=== PATIENT | female | born 1990 | race Caucasian/White ===

== ENCOUNTER 2022-03-03 23:34 | Observation (INO) | payer BC, SELFPAY ==
--- NOTE | ~2022-03-03 | NM_ITS ---
EXAMINATION: NM pulmonary perfusion DATE: 03/04/2022 10:20 INDICATION: Chest pain. TECHNIQUE: 5.5 mCi Tc-99m MAA was administered intravenously for perfusion images. Scintigraphic deo ges of the chest were obtained. COMPARISON: Chest CT 03/04/2022 FINDINGS: Perfusion images show matched small defects in right lower lobe. There are matched large defects in l eft lower lobe. IMPRESSION: 1. Nondiagnostic (intermediate probability). Reviewed, dictated and finalized at location B.
--- NOTE | ~2022-03-03 | CT_ITS ---
EXAMINATION: CTA chest PE protocol EXAM DATE: 03/04/2022 03:06 INDICATION: Elevated D Dimer. Chest Pain, Upper Back Pain. TECHNIQUE: Spiral CTA of the chest (pulmonary arteries) was performed with 100 cc Omnipaque 350 intr avenous contrast injection. Images were acquired during the pulmonary arterial phase. Coronal maxi mum intensity projection 3D-reconstructions were created by the technologist on dedicated workstation . Axial, coronal and sagittal reformatted images were reviewed. The dose-length product (DLP) for t his examination was 974.77 mGy-cm. The exposure was tailored according to patient size (auto mA exp osure control), and iterative reconstruction (ASIR) was used as additional dose reduction technique. There is no prior study for comparison. FINDINGS: There is moderate to large size pericardial effusion, with thick appearing pericardial wall and mild surrounding inflammation which could indicate acute pericarditis. The central pulmonary art eries are rather small in caliber, and possibility of cardiac tamponade should be considered, evaluat ed clinically. Some regions of decreased segmental attenuation probably artifactual given evidence of respiratory mo tion at these regions. No pulmonary emboli suspected. No aortic dissection. There are small bilateral pleural effusions. Linear left basilar subsegmental atelectasis. No evidenc e of pneumonia. There is hepatomegaly and hepatic steatosis. There are no osseous abnormalities ident ified. IMPRESSION: 1. Moderate to large pericardial effusion, pericardial wall thickening and mild adjacent fat strandi ng could indicate acute pericarditis. Small central pulmonary arteries, possible cardiac tamponade. No pulmonary emboli suspected. Consider cardiology consult. 2. Small pleural effusions. 3. Hepatomegaly and hepatic steatosis. Reviewed, dictated and finalized at location A. IMPRESSION: 1. Moderate to large pericardial effusion, pericardial wall thickening and mil d adjacent fat stranding could indicate acute pericarditis. Small central pulmo nary arteries, possible cardiac tamponade. No pulmonary emboli suspected. Cons ider cardiology consult. 2. Small pleural effusions. 3. Hepatomegaly and hepatic steatosis.
[2022-03-04] VITALS (30 sets, daily range): BP systolic 117–140; BP diastolic 62–92; PULSE 61–131; RESP 14–24; TEMP 36.5–36.9; O2SAT 94–100; BMI 54.4
--- NOTE | 2022-03-04 | ECHO_ITS ---
Patient Info Name: Kirsten Hendricks Age: 31 years : 1990 Gender: Female Ht: 63 in Wt: 290 lbs BSA: 2.50 m2 HR: 118 bpm BP: 130 / 78 mmHg Heart Rhythm: Tachycardia Technical Quality: Fair Exam Date: 03/04/2022 7:17 AM Exam Location: [facility] Patient Status: Outpatient Admit Date: 03/04/2022 Staff Ordering Physician: Miguel A Romero MD Industrial Editor: Danisha Wood RDCS Attending Provider: Angela Cano DO Referring Physician: Nick WISE; Exam Type: CA echo doppler color flow Study Info Indications - eval for tamponade Complete two-dimensional, color flow and Doppler transthoracic echocardiogram is performed. Summary 1. Technically difficult study with limited views. 2. Left ventricular chamber dimension is normal. 3. Left ventricular systolic function is hyperdynamic, estimated at >70%. 4. There is mildly increased left ventricular wall thickness. 5. The left ventricular diastolic function is grade I diastolic dysfunction. 6. There is trace tricuspid valve regurgitation. 7. No pulmonary hypertension, estimated pulmonary arterial systolic pressure is 18 mmHg. 8. Normal inferior vena cava with >50% collapse upon inspiration consistent with normal right atrial pressure, 5 mmHg. 9. The pericardium appears increased echogenicity of the pericardium. 10. There is small to moderate pericardial effusion largest anteriorly with fibrinous material within the pericardial space. By M-mode and echocardiogram no evidence of right atrial invagination or delayed RV free wall relaxation. However, borderline mitral and tricuspid valve inflows suggestive of possible early tamponade physiology yet incongruent with normal IVC size and collapse. Clinical correlation advised. Left Ventricle Technically difficult study with limited views. Left ventricular chamber dimension is normal. Left ventricular systolic function is hyperdynamic, estimated at >70%. There is mildly increased left ventricular wall thickness. The left ventricular diastolic function is grade I diastolic dysfunction. Right Ventricle Right ventricular chamber dimension is normal. Right ventricular systolic function is normal. Left Atria Left atrial chamber dimension is normal. Right Atria Right atrial chamber dimension is normal. Aortic Valve The aortic valve is not well visualized. There is no aortic valve stenosis. There is no aortic valve regurgitation. Pulmonic Valve The pulmonic valve is not well visualized. Mitral Valve The mitral valve has normal leaflets. There is no mitral valve regurgitation. Tricuspid Valve The tricuspid valve leaflets are not well visualized. There is trace tricuspid valve regurgitation. No pulmonary hypertension, estimated pulmonary arterial systolic pressure is 18 mmHg. Pericardium/Pleural The pericardium appears increased echogenicity of the pericardium. There is small to moderate pericardial effusion largest anteriorly with fibrinous material within the pericardial space. By M-mode and echocardiogram no evidence of right atrial invagination or delayed RV free wall relaxation. However, borderline mitral and tricuspid valve inflows suggestive of possible early tamponade physiology yet incongruent with normal IVC size and collapse. Clinical correlation advised. Inferior Vena Cava Normal inferior vena cava with >50% collapse upon inspiration consistent with normal right atrial pressure, 5 mmHg. Aorta The aortic root size at the sinus of Valsalva is
[2022-03-04 00:33] LABS: Basophils Percent Auto 0.3 % (0.2-1.2); Eosinophils Percent Auto 0.2 % (0-4.4); Hematocrit 38.1 % (37.0-47.0); Hemoglobin 11.7 g/dL (12.0-15.0); Immature Granulocyte Absolute 0.04 K/mm3 (0.00-0.031); Immature Granulocyte Percent A 0.3 % (0-0.5); Lymphocytes Absolute Auto 1.76 K/mm3 (0.9-3.2); Lymphocytes Percent Auto 14.5 % (18.3-44.2); Mean Corpuscular HGB Conc 30.7 g/dl (32-36); Mean Corpuscular Hemoglobin 25.7 pg (26-34); Mean Corpuscular Volume 83.7 fl (80-100); Mean Platelet Volume 8.6 fl (7.4-10.4); Monocytes Absolute Auto 0.6 K/mm3 (0.1-0.6); Neutrophils Absolute Auto 9.7 K/mm3 (1.3-6.7); Neutrophils Percent Auto 79.7 % (45.5-73.1); Platelet Count Result 416 k/mm3 (150-375); Red Blood Count 4.55 M/mm3 (4.2-5.4); Red Cell Distribution Width 15.7 % (11.5-14.5); White Blood Count 12.1 K/mm3 (4.5-10.0)
[2022-03-04 00:46] LABS: Alanine Aminotransferase 12 U/L (4-35); Albumin Level 3.8 g/dL (3.5-5.1); Alkaline Phosphatase 84 U/L (38-126); Anion Gap 11 mmol/L (8-16); Aspartate Amino Transferase 20 U/L (14-36); Bilirubin,Total 0.5 mg/dL (0.2-1.3); Blood Urea Nitrogen 6 mg/dL (7-17); Calcium 8.9 mg/dL (8.4-10.2); Carbon Dioxide 22 mmol/L (22-30); Chloride 102 mmol/L (98-107); Estimated CRCL calculation 181 ml/min; Estimated Glomerular Filt Rate > 60; Glucose 150 mg/dL (65-110); Lipase 52 U/L (23-300); Potassium 3.9 mmol/L (3.4-5.0); Sodium 135 mmol/L (137-145)
[2022-03-04 01:02] LABS: Appearance Urine Slightly Cloudy (Clear); Bilirubin Urine 1+ (Negative); Blood Urine 3+ (Negative); Color Urine Yellow (Yellow); Glucose Urine UA 2+ mg/dL (Negative); Ketones Urine 4+ mg/dL (Negative); Leukocyte Esterase Ur Negative LEU/UL (Negative); Nitrate Urine Negative (Negative); Protein Urine Trace mg/dL (Negative); Urobilinogen Urine 0.2 mg/dL (<2.0); pH Urine 5.5 (5.0-9.0)
[2022-03-04 01:06] LABS: Bacteria Urine Trace /hpf; Mucus Urine Rare /lpf; RBC Urine 21-50 /hpf (0-2); Squamous Epithelial Cell Urine Many /hpf (Few)
[2022-03-04 01:09] LABS: Add Urine Microscopic? YES
--- NOTE | 2022-03-04 01:39 | ED.GENADULT ---
HPI - General Adult General Chief complaint: Back Pain/Injury <Jose Elias Garcia APRN - Last Filed: 03/04/22 01:46> Stated complaint: bodyaches <Jose Elias Garcia APRN - Last Filed: 03/04/22 01:46> Time Seen by Provider: 03/04/22 01:19 <Jose Elias Garcia APRN - Last Filed: 03/04/22 01:46> History of Present Illness HPI narrative: 31-year-old female with a history of diabetes, Joan syndrome, PCOS, dyslipidemia presents to the emergency room with multiple complaints. Presenting complaint today is body aches and back ache. Patient states 3 weeks ago she was evaluated at an outside emergency room for midsternal chest pain that radiated through to her back. Patient states that this pain was constant and sharp and worsened with inspiration. Patient was evaluated in the emergency room at that time, where an EKG and lab work and chest x-ray were performed and patient states they were all negative. Patient states that she followed up with her PCP several days later, and was told the return to the emergency room if her symptoms have not improved. This morning, patient returned to the emergency room for continued chest pain and body aches. Patient states that she was diagnosed with a urinary tract infection and hyperglycemia. Patient denies any dysuria at this time and denies fever. <Jose Elias Garcia APRN - Last Filed: 03/04/22 01:46> Related Data Allergies/adverse reactions: Allergies Allergy/AdvReac Type Severity Reaction Status Date / Time amoxicillin [From Augmentin] Allergy Hives Verified 03/04/22 02:06 clavulanic acid Allergy Hives Verified 03/04/22 02:06 [From Augmentin] promethazine [From Phenergan] Allergy Hives Verified 03/04/22 02:06 <Jose Elias Garcia APRN - Last Filed: 03/04/22 01:46> Review of Systems Review of Systems: CONSTITUTIONAL: Reports body aches EYES: Denies visual changes, redness, or discharge. ENT: Denies rhinorrhea, congestion, sore throat, or otalgia. CARDIOVASCULAR: Reports reproducible chest pain, denies palpitations, or edema. RESPIRATORY: Denies cough or dyspnea. GASTROINTESTINAL: Denies abdominal pain, nausea, vomiting, or diarrhea. GENITOURINARY: Denies dysuria or hematuria. SKIN: Denies rash or itching. MUSCULOSKELETAL: Reports back pain, joint pain and muscle pain NEUROLOGIC: Denies headache, numbness, dizziness, or weakness. PSYCHIATRIC: Denies anxiety or depression. <Jose Elias Garcia APRN - Last Filed: 03/04/22 01:46> PMFSH Family History Family History: Family History Mother Family history of malignant neoplasm of breast in first degree relative <Jose Elias Garcia APRN - Last Filed: 03/04/22 01:46> Social History Social History: Social History Smoking status: Never smoker Alcohol intake: current <Jose Elias Garcia APRN - Last Filed: 03/04/22 01:46> Exam Narrative: GENERAL: Well-appearing, well-nourished EYES: PERRLA and EOMI. ENT: Nares clear, no rhinorrhea or epistaxis. Mucous membranes moist. NECK: Supple. No adenopathy or masses. CHEST: Clear to auscultation. No respiratory distress. No wheezes rales or rhonchi HEART: Regular rate and rhythm. No murmur heard. Normal peripheral pulses. ABDOMEN: Soft, nontender, obese, normal active bowel sounds. EXTREMITIES: Normal range of motion. No edema. SKIN: Warm, dry, no rash. NEURO: No focal deficits. Alert and oriented x3. PSYCH: Normal mood and affect. <Jose Elias Garcia APRN - Last Filed: 03/04/22 01:46> Course BOX PRINTING MACHINE OPERATOR/PA Physician Supervision For this patient encounter, I reviewed the BOX PRINTING MACHINE OPERATOR or PA documentation, treatment plan, and medical decision making; and I had [id number] time with this patient. 31-year-old female presenting the emergency department for evaluation of body aches and chest pain. Patient states on February 13 she began developing some chest pain that radiate
[2022-03-04] MEDS: SODIUM CHLORIDE 0.9% IV 1,000 ML 999 ML IV CONT (02:07)
[2022-03-04 02:10] LABS: Troponin I < 0.012 ng/mL (0.000-0.034)
[2022-03-04 02:20] LABS: CRP 20.7 mg/dL (<1.0)
[2022-03-04 02:24] LABS: Lactic Acid Reflex 1.3 mmol/L (0.7-2.1)
[2022-03-04 02:36] LABS: D Dimer 4.88 ug/mL (<0.48)
[2022-03-04 02:51] LABS: Erythrocyte Sedimentation Rate > 140 mm/hr (0-20)
[2022-03-04 03:59] LABS: Influenza A QL RT-PCR Negative (Negative); Influenza B QL RT-PCR Negative (Negative); SARS-CoV-2 RNA PCR Negative
--- NOTE | 2022-03-04 06:01 | ECG_ITS ---
Measurements Intervals [place] Rate: 122 P: 38 IA: 162 QRS: 36 QRSD: 98 T: 32 QT: 310 QTc: 442 Interpretive Statements SINUS TACHYCARDIA LOW QRS VOLTAGE IN PRECORDIAL LEADS [QRS DEFLECTION < 1.0 mV IN CHEST LEADS] NONSPECIFIC ST ELEVATION DIFFUSELY, CONSIDER PERICARDITIS, EARLY REPOLARIZATION ABNORMALITY ABNORMAL ECG NO PREVIOUS ECG AVAILABLE FOR COMPARISON Electronically Signed On 03-04-2022 17:54:41 CDT by Lokesh Brown M.D.
[2022-03-04] MEDS: HYDROmorphone HCL INJ (*CRX) 1 MG/ML SYR 0.5 MG IV PUSH (06:32)
--- NOTE | 2022-03-04 09:01 | ADMGEN ---
This patient, Kirsten Hendricks, was admitted to IMU Room 212-01. Patient/family oriented to hospital policies and general routines including ID bracelet, bed and alarms, visiting hours, pain management, procedures, bathroom and other care routines, personal items, smoking policy, room service/diet, and visiting hours. Information on how to activate the Rapid Response Team has been discussed. Patient/Family are encouraged to report perceived risks to care and to ask questions if they do not understand what they are told or what they should do.
--- NOTE | 2022-03-04 10:53 | PM.CNCAR ---
Assessment and Plan Assessment and plan (1) Pericarditis: Qualifiers: Chronicity: acute Pericarditis type: associated with other disease Qualified Code(s): I30.9 - Acute pericarditis, unspecified Code(s): I31.9 - Disease of pericardium, unspecified Status: Acute Assessment and Plan: Clinical presentation consistent with pericarditis subacute beginning proximally 3 weeks ago with subtle J-point elevation a by EKG, sinus tachycardia moderate pericardial effusion with echogenicity and thickening of the pericardium but without tamponade physiology by echocardiogram for clinical exam. Aggressively treat with anti-inflammatory regimen with ibuprofen 800 mg p.o. q.8 hours and add colchicine we 1.2 mg load followed by 0.6 mg b.i.d. dosing. We discussed risks and benefits in this regard. H2 blake or PPI for GI protection reasonable. We discussed the risk for recurrent and/or chronic relapsing pericarditis. Avoid steroids for treatment pericarditis if at all possible. We discussed the need to monitor hemodynamically potential for pericardiocentesis if she becomes hemodynamically unstable. However, given the size of the pericardial effusion in her hemodynamic stability this is consistent with the chronic for slower progressing pericardial effusion. I suspect her pericardial inflammation is a consequence of a systemic inflammatory condition as opposed to an idiopathic isolated secondary problem. However, additional workup per primary service will be necessary including autoimmune considerations. (2) Pericardial effusion: Code(s): I31.3 - Pericardial effusion (noninflammatory) Status: Acute Assessment and Plan: As above, least moderate in size without echocardiographic or hemodynamic evidence of tamponade physiology despite her tachycardia. Continue to monitor clinically. Avoid significant intravascular volume depletion. If she becomes hypotensive and or more tachycardic aggressive IV fluid resuscitation would be critical. We do not have plans for diagnostic pericardiocentesis and is otherwise not recommended at this time. 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 As above, workup defer to primary service in this regard. (4) DIEGO on CPAP: Code(s): G47.33 - Obstructive sleep apnea (adult) (pediatric); Z99.89 - Dependence on other enabling machines and devices Status: Acute Assessment and Plan: Compliance with CPAP. (5) Diabetes 1.5, managed as type 2: Code(s): E13.9 - Other specified diabetes mellitus without complications Status: Acute Assessment and Plan: Management per primary service. (6) Morbid obesity with BMI of 50.0-59.9, adult: Code(s): E66.01 - Morbid (severe) obesity due to excess calories; Z68.43 - Body mass index [BMI] 50.0-59.9, adult Status: Acute Assessment and Plan: Lifestyle modification. History of Present Illness History of Present Illness Consult date/time: Date of service: 03/04/22 10:53 Cardiology consultation at the request of Dr. Romero for our opinion regarding pericardial effusion and chest pain. Requesting physician: Miguel A Romero MD Consult reason: chest pain and Other (Pericardial effusion) Reason For Visit: Pericardial Effusion Narrative: Patient is a 31-year-old female with a past medical history significant for PCOS, type 2 diabetes mellitus, morbid obesity, DIEGO on CPAP who presented to the ER with complaints of chest pain worse with deep breathing, movement and coughing. Chest pain began around February 13 is relatively sharp in nature radiates to her back. Patient also complains of worsening fatigue since August 2021 with migratory arthritis beginning her left wrist going down into her feet ankles then spreading throughout the rest for broader
--- NOTE | 2022-03-04 12:07 | PM.IMHP ---
H&P: HPI History of Present Illness Date/Time: 03/04/22 12:07 Chief Complaint: 31 years old female with past medical history of diabetes on Jardiance recent UTI patient has complained of body aches started since last August worsening gradually associated with joint pain started in the rest now she has multi joint pain patient denies skin rash patient still complaining of chest pain in the center of the chest dull in nature sharp sometimes radiating to the back worsening with deep breath severe patient has positive contact with a person who has flu-like symptoms COVID-19 was negative at the ER patient was found to have pericardial effusion concern for tamponade also has leukocytosis tachycardia elevated ESR and CRP admitted for further evaluation and treatment Review of Systems Review of Systems: All systems reviewed & are unremarkable except as noted in HPI and below PMFSH Past Medical History Medical History (Updated 03/04/22 @ 12:14 by Summer Pearce MD) Diabetes 1.5, managed as type 2 DIEGO on CPAP PCOS (polycystic ovarian syndrome) Sleep apnea in adult Family History Family History Mother Family history of malignant neoplasm of breast in first degree relative Social History Social History Smoking status: Never smoker Second hand tobacco smoke exposure: Yes Alcohol intake: former Drinks per week: 0 (1 per year) Substance use: never Substance use type: does not use Living arrangements: with friend(s) Occupation/Education: student Gender identity (if verbalized by the patient): Female Spiritual care concerns: No Agree to blood products: No Meds Home Medications and Allergies Home Medications Medication Instructions Recorded Confirmed Type aripiprazole 2 mg PO HS 03/04/22 03/04/22 History empagliflozin [Jardiance] 25 mg PO DAILY 03/04/22 03/04/22 History insulin glargine [Lantus Solostar 22 unit SUBCUT HS 03/04/22 03/04/22 History U-100 Insulin] metformin 1,000 mg PO BID 03/04/22 03/04/22 History montelukast 10 mg PO HS 03/04/22 03/04/22 History pen needle, diabetic [TRUEplus Pen 03/04/22 03/04/22 History Needle] rosuvastatin 5 mg PO DAILY 03/04/22 03/04/22 History sertraline 100 mg PO DAILY 03/04/22 03/04/22 History Allergies Allergy/AdvReac Type Severity Reaction Status Date / Time amoxicillin [From Augmentin] Allergy Hives Verified 03/04/22 09:28 clavulanic acid Allergy Hives Verified 03/04/22 09:28 [From Augmentin] promethazine [From Phenergan] Allergy Hives Verified 03/04/22 09:28 Vital Signs Vital Signs - 24 hr 03/04/22 00:21 03/04/22 01:23 03/04/22 01:26 Temperature 98.5 F Pulse Rate 128 H 131 H Respiratory Rate 20 22 H 14 Blood Pressure 131/63 135/72 Pulse Oximetry 98 99 98 03/04/22 01:33 03/04/22 01:45 03/04/22 01:47 Temperature Pulse Rate 128 H 125 H 124 H Respiratory Rate 15 17 22 H Blood Pressure 132/92 H Pulse Oximetry 97 97 03/04/22 02:10 03/04/22 02:15 03/04/22 02:44 Temperature Pulse Rate 126 H 131 H 128 H Respiratory Rate 18 21 H 20 Blood Pressure 124/81 Pulse Oximetry 97 03/04/22 03:00 03/04/22 03:01 03/04/22 03:15 Temperature Pulse Rate 126 H 126 H 125 H Respiratory Rate 20 24 H 20 Blood Pressure 129/88 Pulse Oximetry 97 97 100 03/04/22 03:17 03/04/22 04:01 03/04/22 04:02 Temperature Pulse Rate 125 H 124 H 124 H Respiratory Rate 22 H 23 H 19 Blood Pressure 121/84 Pulse Oximetry 99 96 96 03/04/22 04:15 03/04/22 04:53 03/04/22 05:10 Temperature Pulse Rate 127 H Respiratory Rate 20 Blood Pressure Pulse Oximetry 97 98 97 03/04/22 05:15 03/04/22 05:30 03/04/22 05:45 Temperature Pulse Rate Respiratory Rate Blood Pressure Pulse Oximetry 97 96 96 03/04/22 08:24 03/04/22 08:35 03/04/22 10:00 Temperature 98 F Pulse Rate
[2022-03-04 12:42] LABS: Rheumatoid Factor < 8.6 IU/ML (<12)
[2022-03-04 12:42] LABS: Uric Acid 3.9 mg/dL (2.5-7.5)
[2022-03-04] MEDS: COLCHICINE 0.6 MG TABLET 1.2 MG PO (12:55)
[2022-03-04] MEDS: SODIUM CHLORIDE 0.9% IV 1,000 ML 75 ML IV CONT (12:59)
[2022-03-04] MEDS: IBUPROFEN 400 MG TABLET 800 MG PO ×2 (13:04→21:23)
[2022-03-04 13:21] LABS: HIV 1/2 Ab P24 Ag Result Negative (Negative)
[2022-03-04 13:24] LABS: Free T4 Free Thyroxine 1.01 ng/mL (0.78-2.19)
[2022-03-04 13:36] LABS: Hepatitis B Surface Antigen Negative (Negative)
[2022-03-04 13:42] LABS: HAV RESULT Negative (Negative); Hepatitis B Core IgM Result Negative (Negative)
[2022-03-04 13:53] LABS: Hepatitis C Virus Antibody Negative (Negative)
[2022-03-04 18:37] LABS: Glucose Point of Care 146 mg/dl (65-105)
[2022-03-04 19:50] LABS: Glucose Point of Care 131 mg/dl (65-105)
[2022-03-04] MEDS: ARIPiprazole 2 MG TABLET PO (21:23)
[2022-03-04] MEDS: COLCHICINE 0.6 MG TABLET PO (21:23)
[2022-03-04] MEDS: MONTELUKAST SODIUM 10 MG TABLET PO (21:23)
[2022-03-04] MEDS: INSULIN GLARGINE (*BKC) 100 UNITS/ML 22 UNITS SUB-Q (21:24)
[2022-03-05] VITALS (13 sets, daily range): BP systolic 101–134; BP diastolic 66–82; PULSE 85–109; RESP 2–28; TEMP 36.3–36.6; O2SAT 0–99
[2022-03-05 04:49] LABS: Basophils Percent Auto 0.2 % (0.2-1.2); Eosinophils Absolute Auto 0.1 K/mm3 (0-0.3); Hematocrit 35.2 % (37.0-47.0); Hemoglobin 10.4 g/dL (12.0-15.0); Immature Granulocyte Absolute 0.06 K/mm3 (0.00-0.031); Immature Granulocyte Percent A 0.7 % (0-0.5); Lymphocytes Absolute Auto 1.02 K/mm3 (0.9-3.2); Lymphocytes Percent Auto 12.4 % (18.3-44.2); Mean Corpuscular HGB Conc 29.5 g/dl (32-36); Mean Corpuscular Hemoglobin 25.5 pg (26-34); Mean Corpuscular Volume 86.3 fl (80-100); Mean Platelet Volume 8.4 fl (7.4-10.4); Monocytes Absolute Auto 0.5 K/mm3 (0.1-0.6); Monocytes Percent Auto 5.6 % (2.6-8.5); Neutrophils Absolute Auto 6.6 K/mm3 (1.3-6.7); Neutrophils Percent Auto 80.1 % (45.5-73.1); Platelet Count Result 310 k/mm3 (150-375); Red Blood Count 4.08 M/mm3 (4.2-5.4); Red Cell Distribution Width 15.9 % (11.5-14.5); White Blood Count 8.2 K/mm3 (4.5-10.0)
[2022-03-05 05:02] LABS: Alanine Aminotransferase 9 U/L (4-35); Albumin Level 3.3 g/dL (3.5-5.1); Alkaline Phosphatase 71 U/L (38-126); Anion Gap 10 mmol/L (8-16); Aspartate Amino Transferase 17 U/L (14-36); Bilirubin,Total 0.5 mg/dL (0.2-1.3); Blood Urea Nitrogen 7 mg/dL (7-17); Calcium 8.6 mg/dL (8.4-10.2); Carbon Dioxide 21 mmol/L (22-30); Chloride 106 mmol/L (98-107); Estimated CRCL calculation 187 ml/min; Estimated Glomerular Filt Rate > 60; Glucose 157 mg/dL (65-110); Potassium 3.5 mmol/L (3.4-5.0); Sodium 137 mmol/L (137-145)
[2022-03-05] MEDS: IBUPROFEN 400 MG TABLET 800 MG PO ×3 (06:17→21:17)
[2022-03-05 07:27] LABS: Glucose Point of Care 109 mg/dl (65-105)
--- NOTE | 2022-03-05 08:00 | ECG_ITS ---
Measurements Intervals [place] Rate: 90 P: 60 DE: 173 QRS: 65 QRSD: 109 T: 82 QT: 339 QTc: 416 Interpretive Statements SINUS RHYTHM POOR R-WAVE PROGRESSION BORDERLINE ECG COMPARED TO ECG 03/04/2022 06:07:51 HEART RATE HAS DECREASED Electronically Signed On 03-05-2022 16:56:08 CDT by Lokesh Brown M.D.
[2022-03-05] MEDS: SERTRALINE HCL 50 MG TABLET 100 MG PO (09:27)
[2022-03-05] MEDS: COLCHICINE 0.6 MG TABLET PO ×2 (09:27→21:17)
[2022-03-05] MEDS: ENOXAPARIN 40 MG/0.4 ML SYRINGE SUB-Q (09:27)
--- NOTE | 2022-03-05 09:54 | PM.PNCARD ---
Progress Note: A&P Assessment and Plan (1) Pericarditis: Qualifiers: Chronicity: acute Pericarditis type: associated with other disease Qualified Code(s): I30.9 - Acute pericarditis, unspecified <BLANCA Bunch - Last Filed: 03/05/22 13:09> Code(s): I31.9 - Disease of pericardium, unspecified <BLANCA Bunch - Last Filed: 03/05/22 13:09> Status: Acute <BLANCA Bunch - Last Filed: 03/05/22 13:09> Assessment and Plan: Clinical presentation consistent with pericarditis subacute beginning approximately 3 weeks ago with subtle J-point elevation a by EKG, sinus tachycardia moderate pericardial effusion with echogenicity and thickening of the pericardium but without tamponade physiology by echocardiogram for clinical exam. Symptoms improving. Continue treatment with with anti-inflammatory regimen of ibuprofen 800 mg p.o. q.8 hours and colchicine 0.6 mg b.i.d. dosing. <BLANCA Bunch - Last Filed: 03/05/22 13:09> (2) Pericardial effusion: Code(s): I31.3 - Pericardial effusion (noninflammatory) <BLANCA Bunch - Last Filed: 03/05/22 13:09> Status: Acute <BLANCA Bunch - Last Filed: 03/05/22 13:09> Assessment and Plan: As above, at least moderate in size without echocardiographic or hemodynamic evidence of tamponade physiology despite her tachycardia. Continue to monitor clinically. Avoid significant intravascular volume depletion. If she becomes hypotensive and or more tachycardic aggressive IV fluid resuscitation would be critical. We do not have plans for diagnostic pericardiocentesis and is otherwise not recommended at this time. 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 As above, workup defer to primary service in this regard. <BLANCA Bunch - Last Filed: 03/05/22 13:09> (4) DIEGO on CPAP: Code(s): G47.33 - Obstructive sleep apnea (adult) (pediatric); Z99.89 - Dependence on other enabling machines and devices <BLANCA Bunch - Last Filed: 03/05/22 13:09> Status: Acute <BLANCA Bunch - Last Filed: 03/05/22 13:09> Assessment and Plan: Compliance with CPAP. <BLANCA Bunch - Last Filed: 03/05/22 13:09> (5) Diabetes 1.5, managed as type 2: Code(s): E13.9 - Other specified diabetes mellitus without complications <BLANCA Bunch - Last Filed: 03/05/22 13:09> Status: Acute <BLANCA Bunch - Last Filed: 03/05/22 13:09> Assessment and Plan: Management per primary service. <BLANCA Bunch - Last Filed: 03/05/22 13:09> (6) Morbid obesity with BMI of 50.0-59.9, adult: Code(s): E66.01 - Morbid (severe) obesity due to excess calories; Z68.43 - Body mass index [BMI] 50.0-59.9, adult <BLANCA Bunch - Last Filed: 03/05/22 13:09> Status: Acute <BLANCA Bunch - Last Filed: 03/05/22 13:09> Assessment and Plan: Lifestyle modification. <BLANCA Bunch - Last Filed: 03/05/22 13:09> Additional Plan Attending Addendum: I have personally seen and examined this patient at bedside. I agree with the above documentation and plan of care as outlined. -patient continues to have some discomfort in her chest although much improved. She rates it a 4/10 but admits she is quite comfortable. Feeling better overall. Denies shortness of breath no fevers or chills. Heart rate much improved generally in the 90s to 100 down from the 120s. Blood pressure stable. Denies dizziness. Tolerating medications. Exam: Very pleasant, morbidly ob
--- NOTE | 2022-03-05 11:02 | PM.IMPN ---
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 if cultures negative (2) Pericarditis: Qualifiers: Pericarditis type: associated with other disease Chronicity: acute Qualified Code(s): I30.9 - Acute pericarditis, unspecified Code(s): I31.9 - Disease of pericardium, unspecified Status: Acute Assessment and Plan: Pending autoimmune on above workup Started on colchicine Associated with moderate to large pericardial effusion Cardiology was consulted Started on colchicine Cardiology recommendation appreciated (3) PCOS (polycystic ovarian syndrome): Code(s): E28.2 - Polycystic ovarian syndrome Status: Acute Assessment and Plan: Stable monitor (4) DIEGO on CPAP: Code(s): G47.33 - Obstructive sleep apnea (adult) (pediatric); Z99.89 - Dependence on other enabling machines and devices Status: Acute Assessment and Plan: Continue home treatment (5) Pericardial effusion: Code(s): I31.3 - Pericardial effusion (noninflammatory) Status: Acute Assessment and Plan: As above (6) Diabetes 1.5, managed as type 2: Code(s): E13.9 - Other specified diabetes mellitus without complications Status: Acute Assessment and Plan: Insulin sliding scale Hold Jardiance (7) Morbid obesity with BMI of 50.0-59.9, adult: Code(s): E66.01 - Morbid (severe) obesity due to excess calories; Z68.43 - Body mass index [BMI] 50.0-59.9, adult Status: Acute Assessment and Plan: Diet exercise (8) Leukocytosis: Code(s): D72.829 - Elevated white blood cell count, unspecified Status: Acute Assessment and Plan: Associated with tachycardia elevated ESR CRP Started empiric antibiotics Blood culture negative Negative hepatitis panel HIV respiratory panel If blood culture continue to be negative Consider DC antibiotic in a.m. Anticipate discharge probably in the next 24 hours blood cultures negative and patient's symptom improved Subjective Date/time seen: 03/05/22 11:02 Interval history: 31 years old female with past medical history of diabetes on Jardiance recent UTI patient has complained of body aches started since last August worsening gradually associated with joint pain started in the rest now she has multi joint pain patient denies skin rash patient still complaining of chest pain in the center of the chest dull in nature sharp sometimes radiating to the back worsening with deep breath severe patient has positive contact with a person who has flu-like symptoms COVID-19 was negative at the ER patient was found to have pericardial effusion concern for tamponade also has leukocytosis tachycardia elevated ESR and CRP patient was started on empiric antibiotics viral and autoimmune panel was sent hepatitis panel is negative blood culture negative so far cardiology consult no evidence of tamponade started on colchicine for pericarditis Continue antibiotic for today pending final blood culture most likely DC antibiotic in a.m. Pending autoimmune workup Patient feels feels better today joint pain has significantly improved chest pain has significantly improved Anticipate discharge probably in a.m. if blood culture is negative pending autoimmune workup Probably patient need to follow up with hand molder meat as outpatient Patient denies fever headache chest pain I am seeing the patient for chest pain Objective Data Vital Signs Vital Signs: Vital Signs - 24 hr 03/04/22 12:00 03/04/22 16:00 03/04/22 19:34 Temperature 98.3 F 97.7 F 98.2 F Pulse Rate 111 H 61 104 H Respiratory Rat
[2022-03-05 12:18] LABS: Glucose Point of Care 121 mg/dl (65-105)
[2022-03-05] MEDS: HYDROcodone/acetaminophen (*CRX) 5-325 MG TABLET 1 TAB PO (14:27)
[2022-03-05 17:14] LABS: Glucose Point of Care 123 mg/dl (65-105)
[2022-03-05 19:59] LABS: Glucose Point of Care 140 mg/dl (65-105)
[2022-03-05] MEDS: ARIPiprazole 2 MG TABLET PO (21:17)
[2022-03-05] MEDS: MONTELUKAST SODIUM 10 MG TABLET PO (21:18)
[2022-03-05] MEDS: INSULIN GLARGINE (*BKC) 100 UNITS/ML 22 UNITS SUB-Q (21:19)
[2022-03-06] VITALS (10 sets, daily range): BP systolic 105–126; BP diastolic 65–83; PULSE 87–103; RESP 15–22; TEMP 36.4–37; O2SAT 96–100
[2022-03-06 01:33] LABS: Vancomycin Trough 7.6 ug/mL (10.0-20.0)
[2022-03-06] MEDS: IBUPROFEN 400 MG TABLET 800 MG PO ×2 (05:42→12:33)
[2022-03-06 07:19] LABS: Basophils Percent Auto 0.3 % (0.2-1.2); Eosinophils Absolute Auto 0.1 K/mm3 (0-0.3); Eosinophils Percent Auto 1.3 % (0-4.4); Hematocrit 35.5 % (37.0-47.0); Hemoglobin 10.6 g/dL (12.0-15.0); Immature Granulocyte Absolute 0.06 K/mm3 (0.00-0.031); Immature Granulocyte Percent A 0.8 % (0-0.5); Lymphocytes Absolute Auto 1.16 K/mm3 (0.9-3.2); Lymphocytes Percent Auto 15.2 % (18.3-44.2); Mean Corpuscular HGB Conc 29.9 g/dl (32-36); Mean Corpuscular Volume 83.7 fl (80-100); Mean Platelet Volume 8.5 fl (7.4-10.4); Monocytes Absolute Auto 0.4 K/mm3 (0.1-0.6); Monocytes Percent Auto 5.4 % (2.6-8.5); Neutrophils Absolute Auto 5.9 K/mm3 (1.3-6.7); Platelet Count Result 320 k/mm3 (150-375); Red Blood Count 4.24 M/mm3 (4.2-5.4); Red Cell Distribution Width 15.9 % (11.5-14.5); White Blood Count 7.7 K/mm3 (4.5-10.0)
[2022-03-06 07:49] LABS: Alanine Aminotransferase 9 U/L (4-35); Alkaline Phosphatase 68 U/L (38-126); Anion Gap 10 mmol/L (8-16); Aspartate Amino Transferase 14 U/L (14-36); Bilirubin,Total 0.3 mg/dL (0.2-1.3); Blood Urea Nitrogen 6 mg/dL (7-17); Calcium 8.5 mg/dL (8.4-10.2); Carbon Dioxide 21 mmol/L (22-30); Chloride 107 mmol/L (98-107); Estimated CRCL calculation 230 ml/min; Estimated Glomerular Filt Rate > 60; Glucose 160 mg/dL (65-110); Potassium 3.6 mmol/L (3.4-5.0); Sodium 138 mmol/L (137-145)
[2022-03-06] MEDS: COLCHICINE 0.6 MG TABLET PO (08:19)
[2022-03-06] MEDS: SERTRALINE HCL 50 MG TABLET 100 MG PO (08:19)
[2022-03-06] MEDS: ENOXAPARIN 40 MG/0.4 ML SYRINGE SUB-Q (08:19)
[2022-03-06 08:36] LABS: Platelet Estimate Adequate (Adequate)
[2022-03-06 08:37] LABS: Anisocytosis 1+ (NORMAL); Hypochromasia 1+ (NORMAL); Ovalocytes 1+ (NORMAL)
[2022-03-06 08:53] LABS: Glucose Point of Care 147 mg/dl (65-105)
[2022-03-06 12:26] LABS: Glucose Point of Care 156 mg/dl (65-105)
--- NOTE | 2022-03-06 15:01 | PM.PNCARD ---
Progress Note: A&P Assessment and Plan (1) Pericarditis: Qualifiers: Pericarditis type: associated with other disease Chronicity: acute Qualified Code(s): I30.9 - Acute pericarditis, unspecified Code(s): I31.9 - Disease of pericardium, unspecified Status: Acute Assessment and Plan: Clinical presentation consistent with pericarditis subacute beginning approximately 3 weeks ago with subtle J-point elevation a by EKG, sinus tachycardia moderate pericardial effusion with echogenicity and thickening of the pericardium but without tamponade physiology by echocardiogram for clinical exam. Symptoms improving. Continue treatment with with anti-inflammatory regimen of ibuprofen 800 mg p.o. q.8 hours and colchicine 0.6 mg b.i.d. dosing. - Plan for 3 week taper. Continue ibuprofen 800 mg 3 times daily for 3 more days then 800 mg twice daily for 7 days. Then, she will reduced ibuprofen to 800 mg once daily for 7 days then discontinue. She will continue colchicine 0.6 mg twice daily for 30 days then discontinue. She has been advised should she have recurrent chest pain, fevers, chills, shortness of breath, near-syncope or syncope to notify the office immediately and or present to the nearest ER. She has been counseled to call our office with any recurrent symptoms or if she is unable to obtain colchicine. - Stable for discharge home today from cardiac perspective. Disposition per hospitalist service. (2) Pericardial effusion: Code(s): I31.3 - Pericardial effusion (noninflammatory) Status: Acute Assessment and Plan: As above, at least moderate in size without echocardiographic or hemodynamic evidence of tamponade physiology despite her tachycardia. Continue to monitor clinically. Avoid significant intravascular volume depletion. - Repeat 2D echocardiogram in the office in 1 week. Counseled on tamponade symptoms, tachycardia, hypotension, near-syncope, syncope and potential danger and potential life-threatening risk in this regard. all questions answered to her satisfaction. 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 As above, workup defer to primary service in this regard. (4) DIEGO on CPAP: Code(s): G47.33 - Obstructive sleep apnea (adult) (pediatric); Z99.89 - Dependence on other enabling machines and devices Status: Acute Assessment and Plan: Compliance with CPAP. (5) Diabetes 1.5, managed as type 2: Code(s): E13.9 - Other specified diabetes mellitus without complications Status: Acute Assessment and Plan: Management per primary service. (6) Morbid obesity with BMI of 50.0-59.9, adult: Code(s): E66.01 - Morbid (severe) obesity due to excess calories; Z68.43 - Body mass index [BMI] 50.0-59.9, adult Status: Acute Assessment and Plan: Lifestyle modification. Subjective Date/time seen: Date of service:03/06/22 15:01 Follow-up for pericarditis, pericardial effusion patient states her chest pain has completely resolved. She denies shortness of breath, dizziness, near-syncope or syncope. No new issues overnight. No fevers or chills. Patient states her overall arthritic pain is resolving and her hands are much less swollen. Avoid from his at bedside. Patient states she feels well to go home today. Review of Systems Review of Systems: All systems reviewed & are unremarkable except as noted in HPI and below Constitutional: Constitutional: Reports as per HPI, Reports no additional constitutional complaints, Reports body ache(s), Reports daytime sleepiness, Reports fatigue, Reports fever(s), Reports lethargy, Reports weakness and Denies weight gain Eyes: Eyes: Reports as per HPI and Reports no additional eye complaints ENT: Reports system reviewed and no additional
--- NOTE | 2022-03-06 15:56 | PM.DS ---
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 if cultures negative (2) Pericarditis: Qualifiers: Pericarditis type: associated with other disease Chronicity: acute Qualified Code(s): I30.9 - Acute pericarditis, unspecified Code(s): I31.9 - Disease of pericardium, unspecified Status: Acute Assessment and Plan: Pending autoimmune on above workup Started on colchicine Associated with moderate to large pericardial effusion Cardiology was consulted Started on colchicine Cardiology recommendation appreciated (3) PCOS (polycystic ovarian syndrome): Code(s): E28.2 - Polycystic ovarian syndrome Status: Acute Assessment and Plan: Stable monitor (4) DIEGO on CPAP: Code(s): G47.33 - Obstructive sleep apnea (adult) (pediatric); Z99.89 - Dependence on other enabling machines and devices Status: Acute Assessment and Plan: Continue home treatment (5) Pericardial effusion: Code(s): I31.3 - Pericardial effusion (noninflammatory) Status: Acute Assessment and Plan: As above (6) Diabetes 1.5, managed as type 2: Code(s): E13.9 - Other specified diabetes mellitus without complications Status: Acute Assessment and Plan: Insulin sliding scale Hold Jardiance (7) Morbid obesity with BMI of 50.0-59.9, adult: Code(s): E66.01 - Morbid (severe) obesity due to excess calories; Z68.43 - Body mass index [BMI] 50.0-59.9, adult Status: Acute Assessment and Plan: Diet exercise (8) Leukocytosis: Code(s): D72.829 - Elevated white blood cell count, unspecified Status: Acute Assessment and Plan: Associated with tachycardia elevated ESR CRP Started empiric antibiotics Blood culture negative Negative hepatitis panel HIV respiratory panel If blood culture continue to be negative Consider DC antibiotic in a.m. Anticipate discharge probably in the next 24 hours blood cultures negative and patient's symptom improved DS: Summary Hospital Course Reason for hospitalization: Chief Complaint: 31 years old female with past medical history of diabetes on Jardiance recent UTI patient has complained of body aches started since last August worsening gradually associated with joint pain started in the rest now she has multi joint pain patient denies skin rash patient still complaining of chest pain in the center of the chest dull in nature sharp sometimes radiating to the back worsening with deep breath severe patient has positive contact with a person who has flu-like symptoms COVID-19 was negative at the ER patient was found to have pericardial effusion concern for tamponade also has leukocytosis tachycardia elevated ESR and CRP admitted for further evaluation and treatment Hospital Course: Patient was seen by her business intelligence engineer and clinically stable to discharge home, patient to take: Ibuprofen 800mg three times a day for 3day Ibuprofen 800mg twice a day for 7days ibuprofen 800mg once a day for 7 day then discontinue. Colchicine 0.6mg twice a for 30days. Patient to call her business intelligence engineer for any questions and concerns,follow up as scheduled. Patient to follow up with her primary care provider as soon as possible. Patient is instructed if any symptoms redevelop to go to nearest ER. patient remains clinically stable will discharge the patient today Status at Discharge Functional status at discharge: independent ambulation Overall status at discharge: patient is back to baseline
[2022-03-06 18:25] LABS: Anti Nuclear Antibody Titer >=1:1280 (Negative)
[2022-03-08 19:03] LABS: EBV Nuclear Ab Antibody >600.00 U/mL (<18.00); EBV Nuclear Ab Interpretation Past; EBV Virus Capsid Ag IgM Ab <36.00 U/mL (<36.00)
== END 2022-03-06 16:40 | disposition home or self-care (01) ==
LOC: ANHED 03-04 06:53 → ANHIMU 03-04 10:52
PROVIDERS: Emergency Medicine; Internal Medicine; Admitting Provider Internal Medicine; Emergency Provider Nurse Practitioner Family; Visit Provider Family Medicine
DX: I30.9 Acute pericarditis, unspecified (principal); D72.829 Elevated white blood cell count, unspecified; R00.0 Tachycardia, unspecified; M13.80 Other specified arthritis, unspecified site; G47.33 Obstructive sleep apnea (adult) (pediatric); E28.2 Polycystic ovarian syndrome; E13.9 Other specified diabetes mellitus without complications; E66.01 Morbid (severe) obesity due to excess calories; Z68.43 Body mass index [BMI] 50.0-59.9, adult; Z79.84 Long term (current) use of oral hypoglycemic drugs; Z79.4 Long term (current) use of insulin; Z20.822 Contact with and (suspected) exposure to COVID-19; Z11.4 Encounter for screening for human immunodeficiency virus [HIV]
CPT/HCPCS: 36415; 71275; 78580; 80053; 80074; 80202; 81001; 81025; 82533; 82948; 83605; 83690; 84439; 84443; 84484; 84550; 85025; 85380; 85652; 86038; 86039; 86140; 86430; 86664; 86665; 86703; 86747; 87040; 87502; 93005; 93306; 96361; 96365; 96366; 96367; 96372; 96375; 96376; 99285; A9270; A9540; C9803; G0378; G0379; G0432; J0692; J1170; J1650; J1815; J3370; J7030; Q9967; U0003; U0005

== ENCOUNTER 2022-04-09 12:11 | Outpatient (CLI) | payer BC, SELFPAY ==
--- NOTE | 2022-04-09 12:30 | ECHO_ITS ---
Patient Info Name: Kirsten Hendricks Age: 31 years : 1990 Gender: Female Ht: 63 in Wt: 298 lbs BSA: 2.54 m2 HR: 64 bpm BP: 112 / 86 mmHg Technical Quality: Good Exam Date: 04/09/2022 12:51 PM Exam Location: [facility] Patient Status: Outpatient Admit Date: 04/09/2022 Staff Ordering Physician: Shawn Correa DO Assisted Sales Representative: Dashawn Frost RDCS, RT Attending Provider: Ranjana Coyle Referring Physician: Sunny AGRAWAL; Exam Type: CA echo dop color flow w con Study Info Indications I30.0 - Acute nonspecific idiopathic pericarditis Complete two-dimensional, color flow and Doppler transthoracic echocardiogram is performed. Strain analysis performed. Summary 1. Complete two-dimensional, color flow and Doppler transthoracic echocardiogram is performed. 2. Left ventricular systolic function is preserved, estimated at 50-55%. 3. Left ventricular chamber dimension is mildly enlarged. 4. The left ventricular diastolic function is normal. 5. E/e' 6 is not elevated. 6. Global longitudinal strain is abnormal at -14.6%. Left Ventricle E/e' 6 is not elevated. Global longitudinal strain is abnormal at -14.6%. Left ventricular systolic function is preserved, estimated at 50-55%. Left ventricular chamber dimension is mildly enlarged. The left ventricular diastolic function is normal. Right Ventricle Right ventricular chamber dimension is normal. Right ventricular systolic function is normal and with normal TAPSE 2.1 cm. Left Atria Left atrial chamber dimension is normal. Right Atria Right atrial chamber dimension is normal. Aortic Valve The aortic valve is trileaflet. There is no aortic valve stenosis. There is no aortic valve regurgitation. Pulmonic Valve There is no pulmonic regurgitation. Mitral Valve There is no mitral valve stenosis. There is no mitral valve regurgitation. Tricuspid Valve There is no tricuspid valve regurgitation. Pericardium/Pleural There is no pericardial effusion. Inferior Vena Cava Normal inferior vena cava with >50% collapse upon inspiration consistent with normal right atrial pressure, 5 mmHg. Aorta The aortic root size at the sinus of Valsalva is normal. Left Ventricular Outflow Tract Name Value Normal LVOT 2D LVOT Diameter 2.04 cm LVOT Doppler LVOT Peak Gradient 3 mmHg LVOT Mean Gradient 2 mmHg LVOT VTI 18.56 cm LVOT VTI/AV VTI Ratio 0.78 LVOT Stroke Volume 60.89 ml LVOT CO 3.75 l/min LVOT CI 1.48 L/min/m2 Mitral Valve Name Value Normal MV Doppler MV Decel [place] 380.79 cm/s2 MV PHT 0 s MV Area (PHT)
== END 2022-04-09 12:12 | disposition home or self-care (01) ==
LOC: ANHCARD 12:12
PROVIDERS: Visit Provider Nurse Practitioner
DX: I30.0 Acute nonspecific idiopathic pericarditis (principal); R93.1 Abnormal findings on diagnostic imaging of heart and coronary circulation
CPT/HCPCS: 93306

== ENCOUNTER 2022-06-30 02:50 | Emergency (ER) | payer BC, SELFPAY ==
--- NOTE | ~2022-06-30 | CT_ITS ---
EXAMINATION: CTA chest PE protocol DATE: 06/30/2022 05:05 INDICATION: Chest pain, tachycardia, shortness of breath and elevated d-dimer. TECHNIQUE: Computed tomography (CT) pulmonary angiogram of the chest was performed with 200 mL Omnipa que-350 intravenous contrast. Additional 3D reconstructions utilizing coronal maximum intensity proje ction (MIP) were performed. Automated exposure control and iterative reconstruction technique were em ployed. The dose-length product was 2002.75 mGy-cm. COMPARISON: None FINDINGS: There is poor contrast opacification of the pulmonary arteries on both the initial and repeat imaging which significantly decreases sensitivity at the segmental pulmonary arteries and rendered evaluatio n in the more peripheral subsegmental pulmonary arteries nondiagnostic. No evident pulmonary embolism . Mild discoid atelectasis in the lingula and left lower lobe. No pneumonia, pulmonary edema, pleural effusion or pneumothorax. Heart size is normal. No pericardial effusion. Thoracic aorta is normal in caliber with no dissection. No pathologically enlarged thoracic lymphadenopathy. Small sliding-type hiatal hernia and/or wall thickening in the distalmost esophagus. Visualized upper abdomen and bones are unremarkable. IMPRESSION: 1. No evident pulmonary embolism. Sensitivity is however decreased at the segmental and reticular the more peripheral subsegmental pulmonary arteries due to suboptimal contrast opacification both on the initial and repeat imaging. 2. Small sliding-type hiatal hernia and/or wall thickening at the distal most esophagus. Reviewed, dictated and finalized at location A. IMPRESSION: 1. No evident pulmonary embolism. Sensitivity is however decreased at the segme ntal and reticular the more peripheral subsegmental pulmonary arteries due to s uboptimal contrast opacification both on the initial and repeat imaging. 2. Small sliding-type hiatal hernia and/or wall thickening at the distal most e sophagus.
--- NOTE | ~2022-06-30 | XR_ITS ---
EXAMINATION: XR chest 1V portable DATE: 06/30/2022 04:06 INDICATION: Chest pain. Prior pericarditis. TECHNIQUE: frontal view of the chest was obtained. COMPARISON: Chest CT dated 03/04/2022 FINDINGS: The lungs are clear with no focal airspace opacities, pulmonary edema, pleural effusion or pneumothor ax. The cardiomediastinal silhouette is normal. Visualized bones and soft tissues are unremarkable. IMPRESSION: 1. No acute cardiopulmonary disease. Reviewed, dictated and finalized at location A.
[2022-06-30 02:55] VITALS: BP 124/71; PULSE 116; RESP 20; TEMP 36.6; O2SAT 99
--- NOTE | 2022-06-30 03:10 | ECG_ITS ---
Measurements Intervals [place] Rate: 107 P: 54 ID: [id number] QRS: 63 QRSD: 88 T: 28 QT: 299 QTc: 400 Interpretive Statements SINUS TACHYCARDIA POSSIBLE LEFT ATRIAL ENLARGEMENT [-0.1mV P-WAVE IN V1/V2] LOW QRS VOLTAGE IN PRECORDIAL LEADS [QRS DEFLECTION < 1.0 mV IN CHEST LEADS] POSSIBLE RIGHT VENTRICULAR CONDUCTION DELAY [RSR (QR) IN V1/V2] SEPTAL MYOCARDIAL INFARCTION , OF INDETERMINATE AGE [40+ ms Q WAVE IN V1/V2] COMPARED TO ECG 03/05/2022 09:41:07 ABNORMAL ECG SINUS TACHYCARDIA NOW PRESENT MYOCARDIAL INFARCT FINDING NOW PRESENT Electronically Signed On 06-30-2022 8:49:00 CDT by Jose Elias Hung M.D.
[2022-06-30] MEDS: KETOROLAC 30 MG/ML VIAL (*BKC) IV PUSH (03:39)
[2022-06-30] MEDS: SODIUM CHLORIDE 0.9% IV 1,000 ML 999 ML IV CONT (03:40)
[2022-06-30 03:42] LABS: Basophils Percent Auto 0.3 % (0.2-1.2); Eosinophils Absolute Auto 0.1 K/mm3 (0-0.3); Eosinophils Percent Auto 0.8 % (0-4.4); Hematocrit 43.9 % (37.0-47.0); Hemoglobin 13.2 g/dL (12.0-15.0); Immature Granulocyte Absolute 0.03 K/mm3 (0.00-0.031); Immature Granulocyte Percent A 0.4 % (0-0.5); Lymphocytes Absolute Auto 1.15 K/mm3 (0.9-3.2); Lymphocytes Percent Auto 15.1 % (18.3-44.2); Mean Corpuscular HGB Conc 30.1 g/dl (32-36); Mean Corpuscular Hemoglobin 25.2 pg (26-34); Mean Corpuscular Volume 83.8 fl (80-100); Mean Platelet Volume 8.9 fl (7.4-10.4); Monocytes Absolute Auto 0.3 K/mm3 (0.1-0.6); Monocytes Percent Auto 4.2 % (2.6-8.5); Neutrophils Absolute Auto 6.1 K/mm3 (1.3-6.7); Neutrophils Percent Auto 79.2 % (45.5-73.1); Platelet Count Result 311 k/mm3 (150-375); Red Blood Count 5.24 M/mm3 (4.2-5.4); Red Cell Distribution Width 17.3 % (11.5-14.5); White Blood Count 7.6 K/mm3 (4.5-10.0)
[2022-06-30 03:55] LABS: D Dimer 1.49 ug/mL (<0.48)
--- NOTE | 2022-06-30 04:03 | ED.GENADULT ---
HPI - General Adult General Chief complaint: Weakness Stated complaint: Body aches, weakness Time Seen by Provider: 06/30/22 03:04 History of Present Illness HPI narrative: 32-year-old female presents emergency room states she has not felt well for the last couple days. She has diffuse body aches. States it hurts when she tries to move. She is also now complaining of some pain to her chest which starts in the anterior portion of the chest and is always through to the back. Patient was admitted to our hospital secondary to pericarditis earlier this year. She was treated with nonsteroidal anti-inflammatories and colchicine at that time. She states that recently she is felt more short of breath when she gets up and tries to exert herself. No history of ischemic cardiac disease. Does have underlying history of diabetes but only checks her blood sugar once or twice a week. She is on insulin. She denies any cough or congestion. No chills or fevers. Related Data Home Medications Medication Instructions Recorded Confirmed aripiprazole 2 mg tablet 2 mg PO HS 03/04/22 03/26/22 empagliflozin 25 mg tablet 25 mg PO DAILY 03/04/22 03/26/22 (Jardiance) insulin glargine 100 unit/mL (3 22 unit subcut HS 03/04/22 03/26/22 mL) subcutaneous pen (Lantus Solostar U-100 Insulin) metformin 1,000 mg tablet 1,000 mg PO BID 03/04/22 03/26/22 montelukast 10 mg tablet 10 mg PO HS 03/04/22 03/26/22 pen needle, diabetic 31 gauge x 03/04/22 03/26/2201/28 (TRUEplus Pen Needle) rosuvastatin 5 mg tablet 5 mg PO DAILY 03/04/22 03/26/22 sertraline 100 mg tablet 100 mg PO DAILY 03/04/22 03/26/22 Allergies Allergy/AdvReac Type Severity Reaction Status Date / Time amoxicillin [From Augmentin] Allergy Hives Verified 06/30/22 02:55 clavulanic acid Allergy Hives Verified 06/30/22 02:55 [From Augmentin] promethazine [From Phenergan] Allergy Hives Verified 06/30/22 02:55 Review of Systems Review of Systems: CONSTITUTIONAL: Denies fever, chills, or sweats. EYES: Denies visual changes, redness, or discharge. ENT: Denies rhinorrhea, congestion, sore throat, or otalgia. CARDIOVASCULAR: Chest pain which sharp in nature in the anterior chest goes all the way through to her back. No palpitations. RESPIRATORY: Denies cough or dyspnea. GASTROINTESTINAL: Denies abdominal pain, nausea, vomiting, or diarrhea. GENITOURINARY: Denies dysuria or hematuria. SKIN: Denies rash or itching. MUSCULOSKELETAL: Denies back pain, joint pain. Diffuse myalgia NEUROLOGIC: Denies headache, numbness, or weakness. PSYCHIATRIC: Denies anxiety or depression. [facility] Past Medical History Medical History Diabetes 1.5, managed as type 2 DIEGO on CPAP PCOS (polycystic ovarian syndrome) Sleep apnea in adult Family History Family History Mother Family history of malignant neoplasm of breast in first degree relative Social History Social History Smoking status: Never smoker Second hand tobacco smoke exposure: Yes Alcohol intake: former Drinks per week: 0 (1 per year) Substance use: never Substance use type: does not use Gender identity (if verbalized by the patient): Female Spiritual care concerns: No Agree to blood products: No Course Vital Signs Vital signs: Vital Signs Temperature 36.6 C 06/30/22 02:55 Pulse Rate 116 H 06/30/22 02:55 Respiratory Rate 06/30/22 02:55 Blood Pressure 124/71 06/30/22 02:55 Pulse Oximetry 99 06/30/22 02:55 Oxygen Delivery Room Air 06/30/22 02:55 Temperature 36.6 C 06/30/22 02:55 Pulse Rate 116 H 06/30/22 02:55 Respiratory Rate 06/30/22 02:55 Blood Pressure 124/71 06/30/22 02:55 Pulse Oximetry 99 06/30/22 02:55 Oxygen Delivery Room Air 06/30/22 02:55 Medical Decision Making [facility] Narrative Medic
[2022-06-30 04:15] LABS: Alanine Aminotransferase 16 U/L (6-35); Albumin Level 3.9 g/dL (3.5-5.1); Alkaline Phosphatase 59 U/L (38-126); Anion Gap 9 mmol/L (8-16); Aspartate Amino Transferase 28 U/L (14-36); Bilirubin,Total 0.4 mg/dL (0.2-1.3); Blood Urea Nitrogen 10 mg/dL (7-17); Carbon Dioxide 28 mmol/L (22-30); Chloride 97 mmol/L (98-107); Creatine Kinase 53 U/L (30-135); Estimated CRCL calculation 119 ml/min; Estimated Glomerular Filt Rate > 60; Glucose 140 mg/dL (65-110); Potassium 3.9 mmol/L (3.4-5.0); Sodium 134 mmol/L (137-145)
[2022-06-30 04:19] LABS: SARS-CoV-2 RNA PCR Negative
[2022-06-30 04:26] LABS: Troponin I < 0.012 ng/mL (0.000-0.034)
[2022-06-30 04:50] LABS: Appearance Urine Clear (Clear); Bilirubin Urine Negative (Negative); Blood Urine Negative (Negative); Color Urine Yellow (Yellow); Glucose Urine UA 2+ mg/dL (Negative); Ketones Urine Trace mg/dL (Negative); Leukocyte Esterase Ur Negative LEU/UL (Negative); Nitrate Urine Negative (Negative); Protein Urine Negative (Negative); Specific Grav Ur 1.015 (1.001-1.035); Urobilinogen Urine 0.2 mg/dL (<2.0); pH Urine 5.5 (5.0-9.0)
[2022-06-30 04:55] LABS: Bacteria Urine Trace /hpf; Mucus Urine Rare /lpf; Squamous Epithelial Cell Urine Few /hpf (Few); WBC Urine 0-3 /hpf
[2022-06-30 05:14] LABS: Add Urine Microscopic? YES
[2022-06-30] MEDS: ONDANSETRON HCL ODT 4 MG TABLET PO (05:17)
--- NOTE | 2022-06-30 06:56 | PC.NURSE ---
Pt to CT scan via stretcher at this time.
[2022-06-30 07:06] VITALS: PULSE 105
[2022-06-30 07:14] VITALS: BP 96/49; PULSE 103; RESP 22; O2SAT 97
[2022-06-30 07:15] VITALS: PULSE 101; RESP 14; O2SAT 98
[2022-06-30 07:30] VITALS: PULSE 104; RESP 20; O2SAT 97
== END 2022-06-30 07:50 | disposition home or self-care (01) ==
PROVIDERS: Emergency Medicine; Emergency Provider Emergency Medicine
DX: R07.81 Pleurodynia (principal); M79.10 Myalgia, unspecified site; Z20.822 Contact with and (suspected) exposure to COVID-19; E13.9 Other specified diabetes mellitus without complications; G47.33 Obstructive sleep apnea (adult) (pediatric); E28.2 Polycystic ovarian syndrome; Z79.84 Long term (current) use of oral hypoglycemic drugs; Z79.4 Long term (current) use of insulin; Z77.22 Contact with and (suspected) exposure to environmental tobacco smoke (acute) (chronic); R00.0 Tachycardia, unspecified; R94.31 Abnormal electrocardiogram [ECG] [EKG]
CPT/HCPCS: 36415; 71045; 71275; 80053; 81001; 81025; 82550; 84484; 85025; 85380; 93005; 96361; 96374; 99284; A9270; C9803; J1885; J7030; Q9967; U0003; U0005

== ENCOUNTER 2022-07-02 10:30 | Emergency (ER) | payer BC, SELFPAY ==
[2022-07-02 10:38] VITALS: BP 100/60; PULSE 106; RESP 18; TEMP 36.3; O2SAT 98
[2022-07-02 11:24] LABS: Alanine Aminotransferase 13 U/L (6-35); Albumin Level 3.7 g/dL (3.5-5.1); Alkaline Phosphatase 58 U/L (38-126); Anion Gap 9 mmol/L (8-16); Aspartate Amino Transferase 23 U/L (14-36); Basophils Percent Auto 0.2 % (0.2-1.2); Bilirubin,Total 0.5 mg/dL (0.2-1.3); Blood Urea Nitrogen 9 mg/dL (7-17); Calcium 8.8 mg/dL (8.4-10.2); Carbon Dioxide 26 mmol/L (22-30); Chloride 99 mmol/L (98-107); Eosinophils Absolute Auto 0.1 K/mm3 (0-0.3); Eosinophils Percent Auto 0.6 % (0-4.4); Estimated CRCL calculation 135 ml/min; Estimated Glomerular Filt Rate > 60; Glucose 123 mg/dL (65-110); Hemoglobin 12.3 g/dL (12.0-15.0); Immature Granulocyte Absolute 0.03 K/mm3 (0.00-0.031); Immature Granulocyte Percent A 0.4 % (0-0.5); Lipase 54 U/L (23-300); Lymphocytes Absolute Auto 1.28 K/mm3 (0.9-3.2); Mean Corpuscular HGB Conc 30.8 g/dl (32-36); Mean Corpuscular Hemoglobin 25.6 pg (26-34); Mean Corpuscular Volume 83.3 fl (80-100); Mean Platelet Volume 8.8 fl (7.4-10.4); Monocytes Absolute Auto 0.3 K/mm3 (0.1-0.6); Monocytes Percent Auto 3.9 % (2.6-8.5); Neutrophils Absolute Auto 6.8 K/mm3 (1.3-6.7); Neutrophils Percent Auto 79.9 % (45.5-73.1); Platelet Count Result 299 k/mm3 (150-375); Potassium 3.7 mmol/L (3.4-5.0); Red Cell Distribution Width 17.1 % (11.5-14.5); Sodium 134 mmol/L (137-145); White Blood Count 8.5 K/mm3 (4.5-10.0)
[2022-07-02 11:57] LABS: Appearance Urine Clear (Clear); Bilirubin Urine 2+ (Negative); Blood Urine Negative (Negative); Glucose Urine UA Negative (Negative); Ketones Urine 1+ mg/dL (Negative); Leukocyte Esterase Ur Negative LEU/UL (Negative); Nitrate Urine Negative (Negative); Protein Urine 2+ mg/dL (Negative); Specific Grav Ur >= 1.030 (1.001-1.035); Urobilinogen Urine 0.2 mg/dL (<2.0); pH Urine 5.5 (5.0-9.0)
[2022-07-02 11:59] LABS: Bacteria Urine Trace /hpf; Mucus Urine Heavy /lpf; Squamous Epithelial Cell Urine Moderate /hpf (Few)
[2022-07-02 12:02] LABS: Add Urine Microscopic? YES; Color Urine Dark Yellow (Yellow)
[2022-07-02] MEDS: ONDANSETRON INJ 4 MG/2 ML VIAL IV PUSH (13:27)
[2022-07-02] MEDS: SODIUM CHLORIDE 0.9% IV 1,000 ML 150 ML IV CONT (13:27)
[2022-07-02 13:28] VITALS: BP 105/74; PULSE 103; RESP 18; O2SAT 100
--- NOTE | 2022-07-02 14:47 | ED.NAVMDI ---
HPI - Nausea/Vomiting/Diarrhea General Chief complaint: Nausea/Vomiting/Diarrhea Stated complaint: throwing up, swollen extremities Time Seen by Provider: 07/02/22 12:10 Source: patient Mode of arrival: ambulatory Limitations: no limitations History of Present Illness HPI Narrative: 32-year-old with a history of diabetes, hypertension, PCOS, DIEGO here with complaints of nausea, vomiting and diarrhea for past 1 day and she also complains of joint pain and swelling she is states that all the joints are swollen. She does follow-up with her supply chain project manager at [place]. MD elicited complaint: nausea, vomiting and diarrhea Onset (ago): day(s) (1) Location of pain: none Pain consistency: constant Quality: aching Associated symptoms: denies other symptoms Related Data Home Medications Medication Instructions Recorded Confirmed aripiprazole 2 mg tablet 2 mg PO HS 03/04/22 03/26/22 empagliflozin 25 mg tablet 25 mg PO DAILY 03/04/22 03/26/22 (Jardiance) insulin glargine 100 unit/mL (3 22 unit subcut HS 03/04/22 03/26/22 mL) subcutaneous pen (Lantus Solostar U-100 Insulin) metformin 1,000 mg tablet 1,000 mg PO BID 03/04/22 03/26/22 montelukast 10 mg tablet 10 mg PO HS 03/04/22 03/26/22 pen needle, diabetic 31 gauge x 03/04/22 03/26/22 3/16 (TRUEplus Pen Needle) rosuvastatin 5 mg tablet 5 mg PO DAILY 03/04/22 03/26/22 sertraline 100 mg tablet 100 mg PO DAILY 03/04/22 03/26/22 Allergies Allergy/AdvReac Type Severity Reaction Status Date / Time amoxicillin [From Augmentin] Allergy Hives Verified 07/02/22 13:29 clavulanic acid Allergy Hives Verified 07/02/22 13:29 [From Augmentin] promethazine [From Phenergan] Allergy Hives Verified 07/02/22 13:29 Review of Systems Review of Systems: All systems reviewed & are unremarkable except as noted in HPI and below Constitutional: Constitutional: Reports no additional constitutional complaints Eyes: Eyes: Reports no additional eye complaints ENT: Reports system reviewed and no additional complaints, except as documented Cardiovascular: Cardiovascular: Reports no additional cardiovascular complaints Respiratory: Respiratory: Reports no additional respiratory complaints Gastrointestinal: Gastrointestinal: Reports as per HPI Musculoskeletal: Musculoskeletal: Reports no additional musculoskeletal complaints Integumentary/Breasts: Skin/Breast: Reports system reviewed and no additional complaints, except as docu Neurologic: Reports system reviewed and no additional complaints, except as documented Psychiatric: Psychiatric: Reports no additional psychiatric complaints Endocrine: Endocrine: Reports no additional endocrine complaints PMFSH Past Medical History Medical History Diabetes 1.5, managed as type 2 DIEGO on CPAP PCOS (polycystic ovarian syndrome) Sleep apnea in adult Family History Family History Mother Family history of malignant neoplasm of breast in first degree relative Social History Social History Smoking status: Never smoker Second hand tobacco smoke exposure: Yes Alcohol intake: former Drinks per week: 0 (1 per year) Substance use: never Substance use type: does not use Gender identity (if verbalized by the patient): Female Spiritual care concerns: No Agree to blood products: No Exam Narrative: GENERAL: Well-appearing, well-nourished, and in no acute distress. HEAD: Normocephalic, atraumatic. EYES: PERRLA and EOMI. NECK: Supple. CHEST: Clear to auscultation. No respiratory distress. HEART: Regular rate and rhythm. No murmur heard. Normal peripheral pulses. ABDOMEN: Soft, nontender, nondistended, normal active bowel sounds. EXTREMITIES: Normal range of motion. No edema. SKIN: Warm, dry, no rash. NEURO: No focal deficits. Alert and oriented x3. PSYCH: Norm
[2022-07-02 14:59] VITALS: BP 115/74; PULSE 98; RESP 18; O2SAT 98
[2022-07-02 15:09] VITALS: BP 111/70; PULSE 95; RESP 18; O2SAT 99
== END 2022-07-02 15:17 | disposition home or self-care (01) ==
PROVIDERS: Emergency Medicine; Emergency Provider Family Medicine
DX: K52.9 Noninfective gastroenteritis and colitis, unspecified (principal); I10 Essential (primary) hypertension; E13.9 Other specified diabetes mellitus without complications; E28.2 Polycystic ovarian syndrome; G47.33 Obstructive sleep apnea (adult) (pediatric); Z79.4 Long term (current) use of insulin; Z79.84 Long term (current) use of oral hypoglycemic drugs
CPT/HCPCS: 36415; 80053; 81001; 81025; 83690; 85025; 87086; 87088; 96361; 96374; 99284; J2405; J7030

== ENCOUNTER 2022-12-06 14:11 | Emergency (ER) | payer OTHER, BC, SELFPAY ==
--- NOTE | ~2022-12-06 | CT_ITS ---
EXAMINATION: CTA chest PE protocol DATE: 12/06/2022 18:59 INDICATION: pleuritic pain with breathing TECHNIQUE: Computed tomography angiography (CTA) of the chest was performed with 100 mL Omnipaque-350 intravenous contrast timed to evaluate the pulmonary arteries. Coronal maximum intensity projection 3D-reconstructions were created by the technologist. The dose-length product (DLP) was 1063.07 mGy-cm . Automated exposure control and iterative reconstruction technique were employed. COMPARISON: None. FINDINGS: Lung parenchyma and airways: Left lower lobe scar/atelectasis. Pleura: Unremarkable. Thoracic inlet, axillae and chest wall: Prominent bilateral axillary lymph nodes, not pathologic by s ize criteria.. Thoracic aorta: Normal. Mediastinum: Small hiatal hernia. Heart and pericardium: Normal. Coronary artery calcifications: Absent. Upper abdomen: Likely hepatomegaly and steatosis. Bones: No acute osseous finding. Pulmonary arteries: Study quality: Degraded by motion and quantum mottle, such that subsegmental and non-occlusive segmental emboli could be missed. No pulmonary emboli detected. IMPRESSION: Limited examination such that subsegmental and nonocclusive segmental emboli could be missed. Within those constraints, no CT evidence of acute central or occlusive segmental pulmonary embolus. Reviewed, dictated and finalized at location K. FISHERMAN IMPRESSION: Limited examination such that subsegmental and nonocclusive segmental emboli co uld be missed. Within those constraints, no CT evidence of acute central or occ lusive segmental pulmonary embolus.
--- NOTE | ~2022-12-06 | XR_ITS ---
EXAMINATION: XR chest 2V Exam Date/Time: 12/06/2022 15:15 STATE HISTORICAL SOCIETY DIRECTOR HISTORY: chest pain, edema; hx of asthma, pericarditis 03/2022 Comparison: 06/30/2022. RESULT: Lines, tubes, and devices: None. Lungs and pleura: Linear left basilar scar/atelectasis, otherwise clear. Cardiomediastinal silhouette: Stable. Other: No acute osseous or upper abdominal finding. IMPRESSION: No acute cardiopulmonary process. Reviewed, dictated and finalized at location K. E HISTORICAL SOCIETY DIRECTOR
[2022-12-06 14:28] VITALS: BP 109/67; PULSE 90; RESP 16; TEMP 36.9; O2SAT 98
--- NOTE | 2022-12-06 14:44 | ECG_ITS ---
Measurements Intervals [place] Rate: 84 P: 30 AL: 132 QRS: 35 QRSD: 103 T: 40 QT: 336 QTc: 399 Interpretive Statements SINUS RHYTHM INCOMPLETE RIGHT BUNDLE BRANCH BLOCK LOW QRS VOLTAGE IN PRECORDIAL LEADS BORDERLINE ECG COMPARED TO ECG 06/30/2022 03:50:57 SINUS RHYTHM NOW PRESENT Electronically Signed On 12-06-2022 15:45:05 NUCLEAR POWERPLANT MECHANIC HELPER by Shawn Correa D.O.
[2022-12-06 15:20] LABS: Basophils Percent Auto 0.3 % (0.2-1.2); Eosinophils Absolute Auto 0.1 K/mm3 (0-0.3); Eosinophils Percent Auto 0.5 % (0-4.4); Hematocrit 38.8 % (37.0-47.0); Hemoglobin 12.2 g/dL (12.0-15.0); Immature Granulocyte Absolute 0.04 K/mm3 (0.00-0.031); Immature Granulocyte Percent A 0.4 % (0-0.5); Lymphocytes Absolute Auto 1.15 K/mm3 (0.9-3.2); Lymphocytes Percent Auto 10.6 % (18.3-44.2); Mean Corpuscular HGB Conc 31.4 g/dl (32-36); Mean Corpuscular Hemoglobin 27.1 pg (26-34); Mean Platelet Volume 8.4 fl (7.4-10.4); Monocytes Absolute Auto 0.3 K/mm3 (0.1-0.6); Monocytes Percent Auto 2.9 % (2.6-8.5); Neutrophils Absolute Auto 9.3 K/mm3 (1.3-6.7); Neutrophils Percent Auto 85.3 % (45.5-73.1); Platelet Count Result 260 k/mm3 (150-375); Red Blood Count 4.51 M/mm3 (4.2-5.4); Red Cell Distribution Width 14.6 % (11.5-14.5); White Blood Count 10.8 K/mm3 (4.5-10.0)
[2022-12-06 15:30] LABS: INR 1.1; Prothrombin Time 13.9 Seconds (11.1-14.7)
[2022-12-06 15:33] LABS: Alanine Aminotransferase 19 U/L (6-35); Albumin Level 3.6 g/dL (3.5-5.1); Alkaline Phosphatase 62 U/L (38-126); Anion Gap 8 mmol/L (8-16); Aspartate Amino Transferase 23 U/L (14-36); Bilirubin,Total 0.6 mg/dL (0.2-1.3); Blood Urea Nitrogen 6 mg/dL (7-17); Calcium 8.3 mg/dL (8.4-10.2); Carbon Dioxide 27 mmol/L (22-30); Chloride 102 mmol/L (98-107); Estimated CRCL calculation 143 ml/min; Estimated Glomerular Filt Rate > 60; Glucose 99 mg/dL (65-110); Potassium 3.2 mmol/L (3.4-5.0); Sodium 137 mmol/L (137-145)
[2022-12-06 15:44] LABS: NT Pro B Type Natriuretic Pept 403 pg/mL (19.9-100); Troponin I < 0.012 ng/mL (0.000-0.034)
[2022-12-06] MEDS: KETOROLAC 30 MG/ML VIAL (*BKC) IV PUSH (17:46)
[2022-12-06 17:48] VITALS: BP 110/60; PULSE 73; RESP 20; O2SAT 100
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
[2022-12-06 19:38] VITALS: BP 117/66; PULSE 80; RESP 19; TEMP 36.2; O2SAT 99
== END 2022-12-06 20:00 | disposition home or self-care (01) ==
PROVIDERS: Emergency Provider Emergency Medicine; PCP Nurse Practitioner Family
DX: R52 Pain, unspecified (principal); E78.5 Hyperlipidemia, unspecified; E13.9 Other specified diabetes mellitus without complications; E28.2 Polycystic ovarian syndrome; G47.33 Obstructive sleep apnea (adult) (pediatric); G47.30 Sleep apnea, unspecified; F41.9 Anxiety disorder, unspecified; F32.9 Major depressive disorder, single episode, unspecified; E66.01 Morbid (severe) obesity due to excess calories; Z68.43 Body mass index [BMI] 50.0-59.9, adult; Z79.4 Long term (current) use of insulin; Z79.84 Long term (current) use of oral hypoglycemic drugs; I45.10 Unspecified right bundle-branch block; V44.5XXA Car driver injured in collision with heavy transport vehicle or bus in traffic accident, initial encounter
CPT/HCPCS: 36415; 71046; 71275; 80053; 81025; 83880; 84484; 85025; 85610; 85730; 93005; 96374; 99284; J1885; Q9967

== ENCOUNTER 2022-12-08 16:30 | Inpatient (IN) | payer BC, SELFPAY ==
[2022-12-08] VITALS (20 sets, daily range): BP systolic 126–138; BP diastolic 59–89; PULSE 81–99; RESP 13–22; TEMP 36.8; O2SAT 97–100; BMI 59.7
--- NOTE | ~2022-12-08 | XR_ITS ---
XR chest 1V portable 12/12/2022 14:13 Indication: Chest pain. Lower extremity edema. Procedure: AP portable chest Comparison: 12/08/2012 Findings: There is new asymmetric right-sided interstitial infiltrates. Cardiomegaly. No significant effusion or pneumothorax. No acute osseous abnormality. Impression: 1: Interval development of right-sided interstitial infiltrates, compatible with pneumonia. Reviewed, dictated and finalized at location A. EMERGENCY ROOM Impression: 1: Interval development of right-sided interstitial infiltrates, compatible wit h pneumonia.
--- NOTE | ~2022-12-08 | US_ITS ---
EXAMINATION: US venous doppler [facility] DATE: 12/08/2022 21:06 INDICATION: swelling, PE . TECHNIQUE: Grayscale images without and with compression and Doppler images of the bilateral lower ex tremity veins were obtained. COMPARISON: None FINDINGS: The right common femoral vein, profunda (deep) femoral vein, femoral vein, popliteal vein, peroneal v ein, posterior tibial veins, gastrocnemius vein, and greater saphenous vein are patent. The left common femoral vein, profunda femoral vein, femoral vein, popliteal vein, peroneal vein, pos terior tibial veins, gastrocnemius vein, and greater saphenous vein are patent. IMPRESSION: 1. Patent bilateral lower extremity veins. No evidence of deep venous thrombosis. Reviewed, dictated and finalized at location K. ING MACHINE OPERATOR IMPRESSION: 1. Patent bilateral lower extremity veins. No evidence of deep venous thrombos is.
--- NOTE | ~2022-12-08 | XR_ITS ---
Supine and upright views of the abdomen Clinical history: Abdominal pain Findings: Bowel gas pattern is nonspecific. No evidence for obstruction or free air. No abnormal mass lesion or calcification is seen. Osseous structures are intact. Impression: No significant abnormality is seen. Reviewed, dictated and finalized at [facility]. SONIC ENGINEER Impression: No significant abnormality is seen.
--- NOTE | ~2022-12-08 | CT_ITS ---
EXAMINATION: CTA chest PE protocol DATE: 12/08/2022 18:43 INDICATION: elevated dimer, CP, SOB TECHNIQUE: Computed tomography angiography (CTA) of the chest was performed with 200 mL Omnipaque-350 intravenous contrast timed to evaluate the pulmonary arteries, inadequate initial contrast bolus req uired repeat injection. Coronal maximum intensity projection 3D-reconstructions were created by the t echnologist. The dose-length product (DLP) was 1818.06 mGy-cm. Automated exposure control and iterati ve reconstruction technique were employed. COMPARISON: 12/06/2022, x-ray chest 12/08/2022 Dr. Rodriguez. FINDINGS: Lung parenchyma and airways: Bibasilar scar/atelectasis. Pleura: Trace right pleural fluid/pleural thickening. Thoracic inlet, axillae and chest wall: Redemonstration of prominent bilateral axillary lymph nodes. Thoracic aorta: Normal. Mediastinum: Small hiatal hernia. Heart and pericardium: Normal. The RV/LV ratio is less than 1. Coronary artery calcifications: Absent. Upper abdomen: Likely hepatomegaly and steatosis. Bones: No acute osseous finding. Pulmonary arteries: Study quality: Degraded by mild motion, borderline contrast bolus, quantum mottle , and beam hardening such that subsegmental and non-occlusive segmental emboli could be missed. Possi ble nonocclusive filling defect in a right lower lobe segmental pulmonary artery which appears new si nce the prior study. IMPRESSION: Limited examination such that subsegmental and nonocclusive segmental emboli could be missed. Possibl e acute right lower lobe segmental pulmonary artery filling defect. No evidence of right heart strain . Trace right pleural fluid/pleural thickening. Reviewed, dictated and finalized at location K. STARCH SUPERVISOR IMPRESSION: Limited examination such that subsegmental and nonocclusive segmental emboli co uld be missed. Possible acute right lower lobe segmental pulmonary artery filli ng defect. No evidence of right heart strain. Trace right pleural fluid/pleural thickening.
--- NOTE | ~2022-12-08 | XR_ITS ---
EXAMINATION: XR chest 2V DATE: 12/08/2022 17:04 INDICATION: Chest pain and shortness of breath. TECHNIQUE: Frontal and lateral views of the chest were obtained. COMPARISON: Chest 2 views 12/06/2022, chest CT 12/06/2022 FINDINGS: The chest demonstrates clear lungs without pneumonia, pleural effusion, or pneumothorax. Th e heart size is normal. IMPRESSION: 1. No acute cardiopulmonary disease. Reviewed, dictated and finalized at location A. OOR GUIDE
--- NOTE | 2022-12-08 16:32 | ECG_ITS ---
Measurements Intervals [place] Rate: 84 P: 38 FL: 139 QRS: 39 QRSD: 95 T: 43 QT: 328 QTc: 388 Interpretive Statements SINUS RHYTHM LOW QRS VOLTAGE IN PRECORDIAL LEADS INCOMPLETE RIGHT BUNDLE BRANCH BLOCK BORDERLINE R WAVE PROGRESSION, ANTERIOR LEADS BORDERLINE T WAVE ABNORMALITY- ANTERIOR LEADS BASELINE ARTIFACT- I, II, III, AVR, AVL, AVF, V6 BORDERLINE ECG COMPARED TO ECG 12/06/2022 15:15:49 NO SIGNIFICANT CHANGES Electronically Signed On 12-08-2022 16:52:33 PORTABLE MACHINE SANDER by Shawn Correa D.O.
[2022-12-08 16:51] LABS: Basophils Percent Auto 0.2 % (0.2-1.2); Eosinophils Absolute Auto 0.1 K/mm3 (0-0.3); Eosinophils Percent Auto 1.2 % (0-4.4); Hemoglobin 12.1 g/dL (12.0-15.0); Immature Granulocyte Absolute 0.02 K/mm3 (0.00-0.031); Immature Granulocyte Percent A 0.2 % (0-0.5); Lymphocytes Absolute Auto 1.14 K/mm3 (0.9-3.2); Lymphocytes Percent Auto 13.2 % (18.3-44.2); Mean Corpuscular Hemoglobin 26.9 pg (26-34); Mean Corpuscular Volume 86.7 fl (80-100); Mean Platelet Volume 8.4 fl (7.4-10.4); Monocytes Absolute Auto 0.3 K/mm3 (0.1-0.6); Monocytes Percent Auto 3.2 % (2.6-8.5); Neutrophils Absolute Auto 7.1 K/mm3 (1.3-6.7); Platelet Count Result 256 k/mm3 (150-375); Red Cell Distribution Width 14.8 % (11.5-14.5); White Blood Count 8.6 K/mm3 (4.5-10.0)
[2022-12-08 17:01] LABS: Alanine Aminotransferase 17 U/L (6-35); Albumin Level 3.7 g/dL (3.5-5.1); Alkaline Phosphatase 55 U/L (38-126); Anion Gap 4 mmol/L (8-16); Aspartate Amino Transferase 32 U/L (14-36); Bilirubin,Total 0.5 mg/dL (0.2-1.3); Blood Urea Nitrogen 6 mg/dL (7-17); Calcium 8.4 mg/dL (8.4-10.2); Carbon Dioxide 32 mmol/L (22-30); Chloride 99 mmol/L (98-107); Estimated CRCL calculation 143 ml/min; Estimated Glomerular Filt Rate > 60; Glucose 126 mg/dL (65-110); INR 1.1; Lipase 41 U/L (23-300); Potassium 3.6 mmol/L (3.4-5.0); Prothrombin Time 13.8 Seconds (11.1-14.7); Sodium 135 mmol/L (137-145)
[2022-12-08 17:02] LABS: Partial Thromboplastin Time 33.3 SECONDS (22.3-36.8)
[2022-12-08 17:12] LABS: Troponin I < 0.012 ng/mL (0.000-0.034)
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
[2022-12-08] MEDS: ASPIRIN 81 MG CHEWABLE TABLET 324 MG PO (17:58)
[2022-12-08 18:01] LABS: CRP 6.3 mg/dL (<1.0)
[2022-12-08 18:10] LABS: NT Pro B Type Natriuretic Pept 495 pg/mL (19.9-100)
[2022-12-08 18:20] LABS: Erythrocyte Sedimentation Rate 54 mm/hr (0-20)
[2022-12-08 18:24] LABS: Influenza A QL RT-PCR Negative (Negative); Influenza B QL RT-PCR Negative (Negative); SARS-CoV-2 RNA PCR Negative
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
[2022-12-08] MEDS: ENOXAPARIN 120 MG/0.8 ML SYRINGE SUB-Q (19:57)
[2022-12-08] MEDS: ACETAMINOPHEN 325 MG TABLET 650 MG PO (19:58)
[2022-12-08 20:17] LABS: Troponin I < 0.012 ng/mL (0.000-0.034)
[2022-12-08 21:00] LABS: Basophils Percent Auto 0.2 % (0.2-1.2); Eosinophils Absolute Auto 0.1 K/mm3 (0-0.3); Eosinophils Percent Auto 0.7 % (0-4.4); Hematocrit 35.7 % (37.0-47.0); Hemoglobin 11.3 g/dL (12.0-15.0); Immature Granulocyte Absolute 0.03 K/mm3 (0.00-0.031); Immature Granulocyte Percent A 0.3 % (0-0.5); Lymphocytes Absolute Auto 0.98 K/mm3 (0.9-3.2); Lymphocytes Percent Auto 10.3 % (18.3-44.2); Mean Corpuscular HGB Conc 31.7 g/dl (32-36); Mean Corpuscular Hemoglobin 27.4 pg (26-34); Mean Corpuscular Volume 86.4 fl (80-100); Mean Platelet Volume 8.4 fl (7.4-10.4); Monocytes Absolute Auto 0.3 K/mm3 (0.1-0.6); Monocytes Percent Auto 3.5 % (2.6-8.5); Neutrophils Absolute Auto 8.1 K/mm3 (1.3-6.7); Platelet Count Result 250 k/mm3 (150-375); Red Blood Count 4.13 M/mm3 (4.2-5.4); Red Cell Distribution Width 14.7 % (11.5-14.5); White Blood Count 9.6 K/mm3 (4.5-10.0)
--- NOTE | 2022-12-08 21:08 | ADMGEN ---
This patient, Kirsten Hendricks, was admitted to 2 Medical Room 240-01. Patient/family oriented to hospital policies and general routines including ID bracelet, bed and alarms, visiting hours, pain management, procedures, bathroom and other care routines, personal items, smoking policy, room service/diet, and visiting hours. Information on how to activate the Rapid Response Team has been discussed. Patient/Family are encouraged to report perceived risks to care and to ask questions if they do not understand what they are told or what they should do.
[2022-12-08 21:11] LABS: INR 1.2; Prothrombin Time 14.8 Seconds (11.1-14.7)
[2022-12-08 21:12] LABS: Partial Thromboplastin Time 37.1 SECONDS (22.3-36.8)
[2022-12-08] MEDS: ENOXAPARIN 30 MG/0.3 ML SYRINGE SUB-Q (21:45)
[2022-12-08 22:12] LABS: Glucose Point of Care 115 mg/dl (65-105)
--- NOTE | 2022-12-08 22:23 | PCRCNOTE ---
pt refused our cpap she uses nasal pillows at home she will have boyfriend bring her in for use s-9 not in the room
[2022-12-08] MEDS: INSULIN GLARGINE (*BKC) 100 UNITS/ML 22 UNITS SUB-Q (22:32)
[2022-12-08 23:16] LABS: Troponin I < 0.012 ng/mL (0.000-0.034)
[2022-12-09] VITALS (18 sets, daily range): BP systolic 117–135; BP diastolic 55–85; PULSE 87–113; RESP 20–24; TEMP 37.1–38.1; O2SAT 88–97
[2022-12-09] MEDS: oxyCODONE/ACETAMINOPHEN (*CRX) 5-325 MG TABLET 1 TABLET PO ×3 (00:06→18:12)
[2022-12-09 05:42] LABS: Basophils Percent Auto 0.3 % (0.2-1.2); Eosinophils Absolute Auto 0.1 K/mm3 (0-0.3); Eosinophils Percent Auto 1.3 % (0-4.4); Hematocrit 35.8 % (37.0-47.0); Hemoglobin 11.2 g/dL (12.0-15.0); Immature Granulocyte Absolute 0.02 K/mm3 (0.00-0.031); Immature Granulocyte Percent A 0.3 % (0-0.5); Lymphocytes Absolute Auto 1.12 K/mm3 (0.9-3.2); Lymphocytes Percent Auto 14.5 % (18.3-44.2); Mean Corpuscular HGB Conc 31.3 g/dl (32-36); Mean Corpuscular Hemoglobin 27.3 pg (26-34); Mean Corpuscular Volume 87.3 fl (80-100); Mean Platelet Volume 8.6 fl (7.4-10.4); Monocytes Absolute Auto 0.3 K/mm3 (0.1-0.6); Monocytes Percent Auto 4.2 % (2.6-8.5); Neutrophils Absolute Auto 6.1 K/mm3 (1.3-6.7); Neutrophils Percent Auto 79.4 % (45.5-73.1); Platelet Count Result 263 k/mm3 (150-375); Red Cell Distribution Width 14.7 % (11.5-14.5); White Blood Count 7.7 K/mm3 (4.5-10.0)
[2022-12-09] MEDS: HYDROmorphone HCL INJ (*CRX) 1 MG/ML SYR 0.5 MG IV PUSH ×2 (06:13→13:30)
[2022-12-09 07:54] LABS: Alanine Aminotransferase 16 U/L (6-35); Albumin Level 3.2 g/dL (3.5-5.1); Alkaline Phosphatase 59 U/L (38-126); Anion Gap 4 mmol/L (8-16); Aspartate Amino Transferase 21 U/L (14-36); Bilirubin,Total 0.4 mg/dL (0.2-1.3); Blood Urea Nitrogen 8 mg/dL (7-17); Calcium 8.2 mg/dL (8.4-10.2); Carbon Dioxide 33 mmol/L (22-30); Chloride 100 mmol/L (98-107); Estimated CRCL calculation 129 ml/min; Estimated Glomerular Filt Rate > 60; Glucose 153 mg/dL (65-110); Potassium 3.7 mmol/L (3.4-5.0); Sodium 137 mmol/L (137-145)
--- NOTE | 2022-12-09 08:00 | ECHO_ITS ---
Patient Info Name: Kirsten Hendricks Age: 32 years : 1990 Gender: Female Ht: 63 in Wt: 328 lbs BSA: 2.67 m2 HR: 91 bpm BP: 119 / 55 mmHg Heart Rhythm: Sinus Rhythm Technical Quality: Poor Exam Date: 12/09/2022 10:59 AM Exam Location: [facility] Pulmonary Exam Room: 240 Patient Status: Inpatient Admit Date: 12/08/2022 Staff Ordering Physician: Turner Thakur MD Note Teller: Silvia Pyle RDCS Attending Provider: Turner Thakur MD Exam Type: CA echo dop color flow w con Study Info Indications - dizziness Complete two-dimensional, color flow and Doppler transthoracic echocardiogram is performed with contrast to opacify the left ventricle and to improve the deliniation of the left ventricle endocardial borders. Contrast/Agitated Saline Contrast/Ag. Saline: Definity Amount: 2.00 ml Administered By: Silvia Pyle [facility] Existing IV Access: Yes IV Access Condition: patent with no signs of infiltration Reason for Poor Study: poor patient cooperation Summary 1. Technically difficult study with limited views. 2. Left ventricular chamber dimension is normal. 3. Left ventricular systolic function is hyperdynamic, estimated at >70%. 4. The left ventricular diastolic function is grade I diastolic dysfunction. 5. Right ventricular chamber dimension is enlarged. 6. There is mild tricuspid valve regurgitation. Left Ventricle Left ventricular chamber dimension is normal. Left ventricular systolic function is hyperdynamic, estimated at >70%. There is no increased left ventricular wall thickness. The left ventricular diastolic function is grade I diastolic dysfunction. Right Ventricle Right ventricular chamber dimension is enlarged. Left Atria Left atrial chamber dimension is normal. Right Atria Right atrial chamber dimension is normal. Atrial Septum Intact interatrial septum visualized by color flow imaging. Aortic Valve The aortic valve is not well visualized. There is no aortic valve stenosis. There is no aortic valve regurgitation. Pulmonic Valve The pulmonic valve is not well visualized. Mitral Valve The mitral valve has normal leaflets. There is no mitral valve stenosis. There is trace mitral valve regurgitation. Tricuspid Valve There is mild tricuspid valve regurgitation. Pericardium/Pleural There is no pericardial effusion. Inferior Vena Cava Normal inferior vena cava with >50% collapse upon inspiration consistent with normal right atrial pressure, 3 mmHg. Aorta The aortic root size at the sinus of Valsalva is normal. Left Ventricular Outflow Tract Name Value Normal LVOT 2D LVOT Diameter 2.07 cm LVOT Doppler LVOT Peak Gradient 6 mmHg LVOT Mean Gradient 3 mmHg LVOT VTI 19.11 cm LVOT VTI/AV VTI Ratio 0.77 LVOT Stroke Volume 64.57 ml LVOT CO 17.55 l/min LVOT CI 6.56 L/min/m2 Pulmonic V
[2022-12-09] MEDS: SERTRALINE HCL 50 MG TABLET 100 MG PO (08:25)
[2022-12-09] MEDS: ROSUVASTATIN 5 MG TABLET PO (08:25)
[2022-12-09] MEDS: ENOXAPARIN 100 MG/ML SYRINGE SUB-Q ×2 (08:26→20:38)
[2022-12-09] MEDS: ENOXAPARIN 60 MG/0.6 ML SYRINGE 50 MG SUB-Q ×2 (08:26→20:38)
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
[2022-12-09 08:40] LABS: Glucose Point of Care 152 mg/dl (65-105)
[2022-12-09] MEDS: HYDROmorphone HCL INJ (*CRX) 1 MG/ML SYR IV PUSH ×3 (09:29→20:36)
[2022-12-09 10:39] LABS: NT Pro B Type Natriuretic Pept 469 pg/mL (19.9-100)
[2022-12-09 11:37] LABS: Glucose Point of Care 150 mg/dl (65-105)
--- NOTE | 2022-12-09 14:41 | PC.NURSE ---
Sebastian Laguerre notified of pt c/o sob and wheezy. Ra sat 88%, placed on o2 2l and sat was then 91%.
[2022-12-09] MEDS: LEVALBUTEROL NEB 1.25 MG/3 ML 0.63 MG INHALATION ×2 (14:55→21:09)
--- NOTE | 2022-12-09 15:25 | PC.NURSE ---
Sebastian Laguerre [employer] notified of pt c/o severe right sided chest pain. Stated that she needed something stronger then a percocet.
[2022-12-09 16:03] LABS: Creatine Kinase 67 U/L (30-135)
[2022-12-09 17:01] LABS: Glucose Point of Care 140 mg/dl (65-105)
[2022-12-09 19:53] LABS: Glucose Point of Care 134 mg/dl (65-105)
[2022-12-09] MEDS: MONTELUKAST SODIUM 10 MG TABLET PO (20:36)
[2022-12-09] MEDS: ARIPiprazole 2 MG TABLET PO (20:37)
[2022-12-09] MEDS: INSULIN GLARGINE (*BKC) 100 UNITS/ML 22 UNITS SUB-Q (20:40)
[2022-12-10] VITALS (19 sets, daily range): BP systolic 110–130; BP diastolic 71–82; PULSE 89–121; RESP 18–20; TEMP 36.7–37.3; O2SAT 87–98
[2022-12-10] MEDS: oxyCODONE/ACETAMINOPHEN (*CRX) 5-325 MG TABLET 1 TABLET PO ×3 (01:40→13:48)
[2022-12-10] MEDS: LEVALBUTEROL NEB 1.25 MG/3 ML 0.63 MG INHALATION ×4 (01:57→19:42)
[2022-12-10 05:29] LABS: Basophils Percent Auto 0.1 % (0.2-1.2); Eosinophils Percent Auto 0.2 % (0-4.4); Hematocrit 33.9 % (37.0-47.0); Hemoglobin 10.7 g/dL (12.0-15.0); Immature Granulocyte Absolute 0.05 K/mm3 (0.00-0.031); Immature Granulocyte Percent A 0.4 % (0-0.5); Lymphocytes Absolute Auto 1.12 K/mm3 (0.9-3.2); Lymphocytes Percent Auto 9.3 % (18.3-44.2); Mean Corpuscular HGB Conc 31.6 g/dl (32-36); Mean Corpuscular Hemoglobin 26.8 pg (26-34); Mean Platelet Volume 8.5 fl (7.4-10.4); Monocytes Absolute Auto 0.4 K/mm3 (0.1-0.6); Monocytes Percent Auto 3.2 % (2.6-8.5); Neutrophils Absolute Auto 10.5 K/mm3 (1.3-6.7); Neutrophils Percent Auto 86.8 % (45.5-73.1); Platelet Count Result 255 k/mm3 (150-375); Red Blood Count 3.99 M/mm3 (4.2-5.4); White Blood Count 12.1 K/mm3 (4.5-10.0)
[2022-12-10 05:44] LABS: Alanine Aminotransferase 16 U/L (6-35); Albumin Level 3.6 g/dL (3.5-5.1); Alkaline Phosphatase 57 U/L (38-126); Anion Gap 8 mmol/L (8-16); Aspartate Amino Transferase 26 U/L (14-36); Blood Urea Nitrogen 10 mg/dL (7-17); Calcium 8.5 mg/dL (8.4-10.2); Carbon Dioxide 27 mmol/L (22-30); Chloride 96 mmol/L (98-107); Estimated CRCL calculation 129 ml/min; Estimated Glomerular Filt Rate > 60; Glucose 149 mg/dL (65-110); Magnesium 1.8 mg/dL (1.6-2.3); Potassium 3.4 mmol/L (3.4-5.0); Sodium 131 mmol/L (137-145)
[2022-12-10 06:43] LABS: Cholesterol 116 mg/dL (0-200); HDL Direct 24 mg/dL; Triglycerides 140 mg/dL (<150)
[2022-12-10 06:54] LABS: LDL Cholesterol Direct 58 mg/dL
[2022-12-10] MEDS: FUROSEMIDE INJ 40 MG/4 ML VIAL IV PUSH (06:57)
[2022-12-10 08:27] LABS: Lactic Acid Reflex 1.3 mmol/L (0.7-2.0)
[2022-12-10 08:36] LABS: Glucose Point of Care 177 mg/dl (65-105)
--- NOTE | 2022-12-10 09:00 | PM.IMPN ---
Progress Note: A&P Assessment and Plan (1) SIRS (systemic inflammatory response syndrome): Code(s): R65.10 - Systemic inflammatory response syndrome (SIRS) of non-infectious origin without acute organ dysfunction Status: Acute Assessment and Plan: Does exhibit tachycardia and leukocytosis HR is 118, WBC 12.1 No notable source of infection Chest xray does not exhibit any signs of infection Blood cultures ordered UA with reflex ordered Continue to trend labs Adjust therapy as indicated Hold on antibiotics for now could be related to PE, CHF, abdominal pain (2) Acute pulmonary embolism: Code(s): I26.99 - Other pulmonary embolism without acute cor pulmonale Status: Acute Assessment and Plan: CT scan show right lower lobe filling defect No history of DVT/PE Echo EF of >70% with grade 1 diastolic dysfunction Lovenox 1mg/kg for now Will need to switch to Xarelto or Eliquis upon discharge Venous doppler negative for DVT (3) Congestive heart failure: Code(s): I50.9 - Heart failure, unspecified Status: Acute Assessment and Plan: Complaints of shortness of breath,and severe swelling Acute diastolic heart failure with possible exacerbation Echo EF >70% with grade 1 diastolic dysfunction New onset Current requiring supplemental oxygen, wean to maintain saturations >90% BNP slightly elevated at 469 notable anasarca lasix 40mg IV x1 Trend labs Trend urine output (4) Abdominal pain: Code(s): R10.9 - Unspecified abdominal pain Status: Acute Assessment and Plan: Reports right sided abdominal pain KUB normal gas bowel patterns, does appear to have some constipation could be related weight Reports dark urine CK not elevated could be related to fluid status, possible CHF pain medications on board (5) Morbid obesity with BMI of 50.0-59.9, adult: Code(s): E66.01 - Morbid (severe) obesity due to excess calories; Z68.43 - Body mass index [BMI] 50.0-59.9, adult Status: Acute Assessment and Plan: Recommend lifestyle changes, exercise Consult dietitian (6) Dyslipidemia: Code(s): E78.5 - Hyperlipidemia, unspecified Status: Acute Assessment and Plan: Continue Crestor 5 mg daily p.o. lipid panel Cholesterol 116, triglycerides 14, HDL 24, LDL 58 (7) Diabetes 1.5, managed as type 2: Code(s): E13.9 - Other specified diabetes mellitus without complications Status: Acute Assessment and Plan: Glucose stable at 149 Continue Lantus 22 units subQ Hold oral medication Start his insulin scale a.c. q.h.s. Hypoglycemia protocol is initiated Continue to trend glucose (8) DIEGO on CPAP: Code(s): G47.33 - Obstructive sleep apnea (adult) (pediatric); Z99.89 - Dependence on other enabling machines and devices Status: Acute Assessment and Plan: Continue CPAP at home settin cm Time Spent With Patient Time: MEDICAL DECISION MAKING NARRATIVE ? History obtained from:? Patient ?History from independent sources:?None ?External chart review:?None ?New problems addressed:Uncontrolled abdominal pain, constipation, SIRS, Tachycardia, shortness of breath ?Chronic illnesses addressed:DM2, HLD? ?Independent interpretation of studies:BNP, ECHO, Lipid panel, lactic acid, KUB ?Comorbidities complicating care: Morbid obesity ?Diagnostic tests considered but not ordered:Renal ultra sound (CVA pain) ?Risk of complication:? High:Obesity, new PE, anasarca? ?Time spent on encounter:?63 ?minutes Time with patient: Greater than 35 minutes Subjective Date/time seen: 12/10/22899 Interval history: 12/10/22899 Stated that she was feeling slightly better however she still having that abdominal pain. She also stated that she is just very swollen
--- NOTE | 2022-12-10 09:00 | P.PNIM_ITS ---
Progress Note: A&P Assessment and Plan (1) SIRS (systemic inflammatory response syndrome): Code(s): R65.10 - Systemic inflammatory response syndrome (SIRS) of non-infectious origin without acute organ dysfunction Status: Acute Assessment and Plan: * Does exhibit tachycardia and leukocytosis * HR is 118, WBC 12.1 * No notable source of infection * Chest xray does not exhibit any signs of infection * Blood cultures ordered * UA with reflex ordered * Continue to trend labs * Adjust therapy as indicated * Hold on antibiotics for now * could be related to PE, CHF, abdominal pain (2) Acute pulmonary embolism: Code(s): I26.99 - Other pulmonary embolism without acute cor pulmonale Status: Acute Assessment and Plan: * CT scan show right lower lobe filling defect * No history of DVT/PE * Echo EF of >70% with grade 1 diastolic dysfunction * Lovenox 1mg/kg for now * Will need to switch to Xarelto or Eliquis upon discharge * Venous doppler negative for DVT (3) Congestive heart failure: Code(s): I50.9 - Heart failure, unspecified Status: Acute Assessment and Plan: * Complaints of shortness of breath,and severe swelling * Acute diastolic heart failure with possible exacerbation * Echo EF >70% with grade 1 diastolic dysfunction * New onset * Current requiring supplemental oxygen, wean to maintain saturations >90% * BNP slightly elevated at 469 * notable anasarca * lasix 40mg IV x1 * Trend labs * Trend urine output (4) Abdominal pain: Code(s): R10.9 - Unspecified abdominal pain Status: Acute Assessment and Plan: * Reports right sided abdominal pain * KUB normal gas bowel patterns, does appear to have some constipation * could be related weight * Reports dark urine * CK not elevated * could be related to fluid status, possible CHF * pain medications on board (5) Morbid obesity with BMI of 50.0-59.9, adult: Code(s): E66.01 - Morbid (severe) obesity due to excess calories; Z68.43 - Body mass index [BMI] 50.0-59.9, adult Status: Acute Assessment and Plan: * Recommend lifestyle changes, exercise * Consult dietitian (6) Dyslipidemia: Code(s): E78.5 - Hyperlipidemia, unspecified Status: Acute Assessment and Plan: * Continue Crestor 5 mg daily p.o. * lipid panel Cholesterol 116, triglycerides 14, HDL 24, LDL 58 (7) Diabetes 1.5, managed as type 2: Code(s): E13.9 - Other specified diabetes mellitus without complications Status: Acute Assessment and Plan: * Glucose stable at 149 * Continue Lantus 22 units subQ * Hold oral medication * Start his insulin scale a.c. q.h.s. * Hypoglycemia protocol is initiated * Continue to trend glucose (8) DIEGO on CPAP: Code(s): G47.33 - Obstructive sleep apnea (adult) (pediatric); Z99.89 - Dependence on other enabling machines and devices Status: Acute Assessment and Plan: * Continue CPAP at home settin cm Time Spent With Patient Time: MEDICAL DECISION MAKING NARRATIVE ? History obtained from:? Patient ?History from independent sources:?None ?External chart review:?None ?New problems addressed:Uncontrolled abdominal pain, constip
[2022-12-10] MEDS: ENOXAPARIN 60 MG/0.6 ML SYRINGE 50 MG SUB-Q ×2 (09:51→21:43)
[2022-12-10] MEDS: ENOXAPARIN 100 MG/ML SYRINGE SUB-Q ×2 (09:52→21:43)
[2022-12-10] MEDS: SENNA/DOCUSATE SODIUM TABLET 1 TAB PO (09:52)
[2022-12-10] MEDS: SERTRALINE HCL 50 MG TABLET 100 MG PO (09:52)
[2022-12-10] MEDS: polyethylene glycoL 3350 17 GM POWD.PACK PO (09:53)
[2022-12-10] MEDS: ROSUVASTATIN 5 MG TABLET PO (09:53)
[2022-12-10 11:56] LABS: Glucose Point of Care 168 mg/dl (65-105)
--- NOTE | 2022-12-10 14:35 | PC.NURSE ---
On 12/10/22, the student, [Indiana Gonzalez], provided care and completed [facility] documentation on this patient. I have reviewed the student's documentation and agree with the findings.
[2022-12-10] MEDS: HYDROmorphone HCL INJ (*CRX) 1 MG/ML SYR IV PUSH (15:16)
[2022-12-10 16:47] LABS: Glucose Point of Care 130 mg/dl (65-105)
[2022-12-10 20:31] LABS: Appearance Urine Slightly Cloudy (Clear); Bilirubin Urine 1+ (Negative); Blood Urine Negative (Negative); Color Urine Yellow (Yellow); Glucose Urine UA Negative (Negative); Ketones Urine Trace mg/dL (Negative); Leukocyte Esterase Ur Negative LEU/UL (Negative); Nitrate Urine Negative (Negative); Protein Urine 2+ mg/dL (Negative); Specific Grav Ur >= 1.030 (1.001-1.035); Urobilinogen Urine 0.2 mg/dL (<2.0)
[2022-12-10 20:32] LABS: Glucose Point of Care 116 mg/dl (65-105)
[2022-12-10 20:41] LABS: Bacteria Urine Trace /hpf; Mucus Urine Heavy /lpf; Squamous Epithelial Cell Urine Many /hpf (Few); WBC Urine 0-3 /hpf
[2022-12-10 20:47] LABS: Add Urine Microscopic? YES
[2022-12-10] MEDS: ARIPiprazole 2 MG TABLET PO (21:42)
[2022-12-10] MEDS: MONTELUKAST SODIUM 10 MG TABLET PO (21:42)
[2022-12-11] VITALS (18 sets, daily range): BP systolic 101–122; BP diastolic 59–70; PULSE 87–120; RESP 18–20; TEMP 36.3–37.3; O2SAT 93–99
[2022-12-11] MEDS: oxyCODONE/ACETAMINOPHEN (*CRX) 5-325 MG TABLET 1 TABLET PO ×3 (00:28→20:12)
[2022-12-11] MEDS: LEVALBUTEROL NEB 1.25 MG/3 ML 0.63 MG INHALATION ×4 (02:33→21:06)
[2022-12-11 06:09] LABS: Basophils Percent Auto 0.2 % (0.2-1.2); Eosinophils Percent Auto 0.4 % (0-4.4); Hematocrit 32.1 % (37.0-47.0); Immature Granulocyte Absolute 0.04 K/mm3 (0.00-0.031); Immature Granulocyte Percent A 0.4 % (0-0.5); Lymphocytes Absolute Auto 0.94 K/mm3 (0.9-3.2); Lymphocytes Percent Auto 9.7 % (18.3-44.2); Mean Corpuscular HGB Conc 31.2 g/dl (32-36); Mean Corpuscular Volume 86.8 fl (80-100); Mean Platelet Volume 8.7 fl (7.4-10.4); Monocytes Absolute Auto 0.4 K/mm3 (0.1-0.6); Neutrophils Absolute Auto 8.3 K/mm3 (1.3-6.7); Neutrophils Percent Auto 85.3 % (45.5-73.1); Platelet Count Result 239 k/mm3 (150-375); Red Cell Distribution Width 14.8 % (11.5-14.5); White Blood Count 9.7 K/mm3 (4.5-10.0)
[2022-12-11 06:36] LABS: Alanine Aminotransferase 20 U/L (6-35); Albumin Level 3.1 g/dL (3.5-5.1); Alkaline Phosphatase 62 U/L (38-126); Anion Gap 7 mmol/L (8-16); Aspartate Amino Transferase 45 U/L (14-36); Bilirubin,Total 0.8 mg/dL (0.2-1.3); Blood Urea Nitrogen 7 mg/dL (7-17); Calcium 7.9 mg/dL (8.4-10.2); Carbon Dioxide 28 mmol/L (22-30); Chloride 98 mmol/L (98-107); Estimated CRCL calculation 167 ml/min; Estimated Glomerular Filt Rate > 60; Glucose 136 mg/dL (65-110); Magnesium 1.9 mg/dL (1.6-2.3); Potassium 3.3 mmol/L (3.4-5.0); Sodium 133 mmol/L (137-145)
[2022-12-11] MEDS: POTASSIUM CHLORIDE 20 MEQ TABLET 40 MEQ PO (07:59)
[2022-12-11] MEDS: FUROSEMIDE INJ 40 MG/4 ML VIAL IV PUSH ×2 (07:59→16:29)
--- NOTE | 2022-12-11 08:00 | P.PNIM_ITS ---
Progress Note: A&P Assessment and Plan (1) SIRS (systemic inflammatory response syndrome): Code(s): R65.10 - Systemic inflammatory response syndrome (SIRS) of non-infectious origin without acute organ dysfunction Status: Acute Assessment and Plan: * Does exhibit tachycardia and leukocytosis * HR is 110, WBC 12.1, down to 9.7 * No notable source of infection * Chest xray does not exhibit any signs of infection * Blood cultures ordered * UA did not appear infectious, no culture reflex * Continue to trend labs * Adjust therapy as indicated * Hold on antibiotics for now * could be related to PE, CHF, abdominal pain (2) Acute pulmonary embolism: Code(s): I26.99 - Other pulmonary embolism without acute cor pulmonale Status: Acute Assessment and Plan: * CT scan show right lower lobe filling defect * No history of DVT/PE * Echo EF of >70% with grade 1 diastolic dysfunction * Lovenox 1mg/kg for now, switch to eliquis, which pre auth has been accepted * Venous doppler negative for DVT (3) Congestive heart failure: Code(s): I50.9 - Heart failure, unspecified Status: Acute Assessment and Plan: * Complaints of shortness of breath,and severe swelling * Acute diastolic heart failure with possible exacerbation * Echo EF >70% with grade 1 diastolic dysfunction * New onset * Current requiring supplemental oxygen, wean to maintain saturations >90% * BNP slightly elevated at 469 * notable anasarca * lasix 40mg IV BID scheduled * Leon goyal * Trend labs * Trend urine output (4) Abdominal pain: Code(s): R10.9 - Unspecified abdominal pain Status: Acute Assessment and Plan: * Reports right sided abdominal pain * KUB normal gas bowel patterns, does appear to have some constipation * could be related weight * Reports dark urine * CK not elevated * could be related to fluid status, possible CHF * pain medications on board (5) Morbid obesity with BMI of 50.0-59.9, adult: Code(s): E66.01 - Morbid (severe) obesity due to excess calories; Z68.43 - Body mass index [BMI] 50.0-59.9, adult Status: Acute Assessment and Plan: * Recommend lifestyle changes, exercise * Consult dietitian (6) Dyslipidemia: Code(s): E78.5 - Hyperlipidemia, unspecified Status: Acute Assessment and Plan: * Continue Crestor 5 mg daily p.o. * lipid panel Cholesterol 116, triglycerides 14, HDL 24, LDL 58 (7) Diabetes 1.5, managed as type 2: Code(s): E13.9 - Other specified diabetes mellitus without complications Status: Acute Assessment and Plan: * Glucose stable at 136 * Continue Lantus 22 units subQ * Hold oral medication * Start his insulin scale a.c. q.h.s. * Hypoglycemia protocol is initiated * Continue to trend glucose (8) DIEGO on CPAP: Code(s): G47.33 - Obstructive sleep apnea (adult) (pediatric); Z99.89 - Dependence on other enabling machines and devices Status: Acute Assessment and Plan: * Continue CPAP at home settin cm Time Spent With Patient Time: ? MEDICAL DECISION MAKING NARRATIVE ? History obtained from: Patient ? History from independent sources: none ? External chart review: lab and vital s
--- NOTE | 2022-12-11 08:00 | PM.IMPN ---
Progress Note: A&P Assessment and Plan (1) SIRS (systemic inflammatory response syndrome): Code(s): R65.10 - Systemic inflammatory response syndrome (SIRS) of non-infectious origin without acute organ dysfunction Status: Acute Assessment and Plan: Does exhibit tachycardia and leukocytosis HR is 110, WBC 12.1, down to 9.7 No notable source of infection Chest xray does not exhibit any signs of infection Blood cultures ordered UA did not appear infectious, no culture reflex Continue to trend labs Adjust therapy as indicated Hold on antibiotics for now could be related to PE, CHF, abdominal pain (2) Acute pulmonary embolism: Code(s): I26.99 - Other pulmonary embolism without acute cor pulmonale Status: Acute Assessment and Plan: CT scan show right lower lobe filling defect No history of DVT/PE Echo EF of >70% with grade 1 diastolic dysfunction Lovenox 1mg/kg for now, switch to eliquis, which pre auth has been accepted Venous doppler negative for DVT (3) Congestive heart failure: Code(s): I50.9 - Heart failure, unspecified Status: Acute Assessment and Plan: Complaints of shortness of breath,and severe swelling Acute diastolic heart failure with possible exacerbation Echo EF >70% with grade 1 diastolic dysfunction New onset Current requiring supplemental oxygen, wean to maintain saturations >90% BNP slightly elevated at 469 notable anasarca lasix 40mg IV BID scheduled Leon hose Trend labs Trend urine output (4) Abdominal pain: Code(s): R10.9 - Unspecified abdominal pain Status: Acute Assessment and Plan: Reports right sided abdominal pain KUB normal gas bowel patterns, does appear to have some constipation could be related weight Reports dark urine CK not elevated could be related to fluid status, possible CHF pain medications on board (5) Morbid obesity with BMI of 50.0-59.9, adult: Code(s): E66.01 - Morbid (severe) obesity due to excess calories; Z68.43 - Body mass index [BMI] 50.0-59.9, adult Status: Acute Assessment and Plan: Recommend lifestyle changes, exercise Consult dietitian (6) Dyslipidemia: Code(s): E78.5 - Hyperlipidemia, unspecified Status: Acute Assessment and Plan: Continue Crestor 5 mg daily p.o. lipid panel Cholesterol 116, triglycerides 14, HDL 24, LDL 58 (7) Diabetes 1.5, managed as type 2: Code(s): E13.9 - Other specified diabetes mellitus without complications Status: Acute Assessment and Plan: Glucose stable at 136 Continue Lantus 22 units subQ Hold oral medication Start his insulin scale a.c. q.h.s. Hypoglycemia protocol is initiated Continue to trend glucose (8) DIEGO on CPAP: Code(s): G47.33 - Obstructive sleep apnea (adult) (pediatric); Z99.89 - Dependence on other enabling machines and devices Status: Acute Assessment and Plan: Continue CPAP at home settin cm Time Spent With Patient Time: ? MEDICAL DECISION MAKING NARRATIVE ? History obtained from: Patient ? History from independent sources: none ? External chart review: lab and vital sign review ? 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 Chronic illnesses addressed: DM, HLD ? Independent interpretation of studies: Lab and vital signs ? Comorbidities complicating care: Morbid obesity ? Diagnostic tests considered but not ordered: Renal ultra sound (CVA pain) ? Risk of complication: High: Obesity, new PE, anasarca? ? Time spent on encounter: 57 minutes Time with patient: Greater than 35 minutes Subjective Date/time seen: 12/11/22 08:00 Interval history: 12/11/22 0800 Patient is laying in bed. She is still complaining of right sided pain, however, stated that it is getti
[2022-12-11] MEDS: SERTRALINE HCL 50 MG TABLET 100 MG PO (08:04)
[2022-12-11] MEDS: ROSUVASTATIN 5 MG TABLET PO (08:04)
[2022-12-11] MEDS: SENNA/DOCUSATE SODIUM TABLET 1 TAB PO (08:04)
[2022-12-11] MEDS: ENOXAPARIN 60 MG/0.6 ML SYRINGE 50 MG SUB-Q (08:05)
[2022-12-11] MEDS: ENOXAPARIN 100 MG/ML SYRINGE SUB-Q (08:05)
[2022-12-11] MEDS: polyethylene glycoL 3350 17 GM POWD.PACK PO (08:05)
[2022-12-11 08:35] LABS: Glucose Point of Care 149 mg/dl (65-105)
[2022-12-11 12:09] LABS: Glucose Point of Care 148 mg/dl (65-105)
[2022-12-11 16:39] LABS: Glucose Point of Care 128 mg/dl (65-105)
[2022-12-11] MEDS: ARIPiprazole 2 MG TABLET PO (20:10)
[2022-12-11] MEDS: APIXABAN 5 MG TABLET 10 MG PO (20:10)
[2022-12-11] MEDS: CYCLOBENZAPRINE HCL 10 MG TABLET PO (21:26)
[2022-12-11] MEDS: MONTELUKAST SODIUM 10 MG TABLET PO (21:26)
[2022-12-11] MEDS: HYDROmorphone HCL INJ (*CRX) 1 MG/ML SYR IV PUSH (21:26)
[2022-12-11] MEDS: INSULIN GLARGINE (*BKC) 100 UNITS/ML 22 UNITS SUB-Q (21:31)
[2022-12-11 21:32] LABS: Glucose Point of Care 160 mg/dl (65-105)
[2022-12-12] VITALS (18 sets, daily range): BP systolic 100–110; BP diastolic 49–71; PULSE 101–123; RESP 18–24; TEMP 36.8–36.9; O2SAT 90–94
[2022-12-12] MEDS: LEVALBUTEROL NEB 1.25 MG/3 ML 0.63 MG INHALATION ×4 (02:20→21:20)
[2022-12-12] MEDS: APIXABAN 5 MG TABLET 10 MG PO ×2 (08:11→20:15)
[2022-12-12] MEDS: SERTRALINE HCL 50 MG TABLET 100 MG PO (08:11)
[2022-12-12] MEDS: SENNA/DOCUSATE SODIUM TABLET 1 TAB PO (08:11)
[2022-12-12] MEDS: ROSUVASTATIN 5 MG TABLET PO (08:11)
[2022-12-12] MEDS: FUROSEMIDE INJ 40 MG/4 ML VIAL IV PUSH (08:12)
[2022-12-12 08:38] LABS: Glucose Point of Care 161 mg/dl (65-105)
--- NOTE | 2022-12-12 08:44 | PCOTNOTE ---
Attempted to see patient for OT evaluation this AM. Patient reporting nausea and pain and declining activity at this time. She is willing to work with therapy later if she's feeling better, however. RN updated.
[2022-12-12] MEDS: oxyCODONE/ACETAMINOPHEN (*CRX) 5-325 MG TABLET 1 TABLET PO ×2 (09:03→20:13)
[2022-12-12] MEDS: ONDANSETRON INJ 4 MG/2 ML VIAL IV PUSH (09:26)
[2022-12-12 09:44] LABS: Basophils Percent Auto 0.3 % (0.2-1.2); Eosinophils Percent Auto 0.4 % (0-4.4); Hematocrit 34.7 % (37.0-47.0); Hemoglobin 10.8 g/dL (12.0-15.0); Immature Granulocyte Absolute 0.04 K/mm3 (0.00-0.031); Immature Granulocyte Percent A 0.4 % (0-0.5); Lymphocytes Absolute Auto 0.98 K/mm3 (0.9-3.2); Lymphocytes Percent Auto 10.7 % (18.3-44.2); Mean Corpuscular HGB Conc 31.1 g/dl (32-36); Mean Corpuscular Hemoglobin 26.7 pg (26-34); Mean Corpuscular Volume 85.7 fl (80-100); Mean Platelet Volume 8.5 fl (7.4-10.4); Monocytes Absolute Auto 0.4 K/mm3 (0.1-0.6); Monocytes Percent Auto 3.9 % (2.6-8.5); Neutrophils Absolute Auto 7.7 K/mm3 (1.3-6.7); Neutrophils Percent Auto 84.3 % (45.5-73.1); Platelet Count Result 290 k/mm3 (150-375); Red Blood Count 4.05 M/mm3 (4.2-5.4); White Blood Count 9.2 K/mm3 (4.5-10.0)
[2022-12-12 09:59] LABS: Potassium 2.9 mmol/L (3.4-5.0)
[2022-12-12 10:05] LABS: Alanine Aminotransferase 25 U/L (6-35); Albumin Level 3.5 g/dL (3.5-5.1); Alkaline Phosphatase 62 U/L (38-126); Anion Gap 7 mmol/L (8-16); Aspartate Amino Transferase 48 U/L (14-36); Bilirubin,Total 0.9 mg/dL (0.2-1.3); Blood Urea Nitrogen 6 mg/dL (7-17); Calcium 7.9 mg/dL (8.4-10.2); Carbon Dioxide 32 mmol/L (22-30); Chloride 93 mmol/L (98-107); Estimated CRCL calculation 167 ml/min; Estimated Glomerular Filt Rate > 60; Glucose 165 mg/dL (65-110); Magnesium 1.8 mg/dL (1.6-2.3); Sodium 132 mmol/L (137-145)
--- NOTE | 2022-12-12 11:30 | P.PNIM_ITS ---
Progress Note: A&P Assessment and Plan (1) SIRS (systemic inflammatory response syndrome): Code(s): R65.10 - Systemic inflammatory response syndrome (SIRS) of non-infectious origin without acute organ dysfunction Status: Acute Assessment and Plan: * Does exhibit tachycardia and leukocytosis * HR is 110, WBC 12.1, down to 9.2 * No notable source of infection * Chest xray does not exhibit any signs of infection * Blood cultures ordered * UA did not appear infectious, no culture reflex * Continue to trend labs * Adjust therapy as indicated * Hold on antibiotics for now * could be related to PE, CHF, abdominal pain (2) Acute pulmonary embolism: Code(s): I26.99 - Other pulmonary embolism without acute cor pulmonale Status: Acute Assessment and Plan: * CT scan show right lower lobe filling defect * No history of DVT/PE * Echo EF of >70% with grade 1 diastolic dysfunction * Lovenox 1mg/kg for now, switch to eliquis, which pre auth has been accepted * Venous doppler negative for DVT (3) Congestive heart failure: Code(s): I50.9 - Heart failure, unspecified Status: Acute Assessment and Plan: * Complaints of shortness of breath,and severe swelling * Acute diastolic heart failure with possible exacerbation * Echo EF >70% with grade 1 diastolic dysfunction * New onset * Current requiring supplemental oxygen, wean to maintain saturations >90% * BNP slightly elevated at 469 * notable anasarca * lasix 40mg IV BID switched to Daily * Leon hose * Trend labs * Trend urine output (4) Abdominal pain: Code(s): R10.9 - Unspecified abdominal pain Status: Acute Assessment and Plan: * Reports right sided abdominal pain * KUB normal gas bowel patterns, does appear to have some constipation * could be related weight * Reports dark urine * CK not elevated * could be related to fluid status, possible CHF * pain medications on board (5) Morbid obesity with BMI of 50.0-59.9, adult: Code(s): E66.01 - Morbid (severe) obesity due to excess calories; Z68.43 - Body mass index [BMI] 50.0-59.9, adult Status: Acute Assessment and Plan: * Recommend lifestyle changes, exercise * Consult dietitian (6) Dyslipidemia: Code(s): E78.5 - Hyperlipidemia, unspecified Status: Acute Assessment and Plan: * Continue Crestor 5 mg daily p.o. * lipid panel Cholesterol 116, triglycerides 14, HDL 24, LDL 58 (7) Diabetes 1.5, managed as type 2: Code(s): E13.9 - Other specified diabetes mellitus without complications Status: Acute Assessment and Plan: * Glucose stable at 165 * Continue Lantus 22 units subQ * Hold oral medication * Start his insulin scale a.c. q.h.s. * Hypoglycemia protocol is initiated * Continue to trend glucose (8) DIEGO on CPAP: Code(s): G47.33 - Obstructive sleep apnea (adult) (pediatric); Z99.89 - Dependence on other enabling machines and devices Status: Acute Assessment and Plan: * Continue CPAP at home settin cm Time Spent With Patient Time with patient: Greater than 35 minutes Subjective Date/time seen: 12/12/22 1130 Interval history: 12/12/22 1130 Teresa
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
[2022-12-12 12:19] LABS: Glucose Point of Care 155 mg/dl (65-105)
[2022-12-12] MEDS: POTASSIUM CHLORIDE 20 MEQ TABLET 40 MEQ PO (14:35)
[2022-12-12] MEDS: POTASSIUM CHLORIDE INJ 40 MEQ in SODIUM CHLORIDE 0.9% IV 500 ML 130 MEQ IVPB (14:35)
[2022-12-12 17:21] LABS: Glucose Point of Care 164 mg/dl (65-105)
[2022-12-12] MEDS: ARIPiprazole 2 MG TABLET PO (20:14)
[2022-12-12] MEDS: MONTELUKAST SODIUM 10 MG TABLET PO (20:15)
[2022-12-12] MEDS: INSULIN GLARGINE (*BKC) 100 UNITS/ML 22 UNITS SUB-Q (21:06)
[2022-12-12 21:13] LABS: Glucose Point of Care 156 mg/dl (65-105)
[2022-12-13] VITALS (12 sets, daily range): BP systolic 119–123; BP diastolic 59–68; PULSE 98–106; RESP 16–20; TEMP 36.6–37; O2SAT 91–96
[2022-12-13 04:50] LABS: Basophils Percent Auto 0.2 % (0.2-1.2); Eosinophils Absolute Auto 0.1 K/mm3 (0-0.3); Eosinophils Percent Auto 1.6 % (0-4.4); Hematocrit 32.5 % (37.0-47.0); Hemoglobin 9.8 g/dL (12.0-15.0); Immature Granulocyte Absolute 0.03 K/mm3 (0.00-0.031); Immature Granulocyte Percent A 0.5 % (0-0.5); Lymphocytes Absolute Auto 0.87 K/mm3 (0.9-3.2); Lymphocytes Percent Auto 13.7 % (18.3-44.2); Mean Corpuscular HGB Conc 30.2 g/dl (32-36); Mean Corpuscular Volume 86.2 fl (80-100); Mean Platelet Volume 8.5 fl (7.4-10.4); Monocytes Absolute Auto 0.3 K/mm3 (0.1-0.6); Monocytes Percent Auto 5.2 % (2.6-8.5); Neutrophils Percent Auto 78.8 % (45.5-73.1); Nucleated Red Blood Cells Perc 0.3 % (0.0-0.2); Platelet Count Result 248 k/mm3 (150-375); Red Blood Count 3.77 M/mm3 (4.2-5.4); White Blood Count 6.3 K/mm3 (4.5-10.0)
[2022-12-13 05:03] LABS: Alanine Aminotransferase 22 U/L (6-35); Albumin Level 2.8 g/dL (3.5-5.1); Alkaline Phosphatase 52 U/L (38-126); Anion Gap 5 mmol/L (8-16); Aspartate Amino Transferase 31 U/L (14-36); Bilirubin,Total 0.5 mg/dL (0.2-1.3); Blood Urea Nitrogen 5 mg/dL (7-17); Calcium 7.7 mg/dL (8.4-10.2); Carbon Dioxide 33 mmol/L (22-30); Chloride 99 mmol/L (98-107); Estimated CRCL calculation 167 ml/min; Estimated Glomerular Filt Rate > 60; Glucose 134 mg/dL (65-110); Potassium 3.3 mmol/L (3.4-5.0); Sodium 137 mmol/L (137-145)
[2022-12-13] MEDS: oxyCODONE/ACETAMINOPHEN (*CRX) 5-325 MG TABLET 1 TABLET PO ×2 (05:47→20:59)
--- NOTE | 2022-12-13 06:16 | PC.NURSE ---
Pt received at 1900 in bed, avoided eye contact, limited interaction with this nurse. When asked if she worked with PT, patient stated that she didn't have to after talking with the physical therapist. Pt with cpap on stayed in bed all shift. Received oxy x2 this shift for c/o right chest pain. Requests snacks - such as pudding from staff.
[2022-12-13] MEDS: LEVALBUTEROL NEB 1.25 MG/3 ML 0.63 MG INHALATION ×3 (08:16→19:43)
[2022-12-13] MEDS: APIXABAN 5 MG TABLET 10 MG PO ×2 (08:17→21:00)
[2022-12-13] MEDS: SENNA/DOCUSATE SODIUM TABLET 1 TAB PO (08:17)
[2022-12-13] MEDS: ROSUVASTATIN 5 MG TABLET PO (08:18)
[2022-12-13] MEDS: SERTRALINE HCL 50 MG TABLET 100 MG PO (08:18)
[2022-12-13 08:21] LABS: Glucose Point of Care 150 mg/dl (65-105)
[2022-12-13] MEDS: FUROSEMIDE INJ 40 MG/4 ML VIAL IV PUSH (09:24)
[2022-12-13 11:57] LABS: Glucose Point of Care 155 mg/dl (65-105)
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
[2022-12-13] MEDS: POTASSIUM CHLORIDE 20 MEQ TABLET 40 MEQ PO (14:30)
[2022-12-13 17:05] LABS: Glucose Point of Care 120 mg/dl (65-105)
[2022-12-13] MEDS: MONTELUKAST SODIUM 10 MG TABLET PO (21:00)
[2022-12-13] MEDS: ARIPiprazole 2 MG TABLET PO (21:01)
[2022-12-13] MEDS: INSULIN GLARGINE (*BKC) 100 UNITS/ML 22 UNITS SUB-Q (21:03)
[2022-12-13 21:34] LABS: Glucose Point of Care 161 mg/dl (65-105)
[2022-12-14] VITALS (7 sets, daily range): BP systolic 124; BP diastolic 73; PULSE 87–98; RESP 18–20; TEMP 36.7; O2SAT 92–95
--- NOTE | 2022-12-14 01:41 | PC.NURSE ---
Received pt sitting side of bed crying . States she had BM on bedside commode and peed on the floor. Pt states she cant wipe her butt. This nurse pulled toilet paper out of buttock area and cleaned her with warm wash clothes. Pt no longer on o2, up ad ping in room Instructed pt to increase activity and ambulate to the bathroom Removed the commode from bedside. Pt pessimistic about health improving.
[2022-12-14] MEDS: LEVALBUTEROL NEB 1.25 MG/3 ML 0.63 MG INHALATION ×2 (01:58→08:48)
[2022-12-14 06:23] LABS: Basophils Percent Auto 0.3 % (0.2-1.2); Eosinophils Absolute Auto 0.1 K/mm3 (0-0.3); Eosinophils Percent Auto 1.7 % (0-4.4); Hematocrit 32.9 % (37.0-47.0); Immature Granulocyte Absolute 0.02 K/mm3 (0.00-0.031); Immature Granulocyte Percent A 0.3 % (0-0.5); Lymphocytes Percent Auto 14.3 % (18.3-44.2); Mean Corpuscular HGB Conc 30.4 g/dl (32-36); Mean Corpuscular Hemoglobin 26.8 pg (26-34); Mean Corpuscular Volume 88.2 fl (80-100); Mean Platelet Volume 9.4 fl (7.4-10.4); Monocytes Absolute Auto 0.3 K/mm3 (0.1-0.6); Monocytes Percent Auto 4.6 % (2.6-8.5); Neutrophils Percent Auto 78.8 % (45.5-73.1); Nucleated Red Blood Cells Perc 0.3 % (0.0-0.2); Platelet Count Result 246 k/mm3 (150-375); Red Blood Count 3.73 M/mm3 (4.2-5.4); White Blood Count 6.3 K/mm3 (4.5-10.0)
[2022-12-14 06:25] LABS: Alanine Aminotransferase 23 U/L (6-35); Albumin Level 2.8 g/dL (3.5-5.1); Alkaline Phosphatase 55 U/L (38-126); Anion Gap 6 mmol/L (8-16); Aspartate Amino Transferase 30 U/L (14-36); Bilirubin,Total 0.6 mg/dL (0.2-1.3); Blood Urea Nitrogen 6 mg/dL (7-17); Calcium 7.9 mg/dL (8.4-10.2); Carbon Dioxide 32 mmol/L (22-30); Chloride 97 mmol/L (98-107); Estimated CRCL calculation 167 ml/min; Estimated Glomerular Filt Rate > 60; Glucose 131 mg/dL (65-110); Magnesium 2.1 mg/dL (1.6-2.3); Potassium 3.1 mmol/L (3.4-5.0); Sodium 135 mmol/L (137-145)
[2022-12-14] MEDS: ROSUVASTATIN 5 MG TABLET PO (08:21)
[2022-12-14] MEDS: POTASSIUM CHLORIDE 20 MEQ TABLET 40 MEQ PO ×2 (08:21→13:08)
[2022-12-14] MEDS: SERTRALINE HCL 50 MG TABLET 100 MG PO (08:21)
[2022-12-14] MEDS: FUROSEMIDE INJ 40 MG/4 ML VIAL IV PUSH (08:21)
[2022-12-14] MEDS: APIXABAN 5 MG TABLET 10 MG PO (08:21)
[2022-12-14 08:31] LABS: Glucose Point of Care 131 mg/dl (65-105)
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
[2022-12-14 12:20] LABS: Glucose Point of Care 157 mg/dl (65-105)
== END 2022-12-14 14:30 | disposition home or self-care (01) | DRG 134 ==
LOC: ANHED 19:55 → ANH2MED 20:46
PROVIDERS: Physician Assistant; Admitting Provider Hospitalist; Emergency Provider Emergency Medicine; PCP Nurse Practitioner Family; Visit Provider Nurse Practitioner
DX: I26.99 Other pulmonary embolism without acute cor pulmonale (principal); I50.31 Acute diastolic (congestive) heart failure; J18.9 Pneumonia, unspecified organism; R65.10 Systemic inflammatory response syndrome (SIRS) of non-infectious origin without acute organ dysfunction; E66.01 Morbid (severe) obesity due to excess calories; Z68.43 Body mass index [BMI] 50.0-59.9, adult; E78.5 Hyperlipidemia, unspecified; E11.9 Type 2 diabetes mellitus without complications; G47.33 Obstructive sleep apnea (adult) (pediatric); Z20.822 Contact with and (suspected) exposure to COVID-19; F32.9 Major depressive disorder, single episode, unspecified; E28.2 Polycystic ovarian syndrome; F41.8 Other specified anxiety disorders; Z79.4 Long term (current) use of insulin; Z79.84 Long term (current) use of oral hypoglycemic drugs; Z79.52 Long term (current) use of systemic steroids; Z88.1 Allergy status to other antibiotic agents
CPT/HCPCS: 36415; 71045; 71046; 71275; 74018; 80053; 80061; 81001; 81025; 82550; 82948; 83605; 83690; 83735; 83880; 84484; 85025; 85380; 85610; 85652; 85730; 86140; 87040; 87636; 93005; 93970; 94640; 96372; 96374; 96376; 97165; 97535; 99285; A9270; C8929; G0378; J0456; J0696; J1170; J1650; J1815; J1940; J2405; J3480; J7040; Q9967

== ENCOUNTER 2023-04-26 16:01 | Outpatient (CLI) | payer OTHER, SELFPAY ==
[2023-04-26 16:37] LABS: Hematocrit 38.6 % (37.0-47.0); Hemoglobin 11.9 g/dL (12.0-15.0)
[2023-04-26 17:07] LABS: Anion Gap 4 mmol/L (8-16); Blood Urea Nitrogen 11 mg/dL (7-17); Carbon Dioxide 34 mmol/L (22-30); Chloride 96 mmol/L (98-107); Estimated Glomerular Filt Rate > 60; Glucose 137 mg/dL (65-110); Potassium 4.9 mmol/L (3.4-5.0); Sodium 134 mmol/L (137-145)
== END 2023-04-26 16:02 | disposition home or self-care (01) ==
LOC: ANHSURGERY 16:02
PROVIDERS: Anesthesiology; PCP Nurse Practitioner Family; Visit Provider Student in an Organized Health Care Education/Training Program
DX: Z01.812 Encounter for preprocedural laboratory examination (principal); N93.9 Abnormal uterine and vaginal bleeding, unspecified; E11.9 Type 2 diabetes mellitus without complications
CPT/HCPCS: 36415; 80048; 85014; 85018

== ENCOUNTER 2023-04-30 00:10 | Day surgery (SDC) | payer OTHER, SELFPAY ==
[2023-04-23 08:41] VITALS: BMI 58.4
--- NOTE | 2023-04-23 08:45 | PC.NURSE ---
Report to the Outpatient Waiting Room, entrance under the green pavilion located off [facility], at time 12:30 on date 04/30/23. Planned Procedure Time: 2:30. Time changes happen often and if your time is changed the preop area will call you the afternoon before. - You and your visitor will be asked to self-screen and do not enter if you have any COVID symptoms. - A mask is optional within the hospital at this time. Patients may have clear liquids (water, carbonated beverages, clear teas, apple juice) until 3 hours prior to surgery with a maximum of 20 ounces. - No food from midnight until time of surgery Take the following medications with a SIP of water the morning of surgery: NONE DO NOT STOP ANY OF YOUR OTHER PRESCRIPTION MEDICATIONS PRIOR TO SURGERY?EXCEPT THE FOLLOWING Medications to discontinue per physician: ELIQUIS Date to take last dose: 04/27/23 ( INSTRUCTED, PER PATIENT) Please no make-up, nail setswana, hairspray, perfume, deodorant, or body powder the day of surgery. No jewelry (including any body piercings) or valuables the day of surgery, leave them at home. Please take a shower or bath the night before, or the morning of, surgery with an antibacterial soap. Wear comfortable, loose fitting clothing. - Jewelry must be removed prior to entering the operating room. Rings and piercings that are not removed may be cut off. - The hospital will not accept responsibility for valuables. - Please leave all valuables, including medications, at home the day of surgery. If you are going home after surgery, a licensed refrigerated national truck driver must drive you home. - NO public transportation without another adult if you receive anesthesia. - We recommend that an adult stay with you for 24 hours following discharge. - We also recommend that you do not drive, make important decision, drink alcoholic beverages, or take any drugs that were not prescribed by your health care provider for at least 24 hours after your discharge time. Follow any additional instructions given to you from your surgeon. If you or anyone in your household have experienced Covid symptoms in the past week, please notify your surgeon or the nurse liaison at the phone number below for possible testing. Telephone instructions given to PT - LATRICE ALMANZAR and asked if any additional questions and then verbalized understanding. Patient advised to call surgeon office or pre surgery nurse liaison [phone] if any additional questions.
--- NOTE | 2023-04-30 09:39 | PM.IMHP ---
H&P: HPI History of Present Illness Date/Time: 04/30/23 09:39 Chief Complaint: abnormal uterine bleeding Narrative: 32-year-old female who presents for hysteroscopy D&C for abnormal uterine bleeding.? 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 Patient had ultrasound which showed an irregularly thickened endometrial lining.? Patient still requesting hysterectomy.? Patient states she has had D&C in the past for similar complaints. Review of Systems Cardiovascular: Cardiovascular: Denies chest pain, Denies leg edema, Denies palpitations, Denies dyspnea and Denies dyspnea on exertion Respiratory: Respiratory: Denies cough, Denies dyspnea and Denies dyspnea on exertion Gastrointestinal: Gastrointestinal: Denies abdominal pain, Denies constipation, Denies diarrhea, Denies nausea and Denies vomiting Genitourinary: Genitourinary: Denies hematuria, Denies urinary frequency, Denies dysuria, Denies pelvic pain, Denies urinary incontinence and Denies vaginal discharge Neurologic: Reports system reviewed and no additional complaints, except as documented Psychiatric: Psychiatric: Reports no additional psychiatric complaints Endocrine: Endocrine: Denies palpitations PMFSH Past Medical History Medical History Anxiety and depression Diabetes 1.5, managed as type 2 Encounter for insertion of intrauterine contraceptive device Hyperlipidemia, unspecified Major depressive disorder, single episode, unspecified Morbid obesity DIEGO on CPAP PCOS (polycystic ovarian syndrome) Sleep apnea in adult Surgical History Surgical History H/O: knee surgery Hx of tonsillectomy Family History Family History Mother Family history of malignant neoplasm of breast in first degree relative Social History Social History Smoking status: Never smoker Second hand tobacco smoke exposure: Yes Alcohol intake: never Drinks per week: 1 Substance use: never Substance use type: does not use Lack of Transportation: No Lack of Food: Never True Current Housing: I Have Housing Concerned About Future Housing: No Difficulty Paying Gas/Electric Bills: No Difficulty Paying for Meds: No Currently Unemployed: No Education: Associate Degree Difficulty w/ Childcare or Family Care: No Living arrangements: with roommate(s) Occupation/Education: student Gender identity (if verbalized by the patient): Female Sexual Orientation (if Verbalized by the Patient): Straight or Heterosexual Spiritual care concerns: No Agree to blood products: No Meds Home Medications and Allergies Home Medications Medication Instructions Recorded Confirmed Type aripiprazole 2 mg tablet 2 mg PO HS 03/04/22 04/23/23 History insulin glargine 100 unit/mL (3 22 unit subcut HS 03/04/22 04/23/23 History mL) subcutaneous pen (Lantus Solostar U-100 Insulin) metformin 1,000 mg tablet 1,000 mg PO BID 03/04/22 04/23/23 History pen needle, diabetic 31 gauge x 03/04/22 12/08/22 History 3/16 (TRUEplus Pen Needle) rosuvastatin 5 mg tablet 5 mg PO HS 03/04/22 04/23/23 History sertraline 100 mg tablet 100 mg PO HS 03/04/22 04/23/23 History ondansetron 4 mg disintegrating 4 mg PO Q6-8H PRN nausea and 07/02/22 04/23/23 Rx tablet vomiting #14 tabs apixaban 5 mg tablet (Eliquis) 5 mg PO BID #74 tabs 12/10/22 04/23/23 Rx cyanocobalamin (vitamin B-12) 1,000 mcg subcut WEEKLY 03/23/23 04/23/23 History 1,000 mcg/mL injection solution ergocalciferol (vitamin D2) 1,250 1,250 mcg PO WEEKLY 03/23/23 04/23/23 History mcg (50,000 unit) capsule Allergies Allergy/AdvReac Type Severity Reaction Status Date / Time amoxicillin [From Augmentin] Allergy Mild Hives Verified 04/23/23 08:39 clavulanic acid Allergy Mil
--- NOTE | 2023-04-30 09:40 | WPDHPUPDATE1 ---
History and Physical Update Update Date/Time: 04/30/23 09:40 History and Physical has been reviewed, including an updated exam of the patient. There are NO changes in the patient's condition. Risks, benefits, and alternatives have been discussed and questions answered. Patient agrees to proceed with procedure.
--- NOTE | 2023-04-30 10:24 | WPDANESEPPF ---
Anes - Initial Pre Proc Eval Procedure: Operation Date: 04/30/23 14:30 Proposed Procedures p Hysteroscopy Dilation and Curettage - Alex Gonzalez MD Date/Time: 04/30/23 10:24 Surgeon: Alex Gonzalez MD Pre Op Diagnosis: Abnormal Uterine Bleeding Patient Data Age: 33 Gender: F Height: 1.6 m Weight: 149.7 kg Allergies Allergy/AdvReac Type Severity Reaction Status Date / Time amoxicillin [From Augmentin] Allergy Mild Hives Verified 04/23/23 08:39 clavulanic acid Allergy Mild Hives Verified 04/23/23 08:39 [From Augmentin] promethazine [From Phenergan] Allergy Mild Hives Verified 04/23/23 08:39 Home Medications Medication Instructions Recorded Confirmed Type aripiprazole 2 mg tablet 2 mg PO HS 03/04/22 04/23/23 History insulin glargine 100 unit/mL (3 22 unit subcut HS 03/04/22 04/23/23 History mL) subcutaneous pen (Lantus Solostar U-100 Insulin) metformin 1,000 mg tablet 1,000 mg PO BID 03/04/22 04/23/23 History pen needle, diabetic 31 gauge x 03/04/22 12/08/22 History 3/16 (TRUEplus Pen Needle) rosuvastatin 5 mg tablet 5 mg PO HS 03/04/22 04/23/23 History sertraline 100 mg tablet 100 mg PO HS 03/04/22 04/23/23 History ondansetron 4 mg disintegrating 4 mg PO Q6-8H PRN nausea and 07/02/22 04/23/23 Rx tablet vomiting #14 tabs apixaban 5 mg tablet (Eliquis) 5 mg PO BID #74 tabs 12/10/22 04/23/23 Rx cyanocobalamin (vitamin B-12) 1,000 mcg subcut WEEKLY 03/23/23 04/23/23 History 1,000 mcg/mL injection solution ergocalciferol (vitamin D2) 1,250 1,250 mcg PO WEEKLY 03/23/23 04/23/23 History mcg (50,000 unit) capsule Patient hx anesthesia problems: none Family hx anesthesia problems: none Results Review: All pre-operative results and documents have been reviewed as part of the pre-operative evaluation. 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, managed as type 2 Encounter for insertion of intrauterine contraceptive device Hyperlipidemia, unspecified Major depressive disorder, single episode, unspecified Morbid obesity DIEGO on CPAP PCOS (polycystic ovarian syndrome) Pericarditis Sleep apnea in adult Surgical History Surgical History H/O: knee surgery Hx of tonsillectomy Family History Family History Mother Family history of malignant neoplasm of breast in first degree relative Social History Social History Smoking status: Never smoker Second hand tobacco smoke exposure: Yes Alcohol intake: never Drinks per week: 1 Substance use: never Substance use type: does not use Lack of Transportation: No Lack of Food: Never True Current Housing: I Have Housing Concerned About Future Housing: No Difficulty Paying Gas/Electric Bills: No Difficulty Paying for Meds: No Currently Unemployed: No Education: Associate Degree Difficulty w/ Childcare or Family Care: No Living arrangements: with roommate(s) Occupation/Education: student Gender identity (if verbalized by the patient): Female Sexual Orientation (if Verbalized by the Patient): Straight or Heterosexual Spiritual care concerns: No Agree to blood products: No Anes - Eval Final PreProcedure Day of Procedure 04/30/23 10:24 Patient weight: super morbidly obese Heart: regular rate and rhythm Lungs: clear to auscultation Airway: Mallampati scale class III Neurological: alert and oriented Last oral intake: >/= 8 hours ASA classification: III Emergent: no Anesthetic plan: proceed Anesthesia type and monitoring: general GIVS and LMA and standard monitoring Results Review: All pre-operative results and documents have been reviewed as part of the pre-operative evaluation. Informed Consent: The patient's ane
[2023-04-30 12:44] VITALS: BP 119/62; PULSE 71; RESP 18; TEMP 36.1; O2SAT 100
[2023-04-30] MEDS: LACTATED RINGERS 1,000 ML 30 ML IV CONT (13:02)
[2023-04-30] MEDS: ACETAMINOPHEN 500 MG TABLET 1000 MG PO (13:03)
[2023-04-30 13:05] LABS: Glucose Point of Care 181 mg/dl (65-105)
[2023-04-30] MEDS: LIDOCAINE HCL 1% LOCAL INJ 20 ML VIAL 10 ML INFILTRATE (13:48)
--- NOTE | 2023-04-30 14:16 | W.PM.PROC2 ---
Procedure Note - Detailed Date of Procedure 04/30/23 Pre-op Diagnosis Abnormal Uterine Bleeding Post-op Diagnosis Same Procedure Performed paracervical block hysteroscopy dilation & curettage Surgeon Alex Gonzalez MD Anesthesia General Indications abnormal uterine bleeding Findings hypervascular and globally thickened endometrium, polypoid in appearance. unable to identify bilateral tubal ostia Description of Procedure Kirsten Hendricks presents for hysteroscopy D&C for the above reasons. She was counseled as to the indications, risks, benefits, and alternatives to surgery, with the risks including bleeding, infection, damage to surrounding organs, VTE, and complications of anesthesia. Her verbal and written consent was obtained. PROCEDURE: The patient was taken to the OR and general anesthesia induced. She was prepped and draped in Jabier stirrups with support of the back and bilateral lower extremities. I/O catheterization performed of the bladder. The above findings were noted. Infiltration with 1% lidocaine at the 3 and 9 o'clock cervical positions was performed. A single tooth tenaculum was placed on the anterior lip of the cervix. Hysteroscopy, using a normal saline medium, was performed and showed the above findings. Sharp uterine curettage was then performed and tissue placed on Telfa. The tenaculum was removed and hemostasis was observed. The patient tolerated the procedure well. Sponge, lap, and needle counts were correct. The patient was taken to the recovery room in stable condition. Estimated Blood Loss 10 Urine Output 50 Drains No Packing No Pathology Yes (endometrial curettings ) Complications No immediate complications Condition Stable Disposition PACU [facility] Billing Surgery - Charge Forward: Surgery Billing
[2023-04-30 14:20] VITALS: BP 124/84; PULSE 76; RESP 16; O2SAT 99
[2023-04-30] MEDS: oxyCODONE HCL (*CRX) 5 MG TAB IR PO (14:48)
[2023-04-30 14:50] VITALS: BP 111/59; PULSE 93; RESP 16
[2023-04-30 15:00] VITALS: BP 121/67; PULSE 65; RESP 16
[2023-04-30 15:07] LABS: Glucose Point of Care 137 mg/dl (65-105)
== END 2023-04-30 15:27 | disposition home or self-care (01) ==
PROVIDERS: PCP Internal Medicine Infectious Disease; Visit Provider Student in an Organized Health Care Education/Training Program
PROC: 0U5B8ZZ Destruction of Endometrium, Via Natural or Artificial Opening Endoscopic (ICD-10-PCS; CPT 58563; principal; 2023-04-30 14:30)
DX: N93.9 Abnormal uterine and vaginal bleeding, unspecified (principal); N84.0 Polyp of corpus uteri; E13.9 Other specified diabetes mellitus without complications; F41.8 Other specified anxiety disorders; E24.9 Cushing's syndrome, unspecified; E78.5 Hyperlipidemia, unspecified; G47.33 Obstructive sleep apnea (adult) (pediatric); E28.2 Polycystic ovarian syndrome; G47.30 Sleep apnea, unspecified; Z79.4 Long term (current) use of insulin; Z79.84 Long term (current) use of oral hypoglycemic drugs; Z79.01 Long term (current) use of anticoagulants; E66.01 Morbid (severe) obesity due to excess calories; Z68.43 Body mass index [BMI] 50.0-59.9, adult; Z86.711 Personal history of pulmonary embolism
CPT/HCPCS: 58558; 82948; 88305; A9270; J2250; J2704; J3010; J7120

== ENCOUNTER 2023-06-24 13:41 | Outpatient (CLI) | payer OTHER, SELFPAY ==
[2023-06-24 14:56] LABS: Hematocrit 39.7 % (37.0-47.0); Hemoglobin 11.9 g/dL (12.0-15.0); Mean Corpuscular Hemoglobin 24.7 pg (26-34); Mean Corpuscular Volume 82.4 fl (80-100); Mean Platelet Volume 9.2 fl (7.4-10.4); Platelet Count Result 284 k/mm3 (150-375); Red Blood Count 4.82 M/mm3 (4.2-5.4); Red Cell Distribution Width 15.6 % (11.5-14.5); White Blood Count 7.4 K/mm3 (4.5-10.0)
[2023-06-24 15:25] LABS: Anion Gap 7 mmol/L (8-16); Blood Urea Nitrogen 14 mg/dL (7-17); Calcium 8.7 mg/dL (8.4-10.2); Carbon Dioxide 27 mmol/L (22-30); Chloride 100 mmol/L (98-107); Estimated Glomerular Filt Rate > 60; Glucose 219 mg/dL (65-110); Potassium 4.2 mmol/L (3.4-5.0); Sodium 134 mmol/L (137-145)
== END 2023-06-24 13:42 | disposition home or self-care (01) ==
LOC: ANHSURGERY 13:45
PROVIDERS: Anesthesiology; PCP Internal Medicine Infectious Disease; Visit Provider Student in an Organized Health Care Education/Training Program
DX: Z01.812 Encounter for preprocedural laboratory examination (principal); N93.9 Abnormal uterine and vaginal bleeding, unspecified; E11.9 Type 2 diabetes mellitus without complications
CPT/HCPCS: 36415; 80048; 85027; 86850; 86900; 86901

== ENCOUNTER 2023-07-01 00:02 | Day surgery (SDC) | payer OTHER, SELFPAY ==
[2023-06-22 12:12] VITALS: BMI 60.5
--- NOTE | 2023-06-22 12:26 | PC.NURSE ---
Report to the Outpatient Waiting Room, entrance under the green pavilion located off [facility], at time 10:00AM on date 07-01-23. Planned Procedure Time: 12:00PM. Time changes happen often and if your time is changed the preop area will call you the afternoon before. - You and your visitor will be asked to self-screen and do not enter if you have any COVID symptoms. - A mask is optional within the hospital at this time. Patients may have clear liquids (water, carbonated beverages, clear teas, apple juice) until 3 hours prior to surgery (09:00AM) with a maximum of 20 ounces. - No food from midnight until time of surgery Take the following medications with a SIP of water the morning of surgery: UNITHIROID, INHALER IF NEEDED DO NOT STOP ANY OF YOUR OTHER PRESCRIPTION MEDICATIONS PRIOR TO SURGERY ?EXCEPT THE FOLLOWING Medications to discontinue per physician: N/A VITAMINS TAKEN WEEKLY Please no make-up, nail romanian, hairspray, perfume, deodorant, or body powder the day of surgery. No jewelry (including any body piercings) or valuables the day of surgery, leave them at home. Please take a shower or bath the night before, or the morning of, surgery with an antibacterial soap. Wear comfortable, loose fitting clothing. - Jewelry must be removed prior to entering the operating room. Rings and piercings that are not removed may be cut off. - The hospital will not accept responsibility for valuables. - Please leave all valuables, including medications, at home the day of surgery. If you are going home after surgery, a licensed wrecking car driver must drive you home. - NO public transportation without another adult if you receive anesthesia. - We recommend that an adult stay with you for 24 hours following discharge. - We also recommend that you do not drive, make important decision, drink alcoholic beverages, or take any drugs that were not prescribed by your health care provider for at least 24 hours after your discharge time. Follow any additional instructions given to you from your surgeon. If you or anyone in your household have experienced Covid symptoms in the past week, please notify your surgeon or the nurse liaison at the phone number below for possible testing. Telephone instructions given to PATIENT and asked if any additional questions and then verbalized understanding. Patient advised to call surgeon office or pre surgery nurse liaison [phone] if any additional questions.
[2023-07-01] VITALS (11 sets, daily range): BP systolic 106–137; BP diastolic 71–81; PULSE 74–86; RESP 15–17; TEMP 36.1–36.8; O2SAT 95–100
--- NOTE | 2023-07-01 08:40 | PM.IMHP ---
H&P: HPI History of Present Illness Date/Time: 07/01/23 08:40 Chief Complaint: abnormal uterine bleeding Narrative: 33-year-old female who presents for robotic assisted total laparoscopic hysterectomy and bilateral salpingectomy for abnormal uterine bleeding. Patient has been dealing with heavy painful periods for some time. Patient had a pelvic ultrasound that showed a thickened endometrium. She underwent D&C which showed polypoid endometrial tissue. Patient is requesting definitive therapy via hysterectomy. Patient's medical history is complicated by history of PE on Eliquis Review of Systems Cardiovascular: Cardiovascular: Denies chest pain, Denies leg edema, Denies palpitations, Denies dyspnea and Denies dyspnea on exertion Respiratory: Respiratory: Denies cough, Denies dyspnea and Denies dyspnea on exertion Gastrointestinal: Gastrointestinal: Denies abdominal pain, Denies constipation, Denies diarrhea, Denies nausea and Denies vomiting Genitourinary: Genitourinary: Denies hematuria, Denies urinary frequency, Denies dysuria, Denies pelvic pain, Denies urinary incontinence and Denies vaginal discharge Neurologic: Reports system reviewed and no additional complaints, except as documented Psychiatric: Psychiatric: Reports no additional psychiatric complaints Endocrine: Endocrine: Denies palpitations PMFSH Past Medical History Medical History Anxiety and depression 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, managed as type 2 Encounter for insertion of intrauterine contraceptive device Hyperlipidemia, unspecified Major depressive disorder, single episode, unspecified Morbid obesity DIEGO on CPAP PCOS (polycystic ovarian syndrome) Pericarditis Sleep apnea in adult Surgical History Surgical History H/O gynecological procedure hysteroscopy and D & C H/O: knee surgery Hx of tonsillectomy Family History Family History Mother Family history of malignant neoplasm of breast in first degree relative Social History Social History Smoking status: Never smoker Second hand tobacco smoke exposure: Yes Alcohol intake: current Drinks per week: 1 Alcohol use details: 1/MONTH Substance use: former Substance use type: marijuana Last use: NOV 2022 Lack of Transportation: No Lack of Food: Never True Current Housing: I Have Housing Concerned About Future Housing: No Difficulty Paying Gas/Electric Bills: No Difficulty Paying for Meds: YES Currently Unemployed: No Education: Associate Degree Difficulty w/ Childcare or Family Care: No Living arrangements: with roommate(s) Additional living arrangements comments: boyfriend and roomate Occupation/Education: student Gender identity (if verbalized by the patient): Female Sexual Orientation (if Verbalized by the Patient): Straight or Heterosexual Spiritual care concerns: No Agree to blood products: No Meds Home Medications and Allergies Home Medications Medication Instructions Recorded Confirmed Type aripiprazole 2 mg tablet 2 mg PO HS 03/04/22 06/22/23 History insulin glargine 100 unit/mL (3 22 unit subcut HS 03/04/22 06/22/23 History mL) subcutaneous pen (Lantus Solostar U-100 Insulin) metformin 1,000 mg tablet 1,000 mg PO BID 03/04/22 06/22/23 History pen needle, diabetic 31 gauge x 03/04/22 12/08/22 History 3/16 (TRUEplus Pen Needle) sertraline 100 mg tablet 100 mg PO HS 03/04/22 06/22/23 History cyanocobalamin (vitamin B-12) 1,000 mcg subcut WEEKLY 03/23/23 06/22/23 History 1,000 mcg/mL injection solution ergocalciferol (vitamin D2) 1,250 1,250 mcg PO WEEKLY 03/23/23 06/22/23 History mcg (50,000 unit) capsule albuterol sulfate 90 mcg/actuation 1 puff inhalation PRN PRN 06/22/23 06/22/23 History aerosol
[2023-07-01] MEDS: ACETAMINOPHEN 500 MG TABLET 1000 MG PO (10:40)
[2023-07-01] MEDS: LACTATED RINGERS 1,000 ML 30 ML IV CONT ×2 (11:00→14:35)
[2023-07-01 11:12] LABS: Glucose Point of Care 203 mg/dl (65-105)
--- NOTE | 2023-07-01 11:18 | WPDHPUPDATE1 ---
History and Physical Update Update Date/Time: 07/01/23 11:18 History and Physical has been reviewed, including an updated exam of the patient. There are NO changes in the patient's condition. Risks, benefits, and alternatives have been discussed and questions answered. Patient agrees to proceed with procedure.
--- NOTE | 2023-07-01 11:22 | WPDANESEPPF ---
Anes - Initial Pre Proc Eval Procedure: Operation Date: 07/01/23 12:00 Proposed Procedures p Robotic Assisted Total Laparoscopic Hysterectomy with Bilateral Salpingectomy - Alex Gonzalez MD Date/Time: 07/01/23 11:22 Surgeon: Alex Gonzalez MD Pre Op Diagnosis: abn uterine bleeding Patient Data Age: 33 Gender: F Height: 1.63 m Weight: 147.9 kg Last Vital Signs Temp 36.4 C 07/01/23 11:00 Pulse 78 07/01/23 11:00 Resp 16 07/01/23 11:00 BP 127/81 07/01/23 11:00 Pulse Ox 99 07/01/23 11:00 O2 Del Method Room Air 07/01/23 11:00 Allergies Allergy/AdvReac Type Severity Reaction Status Date / Time amoxicillin [From Augmentin] Allergy Mild Hives Verified 07/01/23 10:29 clavulanic acid Allergy Mild Hives Verified 07/01/23 10:29 [From Augmentin] promethazine [From Phenergan] Allergy Mild Hives Verified 07/01/23 10:29 Home Medications Medication Instructions Recorded Confirmed Type aripiprazole 2 mg tablet 2 mg PO HS 03/04/22 07/01/23 History insulin glargine 100 unit/mL (3 22 unit subcut HS 03/04/22 07/01/23 History mL) subcutaneous pen (Lantus Solostar U-100 Insulin) metformin 1,000 mg tablet 1,000 mg PO BID 03/04/22 07/01/23 History pen needle, diabetic 31 gauge x 03/04/22 12/08/22 History 3/16 (TRUEplus Pen Needle) sertraline 100 mg tablet 100 mg PO HS 03/04/22 07/01/23 History cyanocobalamin (vitamin B-12) 1,000 mcg subcut WEEKLY 03/23/23 06/22/23 History 1,000 mcg/mL injection solution ergocalciferol (vitamin D2) 1,250 1,250 mcg PO WEEKLY 03/23/23 06/22/23 History mcg (50,000 unit) capsule albuterol sulfate 90 mcg/actuation 1 puff inhalation PRN PRN 06/22/23 07/01/23 History aerosol inhaler Shortness Of Breath Or Wheezing empagliflozin 25 mg tablet 25 mg PO DAILY 06/22/23 07/01/23 History (Jardiance) levothyroxine 50 mcg tablet 50 mcg PO DAILY 06/22/23 07/01/23 History (Unithroid) Laboratory Tests 07/01/23 11:10 POC Capillary Glucose 203 H mg/dl (65-105) Patient hx anesthesia problems: none Family hx anesthesia problems: none Results Review: All pre-operative results and documents have been reviewed as part of the pre-operative evaluation. 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, managed as type 2 Encounter for insertion of intrauterine contraceptive device Hyperlipidemia, unspecified Major depressive disorder, single episode, unspecified Morbid obesity DIEGO on CPAP PCOS (polycystic ovarian syndrome) Pericarditis Sleep apnea in adult Surgical History Surgical History H/O gynecological procedure hysteroscopy and D & C H/O: knee surgery Hx of tonsillectomy Family History Family History Mother Family history of malignant neoplasm of breast in first degree relative Social History Social History Smoking status: Never smoker Second hand tobacco smoke exposure: Yes Alcohol intake: current Drinks per week: 1 Alcohol use details: 1/MONTH Substance use: former Substance use type: marijuana Last use: NOV 2022 Lack of Transportation: No Lack of Food: Never True Current Housing: I Have Housing Concerned About Future Housing: No Difficulty Paying Gas/Electric Bills: No Difficulty Paying for Meds: YES Currently Unemployed: No Education: Associate Degree Difficulty w/ Childcare or Family Care: No Living arrangements: with roommate(s) Additional living arrangements comments: boyfriend and roomate Occupation/Education: student Gender identity (if verbalized by the patient): Female Sexual Orientation (if Verbalized by the Patient): Straight or Heterosexual Spiritual care concerns: No Agree to blo
[2023-07-01] MEDS: KETOROLAC 15 MG/ML VIAL (*BKC) IV PUSH (11:31)
[2023-07-01] MEDS: ceFAZolin 3 GM/D5W 100 ML 100 ML IVPB (12:34)
[2023-07-01] MEDS: LIDO 1%/EPINEPHRINE 1:100,000 50 ML VIAL 30 ML INFILTRATE (13:11)
--- NOTE | 2023-07-01 14:23 | W.PM.PROC2 ---
Procedure Note - Detailed Date of Procedure 07/01/23 Pre-op Diagnosis abn uterine bleeding Post-op Diagnosis Same Procedure Performed robotic assisted total laparoscopic hysterectomy and bilateral salpingectomy Surgeon Alex Gonzalez MD Anesthesia General Description of Procedure After the patient was appropriately consented she was taken to the operating room where she was transferred to the table in a dorsal supine position. General anesthesia was then induced with endotracheal intubation. The patient was transferred to a dorsal lithotomy position using adjustable yellow-fin stirrups. Her position was adjusted for appropriate support of her lower back and lower extremities. The patient was prepped and draped. A transurethral stringer catheter was place. The cervix was sequentially dilated and a MICHAEL uterine manipulator placed in typical fashion about a 3cm NOLAN ring. Gloves were changed. After confirmation of a functioning orogastric tube, lidocaine was injected at Cook's point in the LUQ and a 5mm incision was made. A 5mm Optiview trocar was then inserted into the abdominal cavity under direct visualization and done so without complication. The abdomen was then insufflated with approximately 2-3L of CO2 establishing a pneumoperitoneum and the patient was placed in Trendelenburg position. Just above the umbilicus in the midline, a 10mm incision made after injection of lidocaine and a 12mm bladeless trocar advanced into the abdominal cavity under direct visualization without incident. We subsequently placed two robotic ports in a similar fashion, one in the left mid-quadrant and one in the right, 10cm lateral to the midline port. The robot was then docked. Attention was turned to the left pelvis. The left fallopian tube was removed by sequentially dividing the mesosalpinx towards the uterus sparing the ovary. The utero-ovarian ligament was desiccated and transected, as was the round ligament. The posterior peritoneal leaf was taken down to the NOLAN ring. The anterior leaf was developed as well as the start of the bladder flap. The left uterine artery was then skeletonized and desiccated and transected just above the level of the NOLAN ring. Attention was turned to the right pelvis. The right fallopian tube was removed by sequentially dividing the mesosalpinx towards the uterus sparing the ovary. The utero-ovarian ligament was desiccated and transected, as was the round ligament. The posterior peritoneal leaf was taken down to the NOLAN ring. The anterior leaf was developed as well as the start of the bladder flap. The right uterine artery was then skeletonized and desiccated and transected just above the level of the NOLAN ring. The bladder was then further dissected inferiorly over the level of the NOLAN ring. A circumferential colpotomy was made using monopolar current. The uterus, cervix, bilateral tubes were then delivered transvaginally. I then placed a single figure of eight suture of 0-vicryl in the left corner of the vaginal cuff. I then re-approximated the colpotomy with a running #1 PDO Quill suture in 2 layers. Following this dissection, the abdomen and pelvis were copiously irrigated and all surgical sites found to be hemostatic. Skin sites were reapproximated with 4-0 Vicryl in a subcuticular fashion. Steri-Strips were placed. The patient tolerated the procedure well. Sponge, needle and instrument counts were correct x 2 and the patient was taken to recovery in stable condition. Ancef wase given for antimicrobial prophylaxis. The patient had SCD's on for VTE prophylaxis during the entire procedure. Estimated Blood Loss 50 Drains No Packing No Pathology Yes (cervix, uterus, bilateral fallopian tubes) Complications No immediate complications Condition Stable Disposition PACU [facility] Billing Surgery - Charge Forward: Surgery Billing
[2023-07-01 14:46] LABS: Glucose Point of Care 220 mg/dl (65-105)
[2023-07-01] MEDS: INSULIN HUMAN REGULAR (*BKC) 100 UNITS/ML 6 UNITS SUB-Q (14:53)
[2023-07-01] MEDS: fentaNYL CITRATE INJ (*CRX) 100 MCG/2 ML VIAL 25 MCG IV PUSH ×4 (15:02→15:45)
[2023-07-01 15:29] LABS: Glucose Point of Care 222 mg/dl (65-105)
--- NOTE | 2023-07-01 16:14 | PC.NURSE ---
This patient, Kirsten Hendricks, was received from PACU on 07/01/23 at 1614. Patient/family oriented to unit policies and routines
[2023-07-01] MEDS: KETOROLAC 30 MG/ML VIAL (*BKC) IV PUSH (17:14)
[2023-07-01] MEDS: ONDANSETRON INJ 4 MG/2 ML VIAL IV PUSH (17:19)
[2023-07-01 18:26] LABS: Glucose Point of Care 225 mg/dl (65-105)
--- NOTE | 2023-07-01 18:32 | PM.DS ---
DS: Admitting Diagnosis Discharge Date 07/02/23 Admitting Diagnosis Abnormal uterine bleeding DS: Discharge Diagnosis Discharge Diagnosis (1) Abnormal uterine bleeding: Code(s): N93.9 - Abnormal uterine and vaginal bleeding, unspecified Status: Acute DS: Summary Hospital Course Hospital Course: Kirsten Hendricks was admitted after robotic assisted total laparoscopic hysterectomy and bilateral salpingectomy for abnormal uterine bleeding. The above procedure was performed with no complications. She is doing well post op. She states her pain is well controlled with PO medications. She reports minimal bleeding. She is ambulating up to the chair. Her stringer catheter was removed. She is tolerating PO without N/V. She reports passing flatus. Status at Discharge Overall status at discharge: patient is progressing back to baseline Time Spent with Patient Time attestation: Total time spent providing and/or coordinating discharge services: Time spent: Less than 30 minutes Exam Const: General: comfortable and no acute distress Limitations: no limitations Resp: Effort & Inspection: normal respiratory effort Auscultation: clear to auscultation bilaterally Cardio: Rate: regular rate Rhythm: regular rhythm GI: Inspection: non-distended GI Palp: Yes Soft to palpation, Yes Tenderness to palpation present (GI) (milder tenderness to deep palpation) and No Guarding due to palpation present (GI) Auscultation: normal bowel sounds Other: incisions C/D/I covered with dermabond Urinary Catheter: Urinary Catheter: urine clear Skin: General skin exam: normal color Extrem: General: normal to inspection Psych: Mental Status: mental status grossly normal Affect: normal affect DS: Data Data Completed and Pending Pending studies at discharge: Pending at discharge 07/01/23 13:04 Surgical [PTH] Routine Labs on day of discharge: Labs from last 24 hours 07/01/23 07/01/23 07/01/23 18:23 15:25 14:44 POC Capillary Glucose 225 H 222 H 220 H 07/01/23 11:10 POC Capillary Glucose 203 H Discharge Plan Discharge Patient Disposition: Home, Self-Care Discharge Instructions: Anesthesia used a medication called Sugammadex, female patients may need a second line of protection during sexual activity as this medication can limit control for 7 days following administration. Patient Instructions: Laparoscopic Hysterectomy (DC) Stand Alone Forms: General Discharge Instructions Follow-up/Referrals: Alex Gonzalez MD [Physician] - 2 Weeks Discharge Medications: New enoxaparin [Lovenox] 40 mg/0.4 mL Syringe 40 mg subcut DAILY 35 Days Qty: 14 0RF oxycodone-acetaminophen 5-325 mg tablet 1 tablet PO Q6H PRN (Reason: pain) Qty: 28 0RF ibuprofen 600 mg tablet 600 mg PO Q6H PRN (Reason: pain) Qty: 30 0RF Continued cyanocobalamin (vitamin B-12) 1,000 mcg/mL solution 1,000 mcg subcut WEEKLY Patient Comments: PT TAKES ON WEDNESDAY ergocalciferol (vitamin D2) 1,250 mcg (50,000 unit) capsule 1,250 mcg PO WEEKLY Patient Comments: PT TAKES ON WEDNESDAY levothyroxine [Unithroid] 50 mcg tablet 50 mcg PO DAILY Jardiance 25 mg tablet 25 mg PO DAILY Patient Comments: TAKES IN AM albuterol sulfate 90 mcg/actuation HFA aerosol inhaler 1 puff INHALATION PRN PRN (Reason: Shortness Of Breath Or Wheezing) sertraline 100 mg tablet 100 mg PO HS metformin 1,000 mg tablet 1,000 mg PO BID aripiprazole 2 mg tablet 2 mg PO HS (DME) pen needle, diabetic [TRUEplus Pen Needle] 31 gauge x 3/16 needle MISCELLANEOUS insulin glargine [Lantus Solostar U-100 Insulin] 100 unit/mL (3 mL) insulin pen 22 unit SUBCUT HS Patient Comments: 22-24 UNITS @HS
[2023-07-01] MEDS: INSULIN ASPART (*BKC) 100 UNITS/ML SUB-Q (19:28)
[2023-07-01] MEDS: HYDROcodone/acetaminophen (*CRX) 5-325 MG TABLET 1 TAB PO (20:16)
[2023-07-01] MEDS: INSULIN GLARGINE (*BKC) 100 UNITS/ML 22 UNITS SUB-Q (21:09)
[2023-07-01] MEDS: SERTRALINE HCL 50 MG TABLET 100 MG PO (21:11)
[2023-07-01] MEDS: metFORMIN HCL 500 MG TABLET 1000 MG PO (21:11)
[2023-07-01] MEDS: ARIPiprazole 2 MG TABLET PO (21:12)
[2023-07-02] VITALS: BP 119/74; PULSE 86; RESP 16; TEMP 36.8; O2SAT 95
[2023-07-02 00:10] LABS: Glucose Point of Care 213 mg/dl (65-105)
[2023-07-02] MEDS: INSULIN ASPART (*BKC) 100 UNITS/ML SUB-Q (00:18)
[2023-07-02 05:50] LABS: Basophils Percent Auto 0.4 % (0.2-1.2); Eosinophils Percent Auto 0.3 % (0-4.4); Hematocrit 34.7 % (37.0-47.0); Hemoglobin 10.5 g/dL (12.0-15.0); Immature Granulocyte Absolute 0.03 K/mm3 (0.00-0.031); Immature Granulocyte Percent A 0.4 % (0-0.5); Lymphocytes Absolute Auto 1.47 K/mm3 (0.9-3.2); Lymphocytes Percent Auto 19.1 % (18.3-44.2); Mean Corpuscular HGB Conc 30.3 g/dl (32-36); Mean Corpuscular Hemoglobin 24.9 pg (26-34); Mean Corpuscular Volume 82.4 fl (80-100); Mean Platelet Volume 8.9 fl (7.4-10.4); Monocytes Absolute Auto 0.4 K/mm3 (0.1-0.6); Monocytes Percent Auto 5.6 % (2.6-8.5); Neutrophils Absolute Auto 5.7 K/mm3 (1.3-6.7); Neutrophils Percent Auto 74.2 % (45.5-73.1); Platelet Count Result 275 k/mm3 (150-375); Red Blood Count 4.21 M/mm3 (4.2-5.4); Red Cell Distribution Width 15.6 % (11.5-14.5); White Blood Count 7.7 K/mm3 (4.5-10.0)
[2023-07-02 06:18] VITALS: BP 100/48; PULSE 79; RESP 16; TEMP 36.6; O2SAT 99
[2023-07-02 06:28] LABS: Anion Gap 6 mmol/L (8-16); Blood Urea Nitrogen 12 mg/dL (7-17); Calcium 8.2 mg/dL (8.4-10.2); Carbon Dioxide 29 mmol/L (22-30); Chloride 102 mmol/L (98-107); Estimated CRCL calculation 165 ml/min; Estimated Glomerular Filt Rate > 60; Glucose 153 mg/dL (65-110); Potassium 4.3 mmol/L (3.4-5.0); Sodium 137 mmol/L (137-145)
[2023-07-02 07:40] VITALS: BP 121/82; PULSE 90; RESP 18; TEMP 37.4; O2SAT 96
--- NOTE | 2023-07-02 08:25 | WPDANESPN ---
Anes - Prog Note Post-Op Date/Time: 07/02/23 08:25 Vital Signs: Last Vital Signs Temp 36.6 C 07/02/23 06:18 Pulse 79 07/02/23 06:18 Resp 16 07/02/23 06:18 BP 100/48 L 07/02/23 06:18 Pulse Ox 99 07/02/23 06:18 O2 Del Method Nasal Cannula 07/01/23 16:05 O2 Flow Rate 2 07/01/23 16:05 Pain Score (VAS): 2 I/O: Intake & Output 07/01/23 07/02/23 07/02/23 23:59 07:59 15:59 Intake Total 720 Output Total 775 Balance -55 Laboratory Tests 07/02/23 05:30 07/02/23 05:50 07/01/23 07/01/23 07/01/23 11:10 14:44 15:25 WBC RBC Hgb Hct MCV MCH MCHC RDW Plt Count MPV Immature Gran % (Auto) Neut % (Auto) Lymph % (Auto) [place] % (Auto) Eos % (Auto) Baso % (Auto) Lymph # (Auto) [place] # (Auto) Eos # (Auto) Baso # (Auto) Abs Immat Gran (auto) Absolute Neuts (auto) Absolute Nucleated RBC Nucleated RBC % Sodium Potassium Chloride Carbon Dioxide Anion Gap BUN Creatinine Estim Creat Clear Calc Estimated GFR Glucose POC Capillary Glucose 203 H 220 H 222 H Calcium 07/01/23 07/02/23 07/02/23 18:23 00:01 05:30 WBC 7.7 RBC 4.21 Hgb 10.5 L Hct 34.7 L MCV 82.4 MCH 24.9 L MCHC 30.3 L RDW 15.6 H Plt Count 275 MPV 8.9 Immature Gran % (Auto) 0.4 Neut % (Auto) 74.2 H Lymph % (Auto) 19.1 [place] % (Auto) 5.6 Eos % (Auto) 0.3 Baso % (Auto) 0.4 Lymph # (Auto) 1.47 [place] # (Auto) 0.4 Eos # (Auto) 0.0 Baso # (Auto) 0.0 Abs Immat Gran (auto) 0.03 Absolute Neuts (auto) 5.7 Absolute Nucleated RBC 0.0 Nucleated RBC % 0.0 Sodium Potassium Chloride Carbon Dioxide Anion Gap BUN Creatinine Estim Creat Clear Calc Estimated GFR Glucose POC Capillary Glucose 225 H 213 H Calcium 07/02/23 05:50 WBC RBC Hgb Hct MCV MCH MCHC RDW Plt Count MPV Immature Gran % (Auto) Neut % (Auto) Lymph % (Auto) [place] % (Auto) Eos % (Auto) Baso % (Auto) Lymph # (Auto) [place] # (Auto) Eos # (Auto) Baso # (Auto) Abs Immat Gran (auto) Absolute Neuts (auto) Absolute Nucleated RBC Nucleated RBC % Sodium 137 Potassium 4.3 Chloride 102 Carbon Dioxide 29 Anion Gap 6 L BUN 12 Creatinine 0.60 L Estim Creat Clear Calc 165 Estimated GFR > 60 Glucose 153 H POC Capillary Glucose Calcium 8.2 L Patient Feedback: Patient satisfied with anesthetic care.
[2023-07-02] MEDS: LEVOTHYROXINE SODIUM 50 MCG TABLET PO (09:13)
[2023-07-02] MEDS: HYDROcodone/acetaminophen (*CRX) 10-325 MG TABLET 1 TAB PO (09:14)
[2023-07-02] MEDS: IBUPROFEN 600 MG TABLET PO (09:14)
[2023-07-02] MEDS: ERGOCALCIFEROL 50,000 UNITS CAPSULE 50000 UNITS PO (09:21)
[2023-07-02] MEDS: EMPAGLIFLOZIN 25 MG TABLET PO (09:22)
[2023-07-02] MEDS: metFORMIN HCL 500 MG TABLET 1000 MG PO (09:22)
[2023-07-02] MEDS: ENOXAPARIN 40 MG/0.4 ML SYRINGE SUB-Q (09:23)
== END 2023-07-02 13:28 | disposition home or self-care (01) ==
LOC: ANHSURGERY 14:56 → ANHOB2 17:16
PROVIDERS: PCP Internal Medicine Infectious Disease; Visit Provider Student in an Organized Health Care Education/Training Program
PROC: (CPT 58571; principal; 2023-07-01 12:00)
DX: N93.9 Abnormal uterine and vaginal bleeding, unspecified (principal); N84.0 Polyp of corpus uteri; E11.9 Type 2 diabetes mellitus without complications; F41.8 Other specified anxiety disorders; E78.5 Hyperlipidemia, unspecified; G47.33 Obstructive sleep apnea (adult) (pediatric); E24.9 Cushing's syndrome, unspecified; F12.90 Cannabis use, unspecified, uncomplicated; Z86.711 Personal history of pulmonary embolism; Z79.4 Long term (current) use of insulin; Z79.84 Long term (current) use of oral hypoglycemic drugs; Z79.51 Long term (current) use of inhaled steroids; E66.01 Morbid (severe) obesity due to excess calories; Z68.43 Body mass index [BMI] 50.0-59.9, adult
CPT/HCPCS: 58571; S2900; 36415; 80048; 82948; 85025; 88307; 99199; A9270; J0330; J0690; J1100; J1650; J1815; J1885; J2250; J2405; J2704; J3010; J7030; J7120

== ENCOUNTER 2024-01-05 20:59 | Emergency (ER) | payer OTHER, SELFPAY ==
[2024-01-05 21:12] VITALS: BP 134/76; PULSE 123; RESP 20; TEMP 36.6; O2SAT 97
[2024-01-05 21:19] LABS: Glucose Point of Care 249 mg/dl (65-105)
--- NOTE | 2024-01-05 21:33 | ED.GENADULT ---
HPI - General Adult General Chief complaint: Recheck/Abnormal Lab/Rx Stated complaint: high bs, headache, fever Time Seen by Provider: 01/05/24 21:31 Source: patient Mode of arrival: ambulatory Limitations: no limitations History of Present Illness HPI narrative: 33yo right hand dominant female presents with abdominal pain, decreased appetite. She also had one episode of vomiting. She noticed a brief coughing spell just before she had the episode of emesis but not otherwise. Having soft stool but not diarrhea. She went to [place] at approximately 1300 and was noted to have elevated blood glucose, it had been 361mg/dL before she went. She was given 8U and discharged home. At home she was feeling cold and had a temperature of 102F. No meds taken. Her baseline regimen is 33U Lantus QHS which her PCP said she could increase to 36U given elevated sugars. She made this change on Wednesday. Not out of insulin, not in need of refills. Not on a short acting. She previously saw Dr Winters, an filing machine operator but they are no longer practicing and she is pending an appointment with filing machine operator Dr Shah (appointment in January). No history DKA or HHS or pancreatitis. Blood glucose in triage 249mg/dL. She was experiencing intermittent weakness in her left 5th digit for 6 days. She worked a lot of hours (between 30 and 40) this weekend. LMP in Jun 2023 (hysterectomy). Related Data Home Medications Medication Instructions Recorded Confirmed aripiprazole 2 mg tablet 2 mg PO HS 03/04/22 07/01/23 insulin glargine 100 unit/mL (3 22 unit subcut HS 03/04/22 07/01/23 mL) subcutaneous pen (Lantus Solostar U-100 Insulin) metformin 1,000 mg tablet 1,000 mg PO BID 03/04/22 07/01/23 pen needle, diabetic 31 gauge x 03/04/22 12/08/2216 (TRUEplus Pen Needle) sertraline 100 mg tablet 100 mg PO HS 03/04/22 07/01/23 ergocalciferol (vitamin D2) 1,250 1,250 mcg PO WEEKLY 03/23/23 06/22/23 mcg (50,000 unit) capsule albuterol sulfate 90 mcg/actuation 1 puff inhalation PRN PRN 06/22/23 07/01/23 aerosol inhaler Shortness Of Breath Or Wheezing empagliflozin 25 mg tablet 25 mg PO DAILY 06/22/23 07/01/23 (Jardiance) levothyroxine 50 mcg tablet 50 mcg PO DAILY 06/22/23 07/01/23 (Unithroid) liraglutide 0.6 mg/0.1 mL (18 mg/3 0.6 mg subcut DAILY 07/15/23 mL) subcutaneous pen injector (Victoza 2-Chandan) Allergies Allergy/AdvReac Type Severity Reaction Status Date / Time amoxicillin [From Augmentin] Allergy Mild Hives Verified 08/09/23 14:50 clavulanic acid Allergy Mild Hives Verified 08/09/23 14:50 [From Augmentin] promethazine [From Phenergan] Allergy Mild Hives Verified 08/09/23 14:50 [facility] Past Medical History Medical History (Updated 01/08/24 @ 20:46 by Kamilah Meneses MD) Anxiety and depression [place] disease Diabetes 1.5, managed as type 2 Encounter for insertion of intrauterine contraceptive device Hyperlipidemia, unspecified Major depressive disorder, single episode, unspecified Morbid obesity DIEGO on CPAP PCOS (polycystic ovarian syndrome) Pericarditis Right hand dominant Sleep apnea in adult Surgical History Surgical History H/O gynecological procedure 07/01/23 RA total lap hyst & BL salpingectomy hysteroscopy and D & C H/O: knee surgery Hx of tonsillectomy Family History Family History Mother Family history of malignant neoplasm of breast in first degree relative Social History Social History Smoking status: Never smoker Second hand tobacco smoke exposure: Yes Alcohol intake: current Drinks per week: 1 Alcohol use details: 1/MONTH Substance use: former Substance use type: marijuana Last use: NOV 2022 Lack of Transportation: No Lack of Food: Never True Current Housing: I Have Housing Concerned About Future Housing: No Difficulty
[2024-01-05 22:16] VITALS: BP 132/89; PULSE 103; RESP 15; O2SAT 97
[2024-01-05] MEDS: SODIUM CHLORIDE 0.9% IV 1,000 ML 999 ML IV CONT ×2 (22:16→23:45)
[2024-01-05 22:30] LABS: Basophils Percent Auto 0.2 % (0.2-1.2); Eosinophils Percent Auto 0.1 % (0-4.4); Hematocrit 42.2 % (37.0-47.0); Hemoglobin 13.1 g/dL (12.0-15.0); Immature Granulocyte Absolute 0.02 K/mm3 (0.00-0.031); Immature Granulocyte Percent A 0.2 % (0-0.5); Lymphocytes Absolute Auto 1.02 K/mm3 (0.9-3.2); Lymphocytes Percent Auto 11.2 % (18.3-44.2); Mean Corpuscular Hemoglobin 24.8 pg (26-34); Mean Corpuscular Volume 79.8 fl (80-100); Mean Platelet Volume 9.9 fl (7.4-10.4); Monocytes Absolute Auto 0.3 K/mm3 (0.1-0.6); Monocytes Percent Auto 2.7 % (2.6-8.5); Neutrophils Absolute Auto 7.8 K/mm3 (1.3-6.7); Neutrophils Percent Auto 85.6 % (45.5-73.1); Platelet Count Result 263 k/mm3 (150-375); Red Blood Count 5.29 M/mm3 (4.2-5.4); White Blood Count 9.1 K/mm3 (4.5-10.0)
[2024-01-05 22:36] LABS: Appearance Urine Cloudy (Clear); Bacteria Urine 2+ /hpf; Bilirubin Urine Negative (Negative); Blood Urine Negative (Negative); Color Urine Yellow (Yellow); Glucose Urine UA 1+ mg/dL (Negative); Ketones Urine 1+ mg/dL (Negative); Leukocyte Esterase Ur Negative LEU/UL (Negative); Nitrate Urine Negative (Negative); Non Pathogenic Casts 0-2; Protein Urine 1+ mg/dL (Negative); RBC Urine 0-2 /hpf (0-2); Specific Grav Ur 1.026 (1.001-1.035); Squamous Epithelial Cell Urine Moderate /hpf (Few); WBC Urine 0-5 /hpf; pH Urine 5.5 (5.0-9.0)
[2024-01-05 22:43] LABS: Add Urine Microscopic? YES
[2024-01-05 22:44] LABS: Alanine Aminotransferase 155 U/L (6-35); Albumin Level 4.3 g/dL (3.5-5.1); Alkaline Phosphatase 93 U/L (38-126); Anion Gap 8 mmol/L (8-16); Aspartate Amino Transferase 282 U/L (14-36); Blood Urea Nitrogen 13 mg/dL (7-17); Calcium 9.4 mg/dL (8.4-10.2); Carbon Dioxide 25 mmol/L (22-30); Chloride 97 mmol/L (98-107); Estimated CRCL calculation 170 ml/min; Estimated Glomerular Filt Rate > 60; Glucose 266 mg/dL (65-110); Lipase 107 U/L (23-300); Magnesium 1.7 mg/dL (1.6-2.3); Potassium 4.2 mmol/L (3.4-5.0); Sodium 130 mmol/L (137-145)
[2024-01-05 22:46] VITALS: BP 141/83; PULSE 106; RESP 16; O2SAT 98
[2024-01-05] MEDS: ONDANSETRON INJ 4 MG/2 ML VIAL IV PUSH (22:51)
[2024-01-05 23:00] VITALS: PULSE 105; RESP 21; O2SAT 95
[2024-01-05 23:08] LABS: Influenza A QL RT-PCR Negative (Negative); Influenza B QL RT-PCR Negative (Negative); RSV RNA, RT-PCR Negative (Negative); SARS-CoV-2 RNA PCR Negative (Negative)
[2024-01-05 23:27] VITALS: BP 137/85; PULSE 117; RESP 15; O2SAT 98
[2024-01-05] MEDS: HALOPERIDOL LACTATE 5 MG/ML VIAL 2.5 MG IV PUSH (23:47)
[2024-01-05] MEDS: INSULIN ASPART (*BKC) 100 UNITS/ML 8 UNITS SUB-Q (23:47)
[2024-01-05] MEDS: KETOROLAC 15 MG/ML VIAL (*BKC) IV PUSH (23:47)
[2024-01-05 23:48] VITALS: PULSE 114; RESP 17; O2SAT 96
[2024-01-06] LABS: Glucose Point of Care 254 mg/dl (65-105)
[2024-01-06 00:49] VITALS: PULSE 116; O2SAT 93
[2024-01-06 00:49] LABS: Hepatitis B Surface Antigen Negative (Negative)
[2024-01-06 00:55] LABS: HAV RESULT Negative (Negative); Hepatitis B Core IgM Result Negative (Negative)
[2024-01-06 00:59] LABS: Glucose Point of Care 249 mg/dl (65-105)
[2024-01-06 01:01] LABS: Acetaminophen < 10 ug/mL (10-30)
[2024-01-06 01:06] LABS: Hepatitis C Virus Antibody Negative (Negative)
[2024-01-06 01:11] VITALS: BP 131/80; RESP 15; O2SAT 98
[2024-01-06 01:15] VITALS: PULSE 109; RESP 15; O2SAT 95
[2024-01-06 01:16] VITALS: BP 126/73; O2SAT 98
[2024-01-06 01:30] VITALS: PULSE 104; RESP 20; O2SAT 96
== END 2024-01-06 01:55 | disposition home or self-care (01) ==
PROVIDERS: Emergency Provider Student in an Organized Health Care Education/Training Program; PCP Internal Medicine Infectious Disease
DX: R10.9 Unspecified abdominal pain (principal); R11.2 Nausea with vomiting, unspecified; E10.65 Type 1 diabetes mellitus with hyperglycemia; R94.5 Abnormal results of liver function studies; Z20.822 Contact with and (suspected) exposure to COVID-19; F41.9 Anxiety disorder, unspecified; F32.A Depression, unspecified; Z79.4 Long term (current) use of insulin; G47.30 Sleep apnea, unspecified
CPT/HCPCS: 36415; 80053; 80074; 80307; 81001; 81025; 82948; 83690; 83735; 85025; 87637; 96361; 96374; 96375; 99284; J1630; J1815; J1885; J2405; J7030

== ENCOUNTER 2025-01-15 18:15 | Emergency (ER) | payer OTHER, SELFPAY ==
[2025-01-15 18:38] VITALS: BP 145/86; PULSE 102; RESP 18; TEMP 36.6; O2SAT 100
--- NOTE | 2025-01-15 19:26 | ED.GENADULT ---
HPI - General Adult General Chief complaint: Extremity Injury, Upper Stated complaint: right forearm pain, right fingers numb/tingling Time Seen by Provider: 01/15/25 19:15 Focused HPI: Patient is a 34-year-old female who presents to the ER with complaints of right forearm pain that started approximately 1 week ago. She reports this morning when she woke up her thumb, 2nd, 3rd and 4th digits were numb. Patient reports the symptoms have faded mildly throughout the day but her primary care provider wanted her to come in for evaluation. She denies any one-sided weakness/tingling, shoulder pain, decreased range of motion, or decreased strength. Patient endorses a history of diabetes, COPD, asthma, sleep apnea, hysterectomy. She denies injury to the site. GENERAL: Well-appearing, well-nourished, and in no acute distress. HEAD: Normocephalic, atraumatic. CHEST: Clear to auscultation. ?No respiratory distress. HEART: Regular rate and rhythm.? NEURO: ?Alert and oriented x3. Patient screened in triage and initial orders placed.? ?Additional care and disposition to be based upon?diagnostic testing and treatment. Related Data Home Medications ?Medication ?Instructions ?Recorded ?Confirmed ?Last Taken ?Type aripiprazole 2 mg tablet 2 mg PO HS 03/04/22 07/01/23 06/29/23 20:00 History insulin glargine 100 unit/mL (3 22 unit subcut HS 03/04/22 07/01/23 06/29/23 18:00 History mL) subcutaneous pen (Lantus Solostar U-100 Insulin) metformin 1,000 mg tablet 1,000 mg PO BID 03/04/22 07/01/23 06/30/23 08:00 History pen needle, diabetic 31 gauge x 03/04/22 12/08/22 Unknown History 01/28 (TRUEplus Pen Needle) sertraline 100 mg tablet 100 mg PO HS 03/04/22 07/01/23 06/29/23 20:00 History ergocalciferol (vitamin D2) 1,250 1,250 mcg PO WEEKLY 03/23/23 06/22/23 06/25/23 History mcg (50,000 unit) capsule albuterol sulfate 90 mcg/actuation 1 puff inhalation PRN PRN 06/22/23 07/01/2323 History aerosol inhaler Shortness Of Breath Or Wheezing empagliflozin 25 mg tablet 25 mg PO DAILY 06/22/23 07/01/23 06/30/23 08:00 History (Jardiance) levothyroxine 50 mcg tablet 50 mcg PO DAILY 06/22/23 07/01/23 06/30/23 08:00 History (Unithroid) liraglutide 0.6 mg/0.1 mL (18 mg/3 0.6 mg subcut DAILY 07/15/23 Unknown History mL) subcutaneous pen injector (Victoza 2-Chandan) Allergies Allergy/AdvReac Type Severity Reaction Status Date / Time amoxicillin (From Augmentin) Allergy Mild Hives Verified 08/09/23 14:50 clavulanic acid (From Allergy Mild Hives Verified 08/09/23 14:50 Augmentin) promethazine (From Phenergan) Allergy Mild Hives Verified 08/09/23 14:50 PMFSH Past Medical History Medical History Right hand dominant [place] disease Encounter for insertion of intrauterine contraceptive device Morbid obesity Major depressive disorder, single episode, unspecified Hyperlipidemia, unspecified Anxiety and depression Pericarditis DIEGO on CPAP PCOS (polycystic ovarian syndrome) Diabetes 1.5, managed as type 2 Sleep apnea in adult Surgical History Surgical History H/O gynecological procedure 07/01/23 RA total lap hyst & BL salpingectomy hysteroscopy and D & C H/O: knee surgery Hx of tonsillectomy Family History Family History Mother Family history of malignant neoplasm of breast in first degree relative Social History Social History Smoking status: Never smoker Second hand tobacco smoke exposure: Yes Alcohol intake: current Drinks per week: 1 Alcohol use details: 1/MONTH Substance use: former Substance use type: marijuana Last use: NOV 2022 Lack of Transportation: No Lack of Food: Never True Current Housing: I Have Housing Concerned About Future Housing: No Difficulty Paying Gas/Electric Bills: No Difficulty Paying for Meds: YES Currently Unemployed: No Education: Associate Degree Difficulty w/ Childcare or Family Care: No Living arrangements: with roommate(s) Additional living arrangements comments: boyfriend and roomate Occupation/Education: student Gender identity (if verbalized by the patient): Female Sexual Orientation (if Verbalized by the Patient): Straight or Heterosexual Spiritual care concerns: No Agree to blood products: No Course Vital Signs Vital signs: Vital Signs Temperature 36.6 C 01/15/25 18:38 Pulse Rate 102 H 01/15/25 18:38 Respiratory Rate 18 01/15/25 18:38 Blood Pressure 145/86 H 01/15/25 18:38 Pulse Oximetry 100 01/15/25 18:38 Oxygen Delivery Autopap 01/15/25 18:38 Temperature 36.6 C 01/15/25 18:38 Pulse Rate 102 H 01/15/25 18:38 Respiratory Rate 18 01/15/25 18:38 Blood Pressure 145/86 H 01/15/25 18:38 Pulse Oximetry 100 01/15/25 18:38 Oxygen Delivery Autopap 01/15/25 18:38 Medical Decision Making Vital Signs Vital Signs: Vital Signs Temperature 36.6 C 01/15/25 18:38 Pulse Rate 102 H 01/15/25 18:38 Respiratory Rate 18 01/15/25 18:38 Blood Pressure 145/86 H 01/15/25 18:38 Pulse Oximetry 100 01/15/25 18:38 Oxygen Delivery Autopap 01/15/25 18:38 Temperature 36.6 C 01/15/25 18:38 Pulse Rate 102 H 01/15/25 18:38 Respiratory Rate 18 01/15/25 18:38 Blood Pressure 145/86 H 01/15/25 18:38 Pulse Oximetry 100 01/15/25 18:38 Oxygen Delivery Autopap 01/15/25 18:38 Lab Data Labs: Lab Results 01/15/25 Range/Units 19:43 POC Capillary Glucose 426 H (65-105) mg/dl Discharge Plan Discharge Clinical Impression: Acute carpal tunnel syndrome, Diabetes mellitus with hyperglycemia Patient Disposition: Home, Self-Care Condition: Stable Instructions: Carpal Tunnel Syndrome (DC), Splint Care (ED), Diabetic Hyperglycemia (ED) Additional Instructions: RETURN IF SYMPTOMS ARE WORSENING , CALL DR PRASAD FOR APPOINTMENT, TAKE TYLENOL, IBUPROFEN NEEDED FOR ACHES AND PAIN, CONTINUE HOME MEDICATIONS. GET WRIST SPLINT, FROM [facility] [employer] OR [employer] Patient Language: Emirati Prescriptions: No Action ergocalciferol (vitamin D2) 1,250 mcg (50,000 unit) capsule 1,250 mcg PO WEEKLY Patient Comments: PT TAKES ON WEDNESDAY Victoza 2-Chandan 0.6 mg/0.1 mL (18 mg/3 mL) pen injector 0.6 mg subcut DAILY levothyroxine [Unithroid] 50 mcg tablet 50 mcg PO DAILY Jardiance 25 mg tablet 25 mg PO DAILY Patient Comments: TAKES IN AM albuterol sulfate 90 mcg/actuation HFA aerosol inhaler 1 puff INHALATION PRN PRN (Reason: Shortness Of Breath Or Wheezing) enoxaparin [Lovenox] 40 mg/0.4 mL Syringe 40 mg subcut DAILY 35 Days Qty: 14 0RF sertraline 100 mg tablet 100 mg PO HS metformin 1,000 mg tablet 1,000 mg PO BID aripiprazole 2 mg tablet 2 mg PO HS (DME) pen needle, diabetic [TRUEplus Pen Needle] 31 gauge x 3/16 needle MISCELLANEOUS insulin glargine [Lantus Solostar U-100 Insulin] 100 unit/mL (3 mL) insulin pen 22 unit SUBCUT HS Patient Comments: 22-24 UNITS @HS ondansetron 4 mg tablet,disintegrating 4 mg PO Q8H PRN (Reason: nausea and vomiting) Qty: 7 0RF Follow-up/Referrals: Marisol,Jacinto Strong [Primary Care Provider] -
[2025-01-15 19:46] LABS: Glucose Point of Care 426 mg/dl (65-105)
--- NOTE | 2025-01-15 20:46 | ED.UPPEXIN ---
HPI - Extremity Injury (Upper) General Chief Complaint: Extremity Injury, Upper Stated Complaint: right forearm pain, right fingers numb/tingling Time Seen by Provider: 01/15/25 19:15 Source: patient Mode of arrival: ambulatory Limitations: no limitations History of Present Illness HPI narrative: INTERMITTENT PAIN RIGHT FOREARM AND RIGHT WRIST FOR THE LAST 7 DAYS, INTERMITTENT TINGLING NUMBNESS GOING DOWN TO THE TIPS OF HER FINGERS. PATIENT DENIES ANY RECENT TRAUMA OR OTHER SYMPTOMS. 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 PATIENT REPORTS SYMPTOMS GET WORSE IN THE MORNING, GRADUALLY GET BETTER DURING DAYTIME. Related Data Home Medications ?Medication ?Instructions ?Recorded ?Confirmed ?Last Taken ?Type aripiprazole 2 mg tablet 2 mg PO HS 03/04/22 07/01/23 06/29/23 20:00 History insulin glargine 100 unit/mL (3 22 unit subcut HS 03/04/22 07/01/23 06/29/23 18:00 History mL) subcutaneous pen (Lantus Solostar U-100 Insulin) metformin 1,000 mg tablet 1,000 mg PO BID 03/04/22 07/01/23 06/30/23 08:00 History pen needle, diabetic 31 gauge x 03/04/22 12/08/22 Unknown History 01/28 (TRUEplus Pen Needle) sertraline 100 mg tablet 100 mg PO HS 03/04/22 07/01/23 06/29/23 20:00 History ergocalciferol (vitamin D2) 1,250 1,250 mcg PO WEEKLY 03/23/23 06/22/23 06/25/23 History mcg (50,000 unit) capsule albuterol sulfate 90 mcg/actuation 1 puff inhalation PRN PRN 06/22/23 07/01/23 06/28/23 History aerosol inhaler Shortness Of Breath Or Wheezing empagliflozin 25 mg tablet 25 mg PO DAILY 06/22/23 07/01/23 06/30/23 08:00 History (Jardiance) levothyroxine 50 mcg tablet 50 mcg PO DAILY 06/22/23 07/01/23 06/30/23 08:00 History (Unithroid) liraglutide 0.6 mg/0.1 mL (18 mg/3 0.6 mg subcut DAILY 07/15/23 Unknown History mL) subcutaneous pen injector (Counterceptsza 2-Chandan) Allergies Allergy/AdvReac Type Severity Reaction Status Date / Time amoxicillin (From Augmentin) Allergy Mild Hives Verified 08/09/23 14:50 clavulanic acid (From Allergy Mild Hives Verified 08/09/23 14:50 Augmentin) promethazine (From Phenergan) Allergy Mild Hives Verified 08/09/23 14:50 Review of Systems Review of Systems: All systems reviewed & are unremarkable except as noted in HPI and below PMFSH Past Medical History Medical History Right hand dominant Fowler disease Encounter for insertion of intrauterine contraceptive device Morbid obesity Major depressive disorder, single episode, unspecified Hyperlipidemia, unspecified Anxiety and depression Pericarditis DIEGO on CPAP PCOS (polycystic ovarian syndrome) Diabetes 1.5, managed as type 2 Sleep apnea in adult Surgical History Surgical History H/O gynecological procedure 07/01/23 RA total lap hyst & BL salpingectomy hysteroscopy and D & C H/O: knee surgery Hx of tonsillectomy Family History Family History Mother Family history of malignant neoplasm of breast in first degree relative Social History Social History Smoking status: Never smoker Second hand tobacco smoke exposure: Yes Alcohol intake: current Drinks per week: 1 Alcohol use details: 1/MONTH Substance use: former Substance use type: marijuana Last use: NOV 2022 Lack of Transportation: No Lack of Food: Never True Current Housing: I Have Housing Concerned About Future Housing: No Difficulty Paying Gas/Electric Bills: No Difficulty Paying for Meds: YES Currently Unemployed: No Education: Associate Degree Difficulty w/ Childcare or Family Care: No Living arrangements: with roommate(s) Additional living arrangements comments: boyfriend and roomate Occupation/Education: student Gender identity (if verbalized by the patient): Female Sexual Orientation (if Verbalized by the Patient): Straight or Heterosexual Spiritual care concerns: No Agree to blood products: No Exam Narrative: GENERAL APPEARANCE: WELL-DEVELOPED, WELL-NOURISHED SKIN: NORMAL COLOR HEAD: NORMOCEPHALIC, NONTRAUMATIC EYES: CLEAR CONJUNCTIVA ENT: OROPHARYNX NORMAL, EARS NORMAL, NOSE NORMAL NECK: SUPPLE, NONTENDER CHEST AND RESPIRATORY: AIRWAY PATENT, NO RESPIRATORY DISTRESS, NO ACCESSORY MUSCLE USE HEART: REGULAR RATE/RHYTHM ABDOMEN: SOFT, NONTENDER, NO ORGANOMEGALY, QUIET BOWEL SOUNDS VASCULAR: NORMAL PERIPHERAL PULSES, NORMAL CAPILLARY REFILL. MUSCULOSKELETAL: NORMAL RANGE OF MOTION, NONTENDER BACK NEUROLOGIC: ALERT AND ORIENTED ?3, CLEAT BLANKER IS NORMAL TESTED, NO GROSS MOTOR DEFICIT, POSITIVE PHALEN TEST Course Vital Signs Vital signs: Vital Signs Temperature 36.6 C 01/15/25 18:38 Pulse Rate 102 H 01/15/25 18:38 Respiratory Rate 18 01/15/25 18:38 Blood Pressure 145/86 H 01/15/25 18:38 Pulse Oximetry 100 01/15/25 18:38 Oxygen Delivery Autopap 01/15/25 18:38 Temperature 36.6 C 01/15/25 18:38 Pulse Rate 102 H 01/15/25 18:38 Respiratory Rate 18 01/15/25 18:38 Blood Pressure 145/86 H 01/15/25 18:38 Pulse Oximetry 100 01/15/25 18:38 Oxygen Delivery Autopap 01/15/25 18:38 MDM - Extremity Injury (Upper) MDM Narrative Medical decision making narrative: PATIENT PRESENTS WITH RIGHT HAND AND RIGHT FOREARM ACHES AND NUMBNESS FOR 1 WEEK, 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 REFERRED TO NEUROLOGY FOR NERVE CONDUCTION TEST. WRIST SPLINT, IBUPROFEN NEEDED BLOOD GLUCOSE IN THE ED 426 PATIENT IS TELLING ME THAT SHE DID NOT TAKE HER MEDICATION TODAY. 8 UNITS OF REGULAR INSULIN SUBQ ORDERED. PATIENT PROMISED TO TAKE HER MEDICATION WHEN SHE ARRIVED HOME PATIENT DECLINED TO BE OFF WORK TOMORROW Differential Diagnosis Differential diagnosis: Likely other ( ABOVE) Lab Data Labs: Lab Results 01/15/25 Range/Units 19:43 POC Capillary Glucose 426 H (65-105) mg/dl Discharge Plan Discharge Clinical Impression: Acute carpal tunnel syndrome, Diabetes mellitus with hyperglycemia Patient Disposition: Home, Self-Care Condition: Stable Instructions: Carpal Tunnel Syndrome (DC), Splint Care (ED), Diabetic Hyperglycemia (ED) Additional Instructions: RETURN IF SYMPTOMS ARE WORSENING , CALL DR PRASAD FOR APPOINTMENT, TAKE TYLENOL, IBUPROFEN NEEDED FOR ACHES AND PAIN, CONTINUE HOME MEDICATIONS. GET WRIST SPLINT, FROM [facility] Patient Language: Montenegrin Prescriptions: No Action ergocalciferol (vitamin D2) 1,250 mcg (50,000 unit) capsule 1,250 mcg PO WEEKLY Patient Comments: PT TAKES ON WEDNESDAY Victoza 2-Chandan 0.6 mg/0.1 mL (18 mg/3 mL) pen injector 0.6 mg subcut DAILY levothyroxine [Unithroid] 50 mcg tablet 50 mcg PO DAILY Jardiance 25 mg tablet 25 mg PO DAILY Patient Comments: TAKES IN AM albuterol sulfate 90 mcg/actuation HFA aerosol inhaler 1 puff INHALATION PRN PRN (Reason: Shortness Of Breath Or Wheezing) enoxaparin [Lovenox] 40 mg/0.4 mL Syringe 40 mg subcut DAILY 35 Days Qty: 14 0RF sertraline 100 mg tablet 100 mg PO HS metformin 1,000 mg tablet 1,000 mg PO BID aripiprazole 2 mg tablet 2 mg PO HS (DME) pen needle, diabetic [TRUEplus Pen Needle] 31 gauge x 3/16 needle MISCELLANEOUS insulin glargine [Lantus Solostar U-100 Insulin] 100 unit/mL (3 mL) insulin pen 22 unit SUBCUT HS Patient Comments: 22-24 UNITS @HS ondansetron 4 mg tablet,disintegrating 4 mg PO Q8H PRN (Reason: nausea and vomiting) Qty: 7 0RF Follow-up/Referrals: Marisol,Jacinto Strong [Primary Care Provider] -
[2025-01-15] MEDS: INSULIN HUMAN REGULAR (*BKC) 100 UNITS/ML 8 UNITS SUB-Q (21:50)
== END 2025-01-15 21:58 | disposition home or self-care (01) ==
LOC: ANHED 21:08
PROVIDERS: Emergency Provider Emergency Medicine; PCP Internal Medicine Infectious Disease
DX: G56.01 Carpal tunnel syndrome, right upper limb (principal); E13.65 Other specified diabetes mellitus with hyperglycemia; E78.5 Hyperlipidemia, unspecified; E28.2 Polycystic ovarian syndrome; E66.01 Morbid (severe) obesity due to excess calories; Z68.44 Body mass index [BMI] 60.0-69.9, adult; G47.33 Obstructive sleep apnea (adult) (pediatric); Z77.22 Contact with and (suspected) exposure to environmental tobacco smoke (acute) (chronic); Z79.899 Other long term (current) drug therapy; F41.9 Anxiety disorder, unspecified; F32.9 Major depressive disorder, single episode, unspecified; Z79.4 Long term (current) use of insulin; Z79.84 Long term (current) use of oral hypoglycemic drugs; Z79.85 Long-term (current) use of injectable non-insulin antidiabetic drugs
CPT/HCPCS: 73090; 82948; 99283; J1815

== ENCOUNTER 2025-03-13 04:29 | Emergency (ER) | payer OTHER, SELFPAY ==
[2025-03-13 04:31] VITALS: BP 129/77; PULSE 110; RESP 17; TEMP 36.4; O2SAT 99
--- OUTSIDE RECORDS SUMMARY | 2025-03-13 04:33 | XMS_ITS ---
Author Organization [facility] Address [address] [place] [address] Care Team Providers Care Bone Worker Name Role Phone Becca Tellez Primary Care Provider Encounters Encounter Location Date Provider Diagnosis [facility] [address] [place] [address] 10/09/2024 Becca Tellez Plan Of Treatment No Information Progress Notes * Kirsten HENDRICKSDOB:[birth year] (34 yo F)Acc No.[id number]:10/09/2024 Patient: Adam CLEMONS Kirsten :1990 A ge:34 Y S ex:Female Address:[address] [place] [address], [phone] * true * Date: Generated for Printi ng/Faxing/eTransmitting on: 0 03/13/2025 04:33 AM CDT
--- OUTSIDE RECORDS SUMMARY | 2025-03-13 04:33 | XMS_ITS | Clinical Summary ---
Author Organization [facility] Address [address] [place] [address] Care Team Providers Care Card Grinder Name Role Phone Raul Dan MD Primary Care Provider [phone] Source Comments [facility],non-owned Affiliates and Associated Physician Practices is amultiple site organization consisting of ambulatory clinics and hospital sitesin [place], [place], [place] and [place]. This disclosure is being madepursuant to the Care Everywhere program and may not contain all information available regarding this patient. Last updated 18.[facility] Allergies Active Allergy Reactions Criticality Noted Date Comments Promethazine Urticaria Medium 09/29/2019 Medications * Be aware that medications may not be up to date on this document. Alwaysverify current medications with the patient. metFORMIN (GLUCOPHAGE) 1000 MG tablet Take 1,000 mg by mouth 2 times daily with morning and evening meal Active ertugliflozin (STEGLATRO) 15 MG tablet Take 15 mg by mouth once daily Active semaglutide (OZEMPIC) 0.25 OR 0.5 MG/DOSE pen Inject 0.5 mg subcutaneously every 7 days Active norethindrone- ethinyl estradiol (JUNEL ) 1.5-30 MG-MCG tablet Take 1 tablet by mouth once daily Active simvastatin (ZOCOR) 10 MG tablet Take 10 mg by mouth at bedtime Active LISINOPRIL PO Active BASAGLAR KWIKPEN (BASAGLAR) pen Inject 19 Units subcutaneously at bedtime Active omeprazole (PRILOSEC) 40 MG capsule Take 40 mg by mouth daily before breakfast 9 Active Active Problems Problem Noted Date Diagnosed Date Elevated liver enzymes 02/07/2019 Overview (08/02/2019): 08/01/19 Fibroscan CAP 307, E 8.0 kPa Sleep apnea 02/07/2019 Diabetes mellitus type 2, controlled, without co mplications 02/07/2019 Essential hypertension 02/07/2019 Hyperlipidemia 02/07/2019 Asthma 02/07/2019 Social History Tobacco Use Types Packs/Day Years Used Date Smoking Tobacco: Never Smokeless Tobacco: Never Alcohol Use Standard Drinks/Week Comments Yes 0 (1 standard drink = 0.6 oz pur e alcohol) Rare Comments Unknown Sex and Gender Information Value Date Recorded Sex Assigned at Not on file Legal Sex Female 5:42 AM G[employer]FFITI CLEANER Gender Identity Not on file Sexual Orientation Not on file Last Filed Vital Signs Vital Sign Reading Time Taken Comments Blood Pressure 151/86 09/29/2019 3:05 PM G[employer]FFITI CLEANER Pulse 110 09/29/2019 3:05 PM G[employer]ITI CLE[employer]ER Temperature 37 C (98.6 F) 09/29/2019 3:05 PM GRAFFITI CLEANER Respiratory Rate 18 09/29/2019 3:05 PM G[employer]FFITI CLEANER Oxygen Saturation 96% 09/29/2019 3:05 PM G[employer]ITI CLEANER Inhaled Oxygen Concentration - - Weight 117.8 kg (259 lb 9.6 oz) 09/29/2019 3:05 PM GRAFFITI CLEANER Height 160 cm (5' 3 ) 09/29/2019 3:05 PM GRAFFITI CLEANER Body Mass Index 45.99 09/29/2019 3:05 PM GRAFFITI CLEANER Plan of Treatment Health Maintenance Due Date Last Done Comments PAP SMEAR 1990 HIV SCREENING 2005 DTAP/TDAP/TD VACCINES (1 - Tdap) 2009 HEPATITIS B VACCINE (1 of 3 - 19+ 3-dose series) 2009 PNEUMOCOCCAL VACCINE (1 of 2 - PCV) 2009 DIABETES RETINOPATHY SCREENING 02/07/2019 DIABETES-FOOT EXAM WITH MONOFILAMENT 02/07/2019 DIABETES-HGB A1C 02/07/2019 DIABETES-SERUM CREATININE 09/12/20202018, 07/21/2019, 11/22/2018 COVID-19 VACCINE (1 - 2023-2 5 season) 2024 DEPRESSION SCREENING 11/15/2024 DIABETES - URINE PROTEIN SCREENING 11/15/2024 INFLUENZA VACCINE (Season Ended) 2025 11/21/2018 ZOSTER VACCINE (1 of 2) 2040 HEPATITIS C SCREENING Completed 11/22/2018 HIB VACCINE Aged Out No longer eligi ble based on patient's age to complete this topic HPV VACCINE Aged Out No longer eligi ble based on patient's age to complete this topic MENINGOCOCCAL (Group B) VACCINE SHARED DECISION-MAKING Aged Out No longer eligible based on patient's age to complete this topic MENINGOCOCCAL GROUPS A/C/Y/W VACCINE Aged Out No longer eligible b ased on patient's age to complete this topic Goals Goal Patient Goal Type Associated Problems Recent Progress Patient-Stated? Author Medication Management General On track( 019 3:32 PM GRAFFITI CLEANER) Martin Brewer, RN Note: Expected end date: Interventions: Take all medications as prescribed Let your doctor know right away about any changes in your medications Make sure to request a refill of your medication at least one week prior to your last dose Procedures Procedure Name Priority Date/Time Associated Diagnosis Comments COMP MET PANEL (EXTERNAL RESULT ENTRY) Routine 09/12/2019 1:18 PM CDT HEPATITIS SCREEN ACUTE (EXTERNAL RESULTS) Routine 11/22/2018 from Last 3 Months or Most Recently Relevant to Health Maintenance Results * (ABNORMAL) COMP MET PANEL (EXTERNAL RESULT ENTRY) (09/12/2019 1:18 PM CDT) Glucose (EXTERNAL) 93 70 - 99 mg/dL Sodium (EXTERNAL RESULT) 135(A) 137 - 145 mmol/L Potassium (EXTERNAL RESULT) 4.5 3.5 - 5.1 mmol/L Chloride (EXTERNAL RESULT) 100 98 - 107 mmol/L CO2 (EXTERNAL) 25 22 - 30 mmol/L Calcium (EXTERNAL RESULT) 10.2 8.4 - 10.2 mg/dL Anion Gap (EXTERNAL RESULT) 14.5 14 - 22 mmol/L BUN (EXTERNAL RESULT) 14 8 - 19 mg/dL Creatinine (EXTERNAL RESULT) 0.59(A) 0.66 - 1.25 mg/dl Alkaline Phosphatase (EXTERNAL RESULT) 76 38 - 126 U/L ALT (EXTERNAL RESULT) 71(A) 0 - 35 U/L AST (EXTERNAL RESULT) 50(A) 15 - 37 U/L Protein Total (EXTERNAL RESULT) 7.3 6.3 - 8.2 gm/dL Albumin (EXTERNAL RESULT) 4.3 3.4 - 5.0 gm/dL Bilirubin Total (EXTERNAL RESULT) 0.60 0.20 - 1.30 mg/dL eGFR MDRD (EXTERNAL RESULT) >60 >60 mL/min/1.7 3m2 eGFR (EXTERNAL) Blood BLOOD SPECIMEN / Unknown 09/12/2019 1:18 PM CDT Historical Provider LAB - CHEMISTRY ORDERABLE S Final Result * HEPATITIS SCREEN ACUTE (EXTERNAL RESULTS) (11/22/2018) Hepatitis A Virus Antibody IgM (EXTERNAL RESULT) Nonreactive Nonreactive Hepatitis B Core Virus Antibody IgM (EXTERNAL RESULT) Nonreactive Nonreactive Hepatitis B Virus Surface Antigen (EXTERNAL RESULT) Nonreactive Nonreactive Hepatitis C Antibody Screen (EXTERNAL RESULT) Nonreactive Nonreactive Hepatitis C Virus Index (EXTERNAL) Blood 11/22/2018 Historical Provider LAB - CHEMISTRY ORDERABLE S Edited Result - Final from Last 3 Months or Most Recently Relevant to Health Maintenance Insurance [facility] Care Teams Card Grinder Relationship Specialty Start Date End Date Raul Dan MD [address] [place] [phone] PCP - General 02/07/19
--- OUTSIDE RECORDS SUMMARY | 2025-03-13 04:33 | XMS_ITS | Data Portability ---
[facility] Organization [facility] [address] [place] [address] Care Team Providers Care Risk Management Internship Name Role Phone SIGRID CHOPRA Photographic Processor SALIMA SMITH OTHER JENNYFER TEMPLETON OTHER KELLIE BARFIELD Psychiatrist [phone] Assessment No assessment recorded. Plan of Treatment Reminders Order Date Submit Date Provider Last Modified By Organization Details Last Modified Time Details Appointments None recorded. Lab HbA1c (hemoglobin A1c), blood 2022 024 [facility], [address], [place], [address], 4 16:27:10 lipid panel, serum 2022 024 [facility], [address], [place], [address], 4 16:27:10 TSH, ultra-sensi tive, serum 2022 024 [facility], [address], [place], [address], 4 16:27:10 Referral endocrinolo gy, diabetes & metabolism specialist referral - Uncontrolle d DM, Hudson's? 2022 023 [place], [address], [place], [address], 4 18:22:08 Procedures None recorded. Surgeries None recorded. Imaging None recorded. Medication Orders Lantus Solostar U-100 Insulin 100 unit/mL (3 mL) subcutaneou s pen 2022 023 [facility] #[id number], [address], [place], [address], 4 16:40:19 Jardiance 25 mg tablet 2022 023 [facility] [address] [facility] #[id number], [address] [place], [address], 5 12:45:47 Lantus Solostar U-100 Insulin 100 unit/mL (3 mL) subcutaneou s pen 2022 023 [facility] #[id number], [address], [place], [address], 3 19:59:51 hydroxyzine HCl 25 mg tablet 2022 023 [facility] #[id number], [address] [place], [address], 3 13:16:38 permethrin 5 % topical cream 2022 023 [facility] #[id number], [address] [place], [address], 4 16:42:55 triamcinolo ne acetonide 0.1 % topical cream 2022 023 [facility] #[id number], [address] [place], [address], 3 12:13:00 doxycycline monohydrate 100 mg tablet 2022 023 [facility] #[id number], [address] [place], [address], 12:11:30 bacitracin 500 unit/gram topical ointment 2022 023 [id number], [address], [place], [address], 12:11:24 Patient TargetsNo targets recorded. Patient Instructions Encounter Date Encounter Id Patient Instructions Last Modified By Organization Details Last Modified Time 08/16/2023 [id number] influenza (flu) vaccine: care instructions oajao Not available 08/16/2023 16:57:10 dermatitis: care instructions oajao Not available 08/16/2023 15:59:33 skin tag removal : care instructions oajao Not available 08/16/2023 15:59:33 Doxycycline/Baci tra murtaza Triamcinolone Warm packs oajao Not available 08/16/2023 16:05:17 09/13/2023 [id number] Permethrin Hydroxyzine Endocrinology Labs as previously ordered Follow up as scheduled on 10/25/2023 oajao Not available 09/13/2023 12:27:24 10/01/2023 [id number] Updated COVID vaccine Increase Lantus to 33 units HS Labs as previously ordered Photographic Processor as referred Follow up as scheduled on 10/25/2023 oajao Not available 10/01/2023 15:30:57 10/25/2023 [id number] hypothyroidism: care instructions oajao Not available 10/25/2023 15:37:50 Increase Lantus to 33 units HS. If your BS remain elevated, increase your Lantus by another 3 units or call us with your blood sugars. Labs in January,. Endocrinology (Scheduled 01/20/2024) Seasonal COVID vaccine. Follow up in 4 months and PRN. oajao Not available 10/25/2023 16:39:26 02/08/2024 [id number] Reports of her joint and possible spine Xray reports from [facility] (Ordered by Dr Barrios?) Letter to allow her to sit at work Labs as previously ordered Schedule the seasonal COVID vaccine Follow up in 4 months and PRN oajao Not available 02/08/2024 16:54:48 Reason for Referral Endocrinology, Diabetes & Me tabolism Specialist Referral for Uncontrolled type 2 diabetes mellitus Uncontrolled DM, Hudson's? Uncontrolled DM, Joan's? Referring Physician: Ligia Damon, Internal Medicine, Encounter Date: 09/13/2023 Results Created Date Observation Date Name Description Value Unit Range Abnormal Flag Note LastModifiedBy Organization Detail LastModifiedTime 10/01/2010/02/2023 LIPID PANEL cholesterol, total 145 mg/dL 100-19 9 Not Available [address], [address], 10/02/2023 08:28:03 10/01/2010/02/2023 LIPID PANEL triglyceride s 151 mg/dL 0-149 above high normal Not Available [address], [address], 10/02/2023 08:28:03 10/01/2010/02/2023 LIPID PANEL HDL cholesterol 48 mg/dL >39 Not Available [address], [address], 10/02/2023 08:28:03 10/01/2010/02/2023 LIPID PANEL VLDL cholesterol paulette 26 mg/dL 5-40 Not Available [address], [address], 10/02/2023 08:28:03 10/01/2010/02/2023 LIPID PANEL LDL chol calc ([facility]) 71 mg/dL 0-99 Not Available [address], [address], 10/02/2023 08:28:03 10/01/2010/02/2023 BASIC METAB OLIC PANEL (7) glucose 249 mg/dL 70-99 above high normal Not Available [address], [address], 10/02/2023 08:28:04 10/01/20 23 10/02/2023 BASIC METAB OLIC PANEL (7) BUN 8 mg/dL 6-20 Not Available [address], [address], 10/02/2023 08:28:04 10/01/20 23 10/02/2023 BASIC METAB OLIC PANEL (7) creatinine 0.62 mg/dL 0.57-1 .00 Not Available [address], [address], 10/02/2023 08:28:04 10/01/20 23 10/02/2023 BASIC METAB OLIC PANEL (7) eGFR 121 mL/mi n/1.7 3 >59 Not Available [address], [address], 10/02/2023 08:28:04 10/01/20 23 10/02/2023 BASIC METAB OLIC PANEL (7) BUN/creatini ne ratio 13 9-23 Not Available [address], [address], 10/02/2023 08:28:04 10/01/20 23 10/02/2023 BASIC METAB OLIC PANEL (7) sodium 140 mmol/ L 134-14 4 Not Available [address], [address], 10/02/2023 08:28:04 10/01/20 23 10/02/2023 BASIC METAB OLIC PANEL (7) potassium 5.0 mmol/ L 3.5-5. 2 Not Available [address], [address], 10/02/2023 08:28:04 10/01/20 23 10/02/2023 BASIC METAB OLIC PANEL (7) chloride 101 mmol/ L 96-106 Not Available [address], [address], 10/02/2023 08:28:04 10/01/2010/02/2023 BASIC METAB OLIC PANEL (7) carbon dioxide, total 24 mmol/ L 20-29 Not Available [address], [address], 10/02/2023 08:28:04 10/01/2010/02/2023 CBC, PLATE LET, NO DIFFE RENTI AL WBC 7.3 x10e3 /uL 3.4-10 .8 Not Available [address], [address], 10/02/2023 08:28:05 10/01/2010/02/2023 CBC, PLATE LET, NO DIFFE RENTI AL RBC 5.14 x10e6 /uL 3.77-5 .28 Not Available [address], [address], 10/02/2023 08:28:05 10/01/2010/02/2023 CBC, PLATE LET, NO DIFFE RENTI AL hemoglobin 12.5 g/dL 11.1-1 5.9 Not Available [address], [address], 10/02/2023 08:28:05 10/01/2010/02/2023 CBC, PLATE LET, NO DIFFE RENTI AL hematocrit 41.4 % 34.0-4 6.6 Not Available [address], [address], 10/02/2023 08:28:05 10/01/20 23 10/02/2023 CBC, PLATE LET, NO DIFFE RENTI AL MCV 81 fL 79-97 Not Available [address], [address], 10/02/2023 08:28:05 10/01/2010/02/2023 CBC, PLATE LET, NO DIFFE RENTI AL MCH 24.3 pg 26.6-3 3.0 below low normal Not Available [address], [address], 10/02/2023 08:28:05 10/01/2010/02/2023 CBC, PLATE LET, NO DIFFE RENTI AL MCHC 30.2 g/dL 31.5-3 5.7 below low normal Not Available [address], [address], 10/02/2023 08:28:05 10/01/2010/02/2023 CBC, PLATE LET, NO DIFFE RENTI AL RDW 15.8 % 11.7-1 5.4 above high normal Not Available [address], [address], 10/02/2023 08:28:05 10/01/2010/02/2023 CBC, PLATE LET, NO DIFFE RENTI AL platelets 300 x10e3 /uL 150-45 0 Not Available [address], [address], 10/02/2023 08:28:05 10/01/2010/02/2023 HEMOG LOBIN A1C hemoglobin A1C 10.2 % 4.8-5. 6 above high normal Predi abete s: 5.7 - 6.4 Diabe ronald: >6.4 Glyce nadine contr ol for adult s with diabe ronald: <7.0 Not Available [address], [address], 10/02/2023 11:12:16 10/01/20 23 10/02/2023 DIABE RONALD PATIE NT EDUCA TION pdf NOT APPLIC ABLE Not Available [facility] [address] [place] [address], [address], 10/02/2023 11:12:16 10/01/2010/02/2023 DIABE RONALD PATIE NT EDUCA TION pdf .* Not Available [facility] [address] [place] [address], [address], 10/02/2023 11:12:13 10/01/20 23 10/02/2023 DIABE RONALD PATIE NT EDUCA TION pdf . Not Available [address], [address], 10/02/2023 08:28:05 09/06/20 23 09/06/2023 MRI, brain , w/o contr ast No observ ation record ed. [facility] [place], [address], 09/14/2023 09:25:01 09/07/20 23 09/06/2023 MRI, brain + brain stem, w/o contr ast No observ ation record ed. [facility] [address], [place], [address], 09/13/2023 12:08:19 02/09/20 24 10/02/2022 XR, ankle No observ ation record ed. [facility] [address] [place], [address], 02/09/2024 14:10:14 01/16/20 25 01/15/2025 XR, forea rm No observ ation record ed. [facility] [address] [facility] [address], [place], [address], 01/16/2025 09:21:06 Result Notes None recorded. 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, [place], [address], [place] [facility] 3 15:50:38 Bipolar disorder 28416269 Active 2022 Ligia Damon MD Attn: Sinan g,[address] [facility], [place], [address], [place] [facility] 3 15:50:38 Obstructive sleep apnea syndrome 83314902 Active 2022 Ligia Damon MD Attn: Sinan g,[address] [facility], [place], [address], [place] [facility] 3 15:50:38 Asthma 642626272 Active 2022 Ligia Damon MD Attn: Sinan g,[address] [facility], [place], [address], [place] [facility] 3 15:50:38 Cellulitis of left lower limb 8283076462400 9109 Active Ligia Damon MD Attn: Slickin g,[address] [facility], [place], [address], [place] [facility] 3 15:34:15 History of total hysterectom y 608842212 Active 2022 Ligia Damon MD Attn: Accountin g,[address] [facility], [place], [address], [place] [facility] 3 16:44:44 Arachnoid cyst 76448755 Active 2022 Ligia Damon MD Attn: Sinan foote,[address] [facility], [place], [address], [place] - [facility] 3 15:31:45 Arthritis 9697726 Active 2023 Ligia Damon MD Attn: Sinan foote,[address] [facility], [place], [address], [place] [facility] 4 16:56:35 Notes:Some problems listed i n Documents: #[id number], #[id number] could not be added to this patient's chart. Please review these documents and add these problems to the patient's chart manually as needed. Problem Notes None recorded. Procedures Surgical History Date Name Laterality Status Provider Name and Address Organization Details Recorded Time 07/01/20 laparoscopic total abdominal hysterectomy and bilateral salpingo-oophorec clair completed Ligia Damon MD Attn: Accounting,[address] [facility], [place], [address], [facility] 07/01/2023 15:48:59 Tonsillectomy completed Jacy Ackerman MA [facility] 03/18/2023 14:14:23 Knee Surgery completed Jacy Ackerman MA [facility] 03/18/2023 14:14:30 Imaging Results Imaging Date Name Status LastModified by Organiz ation Details LastModified Time 09/06/2023 MRI, brain, w/o contrast completed [facility] [address] [facility], [place], [address], 09/14/2023 09:25:01 09/06/2023 MRI, brain + brain stem, w/o contrast completed [facility] [address], [place], [address], 09/13/2023 12:08:19 10/02/2022 XR, ankle completed [facility] [place] [facility] [address] [place], [address], 02/09/2024 14:10:14 01/15/2025 XR, forearm completed [facility] [address] [facility] [address], [place], [address], 01/16/2025 09:21:06 Procedure Notes None recorded. Medical Equipment None Reported. Allergies Allergen ID Allergen Name Allergen Category Reaction Reaction Severity Criticality Documentation Date Start Date Code Code System Note Provider Name and Address Organization Details Recorded Time 15671121 amoxicill in medicatio n Not available Not available Not available 03/18/2023 723 RxNorm Other react ions and sever ities : 'Adve rse react ion to subst ance' . Not Available Not Available Not Available 734075 Phenergan medicatio n hives severe Not available 03/18/2023 34965 8 RxNorm Not Available Not Available Not Available 228966 promethaz ine medicatio n rash severe Not available 06/14/2023 8745 RxNorm Not Available Not Available Not Available Medications Name Sig Start Date Stop Date Status Note LastModified by Organization Details LastModified Time cyclobenz aprine 10 mg tablet TAKE 1 TABLET BY MOUTH THREE TIMES DAILY NEEDED FOR MUSCLE SPASM 03/18 completed Not Available Not Available Not Available clindamyc in HCl 300 mg capsule TAKE 1 CAPSULE BY MOUTH EVERY 8 HOURS 06/14 completed Not Available Not Available Not Available minocycli ne 100 mg capsule 03/18 completed Not Available Not Available Not Available prednison e 20 mg tablet TAKE 2 TABLETS BY MOUTH ONCE DAILY FOR 4 DAYS 10/01 completed Not Available Not Available Not Available sertralin e 100 mg tablet TAKE 1 TABLET BY MOUTH EVERY DAY active Not Available Not Available No t Available prednison e 5 mg tablet 03/18 completed Not Available Not Available Not Available Lantus U-100 Insulin 100 unit/mL subcutane ous solution Inject 24 unts by sub-q route. 09/13 completed Duplicat e entry, Lantus solostar Not Available Not Available Not Available permethri n 5 % topical cream MASSAGE INTO SKIN FROM HEAD TO SOLES OF FEET ONCE. LEAVE ON 8-14HRS, THEN WASH OFF 02/07 completed Not Available Not Available Not Available bacitraci n 500 unit/gram topical ointment APPLY 1 APPLICAT ION ONTO THE AFFECTED AREA(S) DIRECTED 3 TIMES DAILY FOR 5 DAYS 09/13 completed Not Available Not Available Not Available sulfameth oxazole 800 mg-trimet hoprim 160 mg tablet TAKE 1 TABLET BY MOUTH TWICE A DAY FOR 10 DAYS 07/26 completed Not Available Not Available Not Available doxycycli ne monohydra te 100 mg tablet TAKE 1 TABLET BY MOUTH TWICE A DAY DIRECTED FOR 7 DAYS 09/13 completed Not Available Not Available Not Available acetamino phen 500 mg tablet TAKE 1 TABLET BY MOUTH EVERY 6 HOURS NEEDED FOR PAIN active Not Available Not Available No t Available triamcino lone acetonide 0.1 % topical cream APPLY THIN COAT TO AFFECTED AREA TWICE A DAY active Not Available Not Available No t Available oxycodone -acetamin ophen 5 mg-325 mg tablet TAKE 1 TABLET BY MOUTH EVERY 6 HOURS NEEDED FOR PAIN 07/26 completed Not Available Not Available Not Available PaperGToPanelfly Ultra Test strips USE TO TEST SUGARS TWICE A DAY BEFORE MEALS FOR 90 DAYS active Not Available Not Available No t Available gemfibroz il 600 mg tablet TAKE 1 TABLET BY MOUTH TWICE DAILY active Not Available Not Available No t Available levothyro xine 50 mcg tablet TAKE 1 TABLET BY MOUTH EVERY MORNING FOR 90 DAYS active Not Available Not Available No t Available cyanocoba rowena (vit B-12) 1,000 mcg/mL injection solution INJECT 1 ML IN THE MUSCLE ONCE WEEKLY IN THE MORNING 06/14 completed Not Available Not Available Not Available metformin 1,000 mg tablet TAKE 1 TABLET BY MOUTH EVERY DAY WITH BREAKFAS T active Not Available Not Available No t Available polymyxin B sulfate 10,000 unit-trim ethoprim 1 mg/mL eye drops INSTILL 1 DROP INTO THE RIGHT EYE EVERY 3 HOURS WHILE AWAKE 06/14 completed Not Available Not Available Not Available hydroxyzi ne HCl 25 mg tablet TAKE 1 TABLET BY MOUTH THREE TIMES A DAY NEEDED FOR 14 DAYS active Not Available Not Available No t Available ergocalci ferol (vitamin D2) 1,250 mcg (50,000 unit) capsule TAKE ONE CAPSULE BY MOUTH ONCE PER WEEK IN THE MORNING active Not Available Not Available No t Available ibuprofen 600 mg tablet 600 MG ORALLY EVERY 6 HOURS NEEDED FOR PAIN 07/26 completed Not Available Not Available Not Available levofloxa murtaza 500 mg tablet TAKE 1 TABLET BY MOUTH EVERY 24 HOURS FOR 7 DAYS 03/18 completed Not Available Not Available Not Available albuterol sulfate HFA 90 mcg/actua tion aerosol inhaler INHALE 1 PUFF EVERY 4 HOURS NEEDED active Not Available Not Available No t Available ondansetr on 4 mg disintegr ating tablet DISSOLVE 1 TABLET ON TONGUE EVERY 8 HOURS NEEDED FOR NAUSEA AND VOMITING 02/07 completed Not Available Not Available Not Available cefdinir 300 mg capsule TAKE 1 CAPSULE BY MOUTH EVERY 12 HOURS 03/18 completed Not Available Not Available Not Available sulindac 200 mg tablet 03/18 completed Not Available Not Available Not Available naproxen 500 mg tablet TAKE 1 TABLET BY MOUTH EVERY 12 HOURS NEEDED 02/07 completed Not Available Not Available Not Available spironola ctone 50 mg tablet 03/18 completed Not Available Not Available Not Available enoxapari n 40 mg/0.4 mL subcutane ous syringe 40 MG (0.4 ML) SUBCUTAN EOUSLY DAILY FOR 35 DAYS 07/26 completed Not Available Not Available Not Available insulin lispro (U-100) 100 unit/mL subcutane ous pen INJECT 20 UNITS UNDER THE SKIN 2 (TWO) TIMES A DAY BEFORE BREAKFAS T AND DINNER active Not Available Not Available No t Available azithromy murtaza 500 mg tablet TAKE 1 TABLET BY MOUTH ONCE DAILY FOR 3 DAYS 03/18 completed Not Available Not Available Not Available rosuvasta tin 5 mg tablet 03/18 completed Not Available Not Available Not Available metformin ER 500 mg 24 hr tablet,ex tended release (gastric retention ) Take 1000 mg twice a day by oral route. 09/13 completed Tank entry on 1000 mg BID Not Available Not Available Not Available Advair HFA 115 mcg-21 mcg/actua tion aerosol inhaler INHALE 2 PUFFS BY MOUTH TWICE A DAY active Not Available Not Available No t Available aripipraz ole 2 mg tablet TAKE 1 TABLET BY MOUTH EVERY DAY AT BEDTIME active Not Available Not Available No t Available Lantus Solostar U-100 Insulin 100 unit/mL (3 mL) subcutane ous pen INJECT 36 UNITS SUBCUTAN EOUSLY ONCE DAILY DIRECTED active Not Available Not Available No t Available Korlym 300 mg tablet 07/26 completed On hold while on Eliquis Not Available Not Available Not Available Victoza 2-Chandan 0.6 mg/0.1 mL (18 mg/3 mL) subcutane ous pen injector Inject every day by sub-q route as directed for 48 days. 09/06 completed I think I am allaergi c to it Not Available Not Available Not Available Eliquis 5 mg tablet Take 1 tablet by oral route. 07/26 completed Not Available Not Available Not Available Jardiance 25 mg tablet TAKE 1 TABLET (25 MG TOTAL) BY MOUTH [employer] SAL[employer] BEFORE BREAKFAS T active I have just not been taking it, I was having some bladder control issues Not Available Not Available Not Available TRUEplus Pen Needle 32 gauge x 5/32 USE TO INJECT INSULIN 2-3 TIMES DAILY active Not Available Not Available No t Available TechLITE Pen Needle 31 gauge x 3/16 INJECT MOUNJARO WEEKLY, OK TO SUBSTITU TE PER INSURANC E COVERAGE active Not Available Not Available No t Available OneTouch Ultra2 Meter USE DIRECTED . active Not Available Not Available No t Available OneTouch Delica Plus Lancet 33 gauge USE TO TEST SUGARS TWICE A DAY BEFORE MEALS FOR 90 DAYS active Not Available Not Available No t Available Rybelsus 7 mg tablet 03/18 completed Not Available Not Available Not Available ID NOW COVID-19 Test Kit TEST DIRECTED TODAY 03/18 completed Not Available Not Available Not Available insulin glargine- yfgn (U-100) 100 unit/mL (3 mL) subcutane ous pen INJECT 36 UNITS SUBCUTAN EOUSLY ONCE DAILY DIRECTED active Not Available Not Available No t Available FreeStyle Forrest 3 Sensor device USE DIRECTED . CHANGE SENSOR EVERY 14 DAYS active Not Available Not Available No t Available Ozempic 0.25 mg or 0.5 mg (2 mg/3 mL) subcutane ous pen injector Inject 0.5 mg every week by subcutan eous route. active Samples from Dr Alberto Not Available Not Available Not Available Vitals Date Recorded Body height Body mass index (BMI) Body weight Heart rate Oxygen saturation Oxygen saturation in Arterial blood by Pulse oximetry Respiratory rate Systolic blood pressure Diastolic blood pressure Provider Name and Address Organization Details Last Updated DateTime 3 160.02 cm 62.7 kg/m2 197116. 7 g 90 /min 98 % 98 % 16 /min 110 mm[Hg] 76 mm[Hg] Jacy Ackerman [place] [facility] 3 15:04:34 Date Recorded Body height Body mass index (BMI) Body weight Respiratory rate Heart rate Oxygen saturation Oxygen saturation in Arterial blood by Pulse oximetry Systolic blood pressure Diastolic blood pressure Provider Name and Address Organization Details Last Updated DateTime 3 160.02 cm 63.4 kg/m2 104423. 07 g 18 /min 84 /min 99 % 99 % 114 mm[Hg] 76 mm[Hg] Jacy Ackerman MA [facility] 3 11:35:33 Date Recorded Body height Body mass index (BMI) Body weight Heart rate Oxygen saturation Oxygen saturation in Arterial blood by Pulse oximetry Respiratory rate Systolic blood pressure Diastolic blood pressure Provider Name and Address Organization Details Last Updated DateTime 3 160.02 cm 62.7 kg/m2 857399. 13 g 76 /min 98 % 98 % 16 /min 112 mm[Hg] 80 mm[Hg] Jacy Ackerman MA [facility] 3 15:03:16 Date Recorded Body height Body mass index (BMI) Body weight Oxygen saturation Oxygen saturation in Arterial blood by Pulse oximetry Heart rate Respiratory rate Systolic blood pressure Diastolic blood pressure Provider Name and Address Organization Details Last Updated DateTime 3 160.02 cm 63.1 kg/m2 658015. 31 g 97 % 97 % 99 /min 18 /min 116 mm[Hg] 74 mm[Hg] Jacy Ackerman MA [facility] 3 15:16:18 Date Recorded Body height Body mass index (BMI) Body weight Heart rate Oxygen saturation Oxygen saturation in Arterial blood by Pulse oximetry Systolic blood pressure Diastolic blood pressure Provider Name and Address Organization Details Last Updated DateTime 4 160.02 cm 63.8 kg/m2 450493. 69 g 78 /min 98 % 98 % 122 mm[Hg] 78 mm[Hg] Venita Saxena MA [facility] 4 16:29:37 Social History Question Answer Notes LastModified by Organizat ion Details LastModified Time Tobacco Smoking Status Never Smoker UBALDO [place] [facility] 03/18/2023 14:13:52 What Is Your Level Of Alcohol Consumption? None Information not available 03/18/2023 Are You Blind Or Do You Have Difficulty Seeing? No Information not available 03/18/2023 What Is Your Level Of Caffeine Consumption? Moderate Monster Most Days Information not available 03/18/2023 Are You Currently Employed? Yes Information not available 03/18/2023 Are You Deaf Or Do You Have Serious Difficulty Hearing? No Information not available 03/18/2023 What Type Of Diet Are You Following? REGULAR Information not available 03/18/2023 What Was The Date Of Your Most Recent Tobacco Screening? 10/01/2023 Information not available 10/01/2023 Do You Use Your Seat Belt Or Car Seat Routinely? Yes Information not available 03/18/2023 Do You Have Smoke And Carbon Monoxide Detectors In Your Home? Yes Information not available 03/18/2023 Do You Use Any Illicit Or Recreational Drugs? No Information not available 03/18/2023 Sex: Unknown Functional Status Question Answer Note LastModified by Organization D etails LastModified Time Are you able to care for yourself? Yes Information n ot available 03/18/2023 Mental Status None recorded. Family History Relationship Description Onset Age of this Age Resolved Age Notes LastModified by Organization Details LastModified Time Mother Malignant tumor of breast [email or web address] Not available 2022 14:13:40 Medical History Condition Response Diabetes Y Other Thyroid Problems Y Depression Y Asthma Y Gynecological History Statement/Question Response Menses Monthly Y Current Control Method None Date of LMP 03/18/2023 LMP Definite Obstetrics History GPAL:G 0 P 0 0 0 0 Immunizations Vaccine Type Date Status Note Provider Nam e and Address Organization Details Recorded Time Influenza, split virus, quadrivalent, preservative 0 completed Not Available [facility] 11/24/2023 07:01:49 Influenza, MDCK, quadrivalent, PF 9 completed Not Available [facility] 11/24/2023 07:01:49 MMR 4 completed Not Available [facility] 11/24/2023 07:01:49 COVID-19, mRNA, LNP-S, PF, 100 mcg/0.5mL dose or 50 mcg/0.25mL dose 1 completed Not Available [facility] 11/24/2023 07:01:49 COVID-19, mRNA, LNP-S, PF, 100 mcg/0.5mL dose or 50 mcg/0.25mL dose 1 completed Not Available [facility] 11/24/2023 07:01:49 COVID-19, mRNA, LNP-S, PF, 100 mcg/0.5mL dose or 50 mcg/0.25mL dose 1 completed Not Available [facility] 11/24/2023 07:01:49 COVID-19, mRNA, LNP-S, bivalent, PF, 50 mcg/0.5 mL or 25mcg/0.25 mL dose 2 completed Not Available [facility] 11/24/2023 07:01:49 Tdap 4 completed Not Available [facility] 11/24/2023 07:01:49 DTP 4 completed Not Available [facility] 11/24/2023 07:01:49 OPV 4 completed Not Available [facility] 11/24/2023 07:01:49 Hep A, adult 3 completed Not Available [facility] 11/24/2023 07:01:49 Hep A, adult 2 completed Not Available [facility] 11/24/2023 07:01:49 Influenza, split virus, quadrivalent, PF 2 completed Not Available [facility] 11/24/2023 07:01:49 Influenza, split virus, quadrivalent, PF 1 completed Not Available [facility] 11/24/2023 07:01:49 Influenza, split virus, quadrivalent, PF 3 completed Ligia Damon MD Attn: Accounting[address] [place], [address], [facility] 08/16/2023 19:07:51 Past Encounters Encounter ID Performer Location Encounter Start Date Encounter Closed Date Diagnosis/Indication Diagnosis SNOMED-CT Code Diagnosis ICD10 Code Diagnosis Note [id number] MD Alissa Campos (Adult Med) [address] [place] [address] [id number] 03/18/2023 13:52:49 03/22/2023 09:07:20 General examination of patient 239901840 Z00.01 Uncontroll ed type 2 diabetes mellitus 457879259 E11.65 Hypothyroidism 00373749 E03.9 Pulmonary embolism 65147 003 I26.99 Mass of lower limb 14966 7000 R22.43 Screening for malignant neoplasm of cervix 043323604 Z12.4 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 0 Anemia 408195685 D64.9 Hypothyroidism 48088627 E03.9 Medication review done by doctor 141438019 Z76.89 [id number] MD Alissa Campos (Adult Med) [address] [place] [address] [id number] 07/26/2023 15:37:48 08/03/2023 08:38:07 Uncontrolled type 2 diabetes mellitus 365640553 E11.65 HBA1C 8.8%.manag ed by the endocrinol ogist. Medication monitoring 39 8424325 Z51.81 History of total hysterectomy 390344954 Z90.734 [id number] MD Alissa Campos (Adult Med) [address] [place] [address] [phone] 08/16/2023 14:47:50 08/17/2023 14:52:38 Administration of influenza vaccine 32104531 Z23 Contact dermatitis 31670 004 L25.9 Skin tag 243605913 L91.8 Traumatize d, then infected? [id number] MD Alissa Campos (Adult Med) [address] [place] [address] [phone] 09/13/2023 11:25:33 09/14/2023 12:56:51 Uncontrolled type 2 diabetes mellitus 105445442 E11.65 LabsEndocr inology OV 07/26/2023H BA1C 8.8%.Manag ed by the endocrinol ogist. Pruritic rash 82876420 L 28.2 Cerebral a rachnoid cyst 169133886 G93.0 Noted on the MRI ordered by her endocrinol ogist who has since retired [id number] Ligia Damon MD [facility] (Adult Med) [address] [place] [address] [id number] 10/01/2023 14:48:46 10/05/2023 09:07:07 Uncontrolled type 2 diabetes mellitus 527843046 E11.65 HBA1C 9.8% on 09/18/2023 Increase LantusEndo crinologis t to see OV 09/13/2023 LabsEndocr inology OV 07/26/2023H BA1C 8.8%.Manag ed by the endocrinol ogist. Follow-up visit 16730568 9 Z09 Immunization advised 310 970531 Z71.9 Arachnoid cyst 81775216 G93.0 Small left cerebellar arachnoid cyst, an incidental finding on the MRI ordered by her endocrinol ogist as part of the work up of possible [place]ushings. [id number] Ligia Damon MD [facility] (Adult Med) [address] [place] [address] [phone] 10/25/2023 15:05:23 10/26/2023 10:15:16 Uncontrolled type 2 diabetes mellitus 448728710 E11.65 Increase Lantus to 33 units RZFMF2F 10.2% on 10/01/2023 OV 10/01/2023 HBA1C 9.8% on 09/18/2023 Increase LantusEndo crinologis t to see OV 09/13/2023 LabsEndocr inology OV 07/26/2023H BA1C 8.8%.Manag ed by the endocrinol ogist. Follow-up visit 71582976 9 Z09 Immunization advised 310 009946 Z71.9 Hypothyroidism 36455888 E03.9 [id number] MD Alissa Campos (Adult Med) [address] [place] [address] 02/08/2024 16:18:11 02/09/2024 18:39:08 Uncontrolled type 2 diabetes mellitus 488301348 E11.65 HBA1C 11.5% on 01/20/2024Ma naged by the endocrinol ogist OV 10/25/2023 Increase Lantus to 33 units PGHRA3C 10.2% on 10/01/2023 OV 10/01/2023 HBA1C 9.8% on 09/18/2023 Increase LantusEndo crinologis t to see OV 09/13/2023 LabsEndocr inology OV 07/26/2023H BA1C 8.8%.Manag ed by the endocrinol ogist. Immunization advised 310 340106 Z71.9 Arthritis 4319475 M19.90 Non-compli ance of drug therapy 677902214 Z91.148 She should discuss her issues with Jardiance, with her endocrinol ogist Health Concerns Section Related Observation LastModified by Organization Detai ls LastModified Time None Recorded Concern Status LastModified by Organization Details LastModified Time None Recorded Advance Directives Directive None Recorded Payers Encounter Date Sequence Insurance Name Policy Number Policy Verdugo Covered Member ID Verdugo Member ID Guarantor Name 08/16/2023 1 [facility] (MEDICAID HM) [id number] Kirsten Roberthkoff [id number] Kirsten Hendricks 09/13/2023 1 [facility] (MEDICAID [place]) [id number] Kirsten Boshkoff [id number] Kirsten Boshkolizy 10/01/2023 1 [facility] (MEDICAID HMO) [id number] 0003 Kirsten Boshkoff [id number] Kirsten Boshkolizy 10/25/2023 1 [facility] (MEDICAID HMO) [id number] 0003 Kirsten Boshkoff [id number] Kirsten Boshkolizy 02/08/2024 1 [facility] (MEDICAID [place]) [id number] 0003 Kirsten Boshkoff [id number] Kirsten Hendricks Notes Date Note Type Note Provider Name and Address Organization Details Recorded Time 08/16/2023 text/html I have these bu mps all over my arms that really itch I have a skin tag Ms Hendricks presents with a inflamed sskin tag on the left side of her chin and a itchy rash on her forearms. Ligia Damon MD Attn: Accounting[address] [place], [address], [facility] 08/16/2023 19:11:26 09/13/2023 text/html I have been hav ing hives up and down my arm, especially at night We had fleas Ms Hendricks returns with hives and a itchy rash on her right forearm, she also reports a rash on her back. She had a flea infestation recently that was treated. She felt her rash and wheals were from the Victoza which she has since stopped. Ligia Damon MD Attn: Accounting[address] [place], [address], [facility] 09/13/2023 13:22:51 10/01/2023 text/html Diabetes F/URepo rted bypatient.Review finger sticks:fastin; post lunch: ; post dinner: 300 Labs:last A1C result: 9.8 Context:normal range of home blood sugars (in the low 100s); seeing eye doctor regularly; checking feet regularly Associated Symptoms:no weight gain; no dizziness; no sweats; no headaches; no confusion; no increased thirst; no increased appetite; no increased urination; no blurred vision; no numbness of feet; no calluses on feet;weight loss (4 lbs) I ran out of Insulin Arachnoid cyst Ms Hendricks was out of Insulin and developed severe hyperglycemia which prompted an ER visit and a brief admission. Ligia Damon MD Attn: Accounting[address] [place], [address], [facility] 10/01/2023 20:04:51 10/25/2023 text/html Diabetes F/URepo rted bypatient.Review finger sticks:fastin; post lunch: 250 Labs:last A1C result: 10.2 Context:taking aspirin daily; not missing doses of medications; no side effects from medications;home blood sugar range high Associated Symptoms:no weight loss; no dizziness; no sweats; no headaches; no confusion; no increased thirst; no increased appetite; no increased urination; no blurred vision; no numbness of feet; no calluses on feet;weight gain (2 lbs) Ms Hendricks is doing well, her BS vary between 150 & 250. Ligia Damon MD Attn: Accounting[address] [facility], [place], [address], [facility] 10/25/2023 16:39:45 02/08/2024 text/html Diabetes F/URepo rted bypatient.Review finger sticks:post lunch: 236; Average 205 Labs:last A1C result: 11.5 Context:taking aspirin daily; not missing doses of medications; no side effects from medications;home blood sugar range high Associated Symptoms:no weight loss; no dizziness; no sweats; no headaches; no confusion; no increased thirst; no increased appetite; no increased urination; no blurred vision; no numbness of feet; no calluses on feet;weight gain (4 lbs)Musculoskeletal PainReported bypatient.Location:maximo mbar spine; bilateral hip; bilateral ankle Quality:sharp Severity:pain level without meds /10;interference with work Timing:intermittent Context:prior back problems Alleviating factors:relieved by changing position Aggravating factors:movement/posi tioning Associated Symptoms:no fever; no weak limbs; no tingling; no numbness of the legs/feet; no incontinence The hospital wanted me to make an appointment 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 With my arthritis I just can't do it In the interim, she has established care with the environmental health inspector and was given Ozempic samples, the notes suggest that she was switched to Tresiba, she states that she is on Lantus. She has not very compliant with her Jardiance as it causes urinary frequency and some other vague urinary symptoms. In the interim, she was in the ER with hyperglycemia. She reports arthritis in her large joints and cannot remain standing for extended periods of time. Ligia Damon MD Attn: Accounting[address] [facility], [place], [address], [facility] 02/08/2024 18:55:21 OBGyn Episode No OBEpisode recorded.
--- OUTSIDE RECORDS SUMMARY | 2025-03-13 04:33 | XMS_ITS ---
Author Organization [employer] [facility] Address [address] [address] Care Team Providers Care Housing Management Representative Name Role Phone Becca Tellez Primary Care Provider REASON FOR VISIT labs anamaria Medications Medication SIG (Take, Route, Frequency, Duration) Notes Start Date End Date Status FreeStyle Forrest 3 Plus Sensor - change sensor every 15 days for 90 days 10/09/2024 Active FreeStyle Forrest 3 Plus Sensor - change sensor every 15 days for 90 days 10/06/2024 Active Spironolactone 50 MG 2 tab(s) orally daily for 90 days 08/14/2024 Active metFORMIN HCl ER (MOD) 1000 MG 1 tab(s) orally once a day Active dexAMETHasone 1 MG 1 tab(s) orally at 10 pm night before 8 am cortisol for 1 days 08/14/2024 Active Insulin Lispro *Please review a nd [...] discontinue and re-order from Quick Search* Active Abilify *Please review a nd pick correct strength-formulati on from [employer] options. If intended option is not shown, discontinue and re-order from Quick Search* Active Rosuvastatin Calcium 40 MG 1 tablet Orally every other day at bedtime for 90 days 10/09/2024 Active Problems Problem Type SNOMED Code ICD Code Onset Dates Problem Status W/U Status Risk Notes Problem Essential hypertension (70224505) Essential (primary) hypertension (I10) Active confirmed Problem Obesity (272871174) Obesity, unspecified (E66.9) Active confirmed Problem Hyperlipidemia (34519370) Hyperlipidemia, unspecified (E78.5) Active confirmed Vital Signs Blood pressure systolic 124 mm Hg 10/09/20 24 Blood pressure diastolic 82 mm Hg 024 Heart Rate 80 /min 10/09/2024 Respiratory Rate 12 /min 10/09/2024 Height 63 in 10/09/2024 Weight 370 lbs 10/09/2024 BMI 65.54 kg/m2 10/09/2024 Encounters Encounter Location Date Provider Diagnosis [facility], [facility] - Becca Tellez [address] [place] [address] 10/09/2024 Becca Tellez Type 2 diabetes sal itus with hyperglycemia E11.65 ; [place]'s syndrome, 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 ; Vitamin D deficiency, unspecified E55.9 ; Essential (primary) hypertension I10 ; Obesity, unspecified E66.9 and Hyperlipidemia, unspecified E78.5 Assessments Encounter Date Diagnosis (ICD Code) Assessment Notes Treatment Notes Treatment Clinical Notes Section Notes 10/09/2024 Type 2 diabetes mellitus with hyperglycemia (ICD-10 - E11.65) 10/09/2024 Joan's syndrome, 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 Diabetes Mellitus Type 2- Patient reports blood sugars staying under 300.- Currently taking 20 units of long-acting insulin before bed, 20 units upon waking up, and 16 units of fast-acting insulin before meals (total 84 units/day).- Plan: Sent Freestyle Forrest 3 Plus Sensor to [facility] for better glucose monitoring. Encourage patient to titrate insulin as needed and continue metformin. 2. Hyperlipidemia- Patient currently taking gemfibrozil.- Previously on statins but not recently.- Plan: Prescribed rosuvastatin, to be taken every other day at bedtime. Monitor lipid levels in upcoming lab work. 3. [place]'s Syndrome (suspected)- Patient not yet on Korlym.- Plan: Obtain new lab work for approval of Korlym. Continue spironolactone when starting Korlym to manage blood pressure and potassium levels. Schedule follow-up appointment in 4-6 weeks after blood work to reassess treatment plan. 4. Arachnoid Cyst- Previous MRI ordered by Dr. Hurtado revealed an arachnoid cyst. No referral to a neurologist deemed necessary at this time.- Plan: Continue monitoring for any new symptoms or changes. 5. Obesity- Patient's last weight was 370 lbs, reports attempting to exercise.- Plan: Encourage continued efforts to increase physical activity and maintain a healthy diet. Monitor weight progress during follow-up appointments. 6. Insurance Change- Patient switching insurance at the beginning of the year, still through [employer].- Plan: Ensure proper coordination of care and medication coverage during the transition. 7. Upcoming Labs- Patient needs labs from July re-emailed.- Plan: Re-email labs to the patient and encourage completion of new lab work by Wednesday. 8. Follow-up Appointment- Plan: Schedule a follow-up appointment in 4-6 weeks after blood work to reassess treatment plans and monitor progress. Spent 25 minutes preparing to see the patient (ex review of tests/chart), obtaining and / or reviewing separately obtained history, performing a medically appropriate examination and/or evaluation, counseling and educating the patient/family/car egiver, ordering medications, tests, or procedures, referring and communicating with other health home child care provider, documenting clinical information in the electronic or other health record, independently interpreting results and communicating results to the patient/family/car egiver and care coordinating patient plan. Patient alert and oriented x 4 and aware of discussion noted above and in agreeance to plan in management of cushings syndrome, uncontrolled type 2 dM, dyslipidemia, obesity/weight management and hypertension. Due to the nature of telemedicine, the ability to do physical assessment was limited to what can be accomplished by patient directed telehealth visit based on instruction. Those limits are understood by the patient and myself. Impression is based on history, available information, and physical findings accomplished with telehealth visit. Chronic disease/problem list/ medication list reviewed and updated where indicated. Discussed diagnosis, plan including risks, benefits, and options of treatment. Advised to call for new, worsening, or persistent symptoms. Level of patient risk was of moderate complexity due to the documented nature of presentation, the information assessment required and the nature of the development of an evaluation and treatment plan as documented. PMH, FHx, SHx, Surgical Hx, Quality management review carried out and addressed as documented today as part of this visit. Medication list was reviewed and adjusted as indicated. Medication requiring a refill was addressed. Risk and benefits of any new medications were discussed and all questions were answered. Plan Of Treatment Medication Medication Name Sig Start Date Stop Date Notes FreeStyle Forrest 3 Plus Sensor - change s ensor every 15 days for 90 days 10/09/2024 Rosuvastatin Calcium 40 MG 1 tablet Oral ly every other day at bedtime for 90 days 10/09/2024 Treatment Notes Assessment Notes Other Assessment and Plan: 1. Diabetes Mellitus Type 2- Patient reports blood sugars staying under 300.- Currently taking 20 units of long-acting insulin before bed, 20 units upon waking up, and 16 units of fast-acting insulin before meals (total 84 units/day).- Plan: Sent Freestyle Forrest 3 Plus Sensor to [facility] for better glucose monitoring. Encourage patient to titrate insulin as needed and continue metformin. 2. Hyperlipidemia- Patient currently taking gemfibrozil.- Previously on statins but not recently.- Plan: Prescribed rosuvastatin, to be taken every other day at bedtime. Monitor lipid levels in upcoming lab work. 3. [place]'s Syndrome (suspected)- Patient not yet on Korlym.- Plan: Obtain new lab work for approval of Korlym. Continue spironolactone when starting Korlym to manage blood pressure and potassium levels. Schedule follow-up appointment in 4-6 weeks after blood work to reassess treatment plan. 4. Arachnoid Cyst- Previous MRI ordered by Dr. Hurtado revealed an arachnoid cyst. No referral to a neurologist deemed necessary at this time.- Plan: Continue monitoring for any new symptoms or changes. 5. Obesity- Patient's last weight was 370 lbs, reports attempting to exercise.- Plan: Encourage continued efforts to increase physical activity and maintain a healthy diet. Monitor weight progress during follow-up appointments. 6. Insurance Change- Patient switching insurance at the beginning of the year, still through [employer].- Plan: Ensure proper coordination of care and medication coverage during the transition. 7. Upcoming Labs- Patient needs labs from July re-emailed.- Plan: Re-email labs to the patient and encourage completion of new lab work by Wednesday. 8. Follow-up Appointment- Plan: Schedule a follow-up appointment in 4-6 weeks after blood work to reassess treatment plans and monitor progress. Spent 25 minutes preparing to see the patient (ex review of tests/chart), obtaining and / or reviewing separately obtained history, performing a medically appropriate examination and/or evaluation, counseling and educating the patient/family/caregiver, ordering medications, tests, or procedures, referring and communicating with other health home child care provider, documenting clinical information in the electronic or other health record, independently interpreting results and communicating results to the patient/family/caregiver and care coordinating patient plan. Patient alert and oriented x 4 and aware of discussion noted above and in agreeance to plan in management of cushings syndrome, uncontrolled type 2 dM, dyslipidemia, obesity/weight management and hypertension. Due to the nature of telemedicine, the ability to do physical assessment was limited to what can be accomplished by patient directed telehealth visit based on instruction. Those limits are understood by the patient and myself. Impression is based on history, available information, and physical findings accomplished with telehealth visit. Chronic disease/problem list/ medication list reviewed and updated where indicated. Discussed diagnosis, plan including risks, benefits, and options of treatment. Advised to call for new, worsening, or persistent symptoms. Level of patient risk was of moderate complexity due to the documented nature of presentation, the information assessment required and the nature of the development of an evaluation and treatment plan as documented. PMH, FHx, SHx, Surgical Hx, Quality management review carried out and addressed as documented today as part of this visit. Medication list was reviewed and adjusted as indicated. Medication requiring a refill was addressed. Risk and benefits of any new medications were discussed and all questions were answered. Next Appt Details Follow Up: 6 Weeks, Reason: labwork Progress Notes * Meg ALMANZAR:[birth year] (34 yo F)Acc No.[id number]:10/09/2024 Progress Notes Patient: Kirsten ONOFRE Provider: Mike Tellez MD :1990 A ge:34 Y S ex:Female Date:10/09/2024 Address:[address] [place], [place] [id number] Subjective: * Chief Complaints: * 1 . Labs anamaria. * HPI: D iabetes: 34 yo female calls in today to initiate telehealth visit to discuss progress and management of type 2 DM / uncontrolled and cushings syndrome. Verbal consent provided by patient to proceed with this visit. This visit was performed in office via provider and patient located in primary care office with real time audio with video. She never completed labwork and has rescheduled 3 times since her initial visit. at her initial visit in Jul we had patient start lantus at 18 units in morning and 20 units at bedtime and increase by 4 units every 3 days until fasting glucose 90-130 mg/dL. Continue metformin for insulin sensitization. We added spironolactone with plans to restart korlym but she needed to get her cushings labwork/DST and urine studies completed. Kirsten reports a delay in her Freestyle Forrest Plus sensor order and requests it be sent to [facility]. Her blood sugars are staying under 300 mg/dL with her current insulin regimen totaling 84 units per day. She is not on Korlym and will switch insurance at the beginning of the year. Kirsten's last weight was 370 pounds, and she is trying to exercise. She continues to take metformin and gemfibrozil but has not been on statins recently. Her last MRI showed an arachnoid cyst, with no neurologist follow-up needed. She plans to get her labs done on Wednesday and has a follow-up appointment scheduled in 4-6 weeks. The patient, Kirsten, reports that her Freestyle Forrest Plus sensor order is delayed and she has switched to [facility] pharmacy to see if they can get it in. She requests that the sensor be sent to [facility]. Kirsten mentions that she needs the blood work from her first visit to be re-emailed to her. She is not currently on Korlym and is switching insurance over the first of the year, still with [employer] through her work. The patient's blood sugars are staying under 300, and she is taking 20 units of insulin before bed, 20 units when she wakes up, and about 16 units of fast- acting insulin before meals, totaling approximately 84 units a day. Kirsten confirms that she has received spironolactone. Her last MRI was ordered by Dr. Hurtado, who found an arachnoid cyst but did not think she needed to see a neurologist. The patient's last recorded weight was 370, and she has been trying to exercise. Kirsten is still taking metformin and gemfibrozil but has not been on statins like simvastatin or lovastatin for a while. She plans to get her labs done on Wednesday and is scheduled for a follow-up appointment in four to six weeks after her blood work. * ROS: N EUROLOGY: no h eadache. n o t ingling numbness. n o s eizures. n o i nsomnia. n o m omar loss. n o d izziness. n o g ait abnormality. n o c hange in sensation anywhere on body. n o l ocalized weakness or numbness. n o b lackouts or near blackouts. n o m igraine. n o t remors.?no f ainting spells. n o h ead injury. n o s troke. O PTHALMOLOGY: no d iminished vision. n o e ye irritation. n o?drainage from eyes. n o b lurring of vision. n o s easonal eye sx. n o?dander related eye sx. n o l oss of vision. n o c ataracts. n o g lasses/contacts. n o g laucoma. n o d etached retina. n o m acular degeneration.?no e ye redness. R ESPIRATORY: shortness of breath y es. n o c hest pain. n o?wheezing. n o a sthma. n o b reathlessness when lying flat. n o p rolonged cough. n o f requent infections (bronchitis). n o e mphysema. n o c hest congestion. n o s leep apnea. A LLERGY: runny nose y es. s cratchy throat y es. n o?itchy eyes. n o e ar fullness. n o s inus congestion. s tuffy nose y es.?no w atery eyes. n o s easonal allergies, a ntihistamines help reduce allergy symptoms. n o h ay fever. n o a llergy. n o p olyps. n o s neezing.? H EMATOLOGY/LYMPH: no s wollen glands. n o f atigue. n o l oss of appetite. n o e asy bruising. n o e asy bleeding. n o a nemia. ? U ROLOGY: no d ifficulty urinating. n o b lood in urine. n o u rinary urgency. n o f requent urination. u rinary incontinence y es. n o v oiding dysfunction. n o v ulvodynia. n o d ysparaunia. n o r ecurrent UTI. n o w eak flow. n o d ribbling after urination. n o f requent bladder infections. n o k idney stone. n o k idney disease. n o u rine hesitancy.?no p ainful urination. N UTRITION: greater than body requirmemts y es. L ess than body requirements y es. a ppropriate / adequate y es, y es. C ONSTITUTIONAL: no w eight gain. n o l oss of appetite. n o?fever. n o w eakness. n o w eight loss. n o n ight sweats. n o n ausea. n o v isual changes. n o c hange in sleep patterns. h +p reviewed y es, R OS form reviewed with patient see scan for detail. n o c hange in activity capacity.? D ERMATOLOGY: rash y es. n o c hange in color of moles. n o?lumps. n o d ry or sensitive skin. n o h rasheed. n o o janay skin. n o?acne. n o m oles-irregular. n o m oles-change/new. n o b oils. n o dandruff. n o e xcessive body odor. n o p soriasis. n o f ungal infections. n o n ail problems. n o r edness/inflammation. n o a thlete's foot. n o s kin cancer. n o e czema. E NDOCRINOLOGY: no f atigue. n o e xcessive sweating. n o e xcessive thirst. n o e xcessive urination. n o w eight loss. n o s leep disturbance. n o c old intolerance. n o h eat intolerence. n o t hyroid disease. n o i ncreased loss of hair. n o h x of borderline diabetes. n o d iabetes. n o a bdormal body hair. n o r heumatism. n o c hanges in skin texture.? E NT: no c old. n o c ough. n o c oughing blood.?no n ose bleed. n o h earing loss. n o c hange in voice. n o s ore throat. n o r inging in ears. n o s noring. n o e ar pain. n o r unny nose. n o w atery eyes. n o s inus infection. n o e ar infection. n o facial pain. n o h oarseness. n o g oiter. n o g um problems. n o?postnasal drip. n o f requent nosebleeds. C ARDIOLOGY: no c hest pain. n o p alpitations. n o l eg swelling. n o d izziness. n o s hortness of breath. n o v aricose veins.?no l eg cramps. n o c old hands or feet. n o h igh blood pressure. n o ankle swelling. n o c ardiac catheterization. n o h eart attacks. n o a ngina. n o m urmurs. n o l ow blood pressure. n o l eg pain that resolves w/rest. n o p urple fingers or lips. n o i rregular heart rate. n o c ongenital heart defects. n o d izziness when standing up quickly. n o a wakening at night short of breath. G ASTROENTEROLOGY: nausea y es. n o h eartburn. n o s tool incontinence. n o r eflux. n o a bdominal pain. n o i ndigestion. n o h emorrhoids. n o h iatal hernia. n o u lcers. n o a nal fissures. n o?hepatitis. n o g allstones. n o r ed blood after bowel movements. v omiting yes. n o b loating/belching. n o d ifficulty swallowing. d iarrhea y es.?constipation y es. n o c hange in bowel habits. n o b lood in stool. ? M USCULOSKELETAL: joint swelling y es. j oint pain y es, d ifficulty/pain with walking. n o l eg cramps. n o j oint stiffness. n o a rthritis. n o b ack pain. n o m uscle aches. n o m orning stiffness. n o t endinitis. n o n carlos pain. n o b ursitis. n o b one marrow biopsy. n o gout. a ctivity intolerance w eakness. n o f racture. P SYCHOLOGY: no h igh stress level. d epression y es. n o?sleep disturbances. n o r zonia sx worse with stress. n o s uicidal ideation. n o e ating disorder. n o m ental or physical abuse. n o a nxiety. n o h eadaches. d isease state y es. F EMALE REPRODUCTIVE: no h eavy periods. n o d ysparaunia. n o s exually active. n o p remenstrual syndrome. n o d ysmenorrhea. n o i nfertility. n o f requent yeast infections. n o v aginal itching. n o i ntermenstrual bleeding. n o p ost coital bleeding. n o p ostmenopausal bleeding. n o p elvic pain. n o m enstral cycle. n o v aginal discharge. n o v aginal dryness. n o o varian cysts. n o f ibroids. n o d ischarge from breast. n o abn. bleeding between cycles. n o p ostmenopausal symptoms. n o l oss of sexual interest. n o p ainful sexual intercourse. n o e ndometriosis. n o v aginal warts. n o a bnormal pap. n o i rregular periods. n o a bnormal vaginal discharge. n o h ot flashes. r ecent weight changes. * Medical History: * Medications: T aking [...] *Please review and pick correct strength-formulation from [employer] options. If intended option is not shown, discontinue and re-order from Quick Search*, Taking metFORMIN HCl ER (MOD) 1000 MG Tablet Extended Release 24 Hour 1 tab(s) orally once a day , Taking Spironolactone 50 MG Tablet 2 tab(s) orally daily , Taking dexAMETHasone 1 MG Tablet 1 tab(s) orally at 10 pm night before 8 am cortisol , Taking FreeStyle Forrest 3 Plus Sensor(Continuous Glucose Sensor) - Miscellaneous change sensor every 15 days Objective: * Vitals: R R:12, HR:80, BP:124/82, Ht: 63, Wt:370, BMI: 65.54. * Examination: G eneral Examination: General n ormal, NAD, well nourished and hydrated, pleasant, obese female. Neck, thyroid : s upple. Assessment: * Assessment: 1. T ype 2 diabetes mellitus with hyperglycemia - E11.65 (Primary) 2 . 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 V itamin D deficiency, unspecified - E55.9 4 . E ssential (primary) hypertension - I10 5 . O besity, unspecified - E66.9 6 . H yperlipidemia, unspecified - E78.5 Plan: * Treatment: 2. H yperlipidemia, unspecified Start Rosuvastatin Calcium Tablet, 40 MG, 1 tablet, Orally, every other day at bedtime, 90 days, 45, Refills 1. 3. O thers Notes: Assessment and Plan: 1. Diabetes Mellitus Type 2- Patient reports blood sugars staying under 300.- Currently taking 20 units of long-acting insulin before bed, 20 units upon waking up, and 16 units of fast-acting insulin before meals (total 84 units/day).- Plan: Sent [employer] Forrest 3 Plus Sensor to [facility] for better glucose monitoring. Encourage patient to titrate insulin as needed and continue metformin. 2. Hyperlipidemia- Patient currently taking gemfibrozil.- Previously on statins but not recently.- Plan: Prescribed rosuvastatin, to be taken every other day at bedtime. Monitor lipid levels in upcoming lab work. 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 Continue spironolactone when starting Korlym to manage blood pressure and potassium levels. Schedule follow-up appointment in 4-6 weeks after blood work to reassess treatment plan. 4. Arachnoid Cyst- Previous MRI ordered by Dr. Hurtado revealed an arachnoid cyst. No referral to a neurologist deemed necessary at this time.- Plan: Continue monitoring for any new symptoms or changes. 5. Obesity- Patient's last weight was 370 lbs, reports attempting to exercise.- Plan: Encourage continued efforts to increase physical activity and maintain a healthy diet. Monitor weight progress during follow-up appointments. 6. Insurance Change- Patient switching insurance at the beginning of the year, still through [employer].- Plan: Ensure proper coordination of care and medication coverage during the transition. 7. Upcoming Labs- Patient needs labs from July re-emailed.- Plan: Re-email labs to the patient and encourage completion of new lab work by Wednesday. 8. Follow-up Appointment- Plan: Schedule a follow-up appointment in 4-6 weeks after blood work to reassess treatment plans and monitor progress. Spent 25 minutes preparing to see the patient (ex review of tests/chart), obtaining and / or reviewing separately obtained history, performing a medically appropriate examination and/or evaluation, counseling and educating the patient/family/caregiver, ordering medications, tests, or procedures, referring and communicating with other health home child care provider, documenting clinical information in the electronic or other health record, independently interpreting results and communicating results to the patient/family/caregiver and care coordinating patient plan. Patient alert and oriented x 4 and aware of discussion noted above and in agreeance to plan in management of cushings syndrome, uncontrolled type 2 dM, dyslipidemia, obesity/weight management and hypertension. Due to the nature of telemedicine, the ability to do physical assessment was limited to what can be accomplished by patient directed telehealth visit based on instruction. Those limits are understood by the patient and myself. Impression is based on history, available information, and physical findings accomplished with telehealth visit. Chronic disease/problem list/ medication list reviewed and updated where indicated. Discussed diagnosis, plan including risks, benefits, and options of treatment. Advised to call for new, worsening, or persistent symptoms. Level of patient risk was of moderate complexity due to the documented nature of presentation, the information assessment required and the nature of the development of an evaluation and treatment plan as documented. PMH, FHx, SHx, Surgical Hx, Quality management review carried out and addressed as documented today as part of this visit. Medication list was reviewed and adjusted as indicated. Medication requiring a refill was addressed. Risk and benefits of any new medications were discussed and all questions were answered. ? * Procedure Codes: 9 9401 P/M LICENSED PROFESSIONAL COUNSELOR, INDIV 15 MIN, G2211 Complex e/m visit add on * Follow Up: 6 Weeks (Reason: labwork) * Billing Information: * Visit Code: 88981 Office Visit, Est Pt., Level 4. Modifiers: 95 * Procedure Codes: 16907 P/M LICENSED PROFESSIONAL COUNSELOR, INDIV 15 MIN. G2211 Complex e/m visit add on. 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 Verbal consent provided by patient to proceed with this visit. This visit was performed in office via provider and patient located in primary care office with real time audio with video. She never completed labwork and has rescheduled 3 times since her initial visit. at her initial visit in Jul we had patient start lantus at 18 units in morning and 20 units at bedtime and increase by 4 units every 3 days until fasting glucose 90-130 mg/dL. Continue metformin for insulin sensitization. We added spironolactone with plans to restart korlym but she needed to get her cushings labwork/DST and urine studies completed. Kirsten reports a delay in her Freestyle Forrest Plus sensor order and requests it be sent to [facility]. Her blood sugars are staying under 300 mg/dL with her current insulin regimen totaling 84 units per day. She is not on Korlym and will switch insurance at the beginning of the year. Kirsten's last weight was 370 pounds, and she is trying to exercise. She continues to take metformin and gemfibrozil but has not been on statins recently. Her last MRI showed an arachnoid cyst, with no neurologist follow-up needed. She plans to get her labs done on Wednesday and has a follow-up appointment scheduled in 4-6 weeks. The patient, Kirsten, reports that her Freestyle Forrest Plus sensor order is delayed and she has switched to [facility] pharmacy to see if they can get it in. She requests that the sensor be sent to [facility]. Kirsten mentions that she needs the blood work from her first visit to be re-emailed to her. She is not currently on Korlym and is switching insurance over the first of the year, still with [employer] through her work. The patient's blood sugars are staying under 300, and she is taking 20 units of insulin before bed, 20 units when she wakes up, and about 16 units of fast-acting insulin before meals, totaling approximately 84 units a day. Kirsten confirms that she has received spironolactone. Her last MRI was ordered by Dr. Hurtado, who found an arachnoid cyst but did not think she needed to see a neurologist. The patient's last recorded weight was 370, and she has been trying to exercise. Kirsten is still taking metformin and gemfibrozil but has not been on statins like simvastatin or lovastatin for a while. She plans to get her labs done on Wednesday and is scheduled for a follow-up appointment in four to six weeks after her blood work. Examination Category Sub-Category Detail Notes Category Not es General Examination Neck, thyroid : supple General normal, NAD, well no urished and hydrated, pleasant, obese female
--- OUTSIDE RECORDS SUMMARY | 2025-03-13 04:33 | XMS_ITS ---
Author Organization [employer] Address [address] [address] Care Team Providers Care Associate Web Developer Name Role Phone Becca Tellez Primary Care Provider REASON FOR VISIT 6 week f/u anamaria Encounters Encounter Location Date Provider Diagnosis [facility] - Becca Tellez [address] [place] [address] 11/17/2024 Bceca Tellez Plan Of Treatment No Information Progress Notes * SINTIANANCYKirstenDOB:[birth year] (34 yo F)Acc No.[id number]:11/17/2024 Progress Notes Patient: Kirsten ONOFRE Provider: Mike Tellez MD :1990 A ge:34 Y S ex:Female Date:11/17/2024 Address:[address] [place], [place] [id number] Subjective: * Chief Complaints: * 1 . 6 week f/u anamaria. * Medical History: Objective: * Vitals: Assessment: Plan: * Treatment: * Billing Information: * Visit Code: * Procedure Codes: * Electronic signature of Mo Tellez MD on 03/13/2025 at 04:32 AM CDT Sign off status: Pending * Provider: Mike eTllez MD Date: 11/17/2024 Generated for Printi ng/Faxing/eTransmitting on: 0 03/13/2025 04:32 AM CDT
--- OUTSIDE RECORDS SUMMARY | 2025-03-13 04:33 | XMS_ITS | Clinical Summary ---
Author Organization [facility] Address [facility] [place] [address] Care Team Providers Care Hydroponics Grower Name Role Phone Natalya Diaz KENNY Primary Care Provider [phone] Social History Tobacco Use Types Packs/Day Years Used Date Smoking Tobacco: Never Assessed Comments Unknown Sex and Gender Information Value Date Recorded Sex Assigned at Not on file Legal Sex Female 4:34 PM CDT Gender Identity Not on file Sexual Orientation Not on file Plan of Treatment Health Maintenance Due Date Last Done Comments Cervical Cancer Screening Pa p Smear (Age 30 to 64) Every 3 Years 1990 Annual Physical 1993 Hepatitis C 2008 Hepatitis B Vaccines (1 of 3 - 19+ 3-dose series) 2009 Cervical Cancer Screening Pa p with HPV Testing (Age 30 to 64) Every 5 Years 2020 Cervical Cancer Screening wi th HPV 2020 DTaP, Tdap and Td Vaccines ( 3 - Td or Tdap) 03/15/2024 03/15/2014, 10/21/1994 COVID-19 Vaccine (2023-2 5 season) 2024 11/11/2021, 01/21/2021, 12/18/2020 HPV Vaccines Aged Out No longer eligi ble based on patient's age to complete this topic Meningococcal B Vaccine Aged Out No l onger eligible based on patient's age to complete this topic Meningococcal Vaccine Aged Out No lizbeth nicolle eligible based on patient's age to complete this topic Pneumococcal Vaccine: Pediatrics (0 to 5 Years) and At-Risk Patients (6 to 49 Years) Aged Out No longer eligible b ased on patient's age to complete this topic RSV Immunizations Under 20 Months Aged Out No longer eligible b ased on patient's age to complete this topic Insurance FARMER Care Teams Hydroponics Grower Relationship Specialty Start Date End Date Natalya Diaz NP [address] [address] PCP - General NURSE PRACTITIONER 07/09/22
--- OUTSIDE RECORDS SUMMARY | 2025-03-13 04:34 | XMS_ITS | Continuity of Care Document ---
Author Organization [employer] [facility] Address [address] [place] [address] [address] [place] [address] Phone Care Team Providers Care Strategic Planning Consultant Name Role Phone Guy MS, OTR/L, CHT, Riccardo Unavailable Melia vailable Procedures Procedure Date OT EVALUATION THERAPEUTIC EXERCISES ORTHOTIC FITTING CoBan 1 inch Sterile Gauze Roll Digit based Advance Directives Directive Yes / No Effective Date File Name No Information Encounters Encounter Description Practice Location Reason(s) For Visit Diagnoses Date Provider Providers Copied on Encounter [facility], [address] [place], [place] [address] [address], [place], [place], [id number], [place] tel:[phone] [place] Pain in joint involving hand Guy Gu. [address] [facility], [address], [place], [address], . tel:[phone] Referring Provider: Car Gomez, [address] [facility] [address], [place], [address]. tel:[phone] Family History Family Member Type Diagnosis Age At Onset No Information Payers Payer name Insurance type Covered constitution party ID Authornorrisa rodrigue(s) [employer] [facility] [id number] Social History Type Description Quantity Date Captured [...]
--- OUTSIDE RECORDS SUMMARY | 2025-03-13 04:34 | XMS_ITS | Referral Summary ---
Author Organization [facility] [address] Address [address] [place] [address] Care Team Providers Care Poultry Cleaner Name Role Phone Kartik Van MD Unavailable Chaim Rodriguez MD Unavailable [phone] Jessica Beckwith MD Primary Care Provide r Encounters Date Type Department Care Team Description 02/21/2025 12:00 PM CDT Office Visit [facility] Hand Surgery [address] [place] [address] [place] [phone] Kermit Bond MD Right carpal tunnel syndrome (Primary Dx) 02/12/2025 10:30 AM CDT Therapy [facility] OP Physical Therapy [address] [place] [address] Carpal tunnel syndrome of right wrist 02/12/2025 8:05 AM CDT - 02/12/2025 11:59 PM CDT Hospital Encounter [facility] Diag Imaging [address] [place] [phone] Right wrist pain Discharge Disposition: Discharge to home or self care 02/12/2025 8:15 AM CDT Office Visit [facility] Hand Surgery [address] [place] [address] [place] [phone] Kermit Bond MD Right wrist pain (Primary Dx); Carpal tunnel syndrome of right wrist; Right carpal tunnel syndrome from Last 3 Months Allergies Active Allergy Reactions Criticality Noted Date Comments Amoxicillin-Pot Clavulanate Hives Medium 02/19/20 23 Pronethalol Hives Medium 02/18/2023 Medications pen needle, diabetic (TRUEplus Pen Needle) 32 gauge x 5/32 needle TRUEplus Pen Needle 32 gauge x 5/32 USE TO INJECT INSULIN 2 TO 3 TIMES DAILY Active albuterol HFA (PROVENTIL HFA,VENTOLIN HFA,PROAIR HFA) 90 mcg/actuation inhaler albuterol sulfate HFA 90 mcg/actuation aerosol inhaler Active ARIPiprazole (ABILIFY) 2 mg tablet aripiprazole 2 mg tablet TAKE 1 TABLET BY MOUTH EVERY DAY AT BEDTIME Active ergocalciferol (VITAMIN D) 50,000 unit capsule ergocalciferol (vitamin D2) 1,250 mcg (50,000 unit) capsule TAKE ONE CAPSULE BY MOUTH EVERY WEEK IN THE MORNING Active HYDROcodone-acetam inophen (NORCO) 7.5-325 mg per tablet hydrocodone 7.5 mg-acetaminophen 325 mg tablet Active nystatin 100,000 unit/mL suspension nystatin 100,000 unit/mL oral suspension swish and swallow 5 mL PO 4x a day for 7 days Active TRUEplus Pen Needle 32 gauge x 5/32 needle USE TO INJECT INSULIN 2 TO 3 TIMES DAILY 01/28/20 23 Active sertraline (ZOLOFT) 100 mg tablet Take 1 tablet (100 mg total) by mouth daily 01/07/20 23 Active Advair HFA 115-21 mcg/actuation inhaler Inhale 2 puffs 2 (two) times a day 11/23/19 24 Active ondansetron ODT (ZOFRAN-ODT) 4 mg disintegrating tablet DISSOLVE 1 TABLET ON TONGUE EVERY 8 HOURS NEEDED FOR NAUSEA AND VOMITING 01/06/20 24 Active insulin degludec (TRESIBA) 200 unit/mL (3 mL) pen for injection Inject 0.25 mL (50 Units total) under the skin nightly 15 mL 3 01/20/20 24 Active semaglutide (OZEMPIC) 1 mg/dose (4 mg/3 mL) pen injector injection Inject 1 mg under the skin every 7 days 3 mL 6 01/20/20 24 Active metFORMIN (GLUCOPHAGE) 1,000 mg tablet Take 1 tablet (1,000 mg total) by mouth daily with breakfast 180 tablet 3 01/20/20 24 Active empagliflozin (Jardiance) 25 mg tablet Take 1 tablet (25 mg total) by mouth rd lab technician before breakfast 90 tablet 2 01/20/20 24 Active blood-glucose sensor (FreeStyle Forrest 3 Sensor) device Use as directed. Change sensor every 14 days. 2 each 11 01/20/20 24 Active insulin aspart niacinamide (FIASP) 100 unit/mL (3 mL) pen for injection Inject 20 Units under the skin 2 (two) times a day 3 mL 01/20/20 24 Active TRESIBA 200 unit/mL (3 mL) pen for injection Inject 0.25 mL (50 Units total) under the skin daily 9 mL 01/20/20 24 Active semaglutide 0.25 mg or 0.5 mg (2 mg/3 mL) pen injector injection Inject 0.5 mg under the skin every 7 days 9 mL 01/20/20 24 Active levothyroxine (Unithroid) 50 mcg tablet Take 1 tablet (50 mcg total) by mouth rd lab technician before breakfast 90 tablet 2 01/24/20 24 Active insulin lispro (HumaLOG, ADMELOG) 100 unit/mL pen for injection INJECT 20 UNITS UNDER THE SKIN TWICE DAILY( BEFORE BREAKFAST AND DINNER) 15 mL 3 07/28/20 24 Active Hospital, Clinic, or Other Facility Administered Medication Ordered Dose Route Frequency Start Date End Date Status lidocaine (XYLOCAINE) 10 mg/mL (1 %) injection 2 mLIndications:Admi nistration of Local Anesthesia 2 mL One-Time Injection 02/21/2025 02/21/2025 Ended triamcinolone (KENALOG) 40 mg/mL injection 60 mgIndications:Righ t carpal tunnel syndrome 60 mg intra-artic One-Time Injection 02/21/2025 02/21/2025 Ended Active Problems Problem Noted Date Diagnosed Date Right carpal tunnel syndrome 02/12/2025 Right wrist pain 02/12/2025 Morbid (severe) obesity due to excess calories 0 01/20/2024 Body mass index (BMI) 60.0-69.9, adult Type 2 diabetes mellitus wit h hyperglycemia, with long-term current use of insulin 01/20/2024 Assessment & Plan (01/20/2024 5:16 PM HEALTH EDUCATION TEACHER): Hba1c was Lab Results Component Value Date HGBA1C 11.5 01/20/2024 today, indicating very poor DM control Goal Hba1c under 7 and blood glucose level in the 120-160 range was explained Low carb diet and daily aerobic and /or resistant exercise were advised Prevention and treatment of hyypoglcyemia were discussed with the patient Blood glucose monitoring : Start CGM with freestyle Forrest 3 The patient had the 1st sensor placed and connected to her phone via [employer] [place] Patient is also linked to our office Adjustment to medications: Start monitoring BG with Freestyle Forrest 3 Take Tresiba , 40 units at bedtime Increase to 50 units after a week if sugars in the morning are persistently over 150 Take Humalog ( or Fiasp ), 15 units before breakfast and dinner, for sugars over 180. Start Ozempic 0.5 mg weekly x 4 wks and then increase to 1 mg seekly Stay on Metformin and Jardiance. The patient was provided with samples of Ozempic, Tresiba and Fiasp Patient to send me a message via my chart in 2 weeks to let me know how she is doing and to look at her [employer] data Thrombophilia 02/18/2023 Overview (02/18/2023): Unprovoked pulmonary embolus requiring hospitalization at [facility] 12/07/2022 Immunizations Immunization Administration Dates Next Due DTP 10/21/1994 Hep A, Adult 03/08/2023,09/07/2022 Influenza, Quadrivalent, Wendy l Culture-based MDCK, Preservative Free, Antibiotic Free, Intramuscular 11/21/2018 Influenza, Quadrivalent, Spl it, Intramuscular 09/07/2022,07/31/2020 Influenza, Quadrivalent, Spl it, Preservative Free, Intramuscular 09/07/2022,11/11/2021 Influenza, Trivalent, Cell C ulture-based MDCK, Preservative Free, Antibiotic Free, Intramuscular 11/21/2018 MMR 10/21/1994 Moderna SARS-CoV-2 Monovalen t Vaccination (12+ YRS) 09/07/2022,01/21/2021,01/20/2021 OPV 10/21/1994 Tdap 03/15/2014 Social History Tobacco Use Types Packs/Day Years Used Date Smoking Tobacco: Never Tobacco Cessation:Counseling Given: Not Answered Comments Unknown Sex and Gender Information Value Date Recorded Sex Assigned at Not on file Legal Sex Female 7:57 PM HEALTH EDUCATION TEACHER Gender Identity Not on file Sexual Orientation Not on file Last Filed Vital Signs Vital Sign Reading Time Taken Comments Blood Pressure 130/70 01/20/2024 1:40 PM HEALTH EDUCATION TEACHER Pulse 94 01/20/2024 1:40 PM HEALTH EDUCATION TEACHER Temperature 36.3 C (97.4 F) 04/22/2023 2:29 PM CDT Respiratory Rate 18 01/20/2024 1:40 PM HEALTH EDUCATION TEACHER Oxygen Saturation 98% 04/22/2023 2:29 PM CDT Inhaled Oxygen Concentration - - Weight 162.8 kg (358 lb 12.8 oz) 01/20/2024 1:40 PM HEALTH EDUCATION TEACHER Height 160 cm (5' 3 ) 01/20/2024 1:40 PM HEALTH EDUCATION TEACHER Body Mass Index 63.56 01/20/2024 1:40 PM HEALTH EDUCATION TEACHER Plan of Treatment Not on file Procedures Procedure Name Priority Date/Time Associated Diagnosis Comments IA INJECTION THERAPEUTIC CARPAL TUNNEL Routine 02/21/2025 12:00 PM CDT Right carpal tunnel syndrome XR WRIST RIGHT 3 OR MORE VIEWS Schedule Routine, Read Routine (OP Routine) 02/12/2025 8:09 AM CDT Right wrist pain EGFR Routine 01/20/2024 3:07 PM HEALTH EDUCATION TEACHER Type 2 diabetes mellitus with hyperglycemia, with long-term current use of insulin (HCC) POCT HEMOGLOBIN A1C Routine 01/20/2024 1 :43 PM HEALTH EDUCATION TEACHER Type 2 diabetes mellitus with hyperglycemia, with long-term current use of insulin (HCC) LIPID PANEL Routine 06/03/2023 10:25 AM CDT ALBUMIN CREATININE RATIO, URINE Routine 06/03/2023 10:25 AM CDT from Last 3 Months or Most Recently Relevant to Health Maintenance Results * IA INJECTION THERAPEUTIC CARPAL TUNNEL (02/21/2025 12:00 PM CDT) Narrative Kermit Bond MD - 02/21/2025 12:00 PM CDT Kermit Bond MD 02/26/2025 7:26 AM Carpal Tunnel Injection Performed by: Kermit Bond MD Authorized by: Kermti Bond MD Carpal Tunnel Injection: Consent Given by: Patient Site marked: the procedure site was marked Verbal consent obtained?: Yes Supporting Documentation: Indications: Diagnostic and therapeutic benefit Procedure Details: Condition: carpal tunnel Site: R carpal tunnel Prep: patient was prepped and draped in usual sterile fashion Needle Size: 22 G Medications: 60 mg triamcinolone 40 mg/mL; 2 mL lidocaine 10 mg/mL (1 %) Kermit Bond MD IN CLINIC/BEDSIDE ORDERA BLES Final Result * XR Wrist Right 3 or More Views (02/12/2025 8:09 AM CDT) Anatomical Region Laterality Modality Upper Extremities, Wrist Right Compute d Radiography 02/21/2025 8:20 AM CDT Narrative 02/21/2025 8:20 AM CDT EXAM DESCRIPTION: XR WRIST RIGHT 3 OR MORE VIEWS REASON FOR STUDY: Right wrist pain TECHNIQUE: AP lateral and oblique radiographic view(s) of the right wrist . COMPARISON: None FINDINGS: BONES/JOINTS: There is no acute fracture, malalignment or osseous abnormality. The joint spaces are normal. SOFT TISSUES: Within normal limits. IMPRESSION: No acute osseous abnormality. THIS IS AN ELECTRONICALLY VERIFIED FINAL REPORT 02/21/2025 8:20 AM - Electronically signed by Kermit Bond T: Report ID: [id number] Reading Location: [place] [address] Procedure Note Kermit Bond MD - 02/21/2025 EXAM DESCRIPTION: XR WRIST RIGHT 3 OR MORE VIEWS REASON FOR STUDY: Right wrist pain TECHNIQUE: AP lateral and oblique radiographic view(s) of the rightwrist . COMPARISON: None FINDINGS: BONES/JOINTS: There is no acute fracture, malalignment orosseous abnormality. The joint spaces are normal. SOFT TISSUES: Within normal limits. IMPRESSION: No acute osseous abnormality. THIS IS AN ELECTRONICALLY VERIFIED FINAL REPORT 02/21/2025 8:20 AM - Electronically signed by Kermit Bond TL T: Report ID: [id number] Reading Location: [place] [address] Kermit Bond MD IMG XR PROCEDURES Final Result * eGFR (01/20/2024 3:07 PM HEALTH EDUCATION TEACHER) eGFR 122 mL/min/1. 73 m2 Comment: Interpretive Data Reference Interval Normal >/= 90 mL/min/1.73m2 Mildly decreased* 60 - 89 mL/min/1.73m2 Mildly to moderately decreased 45 - 59 mL/min/1.73m2 Moderately to severely decreased 30 - 44 mL/min/1.73m2 Severely decreased 15 - 29 mL/min/1.73m2 Kidney Failure < 15 mL/min/1.73m2 *Relative to young adult level Estimated glomerular filtration rate is determined by the 2020 CKD-EPI equation recommended by the National Kidney Foundation (A Unifying Approach to GFR Estimation: Recommendations of the NKF-ASK Task Force on Reassessing the Inclusion of Race in Diagnosing Kidney Disease, JASN 2020). The CKD-EPI equation should not be used for patients with unstable renal function and has not been validated in children and those over 70. Current interpretive data was last reviewed 2021. Blood 01/20/2024 3:07 PM HEALTH EDUCATION TEACHER 01/20/2024 5:58 PM HEALTH EDUCATION TEACHER Shanna Alberto MD LAB BLOOD ORDERABLES Final Resul t [facility] [id number] Department [place] [address] * (ABNORMAL) POCT hemoglobin A1c (01/20/2024 1:43 PM HEALTH EDUCATION TEACHER) Hemoglobin A1C, POC 11.5 % Blood spot 01/20/2024 1:43 PM HEALTH EDUCATION TEACHER Shanna Alberto MD POINT OF CARE TEST ORDERABLES Fi nal Result * (ABNORMAL) Albumin Creatinine Ratio, Urine (06/03/2023 10:25 AM CDT) SCRIBED Creatinine, Urine 86.43 NA - NA EXTERNAL LAB SCRIBED Microalbumin <6.0 NA - NA EXTERNAL LAB SCRIBED Microalb/Creat Ratio DNR 0 - 29 EXTERNAL LAB Urine 06/03/2023 10:2 5 AM CDT Historical Provider LAB URINE ORDERABLES Edit ed Result - Final EXTERNAL LAB * Lipid panel (06/03/2023 10:25 AM CDT) SCRIBED Cholesterol, Total 142 140 - 199 EXTERNAL LAB SCRIBED HDL 46 40 - NA EXTERNAL LAB SCRIBED LDL 67 0 - 130 EXTERNAL LAB SCRIBED Triglycerides 146 0 - 150 EXTERNAL LAB Blood 06/03/2023 10:2 5 AM CDT Historical Provider LAB BLOOD ORDERABLES Edit ed Result - Final EXTERNAL LAB from Last 3 Months or Most Recently Relevant to Health Maintenance Insurance [facility] [employer] [place] [id number] [facility] Member Subscriber Plan / Payer (Ef fective 2023-Present) Name:Kirsten Hendricks Relation to Subscriber:Self Name:Kirsten Hendricks Payer ID:[id number] ([facility]) Type:MEDICAID RISK OTHER Address: [id number] [place] [address] Member Subscriber Plan / Payer (Ef fective 2024-Present) Name:Kirsten Hendricks Relation to Subscriber:Self Name:Kirsten Hendricks Payer ID:[id number] ([facility]) Type:[facility] H[facility]/PPO Address: [address] [address] [facility] Member Subscriber Plan / Payer (Ef fective 2024-Present) Name:Kirsten Hendricks Relation to Subscriber:Self Name:Kirsten Hendricks Payer ID:[id number] ([facility]) Type:[facility] H[facility]/PPO Address: [address] [address] Care Teams Poultry Cleaner Relationship Specialty Start Date End Date Jessica Beckwith MD [address] [place] [address] PCP - General Internal Medicine 02/12/25 Kartik Van MD [address] [facility] [address] [place] [address] Internal Medicine 02/18/23 Chaim Rodriguez MD [address] [facility] [address] [place] [address] Medical Oncologist/Scientific Process Operator Hematology and Oncology 04/22/23
--- OUTSIDE RECORDS SUMMARY | 2025-03-13 04:34 | XMS_ITS | Data Portability ---
Author Organization [facility], Main Office Address [address] [place] [address] Assessment Encounter Date Assessment Date Assessment LastModified by Organization Details LastModified Time 06/20/2024 06/20/2024 Assessment: Mod ACO RLL PE on Eliquis 11/2022 - 05/2023 c/o Dr. Rodriguez Bibasilar atelectasis No RVE with trace TR Persistent early REM onset Mild OSAHS, AHI = 7 Plan: The following were reviewed and explained to the patient: Dr. Chaim Rodriguez hematology note 02/18/23 check Factor V Leiden, prothrombin mutation and anticardiolipin abs; if repeat chest CTA and venous dopplers are negative, check protein C, protein S, antithrombin levels after one week off Eliquis Dr. Chaim Rodriguez hematology note 04/22/23 Eliquis 12/2022-06/2023, check Factor V Leiden, prothrombin mutation and anticardiolipin abs; if repeat chest CTA and venous dopplers are negative, check protein C, protein S, antithrombin levels after one week off Eliquis Chest CT 12/08/22 RLL PE, bibasilar atelectasis Chest 2 views 04/09/23 wnl Lab data 05/06/23 PFT 05/06/23 FEV1 1.77 L (60%), BD 440 mL = 33%, TLC 3.70 L (72%), DLCO 43%, DLCO/VA 97% PFT 06/12/24 FEV1 1.70 L (58%), BD 260 mL = 18%, TLC 3.75 L (73%), DLCO 47%, DLCO/VA 104% 2-D echocardiogram 12/09/22 RVE with mild TR 2-D echocardiogram 04/09/23 no RVE with trace TR V/Q scan 04/09/23 low probability of PE [facility] diagnostic sleep study 02/18/18 sleep onset = 10 minutes, REM onset = 86 minutes, AHI = 7, REM AHI = [address] [facility] titration sleep study 04/26/18 sleep onset = 11 minutes, REM onset = 40 minutes, Respironics small DreamWear nasal pillows @ 11 cmH2O PAP compliance downloaded and interpreted x 20 minutes. Data reviewed and explained to the patient. Average apnea/hypopnea index (AHI) is 0.3. Patient used PAP > 4 hours 99% of the time. PAP is set at 11 cmH2O. PAP will remain at 11 cmH2O. Keep ramp start at 5 cmH2O. Keep ramp duration at 20 minutes. Keep EPR +2 real time analyst. Oxygen supplementation: none Patient is benefiting from PAP therapy. Encouraged patient to maintain PAP use more than 70% of the time. Statement of PAP use and benefits will be sent to the home care store. Continue incentive spirometer x 5 minutes every 2 hours while awake to reverse and prevent further atelectasis. General information on bronchial asthma was covered. Patient will monitor peak flow daily at a set time and again when symptoms of chest tightness, cough, dyspnea or wheezing occur. Patient will bring peak flow record to subsequent visits. The color of a traffic light will guide the patient's use of asthma medications: (1) Green means Go Zone. Peak flow: above 80% of personal best. Symptoms: Breathing is good, no cough or wheeze present, patient sleeps through the night and can work and play. Plan: Patient will continue the use of preventative medicine. (2) Yellow means Caution Zone. Peak flow: between 50-80% of personal best. Symptoms: Presence of first signs of a cold, exposure to known trigger, mild wheeze, tight chest and coughing especially night. Plan: Patient will add quick-relief medicine to preventative medicine. (3) Red means Danger Zone. Peak flow: below 50% of personal best. Symptoms: Asthma is getting worse quickly and medicine is not helping, breathing is hard and fast, nose opens widely when breathing, ribs showing when breathing, and patient cannot speak in full sentences. Plan: Patient will get help from a physician immediately. Advised to continue not to smoke. Pulmonary rehabilitation may be included in the management of patients with chronic obstructive pulmonary disease (COPD). For respiratory diseases different from COPD, there have been no formal statements regarding patient selection. Pulmonary rehabilitation consists of assessment, exercise, education, and emotional support. It covers the goals of rehabilitation, the techniques of breathing, the necessity of nicotine cessation, the strategies to deal with panic attacks, the rationale of pulmonary medications, and the importance of nutrition. As the patient learns to live with her pulmonary condition through exercise and education, the patient will regain confidence with her abilities and feel improvement in her overall quality of life. The patient's FEV1 is 58%. The patient will be enrolled in pulmonary rehabilitation pending insurance coverage. General concepts of pulmonary rehabilitation were explained. Continue albuterol HFA as needed. Advair HFA 115/21 mcg is non-formulary. Start Symbicort HFA 160/4.5 mcg 2 puffs BID. Gargle after use. The patient does not know how to accurately administer the inhalers. Today, the patient was shown how to take these medications. The proper technique for delivering these medications was instructed. The patient expressed a clear understanding and demonstrated back how to use these medications. Without the proper technique, the patient will not reap the benefits of these medications as the contents will not reach the lower airways as intended to be. Without the proper technique, the patient will not reap the benefits of the treatment as the contents of the inhaler will not reach the lower airways as intended to be. Adherence to therapy is advocated. Nonadherence may lead to treatment failure, further progression of the condition, and other complications. Hospitals admissions are often the result of individuals not taking prescription medications accurately. Alternatively, greater adherence to medication regimens have shown to lower rates of hospitalization and decrease total medical costs in patients with chronic medical conditions. Advocated influenza vaccination annually and pneumonia vaccination DANIELLE. Advocated weight loss through diet and exercise. Patient's ideal body weight according to height and gender is up to 125 lbs. Encouraged patient to adjust caloric intake to maintain/achieve ideal body weight, emphasizing on fruits, vegetables, whole grains, and fat-free or low-fat products. These include lean meats, poultry, fish, beans, eggs, and nuts and foods that are low in saturated fats, trans-fats, cholesterol, salt (sodium), and glycemic index. Stressed the importance of regular exercise up to the patient's capacity limits. In this case, we recommend 20 min daily walking, 2 days a week of resistance training. Patient to monitor BP daily and bring records to PCP for further management. Follow-up: 1 year, June 2025 Not available 06/20/2024 11:48:51 Plan of Treatment Reminders Order Date Submit Date Provider Last Modified By Organization Details Last Modified Time Details Appointments Any 15 2024 04:15P Mike madden MD Not available Not available Not available Any 2024 02:00P Mike Van MD Not available Not available Not available Lab HbA1c (hemoglob in A1c), blood 2024 025 KIMI [facility], [address], [address], [place], [address], 01/28/2025 12:32:57 hepatitis C virus Ab, serum 2024 025 DOUGLAS [facility], [address], [place], [address], 01/28/2025 12:32:57 CBC w/ auto diff 2023 024 [facility] ([facility]), [address] [place], [address], 11/19/2024 11:42:12 CMP, serum or plasma 2023 024 [facility] ([facility]), [address] [place], [address], 11/19/2024 11:48:35 HbA1c (hemoglob in A1c), blood 2023 024 [facility] ([facility]), [address] [place], [address], 01/16/2025 17:34:48 hepatitis C virus Ab, serum 2023 024 [facility] ([facility]), [address] [place], [address], 01/16/2025 17:34:48 Referral hand surgeon referral - Please call patient to schedule an appointme nt. Thank you. 2024 025 [email or web address] [facility], [address] , [address], [place], [address], 02/21/2025 11:06:34 endocrino logy referral - Please call patient to schedule an appointme nt. Thank you. [email or web address] [place] [address] - Endocrinology , [address], [address], [place], [address], 02/13/2025 08:46:42 podiatris t referral - Please call patient to schedule. 2023 024 [email or web address] 2 Adalid Salvador DPM, [address] [facility] [address], [address], [place], [address], 03/12/2025 12:14:58 pulmonary rehab referral 2023 024 [email or web address] 2 [facility], [address] [facility] [facility] [address], [place], [address], 01/16/2025 09:00:25 neuropsyc hologist referral - Pt is ADHD and believes that she is on the autism spectrum 2023 024 [email or web address], [address], [place], [address], 09/05/2024 13:43:26 Procedures None recorded. Surgeries None recorded. Imaging None recorded. Medication Orders albuterol sulfate HFA 90 mcg/actua tion aerosol inhaler 2024 025 [facility]/Pharmacy #[id number], [address], [place], [address], 01/24/2025 10:12:18 gemfibroz il 600 mg tablet 2024 025 [facility]/Pharmacy #[id number], [address], [place], [address], 01/24/2025 10:12:19 Ozempic 0.25 mg or 0.5 mg (2 mg/3 mL) subcutane ous pen injector [address] [id number], [address], [place], [address], 01/24/2025 10:12:32 insulin lispro (U-100) 100 unit/mL subcutane ous pen [address] [id number], [address], [place], [address], 01/24/2025 10:12:19 insulin glargine- yfgn (U-100) 100 unit/mL (3 mL) subcutane ous pen [address] [id number], [address], [place], [address], 01/24/2025 10:12:16 metformin 1,000 mg tablet [address] [id number], [address], [place], [address], 01/24/2025 10:12:17 sertralin e 100 mg tablet [address] [id number], [address], [place], [address], 01/24/2025 10:12:15 aripipraz ole 2 [address] tablet [address] [id number], [address], [place], [address], 01/24/2025 10:12:16 Mounjaro 2.5 mg/0.5 mL subcutane ous pen injector 2024 025 [address] [id number], [address], [place], [place], [id number], 01/24/2025 10:01:50 gemfibroz il 600 mg tablet 2023 024 [id number], [address], [place], [place], [id number], 08/08/2024 15:57:07 albuterol sulfate HFA 90 mcg/actua tion aerosol inhaler 2023 024 [facility]acy #[id number], [address], [place], [address], 06/20/2024 11:44:19 Symbicort 160 mcg-4.5 mcg/actua tion HFA aerosol inhaler 2023 024 [facility] #[id number], [address], [id number], 08/08/2024 15:21:13 gemfibroz il 600 mg tablet 2023 024 [facility], [address], [id number], 04/13/2024 12:53:26 Mounjaro 2.5 mg/0.5 mL subcutane ous pen injector 2023 024 [address], [address], [id number], 01/24/2025 10:01:50 Mounjaro 5 mg/0.5 mL subcutane ous pen injector 2023 024 [id number], [address], [place], [id number], 05/10/2024 07:49:48 Patient TargetsNo targets recorded. Patient Instructions Encounter Date Encounter Id Patient Instructions Last Modified By Organization Details Last Modified Time 06/20/2024 [id number] complete PFT w/ post bronchodilator spirometry* Not available 06/20/2024 11:44:15 08/08/2024 [id number] diabetic eye exam* Not avai lable 02/05/2025 08:35:22 Reason for Referral Neuropsychologist Referral f or Attention deficit hyperactivity disorder Pt is ADHD and believes that she is on the autism spectrum Referring Physician: Loli Balderrama, Internal Medicine, Encounter Date: 04/13/2024 Pulmonary Rehab Referral for Moderate chronic obstructive pulmonary disease Referring Physician: Kartik Van, Pulmonary Disease, Encounter Date: 06/20/2024 Web Applications Administrator Referral for Type 2 diabetes mellitus Please call patient to schedule. Referring Physician: Loli Balderrama, Internal Medicine, Encounter Date: 08/08/2024 Endocrinology Referral for T ype 2 diabetes mellitus Please call patient to schedule an appointment. Thank you. Referring Physician: Loli Balderrama Internal Medicine, Encounter Date: 01/11/2025 Hand Surgeon Referral for Ca rpal tunnel syndrome of right wrist Please call patient to schedule an appointment. Thank you. Referring Physician: Loli Balderrama Internal Medicine, Encounter Date: 01/24/2025 Results Created Date Observation Date Name Description Value Unit Range Abnormal Flag Note LastModifiedBy Organization Detail LastModifiedTime 06/13/20 24 06/12/2024 compl ete PFT w/ post [facility] hodil ator etienne metry * No observ ation record ed. [facility] ([facility]) [address], [place], [address], 06/13/2024 10:32:08 Result Notes None recorded. 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 816134638 Active 2021 Loli Balderrama APRN [address], [address], [place], [address], [employer] [place] [facility] [employer] 4 15:16:47 Vitamin D deficienc y 42895868 Active 2021 Loli Balderrama APRN [address], [address], [place], [address], [employer] [place] [facility] [employer] [facility] [employer] 4 15:16:55 Arthritis 0754359 Active 2021 Loli Balderrama APRN [address], [address], [place], [address], [employer] [employer] 4 15:16:28 Hypertens fabián disorder 69032524 Active 2019 Loli Balderrama APRN [address], [address], [place], [address], [employer] [place] [facility] [employer] [employer] 4 15:16:41 Hypertens fabián disorder 90471175 Completed 201801/05/2019 Loli Balderrama APRN [address], [address], [place], [address], [employer] 4 15:16:41 Body mass index 40+ - severely obese 281523493 Active 2017 Loli Badlerrama APRN [address], [address], [place], [address], [employer] [facility] [employer] 4 15:16:31 Type 2 diabetes mellitus 88990279 Active 2018 Loli Balderrama APRN [address], [address], [place], [address], [employer] 4 15:17:02 Hypercort isolism 18187752 Active 2021 Loli Balderrama APRN [address], [address], [place], [address], [employer] [place] [facility] [employer] [facility] [employer] 4 15:16:34 Obstructi ve sleep apnea syndrome 12002440 Active 2017 Loli Balderrama APRN [address], [address], [place], [address], [place] [facility] 4 15:16:53 Atelectas is 03018936 Active 2022 Kartik Van MD [address], [address], [place], [address], [place] [facility] 3 16:06:07 Pulmonary embolism 75296440 Active 2022 Kartik Van MD [address], [address], [place], [address], [employer] [place] [facility] 3 16:09:22 Moderate chronic obstructi ve pulmonary disease 673962875 Active 2022 Loli Balderrama APRN [address], [address], [place], [address], [employer] [place] [facility] [employer] 4 15:16:50 Hypertrig lyceridem ia 842001657 Active 2023 Loli Balderrama APRN [address], [address], [place], [address], [employer] [place] [facility] 4 13:42:19 Attention deficit hyperacti vity disorder 524145881 Active 2023 Loli Balderrama APRN [address], [address], [place], [address], [employer] [place] [facility] 4 11:07:46 Secondary diabetes mellitus 2661767 Active Loli Balderrama APRN [address], [address], [place], [address], [employer] [place] [facility] 5 08:58:39 Uncontrol led type 2 diabetes mellitus 383700967 Active 2024 Loli Balderrama APRN [address], [address], [place], [address], [place] [facility] 5 10:08:32 Carpal tunnel syndrome of right wrist 182702123389 108 Active 2024 Loli Balderrama APRN [address], [place], [address], [facility] 10:13:09 Notes:Medical History: Bipol ar depression/Anxiety Bilateral tinnitus Eosinophils 130/uL IgE 18 IU/mL AAT PiMM 171 mg% Mod ACO in pulm rehab 2023 Persistent early REM onset Obesity with mild OSAHS, AHI = 7, 02/18/18, on CPAP c/o IVRC T2DM Hypothyroidism fr Emelina's thyroiditis Hyperlipidemia Hypertension EF 55% P.E. 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 Procedures Surgical History Date Name Laterality Status Provider Name and Address Organization Details Recorded Time 09/11/20 21 ACQUISITION MANAGER Surgery completed Not Available [facility] 01/14/20 02:27:21 11/01/20 20 nasal septoplasty completed Not Available [facility] 02:27:21 04/18/20 20 Date of Last Pap Smear completed Not Available [facility] 01/13/2023 02:27:19 Orthopedic Surgery completed Not Available [facility] 01/13/2023 02:27:21 [facility]lectomy [facility] 02:27:21 Orthopedic Surgery completed Not [facility] 01/13/2023 02:27:21 hysterectomy completed Amaya Ortiz MA [facility] 04/06/2024 15:09:18 Imaging Results Imaging Date Name Status LastModified by Organization Details LastModified Time 06/12/2024 complete PFT w/ post bronchodilator spirometry* completed [facility] ([facility]) [address], [place], [address], 06/13/2024 10:32:08 Procedure Notes None recorded. Medical Equipment None Reported. Allergies Allergen ID Allergen Name Allergen Category Reaction Reaction Severity Criticality Documentation Date Start Date Code Code System Note Provider Name and Address Organization Details Recorded Time 2 promethaz ine medicatio n Not available Not available Not available 01/13/2023 8745 RxNorm Other react ions and sever ities : 'Adve rse react ion to subst ance' . Loli Balderrama APRN [address], [address], [place], [address], [employer] 4 07:58:32 3173 Phenergan medicatio n hives itching Not available Not available Not available 01/13/20232018 25028 8 RxNorm Kartik Van MD [address], [address], [place], [address], [employer] 3 18:40:01 3174 Augmentin medicatio n hives Not available Not available 01/13/2023 10547 2 RxNorm Not Available [facility] 3 02:33:58 3175 amoxicill in medicatio n Not available Not available Not available 01/13/2023 723 RxNorm Other react ions and sever ities : 'Adve rse react ion to subst ance' . Loli Balderrama APRN [address], [address], [place], [address], [employer] 5 09:18:21 [address]86 metacreso l medicatio n rash Not available Not available 06/12/2024 27168 70 RxNorm Loli Balderrama APRN [address], [address], [place], [address], [employer] 4 07:58:32 Medications Name Sig Start Date Stop Date Status Note LastModified by Organization Details LastModified Time cyclobenz aprine 10 mg tablet TAKE 1 TABLET BY MOUTH THREE TIMES DAILY NEEDED FOR MUSCLE SPASM 01/25 completed Not Available Not Available Not Available ziprasido ne 80 mg capsule 03/10 completed Not Available Not Available Not Available medroxypr ogesteron e 10 mg tablet Take 1 tablet every day by oral route for 10 days. active Not Available Not Available No t Available metformin 500 mg tablet TAKE ONE TABLET BY MOUTH THREE TIMES DAILY 10/20 completed Not Available Not Available Not Available nystatin 100,000 unit/mL oral suspensio n swish and swallow 5 mL PO 4x a day for 7 days active Not Available Not Available No t Available clindamyc in HCl 300 mg capsule TAKE 1 CAPSULE BY MOUTH EVERY 8 HOURS 05/03 completed Not Available Not Available Not Available atorvasta tin 10 mg tablet Take 1 tablet every day by oral route. 08/08 completed Not Available Not Available Not Available clarithro mycin 250 mg tablet 04/13 completed Not Available Not Available Not Available ibuprofen 800 mg tablet 03/27 completed Not Available Not Available Not Available fluconazo le 150 mg tablet Take 1 tablet by oral route. 07/26 completed Not Available Not Available Not Available hydrocodo ne 5 mg-acetam inophen 325 mg tablet 03/16 completed Not Available Not Available Not Available bacitraci n 500 unit/gram eye ointment 10/20 completed Not Available Not Available Not Available minocycli ne 100 mg capsule 01/18 completed Not Available Not Available Not Available ondansetr on HCl 4 mg tablet 04/14 completed Not Available Not Available Not Available prednison e 20 mg tablet TAKE 2 TABLETS BY MOUTH ONCE DAILY FOR 4 DAYS 11/25 completed Not Available Not Available Not Available sertralin e 100 mg tablet TAKE 1 TABLET BY MOUTH EVERY DAY active Not Available Not Available No t Available prednison e 5 mg tablet 09/07 completed Not Available Not Available Not Available Lantus U-100 Insulin 100 unit/mL subcutane ous solution Inject 22 units every day by subcutan eous route. 06/22 completed Not Available Not Available Not Available permethri n 5 % topical cream MASSAGE INTO SKIN FROM HEAD TO SOLES OF FEET ONCE. LEAVE ON 8-14HRS, THEN WASH OFF 11/25 completed Not Available Not Available Not Available phentermi ne 15 mg capsule Take 1 capsule twice a day by oral route. 12/27 completed Not Available Not Available Not Available bacitraci n 500 unit/gram topical ointment APPLY 1 APPLICAT ION ONTO THE AFFECTED AREA(S) DIRECTED 3 TIMES DAILY FOR 5 DAYS 11/25 completed Not Available Not Available Not Available sulfameth oxazole 800 mg-trimet hoprim 160 mg tablet TAKE 1 TABLET BY MOUTH TWICE A DAY FOR 10 DAYS 05/03 completed Not Available Not Available Not Available omeprazol e 40 mg capsule,d elayed release TAKE ONE CAPSULE BY MOUTH EVERY DAY 01/25 completed Not Available Not Available Not Available doxycycli ne monohydra te 100 mg tablet TAKE 1 TABLET BY MOUTH TWICE A DAY DIRECTED FOR 7 DAYS 11/25 completed Not Available Not Available Not Available acetamino phen 500 mg tablet TAKE 1 TABLET BY MOUTH EVERY 6 HOURS NEEDED FOR PAIN 05/03 completed Not Available Not Available Not Available triamcino lone acetonide 0.1 % topical cream APPLY THIN COAT TO AFFECTED AREA TWICE A DAY 11/25 completed Not Available Not Available Not Available levothyro xine 25 mcg tablet Take 1 tablet every day by oral route in the morning. active Not Available Not Available No t Available meloxicam 7.5 mg tablet Take 1 PO BID PRN with food 02/17 completed Not Available Not Available Not Available oxycodone -acetamin ophen 5 mg-325 mg tablet TAKE 1 TABLET BY MOUTH EVERY 6 HOURS NEEDED FOR PAIN 11/25 completed Not Available Not Available Not Available ziprasido ne 20 mg capsule Take 1 capsule twice a day by oral route. 01/05 completed Not Available Not Available Not Available methocarb jen 750 mg tablet 03/16 completed Not Available Not Available Not Available EletrogóesTouch Ultra Test strips USE TO TEST SUGARS TWICE A DAY BEFORE MEALS FOR 90 DAYS 11/25 completed Not Available Not Available Not Available dexametha sone 1 mg tablet Take 1 tablet as needed by oral route at bedtime for 1 day. 01/24 completed Not Available Not Available Not Available simvastat in 5 mg tablet TAKE ONE TABLET BY MOUTH EVERY DAY active Not Available Not Available No t Available gemfibroz il 600 mg tablet TAKE 1 TABLET BY MOUTH TWICE DAILY active Not Available Not Available No t Available triamcino lone acetonide 40 mg/mL suspensio n for injection Take 2 mL by injectio n route. 01/18 completed Not Available Not Available Not Available levothyro xine 50 mcg tablet Take 1 tablet by oral route. 08/08 completed Not Available Not Available Not Available hydrocodo ne 7.5 mg-acetam inophen 325 mg tablet active Not Available Not Available Not Available cephalexi n 500 mg capsule active Not Available Not Available Not Available Humulin R Regular U-100 Insulin 100 unit/mL injection solution 1 unt by injectio n route. 11/19 completed Not Available Not Available Not Available erythromy murtaza 5 mg/gram (0.5 %) eye ointment active Not Available Not Available Not Available cyanocoba rowena (vit B-12) 1,000 mcg/mL injection solution INJECT 1 ML IN THE MUSCLE ONCE WEEKLY IN THE MORNING 04/06 completed Not Available Not Available Not Available metformin 1,000 mg tablet TAKE 1 TABLET BY MOUTH TWICE A DAY active Not Available Not Available No t Available ranitidin e 150 mg tablet 04/14 completed Not Available Not Available Not Available prednison e 50 mg tablet 04/14 completed Not Available Not Available Not Available lidocaine 5 % topical patch 05/29 completed Not Available Not Available Not Available promethaz ine 25 mg tablet 04/14 completed Not Available Not Available Not Available polymyxin B sulfate 10,000 unit-trim ethoprim 1 mg/mL eye drops INSTILL 1 DROP INTO THE RIGHT EYE EVERY 3 HOURS WHILE AWAKE 05/03 completed Not Available Not Available Not Available gabapenti n 300 mg capsule 300 mg by oral route. 06/09 completed Not Available Not Available Not Available sertralin e 25 mg tablet 08/26 completed Not Available Not Available Not Available omeprazol e 20 mg capsule,d elayed release 11/21 completed Not Available Not Available Not Available monteluka st 10 mg tablet TAKE ONE TABLET BY MOUTH EVERY DAY 01/25 completed Not Available Not Available Not Available hydroxyzi ne HCl 25 mg tablet TAKE 1 TABLET BY MOUTH THREE TIMES A DAY NEEDED FOR 14 DAYS 11/25 completed Not Available Not Available Not Available lisinopri l 5 mg tablet TAKE ONE TABLET BY MOUTH EVERY DAY 04/06 completed Not Available Not Available Not Available ziprasido ne 40 mg capsule bid 03/10 completed Not Available Not Available Not Available sodium chloride 0.9 % intraveno us solution 1000 mL by intraven . route. 11/19 completed Not Available Not Available Not Available ergocalci ferol (vitamin D2) 1,250 mcg (50,000 unit) capsule Take 1 capsule by oral route. 08/08 completed Not Available Not Available Not Available ibuprofen 600 mg tablet 600 MG ORALLY EVERY 6 HOURS NEEDED FOR PAIN 11/25 completed Not Available Not Available Not Available levofloxa murtaza 500 mg tablet TAKE 1 TABLET BY MOUTH EVERY 24 HOURS FOR 7 DAYS 09/07 completed Not Available Not Available Not Available methylpre dnisolone 4 mg tablets in a dose pack Take 1 dose pk by oral route. 08/26 completed Not Available Not Available Not Available albuterol sulfate HFA 90 mcg/actua tion aerosol inhaler INHALE 1 PUFF EVERY 4 HOURS NEEDED active Not Available Not Available No t Available colchicin e 0.6 mg tablet Take 1 tablet twice a day by oral route. 04/30 completed Not Available Not Available Not Available dexametha sone 0.5 mg tablet active Not Available Not Available No t Available ondansetr on 4 mg disintegr ating tablet DISSOLVE 1 TABLET ON TONGUE EVERY 8 HOURS NEEDED FOR NAUSEA AND VOMITING 06/12 completed Not Available Not Available Not Available cefdinir 300 mg capsule TAKE 1 CAPSULE BY MOUTH EVERY 12 HOURS 12/31 completed Not Available Not Available Not Available sertralin e 50 mg tablet 05/29 completed Not Available Not Available Not Available sulindac 200 mg tablet 09/07 completed Not Available Not Available Not Available loratadin e 10 mg tablet 04/14 completed Not Available Not Available Not Available naproxen 500 mg tablet TAKE 1 TABLET BY MOUTH EVERY 12 HOURS NEEDED 11/25 completed Not Available Not Available Not Available spironola ctone 50 mg tablet TAKE 2 TABLETS BY MOUTH ONCE DAILY 01/24 completed Not Available Not Available Not Available metoclopr amide 10 mg tablet 04/13 completed Not Available Not Available Not Available amoxicill in 875 mg-potass ium clavulana te 125 mg tablet Take 1 tablet every 12 hours by oral route for 7 days. 05/02 completed Not Available Not Available Not Available Microgest in Fe 1.530 (28) 1.5 mg-30 mcg (21)/75 mg (7) tablet TAKE ONE TABLET BY MOUTH EVERY DAY 05/29 completed Not Available Not Available Not Available enoxapari n 40 mg/0.4 mL subcutane ous syringe 40 MG (0.4 ML) SUBCUTAN EOUSLY DAILY FOR 35 DAYS 11/25 completed Not Available Not Available Not Available insulin lispro (U-100) 100 unit/mL subcutane ous pen INJECT 30 UNITS SUBCUTAN EOUSLY TWICE A DAY DIRECTED , FOR BEFORE BREAKFAS T AND DINNER active Not Available Not Available No t Available azithromy murtaza 500 mg tablet TAKE 1 TABLET BY MOUTH ONCE DAILY FOR 3 DAYS 12/31 completed Not Available Not Available Not Available Microgest in .04/13 (21) 1.5 mg-30 mcg tablet Take 1 tablet every day by oral route. 09/12 completed Not Available Not Available Not Available clobetaso l 0.05 % lotion APPLY A THIN LAYER TO THE AFFECTED AREA(S) BY TOPICAL ROUTE 2 TIMES PER DAY active Not Available Not Available No t Available rosuvasta tin 5 mg tablet Take 1 tablet every day by oral route. 05/24 completed Not Available Not Available Not Available bupropion HCl XL 300 mg 24 hr tablet, extended release active Not Available Not Available Not Available bupropion HCl XL 150 mg 24 hr tablet, extended release active Not Available Not Available Not Available nitrofura ntoin monohydra te/macroc rystals 100 mg capsule 03/27 completed Not Available Not Available Not Available Sure Comfort Insulin Syringe 0.5 mL 30 gauge x 1/2 04/14 completed Not Available Not Available Not Available BD Ultra-Fin e Mini Pen Needle 31 gauge x 01/28 active Not Available Not Available Not Available One-A-Day Womens Formula 09/07 completed Not Available Not Available Not Available Lantus U-100 Insulin 20units daily 12/27 completed Not Available Not Available Not Available Advair HFA 115 mcg-21 mcg/actua tion aerosol inhaler Inhale 2 puffs twice a day by inhalati on route. 04/06 completed Not Available Not Available Not Available aripipraz ole 2 mg tablet TAKE 1 TABLET BY MOUTH EVERYDAY AT BEDTIME active Not Available Not Available No t Available Januvia 100 mg tablet 01/05 completed Not Available Not Available Not Available ondansetr on HCl (PF) 4 mg/2 mL injection solution Take 4 mg every day by injectio n route. 04/14 completed Not Available Not Available Not Available Symbicort 160 mcg-4.5 mcg/actua tion HFA aerosol inhaler Inhale 2 puffs twice a day by inhalati on route. 08/08 completed Not Available Not Available Not Available Lantus Solostar U-100 Insulin 100 unit/mL (3 mL) subcutane ous pen INJECT 33 UNITS UNDER THE SKIN ONCE DAILY DIRECTED 01/24 completed Not Available Not Available Not Available Dulera 100 mcg-5 mcg/actua tion HFA aerosol inhaler Inhale 2 puffs twice a day by inhalati on route. active Not Available Not Available No t Available Comfort EZ Insulin Syringe 0.5 mL 31 gauge x 16 04/14 completed Not Available Not Available Not Available Korlym 300 mg tablet active Not Available Not Available Not Available Victoza 2-Chandan 0.6 mg/0.1 mL (18 mg/3 mL) subcutane ous pen injector INJECT 0.6 MG INTO THE SKIN ONCE DAILY FOR 1 WEEK WITH LARGE MEAL THEN INCREASE TO 1.2 MG ONCE DAILY 11/30 completed Not Available Not Available Not Available Eliquis 5 mg tablet TAKE 1 TABLET BY MOUTH TWICE DAILY BEFORE MEALS FOR 90 DAYS 06/11 completed Not Available Not Available Not Available Jardiance 25 mg tablet Take 1 tablet by oral route. 08/08 completed Not Available Not Available Not Available Trulicity 1.5 mg/0.5 mL subcutane ous pen injector Inject 1.5 mg every week by subcutan eous route at dinner for 90 days. 02/17 completed inject 0.75 mg once weekly x 4 weeks, then increase 1.5 mg once weekly thereaft er Not Available Not Available Not Available Trulicity 0.75 mg/0.5 mL subcutane ous pen injector Inject 0.75 mg every week by subcutan eous route at dinner for 4 days. 02/17 completed Not Available Not Available Not Available TRUEplus Pen Needle 31 gauge x 5/16 USE DIRECTED 01/18 completed Not Available Not Available Not Available TRUEplus Pen Needle 32 gauge x 5/32 USE TO INJECT INSULIN 2 TO 3 TIMES DAILY 11/25 completed Not Available Not Available Not Available Fluzone Quad 2016-(P F) 60 mcg(15 mcgx4)/0. 5 mL intramusc ular syringe 11/21 completed Not Available Not Available Not Available Qvar RediHaler 80 mcg/actua tion HFA breath activated aerosol Inhale 2 puffs twice a day by inhalati on route as directed for 30 days. 10/05 completed Not Available Not Available Not Available Qvar RediHaler 40 mcg/actua tion HFA breath activated aerosol Inhale 2 puffs twice a day by inhalati on route. 04/14 completed Not Available Not Available Not Available Ozempic 0.25 mg or 0.5 mg (2 mg/1.5 mL) subcutane ous pen injector Inject 0.5 mg every week by subcutan eous route with meals for 30 days. 06/28 completed Not Available Not Available Not Available Steglatro 15 mg tablet TAKE ONE TABLET BY MOUTH EVERY MORNING 06/13 completed Not Available Not Available Not Available Steglatro 5 mg tablet Take 1 tablet every day by oral route in the morning for 14 days. active Not Available Not Available No t Available OneTouch Ultra2 Meter 11/25 completed Not Available Not Available Not Available OneTouch Delica Plus Lancet 33 gauge 11/25 completed Not Available Not Available Not Available Rybelsus 7 mg tablet Take 1 tablet every day by oral route for 30 days. 05/24 completed Not Available Not Available Not Available ID NOW COVID-19 Test Kit TEST DIRECTED TODAY 01/18 completed Not Available Not Available Not Available Afluria Quad 60 mcg (15 mcg x 4)/0.5 mL intramusc ular susp. 08/28 completed Not Available Not Available Not Available Breztri Aerospher e 160 mcg-9mcg- 4.8mcg/ac tuation HFA aerosol inhaler Inhale 2 puffs twice a day by inhalati on route as directed . 06/20 completed sample given in office Not Available Not Available Not Available Ozempic 1 mg/dose (4 mg/3 mL) subcutane ous pen injector INJECT 1 MG SUBCUTAN EOUSLY EVERY WEEK DIRECTED , FOR DIABETES . active Not Available Not Available No t Available insulin glargine- yfgn (U-100) 100 unit/mL (3 mL) subcutane ous pen Inject 40 units every day by subcutan eous route as directed . 2024 active Not Available Not Available Not Avai lable Mounjaro 5 mg/0.5 mL subcutane ous pen injector active Not Available Not Available Not Available Mounjaro 2.5 mg/0.5 mL subcutane ous pen injector Inject 0.5 mL every week by subcutan eous route, for diabetes mellitus . 01/24 completed Not Available Not Available Not Available Ozempic 0.25 mg or 0.5 mg (2 mg/3 mL) subcutane ous pen injector Inject by subcutan eous route for 28 days. active Not Available Not Available No t Available FreeStyle Forrest 3 Plus Sensor device CHANGE SENSOR EVERY 15 DAYS active Not Available Not Available No t Available Vitals Date Recorded Body height Body mass index (BMI) Body weight Body temperature Heart rate Oxygen saturation Oxygen saturation in Arterial blood by Pulse oximetry Systolic blood pressure Diastolic blood pressure Provider Name and Address Organization Details Last Updated DateTime 4 160.02 cm 65.9 kg/m2 372080. 36 g 98.2 [degF] 92 /min 98 % 98 % 110 mm[Hg] 70 mm[Hg] Amaya Ortiz MA [facility] 4 12:34:46 Date Recorded Body height Body mass index (BMI) Body weight Body temperature Heart rate Oxygen saturation Oxygen saturation in Arterial blood by Pulse oximetry Systolic blood pressure Diastolic blood pressure Provider Name and Address Organization Details Last Updated DateTime 4 160.02 cm 67.1 kg/m2 667129. 51 g 97.8 [degF] 76 /min 98 % 98 % 116 mm[Hg] 80 mm[Hg] Rosa Bansal MA [facility] 4 11:23:01 Date Recorded Heart rate Respiratory rate Provider N chetna and Address Organization Details Last Updated DateTime 06/20/2024 76 /min 14 /min Kartik Van MD [address] [address], [place], [address], [facility] [employer] 06/20/2024 11:47:08 Date Recorded Body height Body mass index (BMI) Body weight Oxygen saturation Oxygen saturation in Arterial blood by Pulse oximetry Heart rate Pain severity - 0-10 verbal numeric rating [Score] - Reported Body temperature Systolic blood pressure Diastolic blood pressure Provider Name and Address Organization Details Last Updated DateTime 4 160.02 cm 66 kg/m2 459228. 52 g 98 % 98 % 62 /min 0 96.7 [degF] 118 mm[Hg] 74 mm[Hg] Amaya Ortiz MA [facility] [employer] 4 15:17:56 Date Recorded Body height Body mass index (BMI) Body weight Body temperature Heart rate Oxygen saturation Oxygen saturation in Arterial blood by Pulse oximetry Pain severity - 0-10 verbal numeric rating [Score] - Reported Systolic blood pressure Diastolic blood pressure Provider Name and Address Organization Details Last Updated DateTime 5 160.02 cm 66.5 kg/m2 128586. 29 g 98.1 [degF] 112 /min 97 % 97 % 0 114 mm[Hg] 74 mm[Hg] Amaya Ortiz MA [facility] [employer] 5 08:54:43 Date Recorded Body height Body mass index (BMI) Body weight Body temperature Heart rate Oxygen saturation Oxygen saturation in Arterial blood by Pulse oximetry Systolic blood pressure Diastolic blood pressure Provider Name and Address Organization Details Last Updated DateTime 5 160.02 cm 65.5 kg/m2 374714. 18 g 97.4 [degF] 93 /min 98 % 98 % 122 mm[Hg] 74 mm[Hg] LYNNE [place] [employer] [facility] [employer] 5 09:52:14 Social History Question Answer Notes LastModified by Organization Details LastModified Time Tobacco Smoking Status Never Smoker Not Available [employer] 01/13/2023 02:24:47 Do You Have An Advance Directive? No MIGRATION.030 [id number] Information not available 01/13/2023 What Is Your Level Of Alcohol Consumption? Occasional MIGRATION.030 [id number] Information not available 01/13/2023 What Is Your Level Of Caffeine Consumption? Moderate MIGRATION.030 [id number] Information not available 01/13/2023 How Much Tobacco Do You Chew? None MIGRATION.030 [id number] Information not available 01/13/2023 In The 14 Days Before Symptom Onset, Have You Had Close Contact With A Laboratory-conf irmed COVID-19 While That Case Was Ill? No MIGRATION.030 [id number] Information not available 01/13/2023 In The 14 Days Before Symptom Onset, Have You Had Close Contact With A Person Who Is Under Investigation For COVID-19 While That Person Was Ill? No MIGRATION.030 [id number] Information not available 01/13/2023 What Type Of Diet Are You Following? DIABETIC MIGRATION.030 [id number] Information not available 01/13/2023 Which Illicit Or Recreational Drugs Have You Used? None MIGRATION.030 [id number] Information not available 01/13/2023 Do You Or Have You Ever Used E-cigarettes Or Vape? Never Used Electronic Cigarettes MIGRATION.030 [id number] Information not available 01/13/2023 What Is The Highest Grade Or Level Of School You Have Completed Or The Highest Degree You Have Received? [id number] MIGRATION.030 [id number] Information not available 01/13/2023 Do You Have An Electrostatic Air Filter? 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 No MIGRATION.030 [id number] Information not available 01/13/2023 Are There Any Guns Present In Your Home? No MIGRATION.030 [id number] Information not available 01/13/2023 Do You Have A Humidifier? Yes Does Not Use Information not available 01/25/2023 Do You Use Insect Repellent Routinely? No MIGRATION.0301 [id number] Information not available 01/13/2023 Where Do You Live? [place] MIGRATION.030 [id number] Information not available 01/13/2023 Do You Have Moisture Problems In Your Home? No Information not available 01/25/2023 What Was The Date Of Your Most Recent Tobacco Screening? 01/11/2025 Information not available 01/11/2025 How Many Children Do You Have? 0 Information not available 01/11/2025 Do You Have Any Pets? Yes CATS MIGRATION.0301 [id number] Information not available 01/13/2023 What Is Your Relationship Status? Single Information not available 01/11/2025 Do You Use Your Seat Belt Or Car Seat Routinely? Yes MIGRATION.0301 [id number] Information not available 01/13/2023 Do You Have Smoke And Carbon Monoxide Detectors In Your Home? Yes MIGRATION.0301 [id number] Information not available 01/13/2023 Are You Passively Exposed To Smoke? No MIGRATION.0301 [id number] Information not available 01/13/2023 Do You Or Have You Ever Used Smokeless Tobacco? Never Used Smokeless Tobacco MIGRATION.0301 [id number] Information not available 01/13/2023 Are There Any Smokers In Your House? No MIGRATION.0301 [id number] Information not available 01/13/2023 How Much Tobacco Do You Smoke? No MIGRATION.0301 [id number] Information not available 01/13/2023 Do You Feel Stressed (tense, Restless, Nervous, Or Anxious, Or Unable To Sleep At Night)? [id number] SCHOOL MIGRATION.0301 [id number] Information not available 01/13/2023 Do You Use Any Illicit Or Recreational Drugs? No MIGRATION.0301 [id number] Information not available 01/13/2023 Do You Use Sunscreen Routinely? Yes MIGRATION.0301 [id number] Information not available 01/13/2023 Have You Recently Traveled Abroad? No MIGRATION.0301 [id number] Information not available 01/13/2023 Do You Have Any Dietary Restrictions? No MIGRATION.0301 [id number] Information not available 01/13/2023 Sex: Female Functional Status Question Answer Note LastModified by Organizat ion Details LastModified Time What is your exercise level? Occasional [id number] Information not available 01/13/2023 Mental Status None recorded. Family History Relationship Description Onset Age of this Age Resolved Age Notes LastModified by Organization Details LastModified Time Mother Malignant tumor of breast 64 MIGRATION.[id number] Not available 01/13/2023 02:27:23 Paternal Aunt Diabetes mellitus MIGRATION.676 [id number] Not available 01/13/2023 02:27:23 Father Depressive disorder Not available 2022 16:36:29 Mother Depressive disorder Not available 2022 16:36:34 Medical History Condition Response SLEEP APNEA Y OTHER # 1 Y DEPRESSION (INCLUDING POST ) Y BOWEL PROBLEMS Y HAVE YOU BEEN HOSPITALIZED OR SEEN IN [facility] IN THE PAST YEAR ? Y DIABETES, TYPE Y HEARTBURN / REFLUX Y HEPATITIS / LIVER DISEASE Y ASTHMA Y HEADACHES/MIGRAINES Y AIDS/HIV Y ANXIETY DISORDER Y ANEMIA/BLOOD DISORDER Y Gynecological History Statement/Question Response How many live births 0 Date of Last Pap Date of Last Pap Smear 04/18/2020 Current Control Method Hysterectom y Age at Menarche 10 Date of LMP Obstetrics History GPAL:G 0 P 0 0 0 0 Type Value Multiple Births 0 Full Term 0 Induced 0 Spontaneous 0 Premature 0 Living 0 Ectopics 0 Total 0 Immunizations Vaccine Type Date Status Note Provider Nam e and Address Organization Details Recorded Time Hep A, adult 2 completed Loli Balderrama APRN [address], [place], [address], [facility] [employer] [facility] [email or web address] [facility] 04/12/2024 08:20:27 COVID-19, mRNA, LNP-S, PF, 100 mcg/0.5mL dose or 50 mcg/0.25mL dose 1 completed Loli Balderrama APRN [address], [place], [address], [employer] [facility] [employer] [facility] 04/12/2024 08:20:27 COVID-19, mRNA, LNP-S, PF, 100 mcg/0.5mL dose or 50 mcg/0.25mL dose 1 completed Loli Balderrama APRN [address], [address], [place], [address], [facility] [employer] [facility] [email or web address] [facility] 04/12/2024 08:20:27 Influenza, split virus, quadrivalent, preservative 0 completed Not Available [employer] 01/13/2023 02:33:48 COVID-19, mRNA, LNP-S, PF, 100 mcg/0.5mL dose or 50 mcg/0.25mL dose [address], [place], [address], [facility] [employer] [facility] 04/12/2024 08:20:27 Influenza, split virus, quadrivalent, preservative [address], [place], [address], [facility] [employer] [facility] 04/12/2024 08:20:27 Tdap 4 completed Not Available [facility] 01/13/2023 02:33:48 Influenza, MDCK, quadrivalent, PF 9 completed Not Available [facility] 01/13/2023 02:33:49 MMR [address], [place], [address], [facility] [employer] [facility] 04/12/2024 08:20:27 COVID-19, mRNA, LNP-S, PF, 100 mcg/0.5mL dose or 50 mcg/0.25mL dose [address], [place], [address], [facility] [employer] [facility] 04/12/2024 08:20:27 COVID-19, mRNA, LNP-S, PF, 100 mcg/0.5mL dose or 50 mcg/0.25mL dose [address], [place], [address], [facility] [employer] [facility] 04/12/2024 08:20:27 COVID-19, mRNA, LNP-S, bivalent, PF, 50 mcg/0.5 mL or 25mcg/0.25 mL dose [address], [place], [address], [facility] [place] [email or web address] [facility] 04/12/2024 08:20:27 DTP 4 completed Loli Balderrama APRN [address], [place], [address], [facility] [email or web address] [facility] 04/12/2024 08:20:27 OPV 4 completed Loli Balderrama APRN [address], [place], [address], [facility] [employer] [facility] [email or web address] [facility] 04/12/2024 08:20:27 Hep A, adult 3 completed Loli Balderrama APRN [address], [place], [address], [facility] [employer] [facility] [email or web address] [facility] 04/12/2024 08:20:27 Influenza, split virus, quadrivalent, PF 3 completed Loli Balderrama APRN [address], [place], [address], [facility] [employer] [facility] [email or web address] [facility] 04/12/2024 08:20:27 Influenza, split virus, quadrivalent, PF 2 completed Loli Balderrama APRN [address], [place], [address], [facility] [employer] [facility] [email or web address] [facility] 04/12/2024 08:20:27 Influenza, split virus, quadrivalent, PF 1 completed Loli Balderrama APRN [address], [place], [address], [facility] [employer] [facility] [email or web address] [facility] 04/12/2024 08:20:27 Influenza, split virus, trivalent, PF 4 completed Loli Balderrama APRN [address], [place], [address], [facility] [employer] [facility] [email or web address] [facility] 08/10/2024 10:48:41 Past Encounters Encounter ID Performer Location Encounter Start Date Encounter Closed Date Diagnosis/Indication Diagnosis SNOMED-CT Code Diagnosis ICD10 Code Diagnosis Note [id number] [facility] Med Vera simon [address] [place] [address] , [place] [address] 01/29/2021 00:00:00 01/29/2021 12:17:49 [id number] _ATHENA_M IGRATION_ DEFAULT_1 _1 , 03/21/2021 00:00:00 03/21/2021 12:34:12 [id number] _ATHENA_M IGRATION_ DEFAULT_1 _1 , 04/10/2021 00:00:00 04/10/2021 15:27:53 [id number] [facility] Internal Med [facility] [address] [place] [address] , [address] [address] 04/15/2021 00:00:00 04/15/2021 17:46:49 [id number] [facility] Internal Med aXvi alfred [address] [facility] , [facility] [place] [address] 04/23/2021 00:00:00 04/23/2021 17:35:49 [id number] [facility] Internal Med [facility] [address] [place] [address] , [address] [address] 05/02/2021 00:00:00 05/02/2021 13:53:01 [id number] [facility] Internal Med [facility] [address] [place] [address] , [address] [address] 08/26/2021 00:00:00 08/26/2021 11:24:17 [id number] _ATHENA_M IGRATION_ DEFAULT_1 _1 , 09/04/2021 00:00:00 09/04/2021 17:15:57 [id number] [facility] Endo [facility] [address] [place] [address] 09/05/2021 00:00:00 09/05/2021 11:53:28 [id number] _ATHENA_M IGRATION_ DEFAULT_1 _1 , 09/19/2021 00:00:00 09/19/2021 11:27:06 [id number] [facility] Internal Med [facility] [address] [place] [address] , [address] [address] 10/14/2021 00:00:00 10/14/2021 14:17:30 [id number] [facility] Pulmonolo gy [facility] [address], [address] [place] [address] 12/08/2021 00:00:00 12/08/2021 16:59:23 [id number] [facility] Internal Med [facility] [address] [place] [address] Ave[address] [address] 01/02/2022 00:00:00 01/02/2022 16:43:07 [id number] [facility] Internal Med [facility] [address] [place] [address] Ave[address] [address] 02/17/2022 00:00:00 02/17/2022 13:44:07 [id number] [facility] Endo [facility] [address] [place] [address], [place] [address] 03/13/2022 00:00:00 03/13/2022 17:21:25 [id number] [facility] Internal Med [facility] [address] [place], [place] [address]e., [address] [address] 1 03/16/2022 00:00:00 03/16/2022 17:11:05 [id number] [facility] Internal Med [facility] [address] [place] [address]., [address] [address] 03/27/2022 00:00:00 03/27/2022 16:59:30 [id number] _ATHENA_M IGRATION_ DEFAULT_1 _1 , 04/30/2022 00:00:00 04/30/2022 21:10:15 [id number] [facility] Internal Med [facility] [address] [place], [place] [address]., [address] [address] 05/29/2022 00:00:00 05/29/2022 17:27:24 [id number] [facility] Internal Med [facility] [address] [place] [address]., [address] [address] 09/07/2022 00:00:00 09/07/2022 15:56:48 [id number] [facility] Endo [facility] [address] [place] [address] [address] 12/31/2022 00:00:00 12/31/2022 20:23:21 [id number] [facility] [address], [address] [address] 01/27/2021 00:00:00 01/27/2021 14:14:30 [id number] [facility] [place] [address], [address] [address] 04/29/2021 00:00:00 04/29/2021 12:06:18 [id number] [facility] [place] [address] [address] 1 05/26/2021 00:00:00 05/26/2021 11:54:31 [id number] [facility] [place] [address] [address] 1 06/25/2021 00:00:00 06/25/2021 12:02:53 [id number] [facility] [place] [address] [address] 07/23/2021 00:00:00 07/23/2021 14:47:39 [id number] [facility] [place] [address] [address] 1 08/27/2021 00:00:00 08/27/2021 16:42:52 [id number] [facility] [place] [address] [address] 1 10/21/2021 00:00:00 10/21/2021 18:54:43 [id number] [facility] [place] [address] [address] [address] 1 12/16/2021 00:00:00 12/16/2021 19:09:50 [id number] [facility] Maddy Corral [address] [address] 1 01/13/2022 00:00:00 01/13/2022 18:47:43 [id number] [facility] Delmi Cor[address] [address] 1 02/10/2022 00:00:00 02/11/2022 15:18:30 [id number] [facility] [address] [place] [address] [address] 04/07/2022 00:00:00 04/07/2022 16:15:17 [id number] [facility] [address] [place] [address] [address] 07/09/2022 00:00:00 07/09/2022 17:17:26 [id number] [facility] [address] [place] [address] [address] 1 10/01/2022 00:00:00 10/01/2022 18:32:40 [id number] [facility] [address] [place] [address] [address] 12/31/2022 00:00:00 12/31/2022 17:17:05 [id number] Kartik Van MD [facility] [address] [place] [address] 01/25/2023 15:43:52 01/26/2023 08:46:57 Atelectasis 55124664 J98.11 Pulmonary embolism 74892 003 I27.24 I26.99 Dyspnea on exertion 6084 5006 R06.09 R05.9 T78.40XA D89.9 Obstructiv e sleep apnea syndrome 01975670 G47.33 [id number] Shakira Lawson NP [facility] [address] [place] [address] [address] 04/19/2023 15:27:48 04/19/2023 15:54:01 [id number] Kartik Van MD [facility] [address] [place] [address] 05/24/2023 11:25:06 05/25/2023 08:45:40 Atelectasis 61940021 J98.11 Obstructiv e sleep apnea syndrome 51431250 G47.33 Moderate c hronic obstructive pulmonary disease 581039118 J44.9 [id number] Becca Tellez MD [facility] Endo William Porras [address] [place] [address] 06/11/2023 11:53:39 06/11/2023 12:50:45 Uncontrolled type 2 diabetes mellitus 193645198 E11.65 a1c of 8.8% up from 7% range off korlym- she will be going for hysterecto my in late June. Continue metformin ER 1000 mg BID, jardiance 25 mg once daily, lantus 24 units daily and titrate by 2 units every 3 days to maintain FBG 90-130. Recommende d GLP1 agonist therapy as she is having trouble at times with cravings of sweets and portion control. 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 She has no hx of pancreatit is or medullary thyroid cancer and is willing to trial on a GLP1 agonist therapy. She was advised to contact clinic if she experience s any nausea, vomiting or significan t thyroid pain / swelling or abdominal pain so we can discuss and discontinu e and potentiall y look to other therapy. Will trial on ozempic 0.25 mg SQ weekly x 4 weeks then increase to 0.5 mg SQ weekly with largest meal of that day as tolerated. Discussed continuing korlym but patient will be undergoing hysterecto my due to endometria l thickness which is a known side effect of korlym- will plan or recommend patient continue this following her hysterecto my. 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 Will work on PA as patient will need an open MRI due to weight gain. Hypothyroidism 66561541 E03.9 Her FT4 is low normal-she has unithroid and encouraged to restart to help with regulation of metabolism and help kickstart weight loss. Spent up to 25 minutes preparing to see the patient (eg, review of tests), obtaining and/or reviewing separately obtained history, performing a medically appropriat e examinatio n and evaluation , counseling and educating the patient, ordering medication s, tests, along with documentin g clinical informatio n in the electronic health record, independen tly interpreti ng results and communicat ing results to the patient. Patient can be followed by PCP - she/he is aware of my resignatio n and last day of August 27. If needed his/her PCP can refer patient to another endocrinol ogist in the area. All questions /concerns answered and refills necessary at visit today. [id number] Shakira Lawson NP [facility] [address] [place] [address] 1 07/14/2023 14:54:54 07/14/2023 15:42:49 [id number] Kartik Van MD [place] [address] 0 08/26/2023 10:07:54 08/27/2023 08:44:36 Atelectasis 94145731 J98.11 Obstructiv e sleep apnea syndrome 58185026 G47.33 Moderate c hronic obstructive pulmonary disease 084754880 J44.9 [id number] Kartik Van [place] [address] 0 11/30/2023 09:51:33 12/01/2023 08:04:15 Atelectasis 90006442 J98.11 Obstructiv e sleep apnea syndrome 94672153 G47.33 Moderate c hronic obstructive pulmonary disease 835438609 J44.9 [id number] Shakira Lawson NP [facility] [address] [place] [address] 12/16/2023 14:28:28 12/16/2023 15:24:29 [id number] Shakira Lawson NP [facility] [address] [place] [address] 03/09/2024 14:28:27 03/09/2024 14:54:52 [id number] Loli Balderrama APRN [facility] Internal Med [facility] [address] [facility], [place] [address] 1 04/06/2024 14:57:30 04/06/2024 15:37:42 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 Hyperlipidemia 73564108 E78.5 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 298706268 E06.3 Type 2 kenny betes mellitus 55599204 E11.9 [id number] Loli Balderrama APRN [facility] Internal Med [facility] [address] [facility], [place] [address] 1 04/13/2024 12:20:52 04/13/2024 13:03:50 Type 2 diabetes mellitus 03966252 E11.9 Hypertriglyceridemia 302 881062 E78.1 Attention deficit hyperactivity disorder 381992266 F90.9 [id number] Shakira Lawson NP [facility] [address] [place] [address] 1 05/30/2024 14:33:13 05/30/2024 14:57:20 [id number] Kartik Van MD [facility] Pulmonolo [facility] [address] [place] [address] 0 06/20/2024 10:39:30 06/21/2024 08:18:58 Atelectasis 85441545 J98.11 Obstructiv e sleep apnea syndrome 66712141 G47.33 Moderate c hronic obstructive pulmonary disease 262322654 J44.9 [id number] Loli Balderrama APRN [facility] Internal Med [facility] [address] [facility], [place] [address] 1 08/08/2024 15:01:44 08/08/2024 15:55:18 Type 2 diabetes mellitus 00665558 E11.9 Hepatitis C screening 41 2084927 Z11.59 Hypertriglyceridemia 302 655748 E78.1 Administra tion of influenza vaccine 31011195 Z23 [id number] Shakira Lawson NP [facility] [address] [place] [address] 08/22/2024 15:14:17 08/22/2024 15:43:48 [id number] Loli Balderrama APRN [facility] Internal Med [facility] [address] [facility] [address] [place] [address] 01/11/2025 08:44:06 01/11/2025 09:10:01 Type 2 diabetes mellitus 73189037 E11.9 Hepatitis C screening 41 2369697 Z11.59 [id number] Loli Balderrama APRN [facility] Internal Med [facility] [address] [facility] [address] [place] [address] 01/24/2025 09:42:56 01/24/2025 10:46:04 Type 2 diabetes mellitus 43466350 E11.9 Hypertriglyceridemia 302 657786 E78.1 Moderate c hronic obstructive pulmonary disease 710916106 J44.9 Attention deficit hyperactivity disorder 594497952 F90.9 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 0261878376 89753 G56.01 Health Concerns Section Related Observation LastModified by Organization Detai ls LastModified Time None Recorded Concern Status LastModified by Organization Details LastModified Time None Recorded Advance Directives Directive N: Payers Encounter Date Sequence Insurance Name Policy Number Policy Verdugo Covered Member ID Verdugo Member ID Guarantor Name 04/13/2024 1 [facility] [employer] Kirsten Hendricks [id number] Kirsten Hendricks 06/20/2024 1 [facility] [employer] Kirstenhaily Hendricks [id number] Kirsten Hendricks 08/08/2024 1 [facility] [employer] Kirstenhaily Hendricks [id number] Kirsten Hendricks 01/11/2025 1 [employer] [id number] Kirsten Hendricks [id number] Kirsten Hendricks 01/24/2025 1 [employer] [id number] Kirsten Hendricks [id number] Kirsten Hendricks Notes Date Note Type Note Provider Name and Address Organization Details Recorded Time text/html Kirsten presents today to follow up on critical labs. High triglycerides and elevated A1C is not conducive, her blood sugars remain above 200 with fasting. 04/06/2024anderson presents today to establish care. She states that she is a little sad because she has to put one of her cats asleep. She does state that her blood sugars are running around 300 and she does not see Dr. Alberto until September. Loli Balderrama APRN [address] [facility], [facility] [address], [place], [address], [place] - [facility] 04/13/2024 13:00:48 4 text/html Primary care/Referring provider: Loli Balderrama APRN CC: I changed insurance in 02/2024. My Advair HFA is no longer covered. My PCP gave me Leisa wallsphere samples as this medication is also non-formulary. Patient is here to go over her asthma/COPD management. Initial development of shortness of breath: 2016Duration of shortness of breath: 8 yearsCondition of shortness of breath: stableTiming of shortness of breath: noneFrequency: up to 7 times a day on a bad day at workLimits activities: yesAggravating factors: walking, going up stairs, sitting to standingAlleviating factors: rest Modified [employer] [place] (mMRC) Dyspnea Scale - Grade 2Grade 0 I only get breathless with strenuous exercise .Grade 1 I get short of breath when hurrying on the level or walking up a slight hill .Grade 2 I walk slower than people of the same age on the level because of breathlessness or have to stop for breath when walking at my own pace on the level .Grade 3 I stop for breath after walking about 100 yards or after a few minutes on the level .Grade 4 I am too breathless to leave the house or I am breathless when dressing . Treatment history: Albuterol HFA as needed since 2015, uses once a month Advair HFA 115/21 mcg 2 puffs BID since 08/2023 Patient's personal best peak flow remains at 280 L/min. Other symptoms:Drooling: noDysarthria: noNeck pain: noOdynophagia: noDysphagia: noWeak mastication: noFacial weakness: noNasal speech: noProtruding tongue: noProductive cough: noWheezing: noChest tightness: yesOrthopnea: noFrequent throat clearing or swallowing: noPalpitations: noHeartburn: noEdema: no Environmental exposures:Nicotine smoke: noPaint: noDye: noDust mites: yesMold: noDamp basement: noWood burning stove: noAnimal dander: 3 catsCockroaches: noPollen: yesArsenic: noAsbestos: noBeryllium: noCadmium: noChromium: noCoal smoke: noDiesel fumes: noNickel: noSilica: noSoot: no During the [facility] diagnostic sleep study on 02/18/18, sleep onset = 10 minutes, REM onset = 86 minutes, AHI = 7, REM AHI = 28. During the [facility] titration sleep study on 04/26/18, sleep onset = 11 minutes, REM onset = 40 minutes. At home since 11/30/23, the patient uses a ResMed AirSense 10 autoset unit with heated humidification. The patient does not need the ramp to start low and go up slowly on the pressure. There is no xerostomia in a.m. There is no hose/mask condensation with water. The patient wears a [employer] small AirFit N30 nasal mask without chin strap. There is no claustrophobia, no nostril/nose bridge irritation, no facial rash, no facial numbness, no nosebleeding. The patient feels more refreshed upon waking and daytime alertness is improved. Energy levels are sustained for the remainder of the day. EPWORTH SLEEPINESS SCALE (ESS) CHANCE OF DOZING SCORE0 = would never doze1 = slight chance of dozing2 = moderate chance of dozing3 = high chance of dozing SITUATION AND CHANCE OF DOZINGSitting and reading - 0Watching television - 0Sitting inactive in a public place (e.g. a theater or meeting) - 0As a passenger in a car for an hour without a break - 0Lying down to rest in the afternoon when circumstances permit - 2Sitting and talking to someone - 0Sitting quietly after lunch without alcohol - 1In a car, while stopped for a few minutes in the traffic - 0TOTAL SCORE 3Subjectively, patient has a slight chance of dozing. Kartik Van MD [address], [place], [address], [facility] 06/20/2024 11:50:21 4 text/html Kirsten presents today for 4 month follow up. She states that her blood sugars are ranging from 100 to 300 sporadically even though she takes her insulins as directed. 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 Discussed her gemfibrozil. 04/13/2024anderson presents today to follow up on critical labs. High triglycerides and elevated A1C is not conducive, her blood sugars remain above 200 with fasting. 04/06/2024anderson presents today to establish care. She states that she is a little sad because she has to put one of her cats asleep. She does state that her blood sugars are running around 300 and she does not see Dr. Alberto until September. Loli Balderrama APRN [address], [place], [address], [employer] 08/10/2024 10:48:46 5 text/html Kirsten presents today for 6 month follow up. She is requesting a referral for endocrinology due to hers leaving. She denies any other illness or injuries. 08/08/2024anderson presents today for 4 month follow up. She states that her blood sugars are ranging from 100 to 300 sporadically even though she takes her insulins as directed. 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 Discussed her gemfibrozil. 04/13/2024anderson presents today to follow up on critical labs. High triglycerides and elevated A1C is not conducive, her blood sugars remain above 200 with fasting. 04/06/2024anderson presents today to establish care. She states that she is a little sad because she has to put one of her cats asleep. She does state that her blood sugars are running around 300 and she does not see Dr. Alberto until September. Loli Balderrama APRN [address], [place], [address], [facility] 01/11/2025 09:06:37 5 text/html Kirsten presents today for ER follow up and blood glucose levels have been in the 400s for the past week. She denies taking any steroids. She denies any recent illness or injuries. She states that she has not completed her labs but will get them done soon. She also states that she has an appointment with endocrinology but it is not until August. 01/11/2025anderson presents today for 6 month follow up. She is requesting a referral for endocrinology due to hers leaving. She denies any other illness or injuries. 08/08/2024anderson presents today for 4 month follow up. She states that her blood sugars are ranging from 100 to 300 sporadically even though she takes her insulins as directed. 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 Discussed her gemfibrozil. 04/13/2024anderson presents today to follow up on critical labs. High triglycerides and elevated A1C is not conducive, her blood sugars remain above 200 with fasting. 04/06/2024anderson presents today to establish care. She states that she is a little sad because she has to put one of her cats asleep. She does state that her blood sugars are running around 300 and she does not see Dr. Alberto until September. Loli Balderrama APRN [address] [facility], [facility] [address], [place], [address], [place] - [facility] [employer] [facility] 01/24/2025 10:14:43 OBGyn Episode No OBEpisode recorded.
--- OUTSIDE RECORDS SUMMARY | 2025-03-13 04:34 | XMS_ITS | Clinical Summary ---
Author Organization [facility] [address] Address [address] [place] [address] Care Team Providers Care Avionics Supervisor Name Role Phone Kartik Van MD Unavailable Chaim Rodriguez MD Unavailable [phone] Jessica Beckwith MD Primary Care Provide r Allergies Active Allergy Reactions Criticality Noted Date [...] 1 tablet (25 mg total) by mouth electrical equipment assembler before breakfast 90 tablet 2 01/20/20 24 [...] 1 tablet (50 mcg total) by mouth electrical equipment assembler before breakfast 90 tablet 2 01/24/20 24 [...] 01/20/2024 Assessment & Plan (01/20/2024 5:16 PM KEY CARRIER): Hba1c was Lab Results Component Value Date [...] placed and connected to her phone via [employer] [place] Patient is also linked to our [...] is doing and to look at her [employer] data Thrombophilia 02/18/2023 Overview (02/18/2023): Unprovoked pulmonary embolus requiring hospitalization at [facility] 12/07/2022 Encounters Date Type Department Care Team Description 02/21/2025 12:00 PM CDT Office Visit [facility] [address] [place] [address] [address] [place] [address] Kermit Bond MD Right carpal tunnel syndrome (Primary Dx) 02/12/2025 10:30 AM CDT Therapy [facility] OP Physical Therapy [address] [place] [address] [address] [place] [address] Carpal tunnel syndrome of right wrist 02/12/2025 8:15 AM CDT Office Visit [facility] [address] [place] [address] [place] [phone] Kermit Bond MD Right wrist pain (Primary Dx); Carpal tunnel syndrome of right wrist; Right carpal tunnel syndrome 02/12/2025 8:05 AM CDT - 02/12/2025 11:59 PM CDT Hospital Encounter [facility] Diag Imaging [address] [place] [address] Right wrist pain Discharge Disposition: Discharge to home or self care from Last 3 Months Immunizations Immunization Administration Dates Next Due DTP [...] (12+ YRS) 09/07/2022,01/21/2021,01/20/2021 OPV 10/21/1994 Tdap 03/15/2014 Surgical History Surgery Date Site/Laterality Comments HYSTERECTOMY TONSILLECTOMY NASAL SEPTUM SURGERY Medical History Medical History Date Comments Pulmonary embolism (HCC) Thrombophilia 02/18/2023 Unprovoked pulmo nary embolus requiring hospitalization at [facility] 12/07/2022 Diabetes mellitus (HCC) Family History Medical History Relation Name Comments Breast cancer Mother Diabetes Other Aunt Relation Name Status Comments Mother Other Aunt Social History Tobacco Use Types Packs/Day Years Used Date Smoking Tobacco: Never Tobacco Cessation:Counseling Given: Not Answered Comments Unknown Sex and Gender Information Value Date Recorded Sex Assigned at Not on file Legal Sex Female 7:57 PM KEY CARRIER Gender Identity Not on file Sexual Orientation Not on file Obstetrics History Last Filed Vital Signs Vital Sign Reading Time Taken Comments Blood Pressure 130/70 01/20/2024 1:40 PM KEY CARRIER Pulse 94 01/20/2024 1:40 PM KEY CARRIER Temperature 36.3 C (97.4 F) 04/22/2023 2:29 PM CDT Respiratory Rate 18 01/20/2024 1:40 PM KEY CARRIER Oxygen Saturation 98% 04/22/2023 2:29 PM CDT Inhaled Oxygen Concentration - - Weight 162.8 kg (358 lb 12.8 oz) 01/20/2024 1:40 PM KEY CARRIER Height 160 cm (5' 3 ) 01/20/2024 1:40 PM KEY CARRIER Body Mass Index 63.56 01/20/2024 1:40 PM KEY CARRIER Plan of Treatment Health Maintenance Due Date Last Done Comments Depression Screening 1990 Hepatitis C Screening 1990 Dilated Eye Exam 1990 Foot Exam 1990 Varicella Vaccines (1 of 2 - 13+ 2-dose series) 2003 Hepatitis B Screening 2008 Regular Well Visit/Exam 18-64 2008 Pneumococcal vaccine <65 (1 of 2 - PCV) 2009 DTaP/Tdap/Td Vaccine (3 - Td or Tdap) 03/15/2024 03/15/2014, 10/21/1994 Albumin Creatinine Ratio, Urine 06/03/2024 06/03/2023 Lipid Panel 06/03/2024 06/03/2023 Covid-19 Vaccine ( season) 2024 09/07/2022, 09/07/2022, 11/11/2021, Additional history exists Hemoglobin A1C 07/22/2024 01/20/2024, 06/03/2023 eGFR 01/19/2025 01/20/2024, 06/15, 04/22/2023, Additional history exists Influenza Vaccine Completed 08/08/2024, , 09/07/2022, Additional history exists HPV Vaccines Aged Out No longer eligi ble based on patient's age to complete this topic Procedures Procedure Name Priority Date/Time Associated Diagnosis Comments VA INJECTION THERAPEUTIC CARPAL TUNNEL Routine 02/21/2025 12:00 PM CDT Right carpal tunnel syndrome XR WRIST RIGHT 3 OR MORE VIEWS Schedule Routine, Read Routine (OP Routine) 02/12/2025 8:09 AM CDT Right wrist pain EGFR Routine 01/20/2024 3:07 PM KEY CARRIER Type 2 diabetes mellitus with hyperglycemia, with long-term current use of insulin (HCC) POCT HEMOGLOBIN A1C Routine 01/20/2024 1 :43 PM KEY CARRIER Type 2 diabetes mellitus with hyperglycemia, with long-term current use of insulin (HCC) LIPID PANEL Routine 06/03/2023 10:25 AM CDT ALBUMIN CREATININE RATIO, URINE Routine 06/03/2023 10:25 AM CDT from Last 3 Months or Most Recently Relevant to Health Maintenance Results * VA INJECTION THERAPEUTIC CARPAL TUNNEL (02/21/2025 12:00 PM CDT) Narrative Kermit Bond MD - 02/21/2025 12:00 PM CDT Kermit Bond MD 02/26/2025 7:26 AM Carpal Tunnel Injection Performed by: Kermit Bond MD Authorized by: Kermit Bond MD Carpal Tunnel Injection: Consent Given [...] signed by Kermit Bond T: Report ID: [id number] Reading Location: [place] [address] Procedure Note Kermit Bond MD - 02/21/2025 [...] signed by Kermit Bond T: Report ID: [id number] Reading Location: [place] [address] Kermit Bond MD IMG XR PROCEDURES Final Result * eGFR (01/20/2024 3:07 PM KEY CARRIER) Pathologist [facility] eGFR 122 mL/min/1. 73 m2 Comment: Interpretive [...] last reviewed 2021. Blood 01/20/2024 3:07 PM KEY CARRIER 01/20/2024 5:58 PM KEY CARRIER Shanna Alberto MD LAB BLOOD ORDERABLES Final Resul t [id number] [place] [address] * (ABNORMAL) POCT hemoglobin A1c (01/20/2024 1:43 PM KEY CARRIER) Pathologist [facility] Hemoglobin A1C, POC 11.5 % Blood spot 01/20/2024 1:43 PM KEY CARRIER Shanna Alberto MD POINT OF CARE TEST ORDERABLES Fi nal Result * (ABNORMAL) Albumin Creatinine Ratio, Urine (06/03/2023 10:25 AM CDT) Pathologist [facility] SCRIBED Creatinine, Urine 86.43 NA - NA EXTERNAL LAB SCRIBED Microalbumin <6.0 NA - NA EXTERNAL LAB SCRIBED Microalb/Creat Ratio DNR 0 - 29 EXTERNAL LAB Urine 06/03/2023 10:2 5 AM CDT Historical Provider MD LAB URINE ORDERABLES Edit ed Result - Final EXTERNAL LAB * Lipid panel (06/03/2023 10:25 AM CDT) SCRIBED Cholesterol, Total 142 140 - 199 EXTERNAL LAB SCRIBED HDL 46 40 - NA EXTERNAL LAB SCRIBED LDL 67 0 - 130 EXTERNAL LAB SCRIBED Triglycerides 146 0 - 150 EXTERNAL LAB Blood 06/03/2023 10:2 5 AM CDT Historical Provider MD LAB BLOOD ORDERABLES Edit ed Result - Final EXTERNAL LAB from Last 3 Months or Most Recently Relevant to Health Maintenance Insurance [facility] [place] [place] [facility]/PPO Address: [address] [address] [facility] HMO/PPO Address: [address] [address] Care Teams Avionics Supervisor Relationship Specialty Start Date End Date Jessica Beckwith MD [address] [place] [address] PCP - General Internal Medicine 02/12/25 Kartik Van MD [address] [place] [address] Internal Medicine 02/18/23 Chaim Rodriguez MD [address] [place] [address] Medical Oncologist/Tooler Hematology and Oncology 04/22/23
--- OUTSIDE RECORDS SUMMARY | 2025-03-13 04:34 | XMS_ITS | Patient Health Record ---
Author Organization [facility] Address [address] [address] Care Team Providers Care Construction Project Manager Name Role Phone Becca Tellez Primary Care Provider Migration, Provider Unavailable Unavailable Allergies Allergen (clinical drug ingredient) Drug/Non Drug Allergy documented on EMR Reaction Allergy Type Onset Date Status promethazine Phenergan Unknown Drug Allergy Acti ve amoxicillin Amoxicillin Unknown Drug Allergy Act fabián Reason For Referral No Information Medications Medication SIG (Take, Route, Frequency, Duration) Notes Start Date End Date Status Rosuvastatin Calcium 40 MG 1 tablet Orally every other day at bedtime for 90 days 10/09/2024 Active FreeStyle Forrest 3 Plus Sensor - change sensor every 15 days for 90 days 10/09/2024 Active FreeStyle Forrest 3 Plus Sensor - change sensor every 15 days for 90 days 10/06/2024 Active Insulin Lispro *Please review a nd [...] discontinue and re-order from Quick Search* Active Spironolactone 50 MG 2 tab(s) orally daily for 90 days 08/14/2024 Active metFORMIN HCl ER (MOD) 1000 MG 1 tab(s) orally once a day Active dexAMETHasone 1 MG 1 tab(s) orally at 10 pm night before 8 am cortisol for 1 days 08/14/2024 Active Problems Problem Type SNOMED Code ICD Code Onset Dates Problem Status W/U Status Risk Notes Problem Vitamin D deficiency (74347783) Vitamin D deficiency, unspecified (E55.9) Active confirmed Problem Hyperglycemia due to type 2 diabetes mellitus (588684858053437) Type 2 diabetes mellitus with hyperglycemia (E11.65) Active confirmed Problem Hyperlipidemia (83298987) Hyperlipidemia, unspecified (E78.5) Active confirmed Problem Essential hypertension (38484156) Essential (primary) hypertension (I10) Active confirmed Problem Obesity (897654408) Obesity, unspecified (E66.9) Active confirmed 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, 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 Vital Signs Heart Rate 80 /min 10/09/2024 Respiratory Rate 12 /min 10/09/2024 Blood pressure diastolic 82 mm Hg 10/09/2024 Height 63 in 10/09/2024 Blood pressure systolic 124 mm Hg 10/09/2024 Weight 370 lbs 10/09/2024 BMI 65.54 kg/m2 10/09/2024 Encounters Encounter Location Date Provider Diagnosis [facility] [address] [place] [address] 09/30/2024 Provider Migration Duluth's syndrome, 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 [facility] [address] [place] [address] 08/14/2024 Becca Tellez Type 2 diabetes mellitus with hyperglycemia E11.65 ; Joan's syndrome, 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 ; Other fatigue R53.83 ; Vitamin D deficiency, unspecified E55.9 and Encounter for screening for lipoid disorders Z13.220 [facility] [employer] [address] [place] [address] 09/04/2024 [facility] [address] [address] [place] [address] 09/08/2024 Becca Tellez [facility] [address] [place] [address] 09/19/2024 Becca Tellez [facility] - Becca Tellez [address] [place] [address] 09/21/2024 Becca Tellez [facility] [address] [place] [address] 10/06/2024 Becca Tellez Type 2 diabetes mellitus with hyperglycemia E11.65 [facility] [address] [place] [address] 10/09/2024 Becca Geoff [facility] - Becca Tellez [address] [place] [address] 10/09/2024 Becca Tellez Type 2 diabetes mellitus with hyperglycemia E11.65 ; Joan's syndrome, 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 ; Vitamin D deficiency, unspecified E55.9 ; Essential (primary) hypertension I10 ; Obesity, unspecified E66.9 and Hyperlipidemia, unspecified E78.5 Assessments Encounter Date Diagnosis (ICD Code) Assessment Notes Treatment Notes Treatment Clinical Notes Section Notes 09/30/2024 Duluth's syndrome, 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 She is on rapid insulin only and insurance will not cover basal/it is too costly for patient. Recommended she restart her lantus as she has a few boxes that are not at home. Start at 18 units in morning and 20 units at bedtime and increase by 4 units every 3 days until fasting glucose 90-130 mg/dL. Continue metformin for insulin sensitization. 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 She has gained over 100 pounds since coming off ASOCS-she was down to 215 pounds 2 years ago when being properly treated for cushings syndrome. 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 She has evidence of weight gain, mood changes/lability/anx iety, insomnia (unable to stay asleep), and hyperglycemia with poorly controlled type 2 DM (A1C over 10%). Her ACTH and DHEAS levels are low suggestive of adrenal source however her CT scan did not show any evidence of adrenal tumor or hyperplasia however cuts were likely too large to get an adequate view. Will repeat these levels to see if imaging necessary. Due to her symptoms and risk for worsening hyperglycemia to DM, bone loss, mood changes and weight gain recommended she consider treatment. [place] therapy would be mifepristone as this is a reversible cortisol receptor blake which further helps reduce hyperglycemia/metabo lic syndrome but is also a progesterone antagonist and mineralocorticoid agonist as well (will lead to hypertension and hypokalemia)- in such case patient has hysterectomy so this is not a SE we will need to be concerned of at this time. We will be treating patient concurrently with spironolactone to compensate for the hypokalemia. She is aware of these side effects and interested in therapy and seems to feel the cortisol is a problem with all the noted symptoms and diagnoses. 10/06/2024 Type 2 diabetes mellitus with hyperglycemia (ICD-10 - E11.65) 10/09/2024 Type 2 diabetes mellitus with hyperglycemia (ICD-10 - E11.65) 10/09/2024 Duluth's syndrome, 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) 08/14/2024 Other fatigue (ICD-10 - R53.83) WIll send for thyroid antibodies to screen for autoimmune thyroid disease in adition to CBC, CMP, ferritin, vit D and B12/folate to screen for other potential secondary causes of fatigue. 10/09/2024 Vitamin D deficiency, unspecified (ICD-10 - E55.9) 08/14/2024 Vitamin D deficiency, unspecified (ICD-10 - E55.9) send for vit D to screen for def/ goal of 50 ng/ML to optimize bone and immune health- deficient in past. 10/09/2024 Essential (primary) hypertension (ICD-10 - I10) 08/14/2024 Encounter for screening for lipoid disorders (ICD-10 - Z13.220) send for lipid panel. 10/09/2024 Obesity, unspecified (ICD-10 - E66.9) 10/09/2024 Hyperlipidemia, unspecified (ICD-10 - E78.5) 08/14/2024 Other Spent 60 minute s preparing to see the patient (ex review of tests/chart), obtaining and / or reviewing separately obtained history, performing a medically appropriate examination and/or evaluation, counseling and educating the patient/family/careg iver, ordering medications, tests, or procedures, referring and communicating with other health career discovery teacher, documenting clinical information in the electronic or other health record, independently interpreting results and communicating results to the patient/family/careg iver and care coordinating patient plan. Patient alert and oriented x 4 and aware of discussion noted above and in agreeance to plan in management of type 2 DM/uncontrolled, cushings syndrome, hypertension, fatigue, encounter need for lipid testing/screening. 10/09/2024 Other Assessment and Plan: 1. Diabetes Mellitus Type 2- Patient reports blood sugars staying under 300.- Currently taking 20 units of long-acting insulin before bed, 20 units upon waking up, and 16 units of fast-acting insulin before meals (total 84 units/day).- Plan: Sent Vivatystyle Forrest 3 Plus Sensor to [facility] for better glucose monitoring. Encourage patient to titrate insulin as needed and continue metformin. 2. Hyperlipidemia- Patient currently taking gemfibrozil.- Previously on statins but not recently.- Plan: Prescribed rosuvastatin, to be taken every other day at bedtime. Monitor lipid levels in upcoming lab work. 3. 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 Patient alert [...] all questions were answered. Plan Of Treatment No Information Insurance Providers Payer Name Payer Address Payer Phone Subscriber Number Group Number Insured Name Patient Relationship to Insured Coverage Start Date Coverage End Date [facility] [address] [place] [address] [id number] Kirsten Del Castillo Self - patient is the insured Medical (General) History Medical History History ICD Code diabetes COPD depression Surgical History Surgery Date(Month/Year) turbinectomy septioplasty tonsilectomy hysterectomy 2022 Hospitalization History Reason Date(Month/Year) pericarditits 2022 blood clot 2022
--- NOTE | 2025-03-13 05:28 | PC.NURSE ---
Patient to desk stating leg pain is gone at this time, will follow up with PCP and is going to leave at this.
--- OUTSIDE RECORDS SUMMARY | 2025-03-13 05:34 | XMS_ITS | Clinical Summary ---
Author Organization [facility] Address [address] [place] [address] Care Team Providers Care Auxiliary Powerplant Operator Name Role Phone Raul Dan MD Primary Care Provider [phone] Source Comments [facility],non-owned Affiliates and Associated Physician Practices is amultiple site organization consisting of ambulatory clinics and hospital sitesin [place], [place], [place] and [place]. This disclosure is being madepursuant to the Care Everywhere program and may not contain all information available regarding this patient. Last updated 18.[facility] Allergies Active Allergy Reactions Criticality Noted Date [...] on file Legal Sex Female 5:42 AM CUT PRESS OPERATOR Gender Identity Not on file Sexual Orientation Not on file Last Filed Vital Signs Vital Sign Reading Time Taken Comments Blood Pressure 151/86 09/29/2019 3:05 PM CUT PRESS OPERATOR Pulse 110 09/29/2019 3:05 PM CUT PRESS OPERATOR Temperature 37 C (98.6 F) 09/29/2019 3:05 PM CUT PRESS OPERATOR Respiratory Rate 18 09/29/2019 3:05 PM CUT PRESS OPERATOR Oxygen Saturation 96% 09/29/2019 3:05 PM CUT PRESS OPERATOR Inhaled Oxygen Concentration - - Weight 117.8 kg (259 lb 9.6 oz) 09/29/2019 3:05 PM CUT PRESS OPERATOR Height 160 cm (5' 3 ) 09/29/2019 3:05 PM CUT PRESS OPERATOR Body Mass Index 45.99 09/29/2019 3:05 PM CUT PRESS OPERATOR Plan of Treatment Health Maintenance Due Date [...] Management General On track( 019 3:32 PM CUT PRESS OPERATOR) Martin Brewer, RN Note: Expected end date: [...] Most Recently Relevant to Health Maintenance Insurance [facility] Care Teams Auxiliary Powerplant Operator Relationship Specialty Start Date End Date Raul Dan MD [address] [place] [phone] PCP - General 02/07/19
--- OUTSIDE RECORDS SUMMARY | 2025-03-13 05:34 | XMS_ITS | Referral Summary ---
Author Organization [facility] [place] [address] Address [address] [place] [address] Care Team Providers Care Funeral Workers Name Role Phone Kartik Van MD Unavailable Chaim Rodriguez MD Unavailable [phone] Jessica Beckwith MD Primary Care Provide r Encounters Date Type Department Care Team Description 02/21/2025 12:00 PM CDT Office Visit [facility] Medical [facility] Hand Surgery [address] [place] [address] [place] [phone] Kermit Bond MD Right carpal tunnel syndrome (Primary Dx) 02/12/2025 10:30 AM CDT Therapy [facility] OP Physical Therapy [address] [place] [address] Carpal tunnel syndrome of right wrist 02/12/2025 8:05 AM CDT - 02/12/2025 11:59 PM CDT Hospital Encounter [facility] Diag Imaging [address] [place] [address] Right wrist pain Discharge Disposition: Discharge to home or self care 02/12/2025 8:15 AM CDT Office Visit [facility] Medical [facility] Hand Surgery [address] [place] [address] [place] [phone] Kermit Bond MD Right wrist pain (Primary [...] 1 tablet (25 mg total) by mouth associate agent insurance sales before breakfast 90 tablet 2 01/20/20 24 [...] 1 tablet (50 mcg total) by mouth associate agent insurance sales before breakfast 90 tablet 2 01/24/20 24 [...] 01/20/2024 Assessment & Plan (01/20/2024 5:16 PM MARINE ARCHITECT): Hba1c was Lab Results Component Value Date [...] placed and connected to her phone via Wantr George Patient is also linked to our [...] is doing and to look at her Wantr data Thrombophilia 02/18/2023 Overview (02/18/2023): Unprovoked pulmonary embolus requiring hospitalization at [facility] 12/07/2022 Immunizations Immunization Administration Dates Next Due [...] on file Legal Sex Female 7:57 PM MARINE ARCHITECT Gender Identity Not on file Sexual Orientation Not on file Last Filed Vital Signs Vital Sign Reading Time Taken Comments Blood Pressure 130/70 01/20/2024 1:40 PM MARINE ARCHITECT Pulse 94 01/20/2024 1:40 PM MARINE ARCHITECT Temperature 36.3 C (97.4 F) 04/22/2023 2:29 PM CDT Respiratory Rate 18 01/20/2024 1:40 PM MARINE ARCHITECT Oxygen Saturation 98% 04/22/2023 2:29 PM CDT Inhaled Oxygen Concentration - - Weight 162.8 kg (358 lb 12.8 oz) 01/20/2024 1:40 PM MARINE ARCHITECT Height 160 cm (5' 3 ) 01/20/2024 1:40 PM MARINE ARCHITECT Body Mass Index 63.56 01/20/2024 1:40 PM MARINE ARCHITECT Plan of Treatment Not on file Procedures Procedure Name Priority Date/Time Associated Diagnosis Comments [place] INJECTION THERAPEUTIC CARPAL TUNNEL Routine 02/21/2025 12:00 PM CDT Right carpal tunnel syndrome XR WRIST RIGHT 3 OR MORE VIEWS Schedule Routine, Read Routine (OP Routine) 02/12/2025 8:09 AM CDT Right wrist pain EGFR Routine 01/20/2024 3:07 PM MARINE ARCHITECT Type 2 diabetes mellitus with hyperglycemia, with long-term current use of insulin (HCC) POCT HEMOGLOBIN A1C Routine 01/20/2024 1 :43 PM MARINE ARCHITECT Type 2 diabetes mellitus with hyperglycemia, with long-term current use of insulin (HCC) LIPID PANEL Routine 06/03/2023 10:25 AM CDT ALBUMIN CREATININE RATIO, URINE Routine 06/03/2023 10:25 AM CDT from Last 3 Months or Most Recently Relevant to Health Maintenance Results * [place] INJECTION THERAPEUTIC CARPAL TUNNEL (02/21/2025 12:00 PM [...] signed by Kermit Bond T: Report ID: [id number] Reading Location: [place] [address] Procedure Note Kermit Bond MD - 02/21/2025 [...] by Kermit Bond TL T: Report ID: [id number] Reading Location: [place] [address] Kermit Bond MD IMG XR PROCEDURES Final Result * eGFR (01/20/2024 3:07 PM MARINE ARCHITECT) eGFR 122 mL/min/1. 73 m2 Comment: Interpretive [...] last reviewed 2021. Blood 01/20/2024 3:07 PM MARINE ARCHITECT 01/20/2024 5:58 PM MARINE ARCHITECT Shanna Alberto MD LAB BLOOD ORDERABLES Final Resul t [id number] Department [place] [address] * (ABNORMAL) POCT hemoglobin A1c (01/20/2024 1:43 PM MARINE ARCHITECT) Hemoglobin A1C, POC 11.5 % Blood spot 01/20/2024 1:43 PM MARINE ARCHITECT Shanna Alberto MD POINT OF CARE TEST [...] Most Recently Relevant to Health Maintenance Insurance [facility] PLAN [place] [id number] [facility] Care Teams Funeral Workers Relationship Specialty Start Date End Date Jessica Beckwith MD [address] [place] [address] PCP - General Internal Medicine 02/12/25 Kartik Van MD [address] [facility] [address] [place] [address] Internal Medicine 02/18/23 Chaim Rodriguez MD [address] [facility] [address] [place] [address] Medical Oncologist/Oil Burner Technician Hematology and Oncology 04/22/23
--- OUTSIDE RECORDS SUMMARY | 2025-03-13 05:34 | XMS_ITS | Clinical Summary ---
Author Organization [facility] [place] [address] Address [address] [place] [address] Care Team Providers Care Seo Associate Name Role Phone Kartik Van MD Unavailable Chaim Rodriguez MD Unavailable [phone] Jessica Beckwith MD Primary Care Provide [...] 1 tablet (25 mg total) by mouth vice president financial before breakfast 90 tablet 2 01/20/20 24 [...] 1 tablet (50 mcg total) by mouth vice president financial before breakfast 90 tablet 2 01/24/20 24 [...] 01/20/2024 Assessment & Plan (01/20/2024 5:16 PM MANAGER TECHNICAL SERVICES): Hba1c was Lab Results Component Value Date [...] placed and connected to her phone via [email or web address] George Patient is also linked to our [...] is doing and to look at her [email or web address] data Thrombophilia 02/18/2023 Overview (02/18/2023): Unprovoked pulmonary embolus requiring hospitalization at [facility] 12/07/2022 Encounters Date Type Department Care Team Description 02/21/2025 12:00 PM CDT Office Visit [facility] Medical [facility] Hand Surgery [address] [place] [address] [address] [place] [address] Kermit Bond MD Right carpal tunnel syndrome (Primary Dx) 02/12/2025 10:30 AM CDT Therapy [facility] OP Physical Therapy [address] [place] [address] [address] [place] [address] Carpal tunnel syndrome of right wrist 02/12/2025 8:15 AM CDT Office Visit [facility] Medical [facility] Hand Surgery [address] [place] [address] [place] [phone] Kermit Bond MD Right wrist pain (Primary Dx); Carpal tunnel syndrome of right wrist; Right carpal tunnel syndrome 02/12/2025 8:05 AM CDT - 02/12/2025 11:59 PM CDT Hospital Encounter [facility] Diag Imaging [address] [place] [address] Right wrist pain Discharge Disposition: Discharge to [...] Unprovoked pulmo nary embolus requiring hospitalization at [facility] 12/07/2022 Diabetes mellitus (HCC) Family History Medical History Relation Name Comments Breast cancer Mother Diabetes Other Aunt Relation Name Status Comments Mother Other Aunt Social History Tobacco Use Types Packs/Day Years Used Date Smoking Tobacco: Never Tobacco Cessation:Counseling Given: Not Answered Comments Unknown Sex and Gender Information Value Date Recorded Sex Assigned at Not on file Legal Sex Female 7:57 PM MANAGER TECHNICAL SERVICES Gender Identity Not on file Sexual Orientation Not on file Obstetrics History Last Filed Vital Signs Vital Sign Reading Time Taken Comments Blood Pressure 130/70 01/20/2024 1:40 PM MANAGER TECHNICAL SERVICES Pulse 94 01/20/2024 1:40 PM MANAGER TECHNICAL SERVICES Temperature 36.3 C (97.4 F) 04/22/2023 2:29 PM CDT Respiratory Rate 18 01/20/2024 1:40 PM MANAGER TECHNICAL SERVICES Oxygen Saturation 98% 04/22/2023 2:29 PM CDT Inhaled Oxygen Concentration - - Weight 162.8 kg (358 lb 12.8 oz) 01/20/2024 1:40 PM MANAGER TECHNICAL SERVICES Height 160 cm (5' 3 ) 01/20/2024 1:40 PM MANAGER TECHNICAL SERVICES Body Mass Index 63.56 01/20/2024 1:40 PM MANAGER TECHNICAL SERVICES Plan of Treatment Health Maintenance Due Date [...] Procedure Name Priority Date/Time Associated Diagnosis Comments ID INJECTION THERAPEUTIC CARPAL TUNNEL Routine 02/21/2025 12:00 PM CDT Right carpal tunnel syndrome XR WRIST RIGHT 3 OR MORE VIEWS Schedule Routine, Read Routine (OP Routine) 02/12/2025 8:09 AM CDT Right wrist pain EGFR Routine 01/20/2024 3:07 PM MANAGER TECHNICAL SERVICES Type 2 diabetes mellitus with hyperglycemia, with long-term current use of insulin (HCC) POCT HEMOGLOBIN A1C Routine 01/20/2024 1 :43 PM MANAGER TECHNICAL SERVICES Type 2 diabetes mellitus with hyperglycemia, with long-term current use of insulin (HCC) LIPID PANEL Routine 06/03/2023 10:25 AM CDT ALBUMIN CREATININE RATIO, URINE Routine 06/03/2023 10:25 AM CDT from Last 3 Months or Most Recently Relevant to Health Maintenance Results * ID INJECTION THERAPEUTIC CARPAL TUNNEL (02/21/2025 12:00 PM [...] signed by Kermit Bond T: Report ID: [id number] Reading Location: [place] [address] Procedure Note Kermit Bond MD - 02/21/2025 [...] signed by Kermit Bond T: Report ID: [id number] Reading Location: [place] [address] Kermit Bond MD IMG XR PROCEDURES Final Result * eGFR (01/20/2024 3:07 PM MANAGER TECHNICAL SERVICES) Pathologist [facility] eGFR 122 mL/min/1. 73 [...] last reviewed 2021. Blood 01/20/2024 3:07 PM MANAGER TECHNICAL SERVICES 01/20/2024 5:58 PM MANAGER TECHNICAL SERVICES Shanna Alberto MD LAB BLOOD ORDERABLES Final Resul t [id number] [place] [address] * (ABNORMAL) POCT hemoglobin A1c (01/20/2024 1:43 PM MANAGER TECHNICAL SERVICES) Pathologist [facility] Hemoglobin A1C, POC 11.5 % Blood spot 01/20/2024 1:43 PM MANAGER TECHNICAL SERVICES Shanna Alberto MD POINT OF CARE TEST [...] Most Recently Relevant to Health Maintenance Insurance [facility] PLAN [place] [facility] Care Teams Seo Associate Relationship Specialty Start Date End Date Jessica Beckwith MD [address] [place] [address] PCP - General Internal Medicine 02/12/25 Kartik Van MD [address] [place] [address] Internal Medicine 02/18/23 Chaim Rodriguez MD [address] [place] [address] Medical Oncologist/Strap Machine Operator [facility] H[facility] On[facility] 04/22/23
--- OUTSIDE RECORDS SUMMARY | 2025-03-13 05:34 | XMS_ITS | CONTINUITY OF CARE DOCUMENT ---
Author Name radha garcia Address Unknown Organization [facility] Address [address] [facility] [address] [place] [address] Phone [phone] Care Team Providers Care Senior Electrical Design Engineer Name Role Phone Jorge MINOR, Janet Unavailable [phone] THAIS MAYBERRY Unavailable [phone] THAIS MAYBERRY Unavailable [phone] INSURANCE PROVIDERS Payer name Policy type / Coverage type Lynne red libertarian [place] [employer] MEDICAID Medicaid [id number]
--- OUTSIDE RECORDS SUMMARY | 2025-03-13 05:34 | XMS_ITS | Clinical Summary ---
Author Organization [facility] Address [facility] [place] [address] Care Team Providers Care Entry Level Management Name Role Phone Natalya Diaz KENNY Primary Care Provider [phone] Social History Tobacco Use Types Packs/Day Years [...] complete this topic Insurance FARMER Care Teams Entry Level Management Relationship Specialty Start Date End Date Natalya Diaz NP [address] [address] PCP - General NURSE PRACTITIONER 07/09/22
--- OUTSIDE RECORDS SUMMARY | 2025-03-13 05:34 | XMS_ITS | Continuity of Care Document ---
Author Organization [facility] Address [address] [place] [address] [address] [place] [address] Phone Care Team Providers Care Tread Tuber Machine Operator Name Role Phone Guy MS, OTR/L, CHT, Riccardo Unavailable Melia vailable Procedures Procedure Date OT EVALUATION THERAPEUTIC EXERCISES ORTHOTIC FITTING CoBan 1 inch Sterile Gauze Roll Digit based Advance Directives Directive Yes / No Effective Date File Name No Information Encounters Encounter Description Practice Location Reason(s) For Visit Diagnoses Date Provider Providers Copied on Encounter [facility], [address] [place], [place] [address] [address], [place], [place], [id number], [place] tel:[phone] [place] Pain in joint involving hand Guy Gu. [address] [facility], [address], [place], [address], . tel:[phone] Referring Provider: Car Gomez, [address] [facility] [address], [place], [address]. tel:[phone] Family History Family Member Type Diagnosis Age At Onset No Information Payers Payer name Insurance type Covered libertarian ID Authornorrisa rodrigue(s) [employer] [facility] [id number] Social History Type Description Quantity Date Captured [...]
== END 2025-03-13 05:56 | disposition left against medical advice (07) ==
PROVIDERS: PCP Internal Medicine
DX: M79.662 Pain in left lower leg (principal)
CPT/HCPCS: 99199

== ENCOUNTER 2025-06-21 19:02 | Emergency (ER) | payer OTHER, SELFPAY ==
--- OUTSIDE RECORDS SUMMARY | 2025-06-21 19:04 | XMS_ITS | Patient Health Record ---
Author Organization [employer] [facility] Address [address] [address] Care Team Providers Care Freight Associate Name Role Phone Becca Tellez Primary Care [...] Status Risk Notes Problem Vitamin D deficiency (92480918) Vitamin D deficiency, unspecified (E55.9) Active confirmed Problem Hyperglycemia due to type 2 diabetes mellitus (210313254055996) Type 2 diabetes mellitus with hyperglycemia (E11.65) Active confirmed Problem Hyperlipidemia (10401989) Hyperlipidemia, unspecified (E78.5) Active confirmed Problem Essential hypertension (47652630) Essential (primary) hypertension (I10) Active confirmed Problem Obesity (627623576) Obesity, unspecified (E66.9) Active confirmed 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, 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65 ; Joan's syndrome, 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 ; Other fatigue R53.83 ; Vitamin D deficiency, unspecified E55.9 and Encounter for screening for lipoid disorders Z13.220 [employer] [facility] [employer] [address] [place] [address] 09/04/2024 [facility] [address] [place] [address] 09/08/2024 Becca Tellez [facility] [address] [place] [address] 09/19/2024 Becca Tellez [facility], [facility] - Becca Tellez [address] [place] [address] 09/21/2024 Becca Tellez [employer] [facility] [address] [place] [address] 10/06/2024 Becca Tellez Type 2 diabetes mellitus with hyperglycemia E11.65 [facility] [address] [place] [address] 10/09/2024 Becca Geoff [facility], [facility] - Becca Tellez [address] [place] [address] 10/09/2024 Becca Tellez Type 2 diabetes mellitus with hyperglycemia E11.65 ; Joan's syndrome, 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 ; Vitamin D deficiency, unspecified E55.9 ; Essential (primary) hypertension I10 ; Obesity, unspecified E66.9 and Hyperlipidemia, unspecified E78.5 Assessments Encounter Date Diagnosis (ICD Code) Assessment Notes Treatment Notes Treatment Clinical Notes Section Notes 09/30/2024 Russellville's syndrome, 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) 08/14/2024 Type [...] gained over 100 pounds since coming off [employer]-she was down to 215 pounds 2 years ago when being properly treated for cushings syndrome. 08/14/2024 Russellville's syndrome, 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) Patient had [...] and weight gain recommended she consider treatment. [place] therapy would be mifepristone as this is [...] mellitus with hyperglycemia (ICD-10 - E11.65) 10/09/2024 Russellville's syndrome, 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) 08/14/2024 Other [...] procedures, referring and communicating with other health nursing care partner, documenting clinical information in the electronic or [...] before meals (total 84 units/day).- Plan: Sent [employer] Forrest 3 Plus Sensor to [facility] for better glucose monitoring. Encourage patient to titrate insulin as needed and continue metformin. 2. Hyperlipidemia- Patient currently taking gemfibrozil.- Previously on statins but not recently.- Plan: Prescribed rosuvastatin, to be taken every other day at bedtime. Monitor lipid levels in upcoming lab work. 3. Russell[place]'s Syndrome (suspected)- Patient not yet on Korlym.- [...] the beginning of the year, still through [place].- Plan: Ensure proper coordination of care and [...] procedures, referring and communicating with other health nursing care partner, documenting clinical information in the electronic or [...] Insured Coverage Start Date Coverage End Date [facility] [address] [place] [address] [id number] Kirsten Del Castillo Self - patient is the insured Medical (General) History Medical History History ICD Code diabetes COPD depression Surgical History Surgery Date(Month/Year) turbinectomy septioplasty tonsilectomy hysterectomy 2022 Hospitalization History Reason Date(Month/Year) pericarditits 2022 blood clot 2022
--- OUTSIDE RECORDS SUMMARY | 2025-06-21 19:04 | XMS_ITS ---
Author Organization [employer] [facility] Address [address] [address] Care Team Providers Care Soft Iron Inspector Name Role Phone Becca Tellez Primary Care Provider REASON FOR VISIT 6 week f/u anamaria Encounters Encounter Location Date Provider Diagnosis [facility], [facility] - Becca Tellez [address] [place] [address] 11/17/2024 Becca Tellez Plan Of Treatment No Information Progress Notes * SINTIAMARTINKirsten DANIELSDOB:[birth year] (35 yo F)Acc No.[id number]:11/17/2024 Progress Notes Patient: Kirsten ONOFRE Provider: Mike Tellez MD :1990 A ge:34 Y S ex:Female Date:11/17/2024 Address:[address] [place], [place] [address] Subjective: * Chief Complaints: * 1 . 6 week f/u anamaria. * Medical History: Objective: * Vitals: Assessment: Plan: * Treatment: * Billing Information: * Visit Code: * Procedure Codes: * Electronic signature of Mo Tellez MD on 06/21/2025 at 07:03 PM CDT Sign off status: Pending * Provider: Mike Tellez MD Date: 11/17/2024 Generated for Maryi ng/Fanataliiag/eTransmitting on: 0 06/21/2025 07:03 PM CDT
--- OUTSIDE RECORDS SUMMARY | 2025-06-21 19:04 | XMS_ITS | Patient Health Record ---
Author Organization [facility] Address [address] [place] [id number] Care Team Providers Care Director Of Student Financial Services Name Role Phone Becca Tellez Primary Care Provider [phone] Migration, Provider Unavailable Unavailable Allergies Allergen (clinical drug ingredient) Drug/Non Drug Allergy documented on EMR Reaction Allergy Type Onset Date Status amoxicillin Amoxicillin Unknown Drug Allergy Act fabián promethazine Phenergan Unknown Drug Allergy Acti ve Reason For Referral No Information Medications Medication SIG (Take, Route, Frequency, Duration) Notes Start Date End Date Status Spironolactone 50 MG Tablet 2 tab(s) orally daily; Duration: 90 days 08/14/2024 Active metFORMIN HCl ER (MOD) 1000 MG Tablet Extended Release 24 Hour 1 tab(s) orally once a day Active Sertraline HCl *Please review a nd pick correct strength-formulati on from PictureMenuspan options. If intended option is not shown, discontinue and re-order from Quick Search* *Pick strength-form from Eureksteran for eRX* Active FreeStyle Forrest 3 Plus Sensor - Miscellaneous change sensor every 15 days; Duration: 90 days 10/09/2024 Active Rosuvastatin Calcium 40 MG Tablet 1 tablet Orally every other day at bedtime; Duration: 90 days 10/09/2024 Active FreeStyle Forrest 3 Plus Sensor - Miscellaneous change sensor every 15 days; Duration: days 10/06/2024 Active dexAMETHasone 1 MG Tablet 1 tab(s) orally at 10 pm night before 8 am cortisol; Duration: days 08/14/2024 Active Abilify *Please review a nd pick correct strength-formulati on from PictureMenuspan options. If intended option is not shown, discontinue and re-order from Quick Search* *Pick strength-form from Medispan for eRX* Active Gemfibrozil *Please review a nd pick correct strength-formulati on from Medispan options. If intended option is not shown, discontinue and re-order from Quick Search* *Pick strength-form from Medispan for eRX* Active Vitamin D3 *Please review [...] *Pick strength-form from Medispan for eRX* Active Social History Social History Additional Details Category Social Info Options Details Migrated Social History Migrated Social History (Alcohol:):yes rarely (Recreational drug use:):no (Smoking:):no Section Notes: Caffeine: daily energy drink s Problems Problem Type SNOMED Code ICD Code Onset Dates Problem Status W/U Status Risk Notes Problem Hyperglycemia due to type 2 diabetes mellitus (871108366573214) Type 2 diabetes mellitus with hyperglycemia (E11.65) Active confirmed Problem Joan's syndrome (09231893) Rosebush's syndrome, 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 Problem Vitamin D deficiency (48374879) Vitamin D deficiency, unspecified (E55.9) Active confirmed Problem Obesity (151903094) Obesity, unspecified (E66.9) Active confirmed Problem Essential hypertension (50053615) Essential (primary) hypertension (I10) Active confirmed Problem Hyperlipidemia (73295787) Hyperlipidemia, unspecified (E78.5) Active confirmed Vital Signs Heart Rate 80 /min 10/09/2024 Respiratory Rate 12 /min 10/09/2024 Blood pressure diastolic 82 mm Hg 10/09/2024 Height 63 in 10/09/2024 Blood pressure systolic 124 mm Hg 10/09/2024 Weight 370 lbs 10/09/2024 BMI 65.54 kg/m2 10/09/2024 Encounters Encounter Location Date Provider Diagnosis [address] [id number] 09/30/2024 Provider Migration Joan's syndrome, 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 Tellez [address] [place] [phone] 08/14/2024 Becca Tellez Type 2 diabetes mellitus with hyperglycemia E11.65 ; Joan's syndrome, 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 ; Other fatigue R53.83 ; Vitamin D deficiency, unspecified E55.9 and Encounter for screening for lipoid disorders Z13.[address] Tellez [address] [place] [phone] 10/09/2024 Becca Tellez Type 2 diabetes mellitus with hyperglycemia E11.65 ; Joan's syndrome, 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 ; Vitamin D deficiency, unspecified E55.9 ; Essential (primary) hypertension I10 ; Obesity, unspecified E66.9 and Hyperlipidemia, unspecified E78.[address] Tellez [address] [place] [phone] 09/04/[address] Tellez [address] [place] [phone] 09/08/2024 Becca Tellez [address] [phone] 09/19/[address] Telle[facility] [address] [place] [phone] 09/21/2024 Becca Tellez [address] [phone] 10/06/2024 Becca Tellez Type 2 diabetes mellitus with hyperglycemia E11.[address] [address] 10/09/2024 Becca Tellez Assessments Encounter Date Diagnosis (ICD Code) Assessment Notes Treatment Notes Treatment Clinical Notes Section Notes 10/09/2024 Type 2 diabetes mellitus with hyperglycemia (ICD-10 - E11.65) 10/09/2024 Rosebush's syndrome, 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) 10/06/2024 Type 2 diabetes mellitus with hyperglycemia (ICD-10 - E11.65) 09/30/2024 Joan's syndrome, 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) 08/14/2024 Type [...] gained over 100 pounds since coming off Bellabeat-she was down to 215 pounds 2 years ago when being properly treated for cushings syndrome. 08/14/2024 Joan's syndrome, 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) Patient had [...] and weight gain recommended she consider treatment. [place] therapy would be mifepristone as this is [...] with all the noted symptoms and diagnoses. 10/09/2024 Vitamin D deficiency, unspecified (ICD-10 - E55.9) 08/14/2024 Other fatigue (ICD-10 - R53.83) WIll send for thyroid antibodies to screen for autoimmune thyroid disease in adition to CBC, CMP, ferritin, vit D and B12/folate to screen for other potential secondary causes of fatigue. 10/09/2024 Essential (primary) hypertension (ICD-10 - I10) 08/14/2024 Vitamin D deficiency, unspecified (ICD-10 - E55.9) send for vit D to screen for def/ goal of 50 ng/ML to optimize bone and immune health- deficient in past. 10/09/2024 Obesity, unspecified (ICD-10 - E66.9) 08/14/2024 Encounter for screening for lipoid disorders (ICD-10 - Z13.220) send for lipid panel. 10/09/2024 Hyperlipidemia, unspecified (ICD9-CM - E78.5) 08/14/2024 Other Spent 60 minute s preparing to see the patient (ex review of tests/chart), obtaining and / or reviewing separately obtained history, performing a medically appropriate examination and/or evaluation, counseling and educating the patient/family/careg iver, ordering medications, tests, or procedures, referring and communicating with other health manager care management, documenting clinical information in the electronic or [...] Sent Freestyle Forrest 3 Plus Sensor to [facility] for better glucose monitoring. Encourage patient to titrate insulin as needed and continue metformin. 2. Hyperlipidemia- Patient currently taking gemfibrozil.- Previously on statins but not recently.- Plan: Prescribed rosuvastatin, to be taken every other day at bedtime. Monitor lipid levels in upcoming lab work. 3. 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 Plan Of Treatment No Information Medical (General) History Medical History History ICD Code diabetes COPD depression Surgical History Surgery Date(Month/Year) hysterectomy 2022 tonsilectomy septioplasty turbinectomy Hospitalization History Reason Date(Month/Year) blood clot 2022 pericarditits 2022
--- OUTSIDE RECORDS SUMMARY | 2025-06-21 19:04 | XMS_ITS | Clinical Summary ---
Author Organization [facility] Address [facility]ly [facility] [place] [address] Care Team Providers Care Jig Hand Name Role Phone Natalya iDaz KENNY Primary Care Provider [phone] Social History Tobacco Use Types Packs/Day Years [...] of 3 - 19+ 3-dose series) 2009 HPV Vaccines (1 - 3-dose SCD M series) 2017 Cervical Cancer Screening Pa p with HPV Testing (Age 30 to 64) Every 5 Years 2020 Cervical Cancer Screening wi th HPV 2020 DTaP, Tdap and Td Vaccines ( 3 - Td or Tdap) 03/15/2024 03/15/2014, 10/21/1994 COVID-19 Vaccine (2023-2 5 season) 2024 11/11/2021, 01/21/2021, 12/18/2020 Meningococcal B Vaccine Aged Out No l [...] patient's age to complete this topic Insurance [employer] Care Teams Jig Hand Relationship Specialty Start Date End Date Natalya Diaz NP [address] [phone] PCP - General NURSE PRACTITIONER 07/09/22
--- OUTSIDE RECORDS SUMMARY | 2025-06-21 19:04 | XMS_ITS ---
Author Organization [facility] Address [address] [facility] [address] [place] [address] Care Team Providers Care Brokerage Branch Manager Name Role Phone Becca Tellez Primary Care Provider [phone] REASON FOR VISIT 6 week f/u anamaria Encounters Encounter Location Date Provider Diagnosis [facility] Tellez [address] [place] [address] 11/17/2024 Becca Tellez Plan Of Treatment No Information Progress Notes * ARCHANABoydNANCY KirstenDOB:[birth year] (35 yo F)Acc No.[id number]:11/17/2024 Progress Notes Patient: Kirsten Aguillon Provider: Mike Tellez MD :1990 A ge:34 Y S ex:Female Date:11/17/2024 Address:[address] [place], [place] [id number] Subjective: * Chief Complaints: * 6 week f/u anamaria * Electronic signature of Mo Tellez MD on 06/21/2025 at 07:03 PM CDT Sign off status: Pending * Provider: Mike Tellez MD Date: 0 11/17/2024 Generated for Maryi ng/Familton/eTransmitting on: 0 06/21/2025 07:03 PM CDT
[2025-06-21 19:17] VITALS: BP 128/80; PULSE 116; RESP 20; TEMP 36.9; O2SAT 99
--- NOTE | 2025-06-21 21:18 | ED.SKABFB ---
HPI - Skin/Abscess/Foreign Bdy General Chief complaint: Skin/Abscess/Foreign Body Stated complaint: infection on left leg Time Seen by Provider: 06/21/25 21:09 History of Present Illness HPI narrative: This is a 35F with history of MRSA who presents to the ED for a skin infection. Patient states that she noticed a pimple to her left buttock. She states that today he grew it has become more painful particularly come to the ED. She states that she has been admitted in the past due to a severe MRSA infection. She states that is not feels better that time. Denies fevers, chills, chest pain, shortness of breath, streaking. Related Data Home Medications ?Medication ?Instructions ?Recorded ?Confirmed ?Last Taken ?Type aripiprazole 2 mg tablet 2 mg PO HS 03/04/22 07/01/23 06/29/23 20:00 History insulin glargine 100 unit/mL (3 22 unit subcut HS 03/04/22 07/01/23 06/29/23 18:00 History mL) subcutaneous pen (Lantus Solostar U-100 Insulin) metformin 1,000 mg tablet 1,000 mg PO BID 03/04/22 07/01/23 06/30/23 08:00 History pen needle, diabetic 31 gauge x 03/04/22 12/08/22 Unknown History 01/28 (TRUEplus Pen Needle) sertraline 100 mg tablet 100 mg PO HS 03/04/22 07/01/23 06/29/23 20:00 History ergocalciferol (vitamin D2) 1,250 1,250 mcg PO WEEKLY 03/23/23 06/22/23 06/25/23 History mcg (50,000 unit) capsule albuterol sulfate 90 mcg/actuation 1 puff inhalation PRN PRN 06/22/23 07/01/23 06/28/23 History aerosol inhaler Shortness Of Breath Or Wheezing empagliflozin 25 mg tablet 25 mg PO DAILY 06/22/23 07/01/23 06/30/23 08:00 History (Jardiance) levothyroxine 50 mcg tablet 50 mcg PO DAILY 06/22/23 07/01/23 06/30/23 08:00 History (Unithroid) liraglutide 0.6 mg/0.1 mL (18 mg/3 0.6 mg subcut DAILY 07/15/23 Unknown History mL) subcutaneous pen injector (Victoza 2-Chandan) Allergies Allergy/AdvReac Type Severity Reaction Status Date / Time amoxicillin (From Augmentin) Allergy Mild Hives Verified 06/21/25 19:20 clavulanic acid (From Allergy Mild Hives Verified 06/21/25 19:20 Augmentin) promethazine (From Phenergan) Allergy Mild Hives Verified 06/21/25 19:20 Review of Systems Review of Systems: Gen.: Denies fevers or chills Eyes: Denies eye pain or visual change ENT: Denies congestion Respiratory: Denies shortness of breath or cough CV: Denies chest pain or palpitations GI: Denies abdominal pain nausea, emesis or diarrhea denies burning, urgency, frequency or hematuria Musculoskeletal: Denies back pain or muscle pain Neuro: Denies numbness, tingling, weakness or focal weakness Skin: Abscess to the left buttock Except as documented, all other systems reviewed and negative PMFSH Past Medical History Medical History Right hand dominant [place] disease Encounter for insertion of intrauterine contraceptive device Morbid obesity Major depressive disorder, single episode, unspecified Hyperlipidemia, unspecified Anxiety and depression Pericarditis DIEGO on CPAP PCOS (polycystic ovarian syndrome) Diabetes 1.5, managed as type 2 Sleep apnea in adult Surgical History Surgical History H/O gynecological procedure 07/01/23 RA total lap hyst & BL salpingectomy hysteroscopy and D & C H/O: knee surgery Hx of tonsillectomy Family History Family History Mother Family history of malignant neoplasm of breast in first degree relative Social History Social History Smoking status: Never smoker Second hand tobacco smoke exposure: Yes Alcohol intake: current Drinks per week: 1 Alcohol use details: 1/MONTH Substance use: former Substance use type: marijuana Last use: NOV 2022 Lack of Transportation: No Lack of Food: Never True Current Housing: I Have Housing Concerned About Future Housing: No Difficulty Paying Gas/Electric Bills: No Difficulty Paying for Meds: YES Currently Unemployed: No Education: Associate Degree Difficulty w/ Childcare or Family Care: No Living arrangements: with roommate(s) Additional living arrangements comments: boyfriend and roomate Occupation/Education: student Gender identity (if verbalized by the patient): Female Sexual Orientation (if Verbalized by the Patient): Straight or Heterosexual Spiritual care concerns: No Agree to blood products: No Exam Narrative: APPEARANCE: No acute distress, nontoxic, resting in bed EYES: EOMI HEENT: Normocephalic, atraumatic, OMM RESPIRATORY: No respiratory distress CARDIOVASCULAR: Appears well perfused ABDOMINAL: Soft, nontender, nondistended, no rebound or guarding MUSCULOSKELETAL: Moves all extremities. No clubbing, cyanosis or edema. NEURO: Awake and alert. Following commands, speech normal, no focal deficits SKIN:: 1 x 2 cm area of erythema with central induration. no areas of fluctuance PSYCHIATRIC: Normal affect/mood, Course Vital Signs Vital signs: Vital Signs Temperature 98.4 F 06/21/25 19:17 Pulse Rate 116 H 06/21/25 19:17 Respiratory Rate 20 06/21/25 19:17 Blood Pressure 128/80 06/21/25 19:17 Pulse Oximetry 99 06/21/25 19:17 Oxygen Delivery Room Air 06/21/25 19:17 Temperature 98.4 F 06/21/25 19:17 Pulse Rate 116 H 06/21/25 19:17 Respiratory Rate 20 06/21/25 19:17 Blood Pressure 128/80 06/21/25 19:17 Pulse Oximetry 99 06/21/25 19:17 Oxygen Delivery Room Air 06/21/25 19:17 MDM - Skin/Abscess/Foreign Bdy MDM Narrative Medical decision making narrative: 35-year-old female with history of severe MRSA infection and presents to the ED for concerns for infection. She did have evidence of a MRSA infection to her left buttock that was indurated. There is no drainable collection. No evidence of lymphangitis. She was tachycardic when extremely uncomfortable which I think is the source of her tachycardia. No other evidence of severe infection. She will be started on doxycycline. She is given a prescription for doxycycline. Advised follow-up with her PCP in the next few days for evaluation. Patient agreeable to plan. Given strict return precautions. Differential Diagnosis Differential diagnosis: Likely abscess of skin or subcutaneous tissue, cellulitis and other (MRSA) Medical Records Attestation: I reviewed the patient's medical records. Discharge Plan Discharge Clinical Impression: MRSA cellulitis Patient Disposition: Home Condition: Stable Instructions: Antibiotic Form, MRSA (Methicillin-Resistant Staphylococcus Aureus) (ED) Patient Language: Congolese Prescriptions: New doxycycline monohydrate 100 mg capsule 100 mg PO BID Qty: 10 0RF No Action ergocalciferol (vitamin D2) 1,250 mcg (50,000 unit) capsule 1,250 mcg PO WEEKLY Patient Comments: PT TAKES ON WEDNESDAY Victoza 2-Chandan 0.6 mg/0.1 mL (18 mg/3 mL) pen injector 0.6 mg subcut DAILY levothyroxine [Unithroid] 50 mcg tablet 50 mcg PO DAILY Jardiance 25 mg tablet 25 mg PO DAILY Patient Comments: TAKES IN AM albuterol sulfate 90 mcg/actuation HFA aerosol inhaler 1 puff INHALATION PRN PRN (Reason: Shortness Of Breath Or Wheezing) enoxaparin [Lovenox] 40 mg/0.4 mL Syringe 40 mg subcut DAILY 35 Days Qty: 14 0RF sertraline 100 mg tablet 100 mg PO HS metformin 1,000 mg tablet 1,000 mg PO BID aripiprazole 2 mg tablet 2 mg PO HS (DME) pen needle, diabetic [TRUEplus Pen Needle] 31 gauge x 3/16 needle MISCELLANEOUS insulin glargine [Lantus Solostar U-100 Insulin] 100 unit/mL (3 mL) insulin pen 22 unit SUBCUT HS Patient Comments: 22-24 UNITS @HS ondansetron 4 mg tablet,disintegrating 4 mg PO Q8H PRN (Reason: nausea and vomiting) Qty: 7 0RF Follow-up/Referrals: Tang,MD Zack [Primary Care Provider] -
[2025-06-21] MEDS: DOXYCYCLINE HYCLATE 100 MG TABLET PO (21:27)
--- OUTSIDE RECORDS SUMMARY | 2025-06-21 21:42 | XMS_ITS | Clinical Summary ---
Author Organization [facility] Address [facility] [place] [address] Care Team Providers Care Neurosurgeon Name Role Phone Natalya Diaz KENNY Primary Care Provider [phone] Social History Tobacco Use Types Packs/Day Years [...] patient's age to complete this topic Insurance [employer] Care Teams Neurosurgeon Relationship Specialty Start Date End Date Natalya Diaz NP [address] [address] PCP - General NURSE PRACTITIONER 07/09/22
== END 2025-06-21 21:52 | disposition home or self-care (01) ==
LOC: ANHED 21:40
PROVIDERS: Emergency Provider Student in an Organized Health Care Education/Training Program; PCP Internal Medicine
DX: L03.317 Cellulitis of buttock (principal); B95.62 Methicillin resistant Staphylococcus aureus infection as the cause of diseases classified elsewhere; E13.9 Other specified diabetes mellitus without complications; E78.5 Hyperlipidemia, unspecified; E28.2 Polycystic ovarian syndrome; E66.01 Morbid (severe) obesity due to excess calories; Z68.44 Body mass index [BMI] 60.0-69.9, adult; G47.33 Obstructive sleep apnea (adult) (pediatric); F41.9 Anxiety disorder, unspecified; F32.A Depression, unspecified; Z90.710 Acquired absence of both cervix and uterus; Z90.79 Acquired absence of other genital organ(s); Z79.85 Long-term (current) use of injectable non-insulin antidiabetic drugs; Z79.84 Long term (current) use of oral hypoglycemic drugs; Z79.4 Long term (current) use of insulin; Z79.899 Other long term (current) drug therapy
CPT/HCPCS: 99283; A9270

== ENCOUNTER 2025-07-26 08:10 | Outpatient (RCR) | payer OTHER, SELFPAY ==
[2025-07-26 08:15] VITALS: BMI 63.4
[2025-07-26 08:23] VITALS: BMI 63.4
--- NOTE | 2025-08-23 08:42 | PCDIET ---
08/23/25 Pt did not keep today's follow up appt. Note faxed to referring provider.
== END 2025-10-15 10:54 | disposition home or self-care (01) ==
LOC: ANHDMC 08:10
PROVIDERS: PCP Internal Medicine; Visit Provider Internal Medicine
DX: E11.9 Type 2 diabetes mellitus without complications (principal); Z71.3 Dietary counseling and surveillance
CPT/HCPCS: 97802

== ENCOUNTER 2025-08-25 21:43 | Emergency (ER) | payer OTHER, SELFPAY ==
--- OUTSIDE RECORDS SUMMARY | 2015-03-25 05:15 | XMS_ITS | Continuity of Care Document ---
Author Organization [facility] Address [address] [place] [address] [address] [place] [address] Phone Care Team Providers Care Eligibility Technician Name Role Phone Guy MS, OTR/L, CHT, Riccardo Unavailable Melia vailable Procedures Procedure Date OT EVALUATION THERAPEUTIC EXERCISES ORTHOTIC FITTING CoBan 1 inch Sterile Gauze Roll Digit based Advance Directives Directive Yes / No Effective Date File Name No Information Encounters Encounter Description Practice Location Reason(s) For Visit Diagnoses Date Provider Providers Copied on Encounter [facility], [address] [place], [place] [address], [place], [place], [id number], [place] tel:[phone] [place] Pain in joint involving hand Guy Gu. [address] [facility], [address], [place], [address], [place]. tel:[phone] Referring Provider: Car Gomez, [address], [address]. tel:[phone] Family History Family Member Type Diagnosis Age At Onset No Information Payers Payer name Insurance type Covered republican ID Authoriza tijannette(s) [employer] [facility] [id number] Social History Type Description Quantity Date Captured Comments Sex Female Smoking Status No Information Chief Complaint And Reason For Visit No Information Reason For Referral Reason For Referral No Information History Of Present Illness Encounter Date Complaint History Of Prese nt Illness No Information Functional Status Date Functional Assessmen t No Information Instructions Date Instruction Additional Infor mation No Information Assessments Type Assessment Date No Information Patient Care Teams Name Effective Dates (start - stop) Status Members No Information
--- OUTSIDE RECORDS SUMMARY | 2015-03-25 05:15 | XMS_ITS | Continuity of Care Document ---
Author Organization [facility] Address [address] [place] [address] [address] [place] [address] Phone Care Team Providers Care Dairy Department Manager Name Role Phone Guy MS, OTR/L, CHT, Riccardo Unavailable Melia vailable Procedures Procedure Date OT EVALUATION THERAPEUTIC EXERCISES ORTHOTIC FITTING CoBan 1 inch Sterile Gauze Roll Digit based Advance Directives Directive Yes / No Effective Date File Name No Information Encounters Encounter Description Practice Location Reason(s) For Visit Diagnoses Date Provider Providers Copied on Encounter [facility], [address] [place], [place] [address], [place], [place], [id number], [place] tel:[phone] [place] Pain in joint involving hand Guy Gu. [address] [facility], [address], [place], [address], [place]. tel:[phone] Referring Provider: Car Gomez, [address], [address]. tel:[phone] Family History Family Member Type Diagnosis Age At Onset No Information Payers Payer name Insurance type Covered constitution party ID Authoriza tijannette(s) [employer] [facility] [id number] Social History Type Description Quantity Date Captured [...]
--- OUTSIDE RECORDS SUMMARY | 2024-09-30 16:00 | XMS_ITS ---
Author Organization [facility] Address [address] [address] Care Team Providers Care Senior Etl Developer Name Role Phone Becca Tellez Primary Care Provider [phone] Migration, Provider Unavailable Unavailable Allergies Allergen (clinical drug ingredient) Drug/Non Drug Allergy documented on EMR Reaction Allergy Type Onset Date Status promethazine Phenergan Unknown Drug Allergy Acti ve amoxicillin Amoxicillin Unknown Drug Allergy Act fabián [facility] Conversion Encounter [...] Active Encounters Encounter Location Date Provider Diagnosis [facility] [address] [phone] 09/30/2024 Provider Migration Joan's syndrome, 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 Assessments Encounter Date Diagnosis (ICD Code) Assessment Notes Treatment Notes Treatment Clinical Notes Section Notes 09/30/2024 Severn's syndrome, 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) Plan Of Treatment Medication Medication Name Sig Start Date Stop Date Notes dexAMETHasone 1 MG 1 tab(s) orally at 1 0 pm night before 8 am cortisol; Duration: 1 days 08/14/2024 Spironolactone 50 MG 2 tab(s) orally gifty ly; Duration: 90 days 08/14/2024 Progress Notes * Kirsten HENDRICKSDOB:[birth year] (35 yo F)Acc No.[id number]:09/30/2024 Patient: Adam CLEMONS Amanda Provider: He smith Migration :1990 A ge:34 Y S ex:Female Date:09/30/2024 Address:[address] [place], [place] [phone] Pcp:Becca Tellez Subjective: * Chief Complaints: * [...] Electronic signature of Alex tao Migration on 08/25/2025 at 09:46 PM CDT Sign off status: Pending * Provider: He smith Migration Date: 11/30/2023 Generated for Xu abraham/Mena/Naina on: 09:46 PM CDT
--- OUTSIDE RECORDS SUMMARY | 2024-09-30 16:00 | XMS_ITS ---
Author Organization [facility] Address [address] [place] [address] Care Team Providers Care Timber Management Professor Name Role Phone Becca Tellez Primary Care Provider Migration, Provider Unavailable Unavailable Allergies Allergen (clinical drug ingredient) Drug/Non Drug Allergy documented on EMR Reaction Allergy Type Onset Date Status amoxicillin Amoxicillin Unknown Drug Allergy Act fabián promethazine Phenergan Unknown Drug Allergy Acti ve REASON FOR VISIT [facility] To [facility] Conversion Encounter Medications Medication SIG (Take, Route, Frequency, Duration) Notes Start Date End Date Status metFORMIN HCl ER (MOD) 1000 MG Tablet Extended Release 24 Hour 1 tab(s) orally once a day Active Sertraline HCl *Please review a nd pick correct [facility]ulati [facility]. If intended option is not shown, discontinue and re-order from Quick Search* *Pick strength-form from [facility] for eRX* Active Abilify *Please review a nd pick correct strength-formulati [facility]. If intended option is not shown, discontinue and re-order from Quick Search* *[facility]* Active dexAMETHasone 1 MG Tablet 1 tab(s) orally at 10 pm night before 8 am cortisol; Duration: 1 days 08/14/2024 Active Spironolactone 50 MG Tablet 2 tab(s) orally daily; Duration: 90 days 08/14/2024 Active Gemfibrozil *Please review a nd pick correct strength-[facility]ulati [facility]. 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
--- OUTSIDE RECORDS SUMMARY | 2024-10-06 07:10 | XMS_ITS ---
Author Organization [facility] Address [address] [place], [place] [address] Care Team Providers Care Waste Duster Name Role Phone Becca Tellez Primary Care Provider REASON FOR VISIT lab follow up// text Encounters Encounter Location Date Provider Diagnosis [facility] [address] Tellez [address] [place] [address] 10/06/2024 Becca Tellez Plan Of Treatment No [...] * Kirsten HENDRICKSDOB:[birth year] (35 yo F)Acc No.[id number]:10/06/2024 Progress Note Patient: Kirsten Aguillon Provider: Mike Tellez MD :1990 A ge:34 Y S ex:Female Date:10/06/2024 Address:[address] [place] [address] Subjective: * Chief Complaints: * L ab [...] Electronic signature of Mo Tellez MD on 08/25/2025 at 09:44 PM CDT Sign off status: Pending * Provider: Mike Tellez MD Date: 12/06/2023 Generated for Xu abraham/Mena/Naina on: 09:44 PM CDT
--- OUTSIDE RECORDS SUMMARY | 2024-10-06 07:10 | XMS_ITS ---
Author Organization [employer] [facility] Address [address] [place] [address] Care Team Providers Care Applied Exercise Physiologist Name Role Phone Becca Tellez Primary Care Provider [phone] REASON FOR VISIT lab follow up// text Encounters Encounter Location Date Provider Diagnosis [facility], [facility] - Becca Tellez [address] [place] [address] 10/06/2024 Becca Tellez Plan Of Treatment No Information Progress Notes * Kirsten HENDRICKSDOB:[birth year] (35 yo F)Acc No.[id number]:10/06/2024 Progress Notes Patient: Kirsten ONOFRE Provider: Mike Tellez MD :1990 A ge:34 Y S ex:Female Date:10/06/2024 Address:[address] [place], [place] [phone] Subjective: * Chief Complaints: * 1 . [...] of Mo Tellez MD on 08/25/2025 at 09:45 PM CDT Sign off status: Pending * Provider: Mike Tellez MD Date: 1 12/06/2023 Generated for Xu abraham/Mena/eTransmitting on: 1 09:45 PM CDT History and Physical Notes * [...]
--- OUTSIDE RECORDS SUMMARY | 2024-11-17 05:30 | XMS_ITS ---
Author Organization [facility] Address [address] [place] [address] Care Team Providers Care Verifier Operator Name Role Phone Becca Tellez Primary Care Provider [phone] REASON FOR VISIT 6 week f/u anamaria Encounters Encounter Location Date Provider Diagnosis [facility] Dr[address] Tellez [address] [place] [address] 11/17/2024 Becca Tellez Plan Of Treatment No Information Progress Notes * Kirsten ALMANZARDOB:[birth year] (35 yo F)Acc No.[id number]:11/17/2024 Progress Notes Patient: Kirsten Aguillon Provider: Mike Tellez MD :1990 A ge:34 Y S ex:Female Date:11/17/2024 Address:[address] [place], [place] [phone] Subjective: * Chief Complaints: * 6 week f/u anamaria * Electronic signature of Mo Tellez MD on 08/25/2025 at 09:45 PM CDT Sign off status: Pending * Provider: Mike Tellez MD Date: 0 11/17/2024 Generated for Maryi ng/Mena/eTransmitting on: 1 09:45 PM CDT
--- OUTSIDE RECORDS SUMMARY | 2024-11-17 05:30 | XMS_ITS ---
Author Organization [facility] Address [address] [place] [address] Care Team Providers Care Case Packer And Sealer Name Role Phone Becca Tellez Primary Care Provider [phone] REASON FOR VISIT 6 week f/u anamaria Encounters Encounter Location Date Provider Diagnosis [facility], [facility] - Becca Tellez [address] [place] [address] 11/17/2024 Becca Tellez Plan Of Treatment No Information Progress Notes * SINTIAMARTINKirsten DANIELSDOB:[birth year] (35 yo F)Acc No.[id number]:11/17/2024 Progress Notes Patient: Kirsten ONOFRE Provider: Mike Tellez MD :1990 A ge:34 Y S ex:Female Date:11/17/2024 Address:[address] [place], [place] [phone] Subjective: * Chief Complaints: * 1 . 6 week f/u anamaria. * Medical History: Objective: * Vitals: Assessment: Plan: * Treatment: * Billing Information: * Visit Code: * Procedure Codes: * Electronic signature of Mo Tellez MD on 08/25/2025 at 09:45 PM CDT Sign off status: Pending * Provider: Mike Tellez MD Date: 0 11/17/2024 Generated for Maryi ng/Faxing/eTransmitting on: 1 09:45 PM CDT
--- OUTSIDE RECORDS SUMMARY | 2025-08-25 21:45 | XMS_ITS | Clinical Summary ---
Author Organization [facility] [employer] Address [address] [place] [address] Care Team Providers Care Victim Witness Administrator Name Role Phone Raul Dan MD Primary Care Provider [phone] [facility] [employer],non-owned Affiliates and Associated Physician Practices is amultiple site organization consisting of ambulatory clinics and hospital sitesin [place], [place], [place] and [place]. This disclosure is being madepursuant to the Care Everywhere program and may not contain all information available regarding this patient. Last updated 18.[facility] [employer] Allergies Active Allergy Reactions Criticality Noted Date [...] on file Legal Sex Female 5:42 AM INFECTION CONTROL PREVENTIONIST Gender Identity Not on file Sexual Orientation Not on file Last Filed Vital Signs Vital Sign Reading Time Taken Comments Blood Pressure 151/86 09/29/2019 3:05 PM INFECTION CONTROL PREVENTIONIST Pulse 110 09/29/2019 3:05 PM INFECTION CONTROL PREVENTIONIST Temperature 37 C (98.6 F) 09/29/2019 3:05 PM INFECTION CONTROL PREVENTIONIST Respiratory Rate 18 09/29/2019 3:05 PM INFECTION CONTROL PREVENTIONIST Oxygen Saturation 96% 09/29/2019 3:05 PM INFECTION CONTROL PREVENTIONIST Inhaled Oxygen Concentration - - Weight 117.8 kg (259 lb 9.6 oz) 09/29/2019 3:05 PM INFECTION CONTROL PREVENTIONIST Height 160 cm (5' 3) 09/29/2019 3:05 PM INFECTION CONTROL PREVENTIONIST Body Mass Index 45.99 09/29/2019 3:05 PM INFECTION CONTROL PREVENTIONIST Plan of Treatment Health Maintenance Due Date Last Done Comments HIV SCREENING 2005 DTAP/TDAP/TD VACCINES (1 - Tdap) 2009 HEPATITIS B VACCINE (1 of 3 - 19+ 3-dose series) 2009 PNEUMOCOCCAL VACCINE (1 of 2 - PCV) 2009 PAP SMEAR 2011 HPV VACCINE (1 - 3-dose SCDM series) 2017 DIABETES RETINOPATHY SCREENING 02/07/2019 DIABETES-FOOT EXAM WITH MONOFILAMENT 02/07/2019 DIABETES-HGB A1C 02/07/2019 DIABETES-SERUM CREATININE 09/12/20202018, 07/21/2019, 11/22/2018 DEPRESSION SCREENING 11/15/2024 DIABETES - URINE PROTEIN SCREENING 11/15/2024 COVID-19 VACCINE (2023-2 5 season) 2025 INFLUENZA VACCINE (#1) 2025 11/21/2018 ZOSTER VACCINE (1 of 2) [...] Management General On track( 019 3:32 PM INFECTION CONTROL PREVENTIONIST) Martin Brewre, RN Note: Expected end date: Interventions: Take [...] SPECIMEN / Unknown 09/12/2019 1:18 PM CDT us Historical Provider LAB - CHEMISTRY ORDERABLE S [...] Most Recently Relevant to Health Maintenance Insurance [facility] Care Teams Victim Witness Administrator Relationship Specialty Start Date End Date Raul Dan MD [address] [place] [phone] PCP - General 02/07/19
--- OUTSIDE RECORDS SUMMARY | 2025-08-25 21:45 | XMS_ITS | Clinical Summary ---
Author Organization [facility] Address [address] [place] [address] Care Team Providers Care Casket Upholsterer Name Role Phone Natalya Diaz KENNY Primary Care Provider [phone] Encounters Date Type Department Care Team Description 07/24/2025 Travel from Last 3 Months Social History Tobacco Use Types Packs/Day Years Used Date Smoking Tobacco: Never Assessed Comments Unknown Sex and Gender Information Value Date Recorded Sex Assigned at Female 07/04/2025 8:35 AM CDT Legal Sex Female 4:34 PM CDT Gender Identity Not on file Sexual Orientation Not on file Plan of Treatment Health Maintenance Due Date Last Done Comments Cervical Cancer Screening Pap Smear (Age 30 to 64) Every 3 Years 1990 Annual Physical 1993 Hepatitis C 2008 Hepatitis B Vaccines (1 of 3 - 19+ 3-dose series) 2009 HPV Vaccines (1 - 3-dose SCDM series) 2017 Cervical Cancer Screening Pap with HPV Testing (Age 30 to 64) Every 5 Years 2020 Cervical Cancer Screening with HPV 2020 DTaP, Tdap and Td Vaccines (3 - Td or Tdap) 03/15/2024 03/15/2014, 10/21/1994, 10/21/1994 COVID-19 Vaccine ( season) 2025 09/07/2022, 11/11/2021, 01/21/2021, Additional history exists Influenza Adult (#1) 2025 08/08/2024, 08/16/2023, 09/07/2022, Additional history exists Meningococcal B Vaccine Aged Out No l onger eligible based on patient's age to complete this topic Meningococcal Vaccine Aged Out No lizbeth nicolle eligible based on patient's age to complete this topic Pneumococcal Vaccine: Pediatrics (0 to 5 Years) and At-Risk Patients (6 to 49 Years) Aged Out No longer eligible based on patient's age to complete this topic RSV Immunizations Under 20 Months Aged Out No longer eligible based on patient's age to complete this topic Insurance [facility] Care Teams Casket Upholsterer Relationship Specialty Start Date End Date Natalya Diaz NP [address] [phone] PCP - General NURSE PRACTITIONER 07/09/22
--- OUTSIDE RECORDS SUMMARY | 2025-08-25 21:45 | XMS_ITS | Patient Health Record ---
Author Organization [facility] Address [address] [address] Care Team Providers Care Supervisor Molding Name Role Phone Becca Tellez Primary Care Provider [phone] Migration, Provider Unavailable Unavailable Allergies Allergen (clinical [...] Plus Sensor - change sensor every 15 days; Duration: 90 days 10/09/2024 Active FreeStyle Forrest 3 Plus Sensor - change sensor every 15 days; Duration: 90 days 10/06/2024 Active Insulin Lispro *Please [...] am cortisol; Duration: 1 days 08/14/2024 Active Problems Problem Type SNOMED Code ICD Code Onset Dates Problem Status W/U Status Risk Notes Problem Vitamin D deficiency (39703062) Vitamin D deficiency, unspecified (E55.9) Active confirmed Problem Hyperglycemia due to type 2 diabetes mellitus (341292421187815) Type 2 diabetes mellitus with hyperglycemia (E11.65) Active confirmed Problem Hyperlipidemia (38055193) Hyperlipidemia, unspecified (E78.5) Active confirmed Problem Essential hypertension (10648652) Essential (primary) hypertension (I10) Active confirmed Problem Obesity (343394974) Obesity, unspecified (E66.9) Active confirmed Problem 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, 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 Vital Signs Heart Rate 80 /min 10/09/2024 Respiratory Rate 12 /min 10/09/2024 Blood pressure diastolic 82 mm Hg 10/09/2024 Height 63 in 10/09/2024 Blood pressure systolic 124 mm Hg 10/09/2024 Weight 370 lbs 10/09/2024 BMI 65.54 kg/m2 10/09/2024 Encounters Encounter Location Date Provider Diagnosis [address] [place] [address] 09/30/2024 Provider Migration Joan's syndrome, 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 [facility] - Becca Tellez [address] [place] [address] 09/04/2024 Becca [facility] - Becca Tellez [address] [place] [address] 09/08/2024 Becca [facility] [address] [place] [address] 09/19/2024 Becca [facility] - Becca Tellez [address] [place] [address] 09/21/2024 Becca Tellez [facility] [address] [place] [address] 10/06/2024 Becca Tellez Type 2 diabetes mellitus with hyperglycemia E11.65 [facility] [address] [place] [address] 10/09/2024 Becca Tellez [facility] - Becca Tellez [address] [place] [address] 10/09/2024 Becca Tellez Type 2 diabetes mellitus with hyperglycemia E11.65 ; Manitowoc's syndrome, 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 ; Vitamin D deficiency, unspecified E55.9 ; Essential (primary) hypertension I10 ; Obesity, unspecified E66.9 and Hyperlipidemia, unspecified E78.5 Assessments Encounter Date Diagnosis (ICD Code) Assessment Notes Treatment Notes Treatment Clinical Notes Section Notes 09/30/2024 Joan's syndrome, 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) 10/06/2024 Type 2 diabetes mellitus with hyperglycemia (ICD-10 - E11.65) 10/09/2024 Type 2 diabetes mellitus with hyperglycemia (ICD-10 - E11.65) 10/09/2024 Manitowoc's syndrome, 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) 10/09/2024 Vitamin [...] before meals (total 84 units/day).- Plan: Sent [place] Forrest 3 Plus Sensor to [facility] for better glucose monitoring. Encourage patient [...] the beginning of the year, still through [place].- Plan: Ensure proper coordination of care and [...] procedures, referring and communicating with other health healthcare analyst, documenting clinical information in the electronic or [...] Insured Coverage Start Date Coverage End Date [facility] [address] [place] [phone] [id number] Kirsten Del Castillo Self - patient is the insured Medical (General) History Medical History History ICD Code diabetes COPD depression Surgical History Surgery Date(Month/Year) turbinectomy septioplasty tonsilectomy hysterectomy 2022 Hospitalization History Reason Date(Month/Year) pericarditits 2022 blood clot 2022
--- OUTSIDE RECORDS SUMMARY | 2025-08-25 21:46 | XMS_ITS | Data Portability ---
Author Organization [facility] Address [address] [place] [address] Care Team Providers Care Home Visitor Name Role Phone SIGRID CHOPRA Informatics Pharmacist SALIMA SMITH OTHER JENNYFER TEMPLETON OTHER KELLIE BARFIELD Psychiatrist Assessment No assessment recorded. Plan of Treatment Reminders Order Date Submit Date Provider Last Modified By Organization Details Last Modified Time Details Appointments None recorded. Lab HbA1c (hemoglobin A1c), blood 2022 024 [facility], [address], [place], [address], 4 16:27:10 lipid panel, serum 2022 024 [facility], [address], [place], [address], 4 16:27:10 TSH, ultra-sensi tive, serum 2022 024 [facility], [address], [place], [address], 4 16:27:10 Referral endocrinolo gy, diabetes & metabolism specialist referral - Uncontrolle d DM, Joan's? 2022 023 [place], [address], [place], [address], 4 18:22:08 Procedures None recorded. Surgeries None recorded. Imaging None recorded. Medication Orders Lantus Solostar U-100 Insulin 100 unit/mL (3 mL) subcutaneou s pen 2022 023 [id number], [address], [place], [address], 4 16:40:19 Jardiance 25 mg tablet 2022 023 [facility] [address] [facility] #[id number], [address], [place], [address], 5 12:45:47 Lantus Solostar U-100 Insulin 100 unit/mL (3 mL) subcutaneou s pen 2022 023 [id number], [address] [place], [address], 3 19:59:51 hydroxyzine HCl 25 mg tablet 2022 023 [id number], [address] [place], [address], 3 13:16:38 permethrin 5 % topical cream 2022 023 [facility] #[id number], [address] [place], [address], 4 16:42:55 triamcinolo ne acetonide 0.1 % topical cream 2022 023 [facility] #[id number], [address] [place], [address], 3 12:13:00 doxycycline monohydrate 100 mg tablet 2022 023 [id number], [address], [place], [address], 12:11:30 bacitracin 500 unit/gram topical ointment 2022 023 [id number], [address], [place], [address], 12:11:24 Patient TargetsNo targets recorded. Patient Instructions Encounter Date Encounter Id Patient Instructions Last Modified By Organization Details Last Modified Time 08/16/2023 [id number] influenza (flu) vaccine: care instructions oajao Not available 08/16/2023 16:57:10 dermatitis: care instructions oajao Not available 08/16/2023 15:59:33 skin tag removal : care instructions oajao Not available 08/16/2023 15:59:33 Doxycycline/Baci tra murtaza Triamcinolone Warm packs oajao Not available 08/16/2023 16:05:17 09/13/2023 [id number] Permethrin Hydroxyzine Endocrinology Labs as previously ordered Follow up as scheduled on 10/25/2023 oajao Not available 09/13/2023 12:27:24 10/01/2023 [id number] Updated COVID vaccine Increase Lantus to 33 units HS Labs as previously ordered Informatics Pharmacist as referred Follow up as scheduled on 10/25/2023 oajao Not available 10/01/2023 15:30:57 10/25/2023 [id number] hypothyroidism: care instructions oajao Not available 10/25/2023 15:37:50 Increase Lantus to 33 units HS. If your BS remain elevated, increase your Lantus by another 3 units or call us with your blood sugars. Labs in January,. Endocrinology (Scheduled 01/20/2024) Seasonal COVID vaccine. Follow up in 4 months and PRN. oajao Not available 10/25/2023 16:39:26 02/08/2024 [id number] Reports of her joint and possible spine Xray reports from [facility] (Ordered by Dr Barrios?) Letter to allow her to sit at work Labs as previously ordered Schedule the seasonal COVID vaccine Follow up in 4 months and PRN oajabertrand Not available 02/08/2024 16:54:48 Reason for Referral Endocrinology, Diabetes & Me tabolism Specialist Referral for Uncontrolled type 2 diabetes mellitus Uncontrolled DM, Joan's? Uncontrolled DM, Joan's? Referring Physician: Ligia Damon, Internal Medicine, Encounter Date: 09/13/2023 Results Created Date Observation Date Name Description Value Unit Range Abnormal Flag Note LastModifiedBy Organization Detail LastModifiedTime 10/01/2010/02/2023 LIPID PANEL cholesterol, total 145 mg/dL 100-19 9 Not Available [address], [address], 10/02/2023 08:28:03 10/01/2010/02/2023 LIPID PANEL triglyceride s 151 mg/dL 0-149 above high normal Not Available [address], [address], 10/02/2023 08:28:03 10/01/2010/02/2023 LIPID PANEL HDL cholesterol 48 mg/dL >39 Not Available [address], [address], 10/02/2023 08:28:03 10/01/2010/02/2023 LIPID PANEL VLDL cholesterol paulette 26 mg/dL 5-40 Not Available [address], [address], 10/02/2023 08:28:03 10/01/2010/02/2023 LIPID PANEL LDL chol calc ([facility]) 71 mg/dL 0-99 Not Available [address], [address], 10/02/2023 08:28:03 10/01/20 23 10/02/2023 BASIC METAB OLIC PANEL (7) glucose 249 mg/dL 70-99 above high normal Not Available [address], [address], 10/02/2023 08:28:04 10/01/20 23 10/02/2023 BASIC METAB OLIC PANEL (7) BUN 8 mg/dL 6-20 Not Available [address], [address], 10/02/2023 08:28:04 10/01/20 23 10/02/2023 BASIC METAB OLIC PANEL (7) creatinine 0.62 mg/dL 0.57-1 .00 Not Available [address], [address], 10/02/2023 08:28:04 10/01/20 23 10/02/2023 BASIC METAB OLIC PANEL (7) eGFR 121 mL/mi n/1.7 3 >59 Not Available [address], [address], 10/02/2023 08:28:04 10/01/20 23 10/02/2023 BASIC METAB OLIC PANEL (7) BUN/creatini ne ratio 13 9-23 Not Available [address], [address], 10/02/2023 08:28:04 10/01/20 23 10/02/2023 BASIC METAB OLIC PANEL (7) sodium 140 mmol/ L 134-14 4 Not Available [address], [address], 10/02/2023 08:28:04 10/01/20 23 10/02/2023 BASIC METAB OLIC PANEL (7) potassium 5.0 mmol/ L 3.5-5. 2 Not Available [address], [address], 10/02/2023 08:28:04 10/01/20 23 10/02/2023 BASIC METAB OLIC PANEL (7) chloride 101 mmol/ L 96-106 Not Available [address], [address], 10/02/2023 08:28:04 10/01/20 23 10/02/2023 BASIC METAB OLIC PANEL (7) carbon dioxide, total 24 mmol/ L 20-29 Not Available [address], [address], 10/02/2023 08:28:04 10/01/20 23 10/02/2023 CBC, PLATE LET, NO DIFFE RENTI AL WBC 7.3 x10e3 /uL 3.4-10 .8 Not Available [address], [address], 10/02/2023 08:28:05 10/01/20 23 10/02/2023 CBC, PLATE LET, NO DIFFE RENTI AL RBC 5.14 x10e6 /uL 3.77-5 .28 Not Available [address], [address], 10/02/2023 08:28:05 10/01/20 23 10/02/2023 CBC, PLATE LET, NO DIFFE RENTI AL hemoglobin 12.5 g/dL 11.1-1 5.9 Not Available [address], [address], 10/02/2023 08:28:05 10/01/2010/02/2023 CBC, PLATE LET, NO DIFFE RENTI AL hematocrit 41.4 % 34.0-4 6.6 Not Available [address], [address], 10/02/2023 08:28:05 10/01/20 23 10/02/2023 CBC, PLATE LET, NO DIFFE RENTI AL MCV 81 fL 79-97 Not Available [address] [place], [address], 10/02/2023 08:28:05 10/01/2010/02/2023 CBC, PLATE LET, NO DIFFE RENTI AL MCH 24.3 pg 26.6-3 3.0 below low normal Not Available [address], [address], 10/02/2023 08:28:05 10/01/2010/02/2023 CBC, PLATE LET, NO DIFFE RENTI AL MCHC 30.2 g/dL 31.5-3 5.7 below low normal Not Available [address], [address], 10/02/2023 08:28:05 10/01/2010/02/2023 CBC, PLATE LET, NO DIFFE RENTI AL RDW 15.8 % 11.7-1 5.4 above high normal Not Available [address], [address], 10/02/2023 08:28:05 10/01/2010/02/2023 CBC, PLATE LET, NO DIFFE RENTI AL platelets 300 x10e3 /uL 150-45 0 Not Available [address], [address], 10/02/2023 08:28:05 10/01/2010/02/2023 HEMOG LOBIN A1C hemoglobin A1C 10.2 % 4.8-5. 6 above high normal Predi abete s: 5.7 - 6.4 Diabe ronald: >6.4 Glyce nadine contr ol for adult s with diabe ronald: <7.0 Not Available [address], [address], 10/02/2023 11:12:16 10/01/20 23 10/02/2023 DIABE RONALD PATIE NT EDUCA TION pdf NOT APPLIC ABLE Not Available [facility] [address] [place] [address], [address], 10/02/2023 11:12:16 10/01/2010/02/2023 DIABE RONALD PATIE NT EDUCA TION pdf .* Not Available [address], [address], 10/02/2023 11:12:13 10/01/2010/02/2023 DIABE RONALD PATIE NT EDUCA TION pdf . Not Available [address], [address], 10/02/2023 08:28:05 09/06/20 23 09/06/2023 MRI, brain , w/o contr ast No observ ation record ed. [facility], [place], [address], 09/14/2023 09:25:01 09/07/2009/06/2023 MRI, brain + brain stem, w/o contr ast No observ ation record ed. [facility] [address], [place], [address], 09/13/2023 12:08:19 02/09/20 24 10/02/2022 XR, ankle No observ ation record ed. [facility] [address] [facility] [place], [address], 02/09/2024 14:10:14 01/16/20 25 01/15/2025 XR, forea rm No observ ation record ed. [facility] [address] [facility] [address], [place], [address], 01/16/2025 09:21:06 Result Notes None recorded. Problems Name Problem SNOMED Code Status Onset Date Resolution Date Notes Provider Name and Address Organization Details Recorded Time Cellulitis of left lower limb 0141251495929 9109 Active Ligia Damon MD Attn: Sinan dary,[address] [facility], [place], [address], [place] - [facility] 3 15:34:15 Hypothyroid ism 86250158 Active 2022 Ligia Damon MD Attn: Slickpepe foote,[address] [facility], [place], [address], [place] [facility] 3 15:50:38 Uncontrolle d type 2 diabetes mellitus 836653658 Active 2022 Ligia Damon MD Attn: Sinan foote,[address] [facility], [place], [address], [place] [facility] 3 15:50:38 History of Hay syndrome 8275335091583 1 Active 2022 Ligia Damon MD Attn: Sinan foote,[address] [facility], [place], [address], [place] [facility] 3 15:50:38 Bipolar disorder 55411914 Active 2022 Ligia Damon MD Attn: Sinan foote,[address] [facility], [place], [address], [place] [facility] 3 15:50:38 Obstructive sleep apnea syndrome 44130161 Active 2022 Ligia Damon MD Attn: Sinan foote,[address] [facility], [place], [address], [place] [facility] 3 15:50:38 Asthma 847490878 Active 2022 Ligia Damon MD Attn: Sinan foote,[address] [facility], [place], [address], [place] [facility] 3 15:50:38 History of total hysterectom y 650712478 Active 2022 Ligia Damon MD Attn: Sinan foote,[address] [facility], [place], [address], [place] [facility] 3 16:44:44 Arachnoid cyst 03357659 Active 2022 Ligia Damon MD Attn: Sinan foote,[address] [facility], [place], [place], [address] [place] [address], [place] - [facility] 3 15:31:45 Arthritis 6708418 Active 2023 Ligia Damon MD Attn: Sinan foote,[address] [facility], [place], [place], [address] [place] [address], [place] - [facility] 4 16:56:35 Notes:Some problems listed i n Documents: #[id number], #[id number] could not be added to this patient's chart. Please review these documents and add these problems to the patient's chart manually as needed. Problem Notes None recorded. Procedures Surgical History Date Name Laterality Status Provider Name and Address Organization Details Recorded Time 07/01/20 laparoscopic total abdominal hysterectomy and bilateral salpingo-oophorec clair completed Ligia Damon MD Attn: Accounting,[address] [facility], [place], [place], [address] [place] [address], [facility] - [facility] 07/01/2023 15:48:59 Tonsillectomy completed Jacy Ackerman MA [facility] 03/18/2023 14:14:23 Knee Surgery completed Jacy Ackerman [place] - [facility] 03/18/2023 14:14:30 Imaging Results None recorded. Procedure Notes None recorded. Medical Equipment None Reported. Allergies Allergen ID Allergen Name Allergen Category Reaction Reaction Severity Criticality Documentation Date Start Date Code Code System Note Provider Name and Address Organization Details Recorded Time 618456 amoxicill in medicatio n Not available Not available Not available 03/18/2023 723 RxNorm Other react ions and sever ities : 'Adve rse react ion to subst ance' . Ligia Damon MD Attn: Sinan foote,[address] [facility], [place], [address], [place] - [facility] 3 15:33:44 766700 Phenergan medicatio n hives severe Not available 03/18/2023 62798 8 RxChristian Damon MD Attn: Sinan foote,[address], [place], [address], [facility] - SI 3 15:33:44 847770 promethaz ine medicatio n rash severe Not available 06/14/2023 8745 Michelle Damon MD Attn: Sinan g,[address], [place], [address], [facility] - SI 3 15:33:44 Medications Name Sig Start Date Stop Date [...] completed Not Available Not Available Not Available [employer] Ultra Test strips USE TO TEST SUGARS [...] a day by oral route. 09/13 completed Duplicte entry, on 1000 mg BID Not Available Not [...] 1 TABLET (25 MG TOTAL) BY MOUTH MORNING NANNY BEFORE BREAKFAS T active I have just [...] in Arterial blood by Pulse oximetry Systolic And Diastolic Provider Name and Address Organization Details Last Updated DateTime 4 160.02 cm 63.8 kg/m2 309027. 69 g 78 /min 98 % 98 % 122/78 mm[Hg] Venita Saxena [place] - [facility] 4 16:29:37 Date Recorded Body height Body mass index (BMI) Body weight Heart rate Oxygen saturation Oxygen saturation in Arterial blood by Pulse oximetry Respiratory rate Systolic And Diastolic Provider Name and Address Organization Details Last Updated DateTime 3 160.02 cm 62.7 kg/m2 196646. 7 g 90 /min 98 % 98 % 16 /min 110/76 mm[Hg] Jacy Ackerman [place] - [facility] 3 15:04:34 Date Recorded Body height Body mass index (BMI) Body weight Respiratory rate Heart rate Oxygen saturation Oxygen saturation in Arterial blood by Pulse oximetry Systolic And Diastolic Provider Name and Address Organization Details Last Updated DateTime 3 160.02 cm 63.4 kg/m2 703577. 07 g 18 /min 84 /min 99 % 99 % 114/76 mm[Hg] Jacy Ackerman MA [facility] 3 11:35:33 Date Recorded Body height Body mass index (BMI) Body weight Heart rate Oxygen saturation Oxygen saturation in Arterial blood by Pulse oximetry Respiratory rate Systolic And Diastolic Provider Name and Address Organization Details Last Updated DateTime 3 160.02 cm 62.7 kg/m2 445240. 13 g 76 /min 98 % 98 % 16 /min 112/80 mm[Hg] Jacy Ackerman MA [facility] 3 15:03:16 Date Recorded Body height Body mass index (BMI) Body weight Oxygen saturation Oxygen saturation in Arterial blood by Pulse oximetry Heart rate Respiratory rate Systolic And Diastolic Provider Name and Address Organization Details Last Updated DateTime 3 160.02 cm 63.1 kg/m2 855233. 31 g 97 % 97 % 99 /min 18 /min 116/74 mm[Hg] Jacy Ackerman [place] - [facility] 3 15:16:18 Social History Question Answer Notes LastModified by Organizat ion Details LastModified Time Tobacco Smoking Status [facility] 03/18/2023 14:13:52 Are You Blind Or Do You Have Difficulty Seeing? No Information not available 03/18/2023 What Is Your Level Of Caffeine Consumption? Moderate Monster Most Days Information not available 03/18/2023 Are You Deaf [...] Your Home? Yes Information not available 03/18/2023 Sex: Unknown Functional Status Question Answer Note LastModified by Organizat ion Details LastModified Time Do you use any illicit or recreational drugs? No Information not available 03/18/2023 What is your level of alcohol consumption? None Information not available 03/18/2023 Are you currently employed? Yes Information not available 03/18/2023 Are you able to care for yourself independently? Yes Information not available 03/18/2023 Mental Status None recorded. Family History Relationship Description Onset Age of this Age Resolved Age Notes LastModified by Organization Details LastModified Time Mother Malignant neoplasm of breast [email or web address] Not available 2022 14:13:40 Medical History Condition Response Other Thyroid Problems Y Depression Y Diabetes Y Asthma Y Gynecological History Statement/Question Response Menses Monthly Y Current Control Method None Date of LMP 03/18/2023 LMP Definite Obstetrics History GPAL:G 0 P 0 0 0 0 Immunizations Vaccine Type Date Status Note Provider Nam e and Address Organization Details Recorded Time Influenza, split virus, quadrivalent, preservative 0 completed Not Available [facility] 11/24/2023 07:01:49 Influenza, MDCK, quadrivalent, PF 9 completed Not Available [facility] 11/24/2023 07:01:49 MMR 4 completed Not Available [facility] 11/24/2023 07:01:49 COVID-19, mRNA, LNP-S, PF, 100 mcg/0.5mL dose or 50 mcg/0.25mL dose 1 completed Not Available [facility] 11/24/2023 07:01:49 COVID-19, mRNA, LNP-S, PF, 100 mcg/0.5mL dose or 50 mcg/0.25mL dose 1 completed Not Available [facility] 11/24/2023 07:01:49 COVID-19, mRNA, LNP-S, PF, 100 mcg/0.5mL dose or 50 mcg/0.25mL dose 1 completed Not Available [facility] 11/24/2023 07:01:49 COVID-19, mRNA, LNP-S, bivalent, PF, 50 mcg/0.5 mL or 25mcg/0.25 mL dose 2 completed Not Available [facility] 11/24/2023 07:01:49 Tdap 4 completed Not Available [facility] 11/24/2023 07:01:49 DTP 4 completed Not Available [facility] 11/24/2023 07:01:49 OPV, trivalent 4 completed Not Available [facility] 11/24/2023 07:01:49 Hep A, adult 3 completed Not Available [facility] 11/24/2023 07:01:49 Hep A, adult 2 completed Not Available [facility] 11/24/2023 07:01:49 Influenza, split virus, quadrivalent, PF 2 completed Not Available [facility] 11/24/2023 07:01:49 Influenza, split virus, quadrivalent, PF 1 completed Not Available [facility] 11/24/2023 07:01:49 Influenza, split virus, quadrivalent, PF 3 completed Ligia Damon MD Attn: Accounting,[address] [place], [address], [facility] 08/16/2023 19:07:51 Past Encounters Encounter ID Performer Location Encounter Start Date Encounter Closed Date Diagnosis/Indication Diagnosis SNOMED-CT Code Diagnosis ICD10 Code Diagnosis IMO Codes Diagnosis Note [id number] Ligia Damon MD [facility] (Adult Med) [address] [place] [address] 03/18/2023 13:52:49 03/22/2023 09:07:20 General examination of patient 053284554 Z00.01 Uncontroll ed type 2 diabetes mellitus 262673259 E11.65 Hypothyroidism 75254424 E03.9 Pulmonary embolism 41089 003 I26.99 Mass of lower limb 33577 7000 R22.43 Screening for malignant neoplasm of cervix 360577683 Z12.4 History of Joan syndrome 2873279308 9101 Z86.39 Bipolar disorder 0175664 4 F31.9 Obstructiv e sleep apnea syndrome 04408231 G47.33 Asthma 620616792 J45.90 9 [id number] MD Alissa Campos (Adult Med) [address] [place] [address] 06/14/2023 15:20:59 06/15/2023 15:41:52 Body mass index 40+ - severely obese 124993072 Z68.44 Follow-up visit 26772848 9 Z09 Tachycardia 6451511 R00. 0 Anemia 155272827 D64.9 Hypothyroidism 80770906 E03.9 Medication review done by doctor 795067045 Z76.89 [id number] MD Alissa Campos (Adult Med) [address] [place] [address] 07/26/2023 15:37:48 08/03/2023 08:38:07 Uncontrolled type 2 diabetes mellitus 647014197 E11.65 HBA1C 8.8%.manag ed by the endocrinol ogist. Medication monitoring 39 9849303 Z51.81 History of total hysterectomy 988068538 Z90.297 [id number] MD Alissa Campos (Adult Med) [address] [place] [address] 08/16/2023 14:47:50 08/17/2023 14:52:38 Administration of influenza vaccine 29976839 Z23 Contact dermatitis 48554 004 L25.9 Skin tag 555654502 L91.8 Traumatize d, then infected? [id number] MD Alissa Campos (Adult Med) [address] [place] [address] 09/13/2023 11:25:33 09/14/2023 12:56:51 Uncontrolled type 2 diabetes mellitus 135480547 E11.65 LabsEndocr inology OV 07/26/2023H BA1C 8.8%.Manag ed by the endocrinol ogist. Pruritic rash 00297271 L 28.2 Cerebral a rachnoid cyst 369786419 G93.0 Noted on the MRI ordered by her endocrinol ogist who has since retired [id number] MD Alissa Campos (Adult Med) [address] [place] [address] 10/01/2023 14:48:46 10/05/2023 09:07:07 Uncontrolled type 2 diabetes mellitus 788301596 E11.65 HBA1C 9.8% on 09/18/2023 Increase LantusEndo crinologis t to see OV 09/13/2023 LabsEndocr inology OV 07/26/2023H BA1C 8.8%.Manag ed by the endocrinol ogist. Follow-up visit 72033231 9 Z09 Immunization advised 310 685972 Z71.9 Arachnoid cyst 95183404 G93.0 Small left cerebellar arachnoid cyst, an incidental finding on the MRI ordered by her endocrinol ogist as part of the work up of possible Cushings. [id number] MD Alissa Campos (Adult Med) [address] [place] [address] 10/25/2023 15:05:23 10/26/2023 10:15:16 Uncontrolled type 2 diabetes mellitus 874029403 E11.65 Increase Lantus to 33 units JUEMY5M 10.2% on 10/01/2023 OV 10/01/2023 HBA1C 9.8% on 09/18/2023 Increase LantusEndo crinologis t to see OV 09/13/2023 LabsEndocr inology OV 07/26/2023H BA1C 8.8%.Manag ed by the endocrinol ogist. Follow-up visit 37786701 9 Z09 Immunization advised 310 871806 Z71.9 Hypothyroidism 70894696 E03.9 [id number] MD Alissa Campos (Adult Med) [address] [place] [address] 02/08/2024 16:18:11 02/09/2024 18:39:08 Uncontrolled type 2 diabetes mellitus 166609373 E11.65 HBA1C 11.5% on 01/20/2024Ma naged by the endocrinol ogist OV 10/25/2023 Increase Lantus to 33 units AIRDE4H 10.2% on 10/01/2023 OV 10/01/2023 HBA1C 9.8% on 09/18/2023 Increase LantusEndo crinologis t to see OV 09/13/2023 LabsEndocr inology OV 07/26/2023H BA1C 8.8%.Manag ed by the endocrinol ogist. Immunization advised 310 718231 Z71.9 Arthritis 2396367 M19.90 Non-compli ance of drug therapy 014344716 Z91.148 She should discuss her issues with Jardiance, with her endocrinol ogist Health Concerns Section Related Observation LastModified by Organization Detai ls LastModified Time None Recorded Concern Status LastModified by Organization Details LastModified Time None Recorded Advance Directives Directive None Recorded Payers Insurance Date Sequence Insurance Name Policy Number Policy Verdugo Covered Member ID Verdugo Member ID Guarantor Name 06/17/2024 1 [facility] (MEDICAID HMO) [id number] Kirsten Hendricks [id number] Kirsten Hendricks 06/14/2023 1 [facility] - DOS PRIOR TO 2021 (MEDICAID REPLACEMENT - HMO) Kirsten Hendricks [id number] Kirsten Hendricks Notes Date Note Type Note Provider Name and Address Organization Details Recorded Time 3 text/html ROS as noted in the HPI I have these bumps all over my arms that really itchI have a skin tag Ms Hendricks presents with a inflamed sskin tag on the left side of her chin and a itchy rash on her forearms. Ligia Damon MD Attn: Accounting,[address] [place], [address], [facility] 08/16/2023 19:11:26 3 text/html ROS as noted in the HPI I have been having hives up and down my arm, especially at nightWe had fleas Ms Hendricks returns with hives and a itchy rash on her right forearm, she also reports a rash on her back. She had a flea infestation recently that was treated. She felt her rash and wheals were from the Victoza which she has since stopped. Ligia Damon MD Attn: Accounting,[address] [place], [address], [facility] 09/13/2023 13:22:51 3 text/html Diabetes F/UReported by PatientHPIFor associated symptoms, patient reportsweight loss (4 lbs)but reportsno weight gain,no dizziness,no sweats,no headaches,no confusion,no increased thirst,no increased appetite,no increased urination,no blurred vision,no numbness of feet, andno calluses on feet. For review finger sticks, patient reportsfastin,post lunch: ___, andpost dinner: 300. For labs, patient reportslast a1c result: 9.8. For context, patient reportsnormal range of home blood sugars (in the low 100s),seeing eye doctor regularly, andchecking feet regularly.ROS as noted in the HPI I ran out of InsulinArachnoid cyst Ms Hendricks was out of Insulin and developed severe hyperglycemia which prompted an ER visit and a brief admission. Ligia Damon MD Attn: Accounting,[address] [place], [address], [facility] 10/01/2023 20:04:51 3 text/html Diabetes F/UReported by PatientHPIFor context, patient reportshome blood sugar range highbut reportstaking aspirin daily,not missing doses of medications, andno side effects from medications. For associated symptoms, patient reportsweight gain (2 lbs)but reportsno weight loss,no dizziness,no sweats,no headaches,no confusion,no increased thirst,no increased appetite,no increased urination,no blurred vision,no numbness of feet, andno calluses on feet. For review finger sticks, patient reportsfastinandpost lunch: 250. For labs, patient reportslast a1c result: 10.2.ROS as noted in the HPI Ms Hendricks is doing well, her BS vary between 150 & 250. Ligia Damon MD Attn: Accounting,[address] [place], [address], [facility] 10/25/2023 16:39:45 4 text/html Diabetes F/UReported by PatientHPIFor context, patient reportshome blood sugar range highbut reportstaking aspirin daily,not missing doses of medications, andno side effects from medications. For associated symptoms, patient reportsweight gain (4 lbs)but reportsno weight loss,no dizziness,no sweats,no headaches,no confusion,no increased thirst,no increased appetite,no increased urination,no blurred vision,no numbness of feet, andno calluses on feet. For review finger sticks, patient reportspost lunch: 236(average 205). For labs, patient reportslast a1c result: 11.5. Musculoskeletal PainReported by PatientHPIFor quality, patient reportssharp. For severity, patient reportsinterference with workbut reportspain level without meds __/10. For location, patient reportslumbar spine,bilateral hip, andbilateral ankle. For timing, patient reportsintermittent. For context, patient reportsprior back problems. For alleviating factors, patient reportsrelieved by changing position. For aggravating factors, patient reportsmovement/position ing. 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 With my arthritis I just can't do it In the interim, she has established care with the detail drafter and was given Ozempic samples, the notes [...] periods of time. Ligia Damon MD Attn: Accounting,[address] [facility], [place], [address], [place] 02/08/2024 18:55:21 OBGyn Episode No OBEpisode recorded.
--- OUTSIDE RECORDS SUMMARY | 2025-08-25 21:46 | XMS_ITS | Clinical Summary ---
Author Organization [facility] [place] [address] Address [address] [place] [address] Care Team Providers Care Tenter Frame Operator Name Role Phone Kartik Van MD Unavailable Chaim Rodriguez MD Unavailable [phone] Jessica Beckwith MD Primary Care Provide r Allergies Active Allergy Reactions Criticality Noted Date Comments Amoxicillin-Pot Clavulanate Hives Medium 02/18/2023 [place]-Cresol Rash Medium 07/03/2025 Promethazine Hives,Itching,Unknow n, Rash,Urticaria High 03/13/2019 promethazine Pronethalol Hives Medium 02/18/2023 Medications pen needle, [...] BY MOUTH EVERY DAY AT BEDTIME Active sertraline (ZOLOFT) 100 mg tablet Take 1 tablet (100 mg total) by mouth daily 3 Active semaglutide (OZEMPIC) 1 mg/dose (4 mg/3 mL) pen injector injection Inject 1 mg under the skin every 7 days 3 mL 6 4 Active Additional Information Patient taking differently:1 mg subcutaneous Every 7 days,Takes on Sundays., Reported on 07/03/2025 metFORMIN (GLUCOPHAGE) 1,000 mg tablet Take 1 tablet (1,000 mg total) by mouth daily with breakfast 180 tablet 3 4 Active blood-glucose sensor (FreeStyle Forrest 3 Sensor) device Use as directed. Change sensor every 14 days. 2 each 11 4 Active levothyroxine (Unithroid) 50 mcg tablet Take 1 tablet (50 mcg total) by mouth microsoft dynamics developer before breakfast 90 tablet 2 4 Active Additional Information Patient not taking.Reported on 07/12/2025 insulin lispro (HumaLOG, ADMELOG) 100 unit/mL pen for injection INJECT 20 UNITS UNDER THE SKIN TWICE DAILY( BEFORE BREAKFAST AND DINNER) 15 mL 3 4 Active Additional Information Patient taking differently: 30 Units 3 times daily with meals, Reported on 07/12/2025 insulin glargine (LANTUS) 100 unit/mL (3 mL) pen for injection 40 Units nightly Act fabián gemfibroziL (LOPID) 600 mg tablet Take 1 tablet (600 mg total) by mouth once Active traMADoL (ULTRAM) 50 mg tablet Take 1 tablet (50 mg total) by mouth every 6 (six) hours as needed for pain 15 tablet 5 Active Active Problems Problem Noted Date Diagnosed Date Carpal tunnel syndrome on right 03/15/2025 Right carpal tunnel syndrome 02/12/2025 Right wrist pain 02/12/2025 Attention deficit hyperactivity disorder 024 Morbid (severe) obesity due to excess calories 0 01/20/2024 Body mass index (BMI) 60.0-69.9, adult 4 Type 2 diabetes mellitus wit h hyperglycemia, with long-term current use of insulin 01/20/2024 Assessment & Plan (01/20/2024 5:16 PM MULE DRIVER): Hba1c was Lab Results Component Value Date [...] placed and connected to her phone via [employer] Patient is also linked to our [...] is doing and to look at her Forrest view data Moderate chronic obstructive pulmonary disease 0 05/24/2023 Thrombophilia 02/18/2023 Overview (02/18/2023): Unprovoked pulmonary embolus requiring hospitalization at [facility] 12/07/2022 Pulmonary embolism 01/25/2023 Elevated liver enzymes 02/07/2019 Overview (03/15/2025): 08/01/19 Fibroscan CAP 307, E 8.0 kPa Hyperlipidemia 02/07/2019 Essential hypertension 02/07/2019 Asthma 02/07/2019 Type 2 diabetes mellitus 01/04/2019 Obstructive sleep apnea syndrome 10/09/2018 Encounters Date Type Department Care Team Description 07/25/2025 7:15 AM CDT Office Visit [facility] Hand Surgery [address] [place] [phone] Marian Perez, ASSAYER HELPER Carpal tunnel syndrome on right (Primary Dx) 07/12/2025 7:30 AM CDT - 07/12/2025 8:15 AM CDT Surgery [facility] OR [address] [place] [address] Kermit Mcmanus MD RIGHT CARPAL TUNNEL RELEASE 07/12/2025 7:13 AM CDT Anesthesia Event [facility] OR [address] [place] [address] Khoi Lee MD 07/12/2025 5:57 AM CDT - 07/12/2025 8:06 AM CDT Hospital Encounter [facility] Main OR [address] [place] [address] Kermit Mcmanus MD Carpal tunnel syndrome on right [G56.01] (Primary Dx) Discharge Disposition: Discharge to home or self care 07/11/2025 7:30 AM CDT Office Visit [facility] Hand Surgery [address] [place] [phone] Marian Perez, KENNY Right carpal tunnel syndrome (Primary Dx); Right wrist pain 07/09/2025 8:00 AM CDT Pre-Admission Testing [facility] Pre Admit Testing [address] [place] [address] Pre-op testing 07/09/2025 Orders Only [facility] PreAdmission Testing [facility] [place] [address] Odalys Hayden RN 07/03/2025 Orders Only [facility] Pre Admit Testing [address] [place] [address] Amaya Esparza, LEIGH Pre-op testing (Primary Dx) 07/02/2025 7:30 AM CDT Office Visit [facility] Hand Surgery [address] [place] [phone] Kermit Mcmanus MD Right carpal tunnel syndrome (Primary Dx) from Last 3 Months Immunizations Immunization Administration [...] Site/Laterality Comments HYSTERECTOMY TONSILLECTOMY NASAL SEPTUM SURGERY CARPAL TUNNEL RELEASE 07/12/2025 Left Medical History Medical History Date Comments Pulmonary embolism 2021 Thrombophilia 02/18/2023 Unprovoked pulmo nary embolus requiring hospitalization at [facility] 12/07/2022 Diabetes mellitus Type 2 diabetes mellitus wit h hyperglycemia, with long-term current use of insulin (HCC) 01/20/2024 Attention deficit hyperactiv ity disorder 04/13/2024 Elevated liver enzymes 02/07/2019 08/01/19 F ibroscan CAP 307, E 8.0 kPa Essential hypertension 02/07/2019 Moderate chronic obstructive pulmonary disease (HCC) 05/24/2023 Asthma 02/07/2019 Obstructive sleep apnea syndrome 10/09/2018 uses Cpap Family History Medical History Relation Name Comments Breast cancer Mother Diabetes Other Aunt Relation Name Status Comments Mother Other Aunt Social History Tobacco Use Types Packs/Day Years Used Date Smoking Tobacco: Never Tobacco Cessation:Counseling Given: Not Answered Alcohol Use Standard Drinks/Week Comments Yes 1 (1 standard drink = 0.6 oz pur e alcohol) AUDIT-C Answer Date Recorded Q1: How often do you have a drink containing alc ohol? 2-4 times a month 07/12/2025 Q2: How many drinks containi ng alcohol do you have on a typical day when you are drinking? 1 or 2 07/12/2025 Q3: How often do you have si x or more drinks on one occasion? Never 07/12/2025 Personal Safety Answer Date Recorded Have you ever been in or are you currently in a harmful physical or emotional relationship or is someone making you feel afraid or unsafe? Denies 07/12/2025 Comments No Sex and Gender Information Value Date Recorded Sex Assigned at Not on file Legal Sex Female 7:57 PM MULE DRIVER Gender Identity Not on file Sexual Orientation Not on file Obstetrics History Last Filed Vital Signs Vital Sign Reading Time Taken Comments Blood Pressure 131/90 07/12/2025 7:57 AM CDT Pulse 88 07/12/2025 7:57 AM CDT Temperature 36.1 C (96.9 F) 07/12/2025 7:37 AM CDT Respiratory Rate 16 07/12/2025 7:57 AM CDT Oxygen Saturation 97% 07/12/2025 7:57 AM CDT Inhaled Oxygen Concentration - - Weight 161.3 kg (355 lb 8 oz) 07/12/2025 6:05 AM CDT Height 160 cm (5' 3) 07/12/2025 6:05 AM CDT Body Mass Index 62.97 07/12/2025 6:05 AM CDT Plan of Treatment Health Maintenance Due Date Last Done Comments Depression Screening 1990 Hepatitis C Screening 1990 Dilated Eye Exam 1990 Foot Exam 1990 Varicella Vaccines (1 of 2 - 13+ 2-dose series) 2003 Hepatitis B Screening 2008 Regular Well Visit/Exam 18-64 2008 Pneumococcal vaccine <65 (1 of 2 - PCV) 2009 HPV Vaccines (1 - 3-dose SCD M series) 2017 DTaP/Tdap/Td Vaccine (3 - Td or Tdap) 03/15/2024 03/15/2014, 10/21/1994 Albumin Creatinine Ratio, Urine 06/03/2024 3 Lipid Panel 06/03/2024 06/03/2023 Covid-19 Vaccine (2024-2 6 season) 2025 09/07/2022, 09/07/2022, 11/11/2021, Additional history exists Influenza Vaccine (#1) 2025 , 08/16/2023, 09/07/2022, Additional history exists Hemoglobin A1C 01/09/2026 07/09/2025, 03/0 05/2024, 06/03/2023 eGFR 07/09/2026 07/09/2025, 03/0 05/2024, 07/02/2023, Additional history exists Procedures Procedure Name Priority Date/Time Associated Diagnosis Comments RELEASE CARPAL TUNNEL 07/12/2025 7:13 AM CDT Carpal tunnel syndrome on right Case Notes RT CTR *GENERAL* EGFR Routine 07/09/2025 9:04 AM CDT Pre-op testing COMPREHENSIVE METABOLIC PANEL Routine 07/09/2025 9:04 AM CDT Pre-op testing HEMOGLOBIN A1C Routine 07/09/2025 9:04 AM CDT Pre-op testing ECG 12-LEAD Routine 07/09/2025 8:56 AM CDT Pre-op testing LIPID PANEL Routine 06/03/2023 10:25 AM CDT ALBUMIN CREATININE RATIO, URINE Routine 06/03/2023 10:25 AM CDT from Last 3 Months or Most Recently Relevant to Health Maintenance Results * eGFR (07/09/2025 9:04 AM CDT) eGFR >90 >=60 mL/min/1. 73 m2 Comment: Interpretive Data Reference [...] of Race in Diagnosing Kidney Disease, JASN 202). The CKD-EPI equation should not be used for patients with unstable renal function and has not been validated in children and those over 70. Current interpretive data was last reviewed 2021. Testing performed by: [facility], [address] [place] [address]., [id number] Blood 07/09/2025 9:04 AM CDT 07/09/2025 9:15 AM CDT Jose Elias Turpin MD LAB BLOOD ORDERABL ES Final Result Performing Organization Address [facility] Co de Phone Number VITOR [address] [facility] [place] [address] * (ABNORMAL) Hemoglobin A1c (07/09/2025 9:04 AM CDT) Hgb A1C 11.3(H) 4.0 - 5.6 % Comment:Testing performed by : [address] [address] Estimated Average Glucose 278 mg/dL VITOR Comment: The ADA recommends reporting an estimated Average Glucose (eAG) with all Hemoglobin A1c results using the equation derived from a study of 507 normal and diabetic adults. Minority populations were underrepresented and children were not included. (Diabetes Care 31:3925-8523, 2008). The eAG is not equivalent to a fasting glucose. Testing performed by: [address] [address] Blood 07/09/2025 9:04 AM CDT 07/09/2025 9:15 AM CDT Narrative VITOR - 07/09/2025 9:31 AM CDT PRE SURGICAL TESTING ONLY--* No surgery found *--* Surgery not found *-@ANPROCEDURE@ Jose Elias Turpin MD LAB BLOOD ORDERABL ES Final Result Performing Organization Address [facility] Co de Phone Number VITOR [facility] [place] [address] * (ABNORMAL) Comprehensive metabolic panel (07/09/2025 9:04 AM CDT) Sodium 133(L) 135 - 145 mmol/L Comment:Testing performed by : [address] [address] Potassium, pl 4.1 3.3 - 4.9 mmol/L VITOR NARAYANAN Comment:Testing performed by : [address] [address] Chloride 98 97 - 110 mmol/L VITOR Comment:Testing performed by : [facility], [address] [place] [address]., [address] CO2 24 22 - 32 mmol/L VITOR Comment:Testing performed by : [address] [address] Anion gap 11 2 - 15 mmol/L VITOR Comment:Testing performed by : [address] [address] BUN 11 6 - 25 mg/dL VITOR Comment:Testing performed by : [address] [address] Creatinine 0.50(L) 0.60 - 1.10 mg/dL VITOR Comment:Testing performed by : [address] [address] Glucose 394(H) 70 - 199 mg/dL VITOR Comment: Interpretive Data Fasting glucose >/= 126 mg/dl is diagnostic for diabetes. Fasting is defined as no caloric intake for at least 8 hours. Fasting glucose between 100 mg/dl to 125 mg/dl is diagnostic of prediabetes. In a patient with classic symptoms of hyperglycemia or hyperglycemic crisis, a random glucose >/= 200 mg/dl is diagnostic for diabetes. In the absence of unequivocal hyperglycemia, results should be confirmed by repeat testing. The classification and Diagnosis of Diabetes Diabetes Care 202; 46: S19-S40. Current interpretive data was last revised 2022. Testing performed by: [address] [address] Calcium 9.4 8.5 - 10.3 mg/dL VITOR Comment:Testing performed by : [address] [address] Bilirubin, total 0.3 0.1 - 1.2 mg/dL VITOR Comment:Testing performed by : [address] [address] Protein, pl 7.2 6.5 - 8.5 g/dL VITOR Comment:Testing performed by : [address] [address] Albumin 3.7 3.5 - 5.0 g/dL VITOR Comment:Testing performed by : [address], [place]., [address] Alk phos 90 40 - 130 Units/L VITOR Comment:Testing performed by : [address] [address] ALT 55(H) 7 - 45 Units/L VITOR Comment:Testing performed by : [address] [address] AST 49(H) 10 - 45 Units/L VITOR Comment:Testing performed by : [facility], [address] [place] [address]., [address] Blood 07/09/2025 9:04 AM CDT 07/09/2025 9:15 AM CDT Narrative VITOR - 07/09/2025 9:53 AM CDT PRE SURGICAL TESTING ONLY--* No surgery found *-* Cannot find OR case *-* Surgery not found *- us Jose Elias Turpin MD LAB BLOOD ORDERABL ES Final Result VITOR [address] [facility] Department of Laboratories [place], [place] [id number] * ECG 12 lead (07/09/2025 8:56 AM CDT) Ventricular Rate EKG/Min 74 BPM [facility] Atrial Rate 74 BPM [facility] IL-Interval (MSEC) 158 ms [facility] QRS-Interval (MSEC) 100 ms [facility] QT-Interval (MSEC) 366 ms [facility] QTc 406 ms [facility] P Madison 45 degrees [facility] R Madison 35 degrees [facility] T Madison 33 degrees [facility] Diagnosis Normal sinus rhythm Low voltage QRS Incomplete right bundle branch block No previous ECGs available Confirmed by SULTAN INGRAM M.D. ([id number]) on 07/09/2025 3:36:17 PM [facility] 07/09/2025 8:56 AM CDT 07/09/2025 3:36 PM CDT us Jose Elias Turpin MD ECG ORDERABLES Fi nal Result [facility] * (ABNORMAL) Albumin Creatinine Ratio, Urine (06/03/2023 [...] Most Recently Relevant to Health Maintenance Insurance [facility]/PPO Address: [address] [place], [place] [id number] [place] [address] [facility]/PPO Address: [address] [place] [address] Care Teams Tenter Frame Operator Relationship Specialty Start Date End Date Jessica Beckwith MD [address] [place] [address] PCP - General Internal Medicine 02/12/25 Kartik Van MD [address] [place] [address] Internal Medicine 02/18/23 Chaim Rodriguez MD [address] [address] [place] [address] Medical Oncologist/[place] Cutter Helper Hematology and Oncology 04/22/23
--- OUTSIDE RECORDS SUMMARY | 2025-08-25 21:46 | XMS_ITS | Patient Health Record ---
Author Organization [facility] Address [address] [place], [place] [address] Care Team Providers Care Grounds Supervisor Name Role Phone Becca Tellez Primary [...] a nd pick correct strength-formulati on from [employer]an options. If intended option is not shown, discontinue and re-order from Quick Search* *Pick strength-form from [employer] for eRX* Active FreeStyle Forrest 3 Plus Sensor - Miscellaneous change sensor every 15 days; Duration: 90 days 10/09/2024 Active Rosuvastatin Calcium 40 MG Tablet 1 tablet Orally every other day at bedtime; Duration: 90 days 10/09/2024 Active FreeStyle Forrest 3 Plus Sensor - Miscellaneous change sensor every 15 days; Duration: 90 days 10/06/2024 Active dexAMETHasone 1 MG Tablet 1 tab(s) orally at 10 pm night before 8 am cortisol; Duration: days 08/14/2024 Active Abilify *Please review a nd pick correct strength-formulati on from [employer]an options. 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 Problem Vitamin D deficiency (64570284) Vitamin D deficiency, unspecified (E55.9) Active confirmed Problem Obesity (889625989) Obesity, unspecified (E66.9) Active confirmed Problem Essential hypertension (89205626) Essential (primary) hypertension (I10) Active confirmed Problem Hyperlipidemia (55150319) Hyperlipidemia, unspecified (E78.5) Active confirmed Vital Signs Heart Rate 80 /min 10/09/2024 Respiratory Rate 12 /min 10/09/2024 Blood pressure diastolic 82 mm Hg 10/09/2024 Height 63 in 10/09/2024 Blood pressure systolic 124 mm Hg 10/09/2024 Weight 370 lbs 10/09/2024 BMI 65.54 kg/m2 10/09/2024 Encounters Encounter Location Date Provider Diagnosis [address] [id number] 09/30/2024 Provider Migration Joan's syndrome, 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 Tellez [address] [place], [place] [phone] 09/04/2024 Becca Tellez AMSAMUEL Tellez [address] [place] [address] 09/08/2024 Becca Tellez [place] [phone] 09/19/2024 Becca Tellez [address] [place] [phone] 09/21/2024 [place] [address] 10/06/2024 Becca Tellez Type 2 diabetes mellitus with hyperglycemia E11.65 [place] [phone] 10/09/2024 Becca Tellez Assessments Encounter Date Diagnosis (ICD Code) Assessment Notes Treatment Notes Treatment Clinical Notes Section Notes 09/30/2024 Agua Dulce's syndrome, 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) 10/06/2024 Type 2 diabetes mellitus with hyperglycemia (ICD-10 - E11.65) 10/09/2024 Type 2 diabetes mellitus with hyperglycemia (ICD-10 - E11.65) 10/09/2024 Joan's syndrome, 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) 10/09/2024 Vitamin D deficiency, unspecified (ICD-10 - E55.9) 10/09/2024 Essential (primary) hypertension (ICD-10 - I10) 10/09/2024 Obesity, unspecified (ICD-10 - E66.9) 10/09/2024 Hyperlipidemia, unspecified (ICD9-CM - E78.5) 10/09/2024 Other Assessment and Plan: 1. Diabetes Mellitus Type 2- Patient reports blood sugars staying under 300.- Currently taking 20 units of long-acting insulin before bed, 20 units upon waking up, and 16 units of fast-acting insulin before meals (total 84 units/day).- Plan: Sent Freestyle Forrest 3 Plus Sensor to [facility] for better glucose monitoring. Encourage patient to [...] Arachnoid Cyst- Previous MRI ordered by Dr. Hurtaod revealed an arachnoid cyst. No referral to [...] the beginning of the year, still through [employer].- Plan: Ensure proper coordination of care and [...] procedures, referring and communicating with other health daycare director, documenting clinical information in the electronic or [...]
--- OUTSIDE RECORDS SUMMARY | 2025-08-25 21:46 | XMS_ITS | Data Portability ---
Author Organization [place] - [facility] [employer], Main Office Address [address] [place] [address] Assessment Encounter Date Assessment Date Assessment LastModified by Organization Details LastModified Time 04/26/2025 04/26/2025 01/27/2025: A1C 14.4 Not available 04/26/2025 15:53:08 06/20/2025 06/20/2025 01/27/2025: A1C 14.4 04/28/2025: A1C 12.6 TG 194 Gluc 358 AST/ALT 78/74 Not available 06/20/2025 10:08:27 07/11/2025 07/11/2025 01/27/2025: A1C 14.4 04/28/2025: A1C 12.6 TG 194 Gluc 358 AST/ALT 78/74 07/09/2205: A1C 11.3 ALT/AST 55/49 Gluc 394 Not available 07/11/2025 18:28:23 07/31/2025 07/31/2025 Assessment: Mod ACO RLL PE on Eliquis [...] V/Q scan 04/09/23 low probability of PE [facility] diagnostic sleep study 02/18/18 sleep onset = 10 minutes, REM onset = 86 minutes, AHI = 7, REM AHI = 28 [facility] titration sleep study 04/26/18 sleep onset = 11 minutes, REM onset = 40 minutes, Respironics small DreamWear nasal pillows @ 11 cmH2O PAP compliance downloaded and interpreted x 20 minutes. Data reviewed and explained to the patient. Average apnea/hypopnea index (AHI) is 0.2. Patient used PAP > 4 hours 99% of the time. PAP is set at 11 cmH2O. PAP will remain at 11 cmH2O. Keep ramp start at 5 cmH2O. Keep ramp duration at 20 minutes. Keep EPR +2 time study technologist. Keep humidifier level at 4. Oxygen supplementation: none Patient is benefiting from [...] will get help from a physician immediately. Complete PFTs DANIELLE. Advised to continue not to smoke. Continue albuterol HFA as needed. Advair HFA 115/21 mcg and Symbicort HFA 160/4.5 mcg are non-formulary. Start Breztri aerosphere 160/9/4.8 mcg 2 puffs BID. Gargle after use. [...] to PCP for further management. Follow-up: 1 week after PFT Not available 07/31/2025 09:07:44 Plan of Treatment Reminders Order Date Submit Date Provider Last Modified By Organization Details Last Modified Time Details Appointments Follow Up 15 2024 09:45A M Zack madden MD Not available Not available Not available Follow Up 20 2024 09:00A M Shakira Lawson NP Not available Not available Not available Lab HbA1c (hemoglob in A1c), blood [address] ([facility]), [address] [place], [address], 07/11/2025 17:00:50 microalbu min, urine [address] ([facility]), [address] [place], [address], 07/11/2025 17:00:51 lipid panel, serum [address] ([facility]), [address] [place], [address], 07/11/2025 17:00:51 CMP, serum or plasma [address] ([facility]), [address] [place], [address], 07/11/2025 17:00:51 TSH + free T4, serum [address] ([facility]), [address] [place], [address], 07/11/2025 17:00:52 CBC w/ auto diff [address] ([facility]), [address] [place], [address], 07/11/2025 17:00:52 hepatitis panel (A+B+C), acute, serum [address] ([facility]), [address] [place], [address], 07/11/2025 17:00:52 gamma-glu tamyl transfera se (ggt), serum [address] ([facility]), [address] [place], [address], 07/11/2025 17:00:52 HbA1c (hemoglob in A1c), blood [address] ([facility]uling), [address] [place], [address], 06/27/2025 10:28:56 microalbu min, urine [address] ([facility]uling), [address] [place], [address], 06/27/2025 10:29:07 lipid panel, serum [address] ([facility]uling), [address] [place], [address], 06/27/2025 10:29:17 CMP, serum or plasma [address] ([facility]uling), [address] [place], [address], 06/27/2025 10:29:27 TSH + free T4, serum [address] ([facility] Scheduling), [address] [place], [address], 06/27/2025 10:29:37 CBC w/ auto diff [address] ([facility] Scheduling), [address] [place], [address], 06/27/2025 10:29:46 hepatitis panel (A+B+C), acute, serum [address] ([facility]uling), [address] [place], [address], 06/27/2025 10:29:56 gamma-glu tamyl transfera se (ggt), serum [address] ([facility]uling), [address] [place], [address], 06/27/2025 10:30:06 HbA1c (hemoglob in A1c), blood 2024 025 [facility] ([facility]uling), [address] [place], [address], 04/29/2025 08:09:54 microalbu min, urine [address] ([facility]uling), [address] [place], [address], 05/08/2025 14:31:58 lipid panel, serum 2024 025 [facility] ([facility]), [address] [place], [address], 04/29/2025 08:09:52 CMP, serum or plasma 2024 025 [facility] ([facility]), [address] [place], [address], 04/29/2025 08:09:51 TSH + free T4, serum 2024 025 [facility] ([facility]), [address] [place], [address], 04/29/2025 08:09:49 CBC w/ auto diff 2024 025 [facility] ([facility]), [address] [place], [address], 04/29/2025 08:09:50 Referral podiatris t referral - Please call patient to schedule an appointme nt. Thank you. 2024 025 BOCA RATON Dashawn Baugh DPM, [address] [facility], [address], [place], [address], 07/12/2025 09:18:44 nutrition ist/dieti genevieve referral - Please call patient to schedule an appointme nt. Thank you. 2024 025 [facility], [address] [place] [address] [address], [address], 08/23/2025 12:03:39 pulmonolo gist referral - Please call patient to schedule an appointme nt. Thank you. 2024 025 [email or web address] Kartik Van MD, [address] [place], [address], 07/12/2025 08:09:31 pulmonolo gist referral - Please call patient to schedule an appointme nt. Thank you. 2024 025 hrushingElise Van MD, [address] [place], [address], 07/12/2025 08:05:20 obstetric teresa and gynecolog ist referral - Please call patient to schedule an appointme nt. Thank you. 2024 025 COLETTE Armentaalen, [address], [address], [place], [address], 07/12/2025 08:47:32 psychiatr ist referral - Please call patient to schedule an appointme nt. Thank you. 2024 025 KIMI Lawson ROVING TECHNICIAN, [address], [address], [place], [address], 07/17/2025 15:04:19 podiatris t referral - Please call patient to schedule an appointme nt. Thank you. 2024 025 KIMI Dashawn Baugh DPM, [address], [address], [place], [address], 06/25/2025 11:09:38 endocrino logy referral - Please call patient to schedule an appointme nt. Thank you. 2024 025 [facility] , [address], [address], [place], [address], 06/27/2025 09:58:10 pulmonolo gist referral - Please call patient to schedule an appointme nt. Thank you. 2024 025 [email or web address] Kartik Van MD, [address] [place], [address], 06/27/2025 09:43:31 pulmonolo gist referral - Please call patient to schedule an appointme nt. Thank you. 2024 025 [email or web address] Kartik Van MD, [address] [place], [address], 06/27/2025 09:39:55 obstetric teresa and gynecolog ist referral - Please call patient to schedule an appointme nt. Thank you. 2024 025 RAMESHMARINE Gonzalez, [address], [address], [place], [address], 06/25/2025 11:17:38 psychiatr ist referral - Please call patient to schedule an appointme nt. Thank you. 2024 025 KIMI Lawson ROVING TECHNICIAN, [address] [facility], [address], [place], [address], 06/25/2025 17:00:40 hand surgeon referral - Please call patient to schedule an appointme nt. Thank you. 2024 025 KIMI Mcmanus MD, [address] [facility] , [address], [place], [address], 07/02/2025 10:39:36 podiatris t referral - Please call patient to schedule an appointme nt. Thank you. 2024 025 brandon Baugh DPM, [address] [facility], [address], [place], [address], 07/26/2025 10:56:44 psychiatr ist referral - Please call patient to schedule an appointme nt. Thank you. 2024 025 [email or web address] Shakira Lawson ROVING TECHNICIAN, [address] [facility], [address], [place], [address], 07/26/2025 15:49:01 hand surgeon referral - Please call patient to schedule an appointme nt. Thank you. 2024 025 [email or web address] [facility], [address] [facility] , [address], [place], [address], 02/21/2025 11:06:34 Procedures None recorded. Surgeries None recorded. Imaging US, liver - Please call patient to schedule. 2024 025 [email or web address] [facility], [address] [facility], [place], [address], 07/12/2025 10:40:26 US, liver - Please call patient to schedule. 2024 025 [email or web address] [facility], [address] [facility], [place], [address], 07/23/2025 18:35:43 Medication Orders albuterol sulfate HFA 90 mcg/actua tion aerosol inhaler 2024 025 [id number], [address], [place], [address], 07/31/2025 09:09:51 Breztri Aerospher e 160 mcg-9mcg- 4.8mcg/ac tuation HFA aerosol inhaler 2024 025 [id number], [address], [place], [address], 07/31/2025 09:09:51 Ozempic 1 mg/dose (4 mg/3 mL) subcutane ous pen injector 2024 025 [facility]armacy #[id number], [address], [place], [address], 06/20/2025 10:00:16 Ozempic 1 mg/dose (4 mg/3 mL) subcutane ous pen injector 2024 025 [facility]armacy #[id number], [address], [place], [address], 04/26/2025 16:39:06 albuterol sulfate HFA 90 mcg/actua tion aerosol inhaler 2024 025 [facility]armacy #[id number], [address] [place], [address], 01/24/2025 10:12:18 gemfibroz il 600 mg tablet 2024 025 [facility]/Pharmacy #[id number], [address], [place], [address], 01/24/2025 10:12:19 Ozempic 0.25 mg or 0.5 mg (2 mg/3 mL) subcutane ous pen injector 20[email or web address] [id number], [address], [place], [address], 04/26/2025 16:01:27 insulin lispro (U-100) 100 unit/mL subcutane ous pen 2024 025 [id number], [address] [place], [address], 01/24/2025 10:12:19 insulin glargine- yfgn (U-100) 100 unit/mL (3 mL) subcutane ous pen 2024 025 [id number], [address], [place], [address], 07/11/2025 11:55:40 metformin 1,000 mg tablet 2024 025 [id number], [address] [place], [address], 01/24/2025 10:12:17 sertralin e 100 mg tablet 2024 025 [id number], [address] [place], [address], 01/24/2025 10:12:15 aripipraz ole 2 mg tablet 2024 025 [id number], [address] [place], [address], 01/24/2025 10:12:16 Patient TargetsNo targets recorded. Patient Instructions Encounter Date Encounter Id Patient Instructions Last Modified By Organization Details Last Modified Time 04/26/2025 [id number] diabetic eye exam* ATHENAFAX Not availa ble 04/27/2025 10:50:41 07/31/2025 [id number] complete PFT w/ post bronchodilator spirometry* - Please call patient to schedule. ATHENAFAX Not available 07/31/2025 14:13:26 Reason for Referral Hand Surgeon Referral for Ca rpal tunnel syndrome of right wrist Please call patient to schedule an appointment. Thank you. Referring Physician: Loli Balderrama, Internal Medicine, Encounter Date: 01/24/2025 Toe Sewer Referral for Insu ari treated type 2 diabetes mellitus Please call patient to schedule an appointment. Thank you. Referring Physician: Zack Beckwith Internal Medicine, Encounter Date: 04/26/2025 Psychiatrist Referral for Ad ult attention deficit hyperactivity disorder Please call patient to schedule an appointment. Thank you. Referring Physician: Zack Beckwith Internal Medicine, Encounter Date: 04/26/2025 Toe Sewer Referral for Insu ari treated type 2 diabetes mellitus Please call patient to schedule an appointment. Thank you. Referring Physician: Zack Beckwith Internal Medicine, Encounter Date: 06/20/2025 Psychiatrist Referral for Ad ult attention deficit hyperactivity disorder Please call patient to schedule an appointment. Thank you. Referring Physician: Zack Beckwith Internal Medicine, Encounter Date: 06/20/2025 Endocrinology Referral for I nsulin treated type 2 diabetes mellitus Please call patient to schedule an appointment. Thank you. Referring Physician: Zack Beckwith Internal Medicine, Encounter Date: 06/20/2025 Fire Control System Installer And Gynecologis t Referral for Well woman health examination Please call patient to schedule an appointment. Thank you. Referring Physician: Zack Beckwith Internal Medicine, Encounter Date: 06/20/2025 Manager Cafe Referral for O bstructive sleep apnea syndrome Please call patient to schedule an appointment. Thank you. Referring Physician: Zack Beckwith Internal Medicine, Encounter Date: 06/20/2025 Manager Cafe Referral for C hronic obstructive pulmonary disease Please call patient to schedule an appointment. Thank you. Referring Physician: Zack Beckwith Internal Medicine, Encounter Date: 06/20/2025 Hand Surgeon Referral for Ca rpal tunnel syndrome of right wrist Please call patient to schedule an appointment. Thank you. Referring Physician: Zack Beckwith Internal Medicine, Encounter Date: 06/20/2025 Toe Sewer Referral for Insu ari treated type 2 diabetes mellitus Please call patient to schedule an appointment. Thank you. Referring Physician: Zack Beckwith Internal Medicine, Encounter Date: 07/11/2025 Psychiatrist Referral for Ad ult attention deficit hyperactivity disorder Please call patient to schedule an appointment. Thank you. Referring Physician: Jess Gutiérrez Medicine, Encounter Date: 07/11/2025 Fire Control System Installer And Gynecologis t Referral for Well woman health examination Please call patient to schedule an appointment. Thank you. Referring Physician: Jess Gutiérrez Medicine, Encounter Date: 07/11/2025 Manager Cafe Referral for O bstructive sleep apnea syndrome Please call patient to schedule an appointment. Thank you. Referring Physician: Jess Gutiérrez Medicine, Encounter Date: 07/11/2025 Manager Cafe Referral for C hronic obstructive pulmonary disease Please call patient to schedule an appointment. Thank you. Referring Physician: Jess Gutiérrez Medicine, Encounter Date: 07/11/2025 Pencils Washer/dietitian Refer ral for Insulin treated type 2 diabetes mellitus Please call patient to schedule an appointment. Thank you. Referring Physician: Jess Gutiérrez Medicine, Encounter Date: 07/11/2025 Results Created Date Observation Date Name Description Value Unit Range Abnormal Flag Note LastModifiedBy Organization Detail LastModifiedTime Result Notes None recorded. Problems Name Problem SNOMED Code Status Onset Date Resolution Date Notes Provider Name and Address Organization Details Recorded Time Body mass index 40+ - severely obese 107728152 Active 2017 Loli Balderrama APRN [address], [address], [place], [address], [employer] 4 15:16:31 Obstructi ve sleep apnea syndrome 75570082 Active 2017 Zack madden MD [address], [address], [place], [address], [employer] 16:11:50 Hypertens fabián disorder 60864796 Completed 201801/05/2019 Loli Balderrama APRN [address], [address], [place], [address], [employer] 4 15:16:41 Hypertens fabián disorder 93070529 Active 2019 Loli Balderrama APRN [address], [address], [place], [address], [employer] 4 15:16:41 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 288500598 Active 2021 Loli Balderrama APRN [address], [address], [place], [address], [employer] 4 15:16:47 Arthritis 7235512 Active 2021 Loli Balderrama APRN [address], [address], [place], [address], [employer] 4 15:16:28 Hypercort isolism 79146688 Active 2021 Loli Balderrama APRN [address], [address], [place], [address], [employer] 4 15:16:34 Vitamin D deficienc y 94719632 Active 2021 Loli Balderrama APRN [address], [address], [place], [address], [facility] 4 15:16:55 Pulmonary embolism 64973777 Active 2022 Kartik Van MD [address], [address], [place], [address], [facility] 5 16:42:19 Hypertrig lyceridem ia 211815434 Active 2023 Loli Balderrama APRN [address], [address], [place], [address], [facility] 4 13:42:19 Attention deficit hyperacti vity disorder 946857278 Active 2023 Loli Balderrama APRN [address], [address], [place], [address], [facility] 4 11:07:46 Carpal tunnel syndrome of right wrist 007394388661 108 Active 2024 Zack madden MD [address], [address], [place], [address], [facility] 5 10:08:23 Insulin treated type 2 diabetes mellitus 315502952 Active 2024 Kartik Van MD [address], [place] [address], [place], [address], [facility] 5 16:41:54 Depressiv e disorder 25247512 Active 2024 Kartik Van MD [address], [place], [address], [facility] 5 16:42:03 Adult attention deficit hyperacti vity disorder 480857144 Active 2024 Kartik Van MD [address], [address], [place], [address], [facility] 5 08:44:05 Atelectas is 87295718 Active 2024 Kartik Van MD [address], [place], [address], [facility] [employer] [facility] 5 08:44:03 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 Surgery completed Not Available [facility] 01/14/20 02:27:21 11/01/20 20 nasal septoplasty completed Not Available [facility] 02:27:21 04/18/20 20 Date of Last Pap Smear completed Not Available [facility] 01/13/2023 02:27:19 Orthopedic Surgery completed Not Available [facility] 01/13/2023 02:27:21 Tonsillectomy completed Not Available [facility] 01/13/2023 02:27:21 Orthopedic Surgery completed Not Available [facility] 01/13/2023 02:27:21 hysterectomy completed Amaya Ortiz MA [facility] [employer] [facility] 04/06/2024 15:09:18 Imaging Results None recorded. Procedure Notes None recorded. Medical Equipment None Reported. Allergies Allergen ID Allergen Name Allergen Category Reaction Reaction Severity Criticality Documentation Date Start Date Code Code System Note Provider Name and Address Organization Details Recorded Time 3179 promethaz ine medicatio n Not available Not available Not available 01/13/2023 8745 RxNorm Other react ions and sever ities : 'Adve rse react ion to subst ance' . Loli Balderrama APRN [address], [address], [place], [address], [employer] 4 07:58:32 3173 Phenergan medicatio n hives itching Not available Not available Not available 01/13/20232018 46240 8 RxNorm Kartik Van MD [address], [address], [place], [address], [employer] 3 18:40:01 3174 Augmentin medicatio n hives Not available Not available 01/13/2023 92301 2 RxNorm Not Available [facility] 3 02:33:58 3175 amoxicill in medicatio n Not available Not available Not available 01/13/2023 723 RxNorm Other react ions and sever ities : 'Adve rse react ion to subst ance' . Loli Balderrama APRN [address], [place], [address], [employer] 5 09:18:21 15160 metacreso l medicatio n rash Not available Not available 06/12/2024 21513 70 RxNorm Loli Balderrama APRN [address], [address], [place], [address], [employer] 4 07:58:32 Medications Name Sig Start Date [...] completed Not Available Not Available Not Available tramadol 50 mg tablet TAKE 1 TABLET BY MOUTH EVERY 6 HOURS NEEDED FOR PAIN active Not Available Not Available No t Available acetamino phen 500 mg tablet TAKE [...] completed Not Available Not Available Not Available OrdrIt Ultra Test strips USE TO TEST SUGARS [...] Not Available Not Available No t Available doxycycli ne monohydra te 100 mg capsule TAKE 1 CAPSULE BY MOUTH TWICE A DAY 07/11 completed Not Available Not Available Not Available gemfibroz il 600 mg tablet TAKE [...] Not Available Not Available Microgest in Fe 1.04/13 (28) 1.5 mg-30 mcg (21)/75 mg (7) [...] completed Not Available Not Available Not Available One-A-Day [...] unit/mL (3 mL) subcutane ous pen INJECT 40 UNITS SUBCUTAN EOUSLY AT BEDTIME active Not Available Not Available No t Available Dulera 100 mcg-5 mcg/actua tion HFA aerosol inhaler Inhale 2 puffs twice a day by inhalati on route. active Not Available Not Available No t Available Comfort EZ Insulin Syringe 0.5 mL 31 gauge x 03/30 completed Not Available Not Available Not Available [...] Available TRUEplus Pen Needle 31 gauge x 3/16 USE DIRECTED 07/31 completed Not Available Not Available Not Available [...] 160 mcg-9mcg- 4.8mcg/ac tuation HFA aerosol inhaler INHALE 2 PUFFS TWICE A DAY DIRECTED active Not Available Not Available No t Available Ozempic 1 mg/dose (4 mg/3 mL) subcutane ous pen injector INJECT 1 MG EVERY WEEK BY SUBCUTAN EOUS ROUTE DIRECTED FOR 90 DAYS, FOR DIABETES . active Not Available Not Available No t Available insulin glargine- yfgn (U-100) 100 unit/mL (3 mL) subcutane ous pen INJECT 40 UNITS SUBCUTAN EOUSLY EVERY DAY DIRECTED 2024 active Not Available Not Available Not [...] (2 mg/3 mL) subcutane ous pen injector active Not Available Not Available Not Available [employer] Forrest 3 Plus Sensor device CHANGE SENSOR EVERY 15 DAYS 07/31 completed Not Available Not Available Not Available Vitals Date Recorded Body height Body mass index (BMI) Body weight Body temperature Heart rate Oxygen saturation Oxygen saturation in Arterial blood by Pulse oximetry Systolic And Diastolic Provider Name and Address Organization Details Last Updated DateTime 5 160.02 cm 65.5 kg/m2 329767. 18 g 97.4 [degF] 93 /min 98 % 98 % 122/74 mm[Hg] Tawanna bartlett [facility] [employer] 5 09:52:14 Date Recorded Body height Body mass index (BMI) Body weight Body temperature Heart rate Systolic And Diastolic Provider Name and Address Organization Details Last Updated DateTime 5 160.02 cm 63.1 kg/m2 793952. 88 g 97.6 [degF] 90 /min 164/70 mm[Hg] Sandee Moreno [facility] [employer] 16:05:54 Date Recorded Body height Body mass index (BMI) Body weight Body temperature Heart rate Oxygen saturation Oxygen saturation in Arterial blood by Pulse oximetry Pain severity - 0-10 verbal numeric rating [Score] - Reported Systolic And Diastolic Provider Name and Address Organization Details Last Updated DateTime 5 160.02 cm 62.5 kg/m2 930445. 11 g 87.1 [degF] 96 /min 98 % 98 % 0 120/82 mm[Hg] Amaya Ortiz MA [facility] [employer] [facility] 09:38:58 Date Recorded Body height Body mass index (BMI) Body weight Body temperature Heart rate Oxygen saturation Oxygen saturation in Arterial blood by Pulse oximetry Pain severity - 0-10 verbal numeric rating [Score] - Reported Systolic And Diastolic Provider Name and Address Organization Details Last Updated DateTime 5 160.02 cm 62.5 kg/m2 458949. 11 g 96.8 [degF] 90 /min 98 % 98 % 4 120/78 mm[Hg] Amaya Ortiz MA [facility] [employer] [facility] 10:53:56 Date Recorded Heart rate Respiratory rate Provider N chetna and Address Organization Details Last Updated DateTime 07/31/2025 86 /min 15 /min Kartik Van MD [address] [place] [address], [address], [facility] [employer] [facility] 07/31/2025 09:02:03 Date Recorded Body height Body mass index (BMI) Body weight Body temperature Heart rate Oxygen saturation Oxygen saturation in Arterial blood by Pulse oximetry Systolic And Diastolic Provider Name and Address Organization Details Last Updated DateTime 5 160.02 cm 63.8 kg/m2 078298. 25 g 98.2 [degF] 86 /min 98 % 98 % 120/76 mm[Hg] Rosa Bansal MA [facility] [employer] [facility] 5 08:54:01 Social History Question Answer Notes LastModified by Organization Details LastModified Time Tobacco Smoking Status Never Smoker Not Available [facility] 01/13/2023 02:24:47 Do You Have An Advance Directive? No MIGRATION.0301 [id number] Information not available 01/13/2023 What Is Your Level Of Caffeine Consumption? Moderate MIGRATION.0301 [id number] Information not available 01/13/2023 How Much Tobacco Do You Chew? None MIGRATION.0301 714258 Information not available 01/13/2023 In The 14 Days Before Symptom Onset, Have You Had Close Contact With A Laboratory-confi rmed COVID-19 While That Case Was Ill? No MIGRATION.030 [id number] Information not available 01/13/2023 In The 14 Days Before Symptom Onset, Have You Had Close Contact With A Person Who Is Under Investigation For COVID-19 While That Person Was Ill? No MIGRATION.0301 [id number] Information not available 01/13/2023 What Type Of Diet Are You Following? DIABETIC MIGRATION.0301 770229 Information not available 01/13/2023 Which Illicit Or Recreational Drugs Have You Used? None MIGRATION.030 457174 Information not available 01/13/2023 What Is The Highest Grade Or Level Of School You Have Completed Or The Highest Degree You Have Received? VA56749-5 MIGRATION.030 193301 Information not available 01/13/2023 Do You Have An Electrostatic Air Filter? No Information not available 01/25/2023 Have There Been Any Changes To Your Family Or Social Situation? No MIGRATION.0301 592731 Information not available 01/13/2023 Are There Any Guns Present In Your Home? No MIGRATION.0301 431405 Information not available 01/13/2023 Do You Have A Humidifier? Yes Does Not Use Information not available 01/25/2023 Do You Use Insect Repellent Routinely? No MIGRATION.0301 503748 Information not available 01/13/2023 Where Do You Live? [place]House [place] MIGRATION.0301 910744 Information not available 01/13/2023 Do You Have Moisture Problems In Your Home? No Information not available 01/25/2023 What Was The Date Of Your Most Recent Tobacco Screening? 07/31/2025 Information not available 07/31/2025 How Many Children Do You Have? 0 Information not available 01/11/2025 Do You Have Any Pets? Yes CATS MIGRATION.0301 061246 Information not available 01/13/2023 What Is Your Relationship Status? Single Information not available 01/11/2025 Do You Use Your Seat Belt Or Car Seat Routinely? Yes MIGRATION.0301 038289 Information not available 01/13/2023 Do You Have Smoke And Carbon Monoxide Detectors In Your Home? Yes MIGRATION.0301 072898 Information not available 01/13/2023 Are You Passively Exposed To Smoke? No MIGRATION.0301 673735 Information not available 01/13/2023 Are There Any Smokers In Your House? No MIGRATION.0301 208219 Information not available 01/13/2023 How Much Tobacco Do You Smoke? No MIGRATION.0301 881754 Information not available 01/13/2023 Do You Use Sunscreen Routinely? Yes MIGRATION.0301 488047 Information not available 01/13/2023 Have You Recently Traveled Abroad? No MIGRATION.0301 528776 Information not available 01/13/2023 Do You Have Any Dietary Restrictions? No MIGRATION.0301 034899 Information not available 01/13/2023 Sex: Female Functional Status Question Answer Note LastModified by [email or web address] Details LastModified Time Do you use any illicit or recreational drugs? No MIGRATION.141799 8670 Information not available 01/13/2023 Do you or have you ever used any other forms of tobacco or nicotine? No Information not available 06/20/2025 What is your level of alcohol consumption? Occasional MIGRATION.361305 6591 Information not available 01/13/2023 Do you or have you ever used smokeless tobacco? Never used smokeless tobacco MIGRATION.767755 3081 Information not available 01/13/2023 Have you been exposed to chemicals or toxins? not that aware of Information not available 07/31/2025 What is your occupation? [employer] MIGRATION.407204 8162 Information not available 01/13/2023 Do you or have you ever used e-cigarettes or vape? Never used electronic cigarettes MIGRATION.423573 8379 Information not available 01/13/2023 What is your exercise level? Occasional MIGRATION.205290 1086 Information not available 01/13/2023 Mental Status Question Answer Note LastModified by [employer] ion Details LastModified Time Do you feel stressed (tense, restless, nervous, or anxious, or unable to sleep at night)? [id number] SCHOOL Information not available 07/31/2025 Family History Relationship Description Onset Age of this Age Resolved Age Notes LastModified by Organization Details LastModified Time Mother Malignant neoplasm of breast 64 MIGRATION.225 [id number] Not available 01/13/2023 02:27:23 Paternal Aunt Diabetes mellitus MIGRATION.236 [id number] Not available 01/13/2023 02:27:23 Father Depressive disorder Not available 2022 16:36:29 Mother Depressive disorder Not available 2022 16:36:34 Medical History Condition Response OTHER # 1 Y DEPRESSION (INCLUDING POST ) Y BOWEL PROBLEMS Y ASTHMA Y AIDS/HIV Y ANXIETY DISORDER Y ANEMIA/BLOOD DISORDER Y SLEEP APNEA Y HAVE YOU BEEN HOSPITALIZED OR SEEN IN [facility] ER IN THE PAST YEAR ? Y DIABETES, TYPE Y HEARTBURN / REFLUX Y HEPATITIS / LIVER DISEASE Y HEADACHES/MIGRAINES Y Gynecological History Statement/Question Response How many [...] Balderrama APRN [address], [place], [address], [facility] 04/12/2024 08:20:27 COVID-19, mRNA, LNP-S, PF, 100 mcg/0.5mL dose or 50 mcg/0.25mL dose 1 completed Loli Balderrama APRN [address], [place], [address], [employer] [facility] 04/12/2024 08:20:27 COVID-19, mRNA, LNP-S, PF, 100 mcg/0.5mL dose or 50 mcg/0.25mL dose 1 rich Balderrama APRN [address], [place], [address], [employer] [facility] [employer] 04/12/2024 08:20:27 Influenza, split virus, quadrivalent, preservative 0 completed Not Available [facility] 01/13/2023 02:33:48 COVID-19, mRNA, LNP-S, PF, 100 mcg/0.5mL dose or 50 mcg/0.25mL dose 2 completed Loli Balderrama APRN [address], [place], [address], [employer] [facility] [employer] [facility] 04/12/2024 08:20:27 Influenza, split virus, quadrivalent, preservative 2 completed Loli Balderrama APRN [address], [place], [address], [employer] [facility] [employer] [facility] 04/12/2024 08:20:27 Tdap 4 completed Not Available [facility] 01/13/2023 02:33:48 Influenza, MDCK, quadrivalent, PF 9 completed Not Available [facility] 01/13/2023 02:33:49 MMR 4 completed Loli Balderrama APRN [address], [address], [place], [address], [employer] [facility] [employer] [facility] 04/12/2024 08:20:27 COVID-19, mRNA, LNP-S, PF, 100 mcg/0.5mL dose or 50 mcg/0.25mL dose 1 completed Loli Balderrama APRN [address], [address], [place], [address], [employer] [facility] [employer] [facility] 04/12/2024 08:20:27 COVID-19, mRNA, LNP-S, PF, 100 mcg/0.5mL dose or 50 mcg/0.25mL dose 1 completed Loli Balderrama APRN [address], [place], [address], [facility] [employer] [facility] [employer] [facility] 04/12/2024 08:20:27 COVID-19, mRNA, LNP-S, bivalent, PF, 50 mcg/0.5 mL or 25mcg/0.25 mL dose 2 completed Loli Balderrama APRN [address], [place], [address], [employer] [facility] [employer] 04/12/2024 08:20:27 DTP 4 completed Loli Balderrama APRN [address], [place], [address], [employer] [facility] [employer] [facility] 04/12/2024 08:20:27 OPV, trivalent 4 completed Loli Balderrama APRN [address], [place], [address], [employer] 04/12/2024 08:20:27 Hep A, adult 3 completed Loli Balderrama APRN [address], [place], [address], [employer] [facility] [employer] 04/12/2024 08:20:27 Influenza, split virus, quadrivalent, PF 3 completed Loli Balderrama APRN [address], [place], [address], [employer] [facility] 04/12/2024 08:20:27 Influenza, split virus, quadrivalent, PF 2 completed Loli Balderrama APRN [address], [place], [address], [employer] [facility] 04/12/2024 08:20:27 Influenza, split virus, quadrivalent, PF 1 completed Loli Balderrama APRN [address], [place], [address], [employer] [facility] [employer] [facility] 04/12/2024 08:20:27 Influenza, split virus, trivalent, PF 4 completed Loli Balderrama APRN [address], [place], [address], [employer] [facility] [employer] [facility] 08/10/2024 10:48:41 Past Encounters Encounter ID Performer Location Encounter Start Date Encounter Closed Date Diagnosis/Indication Diagnosis SNOMED-CT Code Diagnosis ICD10 Code Diagnosis IMO Codes Diagnosis Note [id number] ANDREW Hodges [facility] [place] [address] [place] [address] y , [place] [address] 01/29/2021 00:00:00 01/29/2021 12:17:49 [id number] S_Histor ic_[facility]way _ATHENA_M IGRATION_ DEFAULT_1 _1 , 03/21/2021 00:00:00 03/21/2021 12:34:12 [id number] Becca Tellez MD _ATHRENNY_M IGRATION_ DEFAULT_1 _1 , 04/10/2021 00:00:00 04/10/2021 15:27:53 [id number] MD KASSANDRA WrightS_GMG Internal Med [facility] [address] , [address] [address] 04/15/2021 00:00:00 04/15/2021 17:46:49 [id number] MD KASSANDRA WrightS[facility] Internal [facility] [place] [address] [place] [address] y , [place] [address] 04/23/2021 00:00:00 04/23/2021 17:35:49 [id number] MD KASSANDRA WrightS[facility] Internal Med [facility] 15 2043 [facility] [address] [address] 05/02/2021 00:00:00 05/02/2021 13:53:01 [id number] MD KASSANDRA WrightS_[facility] Internal Med [facility] 15 2043 [facility] [address] [address] 08/26/2021 00:00:00 08/26/2021 11:24:17 [id number] S_Histor ic_[facility] _ATHENA_M IGRATION_ DEFAULT_1 _1 , 09/04/2021 00:00:00 09/04/2021 17:15:57 [id number] MD KASSANDRA RiberaS_[facility]G [facility] [place] [address] [place] [address] 09/05/2021 00:00:00 09/05/2021 11:53:28 [id number] [facility]_Histor ic[facility] _ATHENA_M IGRATION_ DEFAULT_1 _1 , 09/19/2021 00:00:00 09/19/2021 11:27:06 [id number] MD KASSANDRA WrightS_[facility] Internal Med [place] [address] [place] [address] 10/14/2021 00:00:00 10/14/2021 14:17:30 [id number] A[facility] Pulmonolo gy [place] [address] [place] [address] 12/08/2021 00:00:00 12/08/2021 16:59:23 [id number] MD KASSANDRA WrightS[facility] Internal Med [place] [address] [place] [address] 01/02/2022 00:00:00 01/02/2022 16:43:07 [id number] MD KASSANDRA WrightS[facility] Internal Med [place] [address] [facility] 15 [place] [address] 02/17/2022 00:00:00 02/17/2022 13:44:07 [id number] A[facility]_Histor ic[facility] [place] [address] [place] [address] 03/13/2022 00:00:00 03/13/2022 17:21:25 [id number] MD GINO Wright_[facility] Internal Med [place] [address] [facility] 15 [place] [address] 03/16/2022 00:00:00 03/16/2022 17:11:05 [id number] GINO Crouch_[facility] Internal Med [place] [address] [facility] 15 [place] [address] 03/27/2022 00:00:00 03/27/2022 16:59:30 [id number] [facility]_Histor ic_[facility] _ATHENA_M IGRATION_ DEFAULT_1 _1 , 04/30/2022 00:00:00 04/30/2022 21:10:15 [id number] ERIC HodgesP-C S_G Internal Med [facility] [address] [address] 05/29/2022 00:00:00 05/29/2022 17:27:24 [id number] Zack gage MD S_G Internal Med [facility] [address], [address] [address] 09/07/2022 00:00:00 09/07/2022 15:56:48 [id number] Becca Tellez MD [facility] [place] [address] [place] [address] 12/31/2022 00:00:00 12/31/2022 20:23:21 [id number] Urban Hayward MD [facility] [address] [address] 01/27/2021 00:00:00 01/27/2021 14:14:30 [id number] Shakira Lawson NP [facility] 2043 [facility] [address] 04/29/2021 00:00:00 04/29/2021 12:06:18 [id number] Shakira Lawson NP [facility] [address] [address] 05/26/2021 00:00:00 05/26/2021 11:54:31 [id number] Shakira Lawson NP [facility] [address] [address] 06/25/2021 00:00:00 06/25/2021 12:02:53 [id number] [facility] [address] [address] 07/23/2021 00:00:00 07/23/2021 14:47:39 [id number] [facility] [address] [address] 08/27/2021 00:00:00 08/27/2021 16:42:52 [id number] [facility] [address] [address] 10/21/2021 00:00:00 10/21/2021 18:54:43 [id number] [facility] [address] [address] 12/16/2021 00:00:00 12/16/2021 19:09:50 [id number] [facility] [address] [address] 01/13/2022 00:00:00 01/13/2022 18:47:43 [id number] Sh[facility] [address] [address] 02/10/2022 00:00:00 02/11/2022 15:18:30 [id number] Sh[facility] [address] [address] 04/07/2022 00:00:00 04/07/2022 16:15:17 [id number] [facility] [address] [place] [address] [address] 07/09/2022 00:00:00 07/09/2022 17:17:26 [id number] [facility] [address] [place] [address] [address] 10/01/2022 00:00:00 10/01/2022 18:32:40 [id number] Shakira Lawson NP [facility] [address] [place] [address] [address] 12/31/2022 00:00:00 12/31/2022 17:17:05 [id number] Kartik Van MD [facility] Pulmonolo [address] [address] 01/25/2023 15:43:52 01/26/2023 08:46:57 Atelectasis 04441058 J98.11 Pulmonary embolism 58755 003 I27.24 I26.99 Dyspnea on exertion 6084 5006 R06.09 R05.9 T78.40XA D89.9 Obstructiv e sleep apnea syndrome 12791601 G47.33 [id number] Shakira Lawson NP [facility] [address] [place] [address] [address] 04/19/2023 15:27:48 04/19/2023 15:54:01 [id number] Kartik Van MD [facility] [address] [address] 05/24/2023 11:25:06 05/25/2023 08:45:40 Atelectasis 33141453 J98.11 Obstructiv e sleep apnea syndrome 27387122 G47.33 Moderate c hronic obstructive pulmonary disease 272301177 J44.9 [id number] Becca Tellez MD S_G [facility] [place] [address] [place] [address] 06/11/2023 11:53:39 06/11/2023 12:50:45 Uncontrolled type 2 diabetes mellitus 510586657 E11.65 a1c of 8.8% up from 7% [...] based snack at bedtime to help reduce 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 She has no hx of [...] my. 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 Will work on PA as patient will need an open MRI due to weight gain. Hypothyroidism 99429381 E03.9 Her FT4 is low normal-she has [...] answered and refills necessary at visit today. [id number] Shakira Lawson NP [facility] [address] [address] 07/14/2023 14:54:54 07/14/2023 15:42:49 [id number] Kartik Van MD [facility] [address] [place] [address] 0 08/26/2023 10:07:54 08/27/2023 08:44:36 Atelectasis 80302908 J98.11 Obstructiv e sleep apnea syndrome 04436444 G47.33 Moderate c hronic obstructive pulmonary disease 376699136 J44.9 [id number] Kartik Van MD [facility] [address] [place] [address] 11/30/2023 09:51:33 12/01/2023 08:04:15 Atelectasis 21082774 J98.11 Obstructiv e sleep apnea syndrome 05158172 G47.33 Moderate c hronic obstructive pulmonary disease 882811266 J44.9 [id number] Shakira Lawson NP [facility] [address] [place] [address] 12/16/2023 14:28:28 12/16/2023 15:24:29 [id number] Shakira Lawson NP [facility] [address] [place] [address] 03/09/2024 14:28:27 03/09/2024 14:54:52 [id number] Zack gage MD [facility] Internal [facility] [address] [address] 04/06/2024 14:57:30 04/06/2024 15:37:42 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 Hyperlipidemia 95481888 E78.5 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 280968909 E06.3 Type 2 kenny betes mellitus 82033907 E11.9 [id number] [facility] [address] [address] 04/13/2024 12:20:52 04/13/2024 13:03:50 Type 2 diabetes mellitus 86711287 E11.9 Hypertriglyceridemia 302 278413 E78.1 Attention deficit hyperactivity disorder 018403572 F90.9 [id number] Shakira Lawson NP [facility] [address] [place] [address], [place] [address] 1 05/30/2024 14:33:13 05/30/2024 14:57:20 [id number] Kartik Van MD [facility] Pulmonolo gy [place] [address] [place] [address] 0 06/20/2024 10:39:30 06/21/2024 08:18:58 Atelectasis 68748857 J98.11 Obstructiv e sleep apnea syndrome 61343899 G47.33 Moderate c hronic obstructive pulmonary disease 666990489 J44.9 [id number] Zack gage MD [facility] Internal Med [facility] 2043 [facility] [place] [address] 1 08/08/2024 15:01:44 08/08/2024 15:55:18 Type 2 diabetes mellitus 88002525 E11.9 Hepatitis C screening 41 1018518 Z11.59 Hypertriglyceridemia 302 065602 E78.1 Administra tion of influenza vaccine 52077173 Z23 [id number] Shakira Lawson NP [facility] [address] [facility], [place] [address] 08/22/2024 15:14:17 08/22/2024 15:43:48 [id number] Zack gage MD [facility] Internal Med [facility] 2043 [facility] [place] [address] 1 01/11/2025 08:44:06 01/11/2025 09:10:01 Type 2 diabetes mellitus 05443229 E11.9 Hepatitis C screening 41 8766050 Z11.59 [id number] Zack gage MD [facility] Internal Med [facility] 2043 [facility], [place] [address] 01/24/2025 09:42:56 01/24/2025 10:46:04 Type 2 diabetes mellitus 69591448 E11.9 Hypertriglyceridemia 302 615157 E78.1 Moderate c hronic obstructive pulmonary disease 042296070 J44.9 Attention deficit hyperactivity disorder 182675179 F90.9 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 3939338316 81695 G56.01 [id number] Zack gage MD [facility] Internal Med [place] [address] [facility] [address] [place] [address] 04/26/2025 15:46:18 04/26/2025 16:41:32 Screening due 879922180 Z13.9 [id number] WWE: Get this if not done Get yearly flu shot, get Tdap if not doneCan do COVID 19 boosters RTC in 1 month, do labs, ER if worse, she verbalized her understand ing of the above Insulin tr eated type 2 diabetes mellitus 435678682 E11.9 Z79.4 990369 On metformin 1000mg bidOn insulin glargine 40U dailyOn lispro 30U bidOn ozempic 1mg weeklyGet labs Does have an endocrine apt in 08/2025 with Karthik Tracy MD Depressive disorder 3548 9007 F32.A 99704047 On aripiprazo le 2mg at bedtimeOn sertraline 100mg daily Obstructiv e sleep apnea syndrome 35092166 G47.[id number] Buck apt 06/19/2025 Chronic ob structive pulmonary disease 68620005 J44.[id number] Van 06/20/2025 On albulterol Adult atte ntion deficit hyperactivity disorder 943563901 F90.9 412396 On aripiprazo le 2mg at bedtimeNow must see psychiatry Hyperlipidemia 65542645 E78.5 90967300 On gemfibrozi lShould get labs Type 2 kenny betes mellitus 09090521 E11.9 Z79.4 On metformin 1000mg bidOn insulin glargine 40U dailyOn lispro 30U bidOn ozempic 1mg weeklyGet labs Does have an endocrine apt in 08/2025 with Karthik Tracy MD [id number] Zack gage MD [facility] [place] [address] [facility] [address] [place] [address] 06/20/2025 09:31:59 06/20/2025 10:15:10 Screening due 563403746 Z13.9 [id number] WWE: Get this if not done Get yearly flu shot, get Tdap if not doneCan do COVID 19 boosters RTC in 3 months, do labs, ER if worse, she verbalized her understand ing of the above Insulin tr eated type 2 diabetes mellitus 415980214 E11.9 Z79.4 183183 On metformin 1000mg bidOn insulin glargine 40U dailyOn lispro 30U bid, will increase to tid 06/20/2025 , advised on diet control, eat 3 meals a day and take insulin with meals, educated on the effects of insulin with hypoglycem iaOn ozempic 1mg weeklyGet labsDenies MEN2, MCT, no thyroid or parathyroi d or pancreatic complaints , does see psychiatry Advised to hydrate and take supplement s Does have an endocrine apt in 08/2025 with Karthik Endocrine Depressive disorder 3548 9007 F32.A 26653805 On aripiprazo le 2mg at bedtimeOn sertraline 100mg daily Obstructiv e sleep apnea syndrome 64642722 G47.[id number] Van, referred 06/20/2025 Chronic ob structive pulmonary disease 32405613 J44.[id number] Van 06/20/2025 On albulterol Adult atte ntion deficit hyperactivity disorder 343096546 F90.9 375079 On aripiprazo le 2mg at bedtimeNow must see psychiatry Hyperlipidemia 99525902 E78.5 [id number] On gemfibrozi lShould get labs Well woman health examination 662274384 Z01.419 692314 Liver func tion test above reference range 939403867 R79.89 354421 Get labs and US liver 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 1748925166 04442 G56.01 [id number] Has seen Terry Mcmanus hand surgery, unable to do surgery d/t her elevated A1C level [id number] Zack gage MD [facility] [place] [address] [facility] [address] [place] [address] 07/11/2025 10:32:33 07/11/2025 11:15:14 Screening due 355253545 Z13.9 [id number] WWE: Get this if not done Get yearly flu shot, get Tdap if not doneCan do COVID 19 boosters RTC in 3 months, do labs, ER if worse, she verbalized her understand ing of the above Insulin tr eated type 2 diabetes mellitus 515812227 E11.9 Z79.4 208644 On metformin 1000mg bid On insulin glargine 40U daily On lispro 30U bid, will increase to tid, advised on diet control, eat 3 meals a day and take insulin with meals, educated on the effects of insulin with hypoglycem ia! On ozempic 1mg weeklyGet labsDenies MEN2, MCT, no thyroid or parathyroi d or pancreatic complaints , does see psychiatry Advised to hydrate and take supplement s Does have an endocrine apt in 08/2025 with [facility] Endocrine Depressive disorder [id number] F32.A [id number] On aripiprazo le 2mg at bedtimeOn sertraline 100mg dailyNot suicidal or homicidalR efer to psychiatry Obstructiv e sleep apnea syndrome [id number] G47.[id number] Van, referred 06/20/2025 Chronic ob structive pulmonary disease 85821003 J44.[id number] Van 06/20/2024 On albulterol Adult atte ntion deficit hyperactivity disorder [id number] F90.9 764444 On aripiprazo le 2mg at bedtimeNow must see psychiatry Hyperlipidemia 40747328 E78.5 [id number] On gemfibrozi lShould get labs Well woman health examination [id number] Z01.419 234356 Liver func tion test above reference range [id number] R79.89 308854 Get labs and US liver 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 [id number] J44.89 979773 Health Concerns Section Related Observation LastModified by Organization Detai ls LastModified Time None Recorded Concern Status LastModified by Organization Details LastModified Time None Recorded Advance Directives Directive N: Payers Insurance Date Sequence Insurance Name Policy Number Policy Verdugo Covered Member ID Verdugo Member ID Guarantor Name 07/02/2025 2 [place] WHEN MEDICARE OR MEDICARE REPLACEMENT PRIMARY) Kirsten Hendricks [id number] Kirsten Hendricks 07/02/2025 1 [facility] (O) ILONEX Kirsten Hendricks [id number] Kirsten Hendricks 07/02/2025 2 [facility] (MEDICAID HMO) [id number] Kirsten Hendricks [id number] Kirsten Hendricks 07/02/2025 1 [facility] (MEDICAID HMO) [id number] Kirsten Hendricks [id number] Kirsten Hendricks 07/02/2025 2 [facility] ILONEX Kirsten Hendricks [id number] Kirsten Hendricks 01/11/2025 1 *SELF PAY* Am haily Hendricks 07/31/2025 1 [id number] Kirsten Hendricks [id number] Kirsten Hendricks 07/02/2025 1 [facility] (MEDICARE REPLACEMENT/AD VANTAGE - PPO) [place]ONEX Kirsten Hendricks [id number] Kirsten Hendricks 07/02/2025 1 [facility] PRIOR TO 06/15/2025 (MEDICAID REPLACEMENT - HMO) [id number] Kirsten Hendricks [id number] Kirsten Hendricks Notes Date Note Type Note Provider Name and Address Organization Details Recorded Time 5 text/html Kirsten presents today for ER [...] She has an 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 Discussed her gemfibrozil. 04/13/2024anderson [...] not see Dr. Alberto until September. Loli Balderrama, SUPERVISOR [employer] [address] [facility], [facility] [address], [place], [address], [place] - [employer] 01/24/2025 10:14:43 5 text/html OV 04/26/2025: Here to estbalish care Present Hx:DMIIHLDDepressionCOPD Here to get labs, wants refill on the Ozempic, is doing well today Zack Beckwith MD [address], [place], [address], [employer] 04/26/2025 16:41:15 5 text/html OV 04/26/2025: Here to lopez agrawal Present Hx:DMIIHLDDepressionCOPD Here to get labs, wants refill on the Ozempic, is doing well today OV 06/20/2025: Here for her f/u apt, she is doing well, she is here to discuss her use of insulinStates that she is still not very compliant with her diet d/t her hectic work schedule, she does not eat her breakfast and is inconsistent with her use of insulinShe also has to see the hand surgeonHas not yet seen Dr Van, and has an apt with the endocrine MD in 08/2025, wants to get her refill on the ozempic Zack Beckwith MD [address], [place], [address], [employer] 06/20/2025 13:41:29 5 text/html OV 04/26/2025: Here to lopez agrawal Present Hx:DMIIHLDDepressionCOPD Here to get labs, wants refill on the Ozempic, is doing well today OV 06/20/2025: Here for her f/u apt, she is doing well, she is here to discuss her use of insulinStates that she is still not very compliant with her diet d/t her hectic work schedule, she does not eat her breakfast and is inconsistent with her use of insulinShe also has to see the hand surgeonHas not yet seen Dr Van, and has an apt with the endocrine MD in 08/2025, wants to get her refill on the ozempic OV 07/11/2025: Here for her f/u apt, she is doing well today Zack Beckwith MD [address], [place], [address], [employer] 07/11/2025 18:28:58 5 text/html Primary care/Referring provider: Zack Beckwith MD CC: My Advair HFA is not covered. My PCP gave me Leisa wallsphere samples as this medication is also non-formulary. Last year, you wrote me Symbicort HFA which was non-formulary as well. I changed to a new insurance this year, however. Patient is here to go over her asthma/COPD management. Initial development of shortness of breath: 2016Duration of shortness of breath: 9 yearsCondition of shortness of breath: stableTiming of shortness of breath: noneFrequency: up to 7 times a day on a bad day at workLimits activities: yesAggravating factors: walking, going up stairs, sitting to standingAlleviating factors: rest Modified [employer] [place] (mMRC) Dyspnea Scale - Grade 2Grade 0 [...] or I am breathless when dressing . Patient's personal best peak flow remains at 280 L/min. Treatment history: Albuterol HFA as needed since 2015, uses once a month Advair HFA 115/21 mcg 2 puffs BID since 08/2023 Other symptoms:Drooling: noDysarthria: noNeck pain: noOdynophagia: noDysphagia: noWeak mastication: noFacial weakness: noNasal speech: noProtruding tongue: noProductive cough: noWheezing: noChest tightness: yesOrthopnea: noFrequent throat clearing or swallowing: noPalpitations: noHeartburn: noEdema: no Environmental exposures:Nicotine smoke: noPaint: noDye: noDust mites: yesMold: noDamp basement: noWood burning stove: noAnimal dander: 3 catsCockroaches: noPollen: yesArsenic: noAsbestos: noBeryllium: noCadmium: noChromium: noCoal smoke: noDiesel fumes: noNickel: noSilica: noSoot: no During the [facility] diagnostic sleep study on 02/18/18, sleep onset = 10 minutes, REM onset = 86 minutes, AHI = 7, REM AHI = 28. During the [facility] titration sleep study on 04/26/18, sleep onset = 11 minutes, REM onset = 40 minutes. At home since 06/20/24, the patient uses a [employer] AirSense 10 [...] DOZINGSitting and reading - 0Watching television - 1Sitting inactive in a public place (e.g. a theater or meeting) - 0As a passenger in a car for an hour without a break - 1Lying down to rest in the afternoon when circumstances permit - 2Sitting and talking to someone - 0Sitting quietly after lunch without alcohol - 0In a car, while stopped for a few minutes in the traffic - 0TOTAL SCORE 4Subjectively, patient has a slight chance of dozing. Kartik Van MD [address] [place] [address], [place] [address], [place], [address], [place] - [place] [employer] 07/31/2025 09:16:18 OBGyn Episode No OBEpisode recorded.
[2025-08-25 21:47] VITALS: BP 144/87; PULSE 89; RESP 16; TEMP 36.2; O2SAT 100
[2025-08-25 23:30] VITALS: BP 110/72; PULSE 90; RESP 17; O2SAT 98
--- OUTSIDE RECORDS SUMMARY | 2025-08-25 23:46 | XMS_ITS | Clinical Summary ---
Author Organization [facility] Address [address] [place] [address] Care Team Providers Care Education Department Registrar Name Role Phone Natalya Diaz KENNY Primary Care Provider [phone] Encounters Date Type Department Care Team Description [...] patient's age to complete this topic Insurance [facility] Care Teams Education Department Registrar Relationship Specialty Start Date End Date Natalya Diaz NP [address] [address] PCP - General NURSE PRACTITIONER 07/09/22
--- OUTSIDE RECORDS SUMMARY | 2025-08-25 23:46 | XMS_ITS | Clinical Summary ---
Author Organization [facility] [address] Address [address] [place] [address] Care Team Providers Care Baker Helper Name Role Phone Kartik aVn MD Unavailable Chaim Rodriguez MD Unavailable [phone] Jessica Beckwith MD Primary Care Provide r Allergies Active Allergy Reactions Criticality Noted Date Comments Amoxicillin-Pot Clavulanate Hives Medium 02/18/2023 [place]-Cresol Rash Medium 07/03/2025 Promethazine Hives,Itching,Unknow n, Rash,Urticaria [...] 1 tablet (50 mcg total) by mouth scrap materials buyer before breakfast 90 tablet 2 4 Active [...] 01/20/2024 Assessment & Plan (01/20/2024 5:16 PM BACK LINE COOK): Hba1c was Lab Results Component Value Date [...] placed and connected to her phone via [employer] George Patient is also linked to our [...] (02/18/2023): Unprovoked pulmonary embolus requiring hospitalization at [facility] 12/07/2022 Pulmonary embolism 01/25/2023 Elevated liver enzymes 02/07/2019 Overview (03/15/2025): 08/01/19 Fibroscan CAP 307, E 8.0 kPa Hyperlipidemia 02/07/2019 Essential hypertension 02/07/2019 Asthma 02/07/2019 Type 2 diabetes mellitus 01/04/2019 Obstructive sleep apnea syndrome 10/09/2018 Encounters Date Type Department Care Team Description 07/25/2025 7:15 AM CDT Office Visit [facility] Hand Surgery [address] [place] [phone] Marian Perez, HOSPITAL CHIEF FINANCIAL OFFICER Carpal tunnel syndrome on right (Primary Dx) 07/12/2025 7:30 AM CDT - 07/12/2025 8:15 AM CDT Surgery [facility] OR [address] [place] [address] Kermit Mcmanus MD RIGHT CARPAL TUNNEL RELEASE 07/12/2025 7:13 AM CDT Anesthesia Event [facility] OR [address] [place] [address] Khoi Lee MD 07/12/2025 5:57 AM CDT - 07/12/2025 8:06 AM CDT Hospital Encounter [facility] Main OR [address] [place] [address] Kermit Mcmanus MD Carpal tunnel syndrome on right [G56.01] (Primary Dx) Discharge Disposition: Discharge to home or self care 07/11/2025 7:30 AM CDT Office Visit [facility] Hand Surgery [address] [place] [phone] Marian Perez, KENNY Right carpal tunnel syndrome (Primary Dx); Right wrist pain 07/09/2025 8:00 AM CDT Pre-Admission Testing [facility] Pre Admit Testing [address] [place] [address] Pre-op testing 07/09/2025 Orders Only [facility] PreAdmission Testing [facility] [place] [address] Odalys Hayden RN 07/03/2025 Orders Only [facility] Pre Admit Testing [address] [place] [address] Amaya Esparza, LEIGH Pre-op testing (Primary Dx) 07/02/2025 7:30 AM CDT Office Visit [facility] Hand Surgery [address] [place] [phone] Kermit Mcmanus MD Right carpal tunnel syndrome [...] Unprovoked pulmo nary embolus requiring hospitalization at [facility] 12/07/2022 Diabetes mellitus Type 2 diabetes [...] on file Legal Sex Female 7:57 PM BACK LINE COOK Gender Identity Not on file Sexual Orientation [...] was last reviewed 2021. Testing performed by: [facility], [address] [place] [address]., [address] Blood 07/09/2025 9:04 AM CDT 07/09/2025 9:15 AM CDT Jose Elias Turpin MD LAB BLOOD ORDERABL ES Final Result Performing Organization Address [facility] Co de Phone Number VITOR [address] [place] [address] * (ABNORMAL) Hemoglobin A1c (07/09/2025 9:04 AM CDT) Hgb A1C 11.3(H) 4.0 - 5.6 % Comment:Testing performed by : [address] [address] Estimated Average Glucose 278 mg/dL VITOR Comment: The ADA recommends reporting an estimated Average Glucose (eAG) with all Hemoglobin A1c results using the equation derived from a study of 507 normal and diabetic adults. Minority populations were underrepresented and children were not included. (Diabetes Care 31:9670-9940, 2008). The eAG is not equivalent to a fasting glucose. Testing performed by: [address] [address] Blood 07/09/2025 9:04 AM CDT 07/09/2025 9:15 AM CDT Narrative VITOR - 07/09/2025 9:31 AM CDT PRE SURGICAL TESTING ONLY--* No surgery found *--* Surgery not found *-@ANPROCEDURE@ Jose Elias Turpin MD LAB BLOOD ORDERABL ES Final Result Performing Organization Address [facility] Co de Phone Number VITOR [facility] [place] [address] * (ABNORMAL) Comprehensive metabolic panel (07/09/2025 9:04 AM CDT) Sodium 133(L) 135 - 145 mmol/L Comment:Testing performed by : [address] [address] Potassium, pl 4.1 3.3 - 4.9 mmol/L VITOR NARAYANAN Comment:Testing performed by : [address] [address] Chloride 98 97 - 110 mmol/L VITOR Comment:Testing performed by : [facility], [address] [place] [address]., [address] CO2 24 22 - 32 mmol/L VITOR Comment:Testing performed by : [address] [address] Anion gap 11 2 - 15 mmol/L VITOR Comment:Testing performed by : [address] [address] BUN 11 6 - 25 mg/dL VITOR Comment:Testing performed by : [address] [address] Creatinine 0.50(L) 0.60 - 1.10 mg/dL VITOR Comment:Testing performed by : [address] [address] Glucose 394(H) 70 - 199 mg/dL VITOR [...] was last revised 2022. Testing performed by: [address] [address] Calcium 9.4 8.5 - 10.3 mg/dL VITOR Comment:Testing performed by : [address] [address] Bilirubin, total 0.3 0.1 - 1.2 mg/dL VITOR Comment:Testing performed by : [address] [address] Protein, pl 7.2 6.5 - 8.5 g/dL VITOR Comment:Testing performed by : [address] [address] Albumin 3.7 3.5 - 5.0 g/dL VITOR Comment:Testing performed by : [address], [place]., [address] Alk phos 90 40 - 130 Units/L VITOR Comment:Testing performed by : [address] [address] ALT 55(H) 7 - 45 Units/L VITOR Comment:Testing performed by : [address] [address] AST 49(H) 10 - 45 Units/L VITOR Comment:Testing performed by : [facility], [address] [place] [address]., [address] Blood 07/09/2025 9:04 AM CDT 07/09/2025 9:15 AM CDT Narrative VITOR - 07/09/2025 9:53 AM CDT PRE SURGICAL TESTING ONLY--* No surgery found *-* Cannot find OR case *-* Surgery not found *- us Jose Elias Turpin MD LAB BLOOD ORDERABL ES Final Result [facility]OR [address] [facility] Department of Laboratories [place], [place] [id number] * ECG 12 lead (07/09/2025 8:56 AM CDT) Ventricular Rate EKG/Min 74 BPM [facility] Atrial Rate 74 BPM [facility] MD-Interval (MSEC) 158 ms [facility] QRS-Interval (MSEC) 100 ms [facility] QT-Interval (MSEC) 366 ms [facility] QTc 406 ms [facility] P [place] 45 degrees [facility] R [place] 35 degrees [facility] T [place] 33 degrees [facility] Diagnosis Normal sinus rhythm Low voltage QRS Incomplete right bundle branch block No previous ECGs available Confirmed by SULTAN INGRAM M.D. ([id number]) on 07/09/2025 3:36:17 PM [facility] 07/09/2025 8:56 AM CDT 07/09/2025 3:36 PM CDT us Jose Elias Turpin MD ECG ORDERABLES Fi nal Result [facility] * (ABNORMAL) Albumin Creatinine Ratio, Urine (06/03/2023 [...] Most Recently Relevant to Health Maintenance Insurance [facility] [place] [address] Care Teams Baker Helper Relationship Specialty Start Date End Date Jessica Beckwith MD [address] [place] [address] PCP - General Internal Medicine 02/12/25 Kartik Van MD [address] [place] [address] Internal Medicine 02/18/23 Chaim Rodriguez MD [address] [address] [place] [address] Medical Oncologist/[employer] [place] Mold Maker Hematology and Oncology 04/22/23
[2025-08-26] MEDS: HYDROcodone/acetaminophen (*CRX) 10-325 MG TABLET 1 TAB PO (02:09)
[2025-08-26] MEDS: SULFAMETHOXAZOLE/TRIMETHOPRIM 800/160 MG DS TABLET 2 TAB PO (02:09)
--- NOTE | 2025-08-26 02:17 | ED.SKABFB ---
HPI - Skin/Abscess/Foreign Bdy General Chief complaint: Skin/Abscess/Foreign Body Stated complaint: INFECTION IN RIGHT LEG Time Seen by Provider: 08/25/25 23:31 History of Present Illness HPI narrative: Patient is a 35-year-old female who presents to the ER with right upper thigh pain. She the pain started on Wednesday or Wednesday of this week, 5 days ago. Patient reports the pain has increased enough that it hurts with any movement. She denies any recent fevers, urinary symptoms, abdominal pain. Patient endorses a history of diabetes. She reports she had a similar abscess approximately 1 month ago that was positive for MRSA. Related Data Home Medications ?Medication ?Instructions ?Recorded ?Confirmed ?Last Taken ?Type aripiprazole 2 mg tablet 2 mg PO HS 03/04/22 07/01/23 06/29/23 20:00 History metformin 1,000 mg tablet 1,000 mg PO BID 03/04/22 07/01/23 06/30/23 08:00 History pen needle, diabetic 31 gauge x 03/04/22 12/08/22 Unknown History 01/28 (TRUEplus Pen Needle) sertraline 100 mg tablet 100 mg PO HS 03/04/22 07/01/23 06/29/23 20:00 History ergocalciferol (vitamin D2) 1,250 1,250 mcg PO WEEKLY 03/23/23 06/22/23 06/25/23 History mcg (50,000 unit) capsule albuterol sulfate 90 mcg/actuation 1 puff inhalation PRN PRN 06/22/23 07/01/23 06/28/23 History aerosol inhaler Shortness Of Breath Or Wheezing gemfibrozil 600 mg tablet 600 mg PO 07/31/25 Unknown History semaglutide 1 mg/dose (4 mg/3 mL) mg subcut 07/31/25 Unknown History subcutaneous pen injector (Ozempic) Allergies Allergy/AdvReac Type Severity Reaction Status Date / Time amoxicillin (From Augmentin) Allergy Mild Hives Verified 08/25/25 23:32 clavulanic acid (From Allergy Mild Hives Verified 08/25/25 23:32 Augmentin) promethazine (From Phenergan) Allergy Mild Hives Verified 08/25/25 23:32 Review of Systems Review of Systems: All systems reviewed & are unremarkable except as noted in HPI and below PMFSH Past Medical History Medical History Right hand dominant Joan disease Encounter for insertion of intrauterine contraceptive device Morbid obesity Major depressive disorder, single episode, unspecified Hyperlipidemia, unspecified Anxiety and depression Pericarditis DIEGO on CPAP PCOS (polycystic ovarian syndrome) Diabetes 1.5, managed as type 2 Sleep apnea in adult Surgical History Surgical History S/P carpal tunnel release H/O gynecological procedure 07/01/23 RA total lap hyst & BL salpingectomy hysteroscopy and D & C H/O: knee surgery Hx of tonsillectomy Family History Family History Mother Family history of malignant neoplasm of breast in first degree relative Social History Social History Smoking status: Never smoker Second hand tobacco smoke exposure: Yes Alcohol intake: current Drinks per week: 1 Alcohol use details: 1/MONTH Substance use: former Substance use type: marijuana Last use: NOV 2022 Lack of Transportation: No Lack of Food: Never True Current Housing: I Have Housing Concerned About Future Housing: No Difficulty Paying Gas/Electric Bills: No Difficulty Paying for Meds: YES Currently Unemployed: No Education: Associate Degree Difficulty w/ Childcare or Family Care: No Living arrangements: with roommate(s) Additional living arrangements comments: boyfriend and roomate Occupation/Education: student Gender identity (if verbalized by the patient): Female Sexual Orientation (if Verbalized by the Patient): Straight or Heterosexual Spiritual care concerns: No Agree to blood products: No Exam Narrative: GENERAL: Well appearing, obese, non-toxic, in no acute distress. HEAD: Normocephalic, atraumatic. NECK: Supple. No adenopathy, no masses. RESPIRATORY: Airway patent, respirations nonlabored. Clear to auscultation bilaterally, no rales, rhonchi, wheezing. CARDIOVASCULAR: Regular rate and rhythm without murmurs, rubs, or gallops. Peripheral pulses 2+ and equal bilaterally. ABDOMINAL: Soft, nontender, nondistended, no hepatosplenomegaly. Normoactive BS. MUSCULOSKELETAL: Moves all extremities. Strength/ROM intact without gross deformities. SKIN: Warm, dry, normal color. No rashes. R upper thigh warmth and redness, palpable area of induration NEURO: A&O X3. Speech clear. Cranial nerves II-XII intact. No ataxic movements. PSYCHIATRIC: Appropriate mood and affect. Normal interaction. Course Vital Signs Vital signs: Vital Signs Temperature 36.2 C L 08/25/25 21:47 Pulse Rate 89 08/25/25 21:47 Respiratory Rate 16 08/25/25 21:47 Blood Pressure 144/87 H 08/25/25 21:47 Pulse Oximetry 100 08/25/25 21:47 Oxygen Delivery Room Air 08/25/25 21:47 Temperature 36.2 C L 08/25/25 21:47 Pulse Rate 80 08/26/25 02:37 Respiratory Rate 17 08/26/25 02:37 Blood Pressure 110/71 08/26/25 02:37 Pulse Oximetry 99 08/26/25 02:37 Oxygen Delivery Room Air 08/25/25 21:47 Procedures Abscess I/D lower extremity: Date of Incision: 08/26/25 Time of Incision: 03:03 Side (if applicable): right Local Anesthetic: lidocaine 1% and with epi Amount of anesthesia used (mL): 10 Technique: incised with #11 blade and probed loculations Amount of fluid expressed (mL): 15 Irrigation: Yes Packing used?: iodoform I&D Results: Pus and Blood MDM - Skin/Abscess/Foreign Bdy MDM Narrative Medical decision making narrative: Patient is a 35-year-old female who presents to the ER with right upper thigh pain. She the pain started on Wednesday or Wednesday of this week, 5 days ago. Patient reports the pain has increased enough that it hurts with any movement. She denies any recent fevers, urinary symptoms, abdominal pain. Patient endorses a history of diabetes. She reports she had a similar abscess approximately 1 month ago that was positive for MRSA. Labs Ordered: Aerobic/anaerobic swab Imaging Ordered: None necessary Medications Ordered: [place] p.o., lidocaine with epi infiltrate, Bactrim p.o., Keflex p.o. Diagnosis: R upper thigh abscess, cellulitis Patient Education/Shared MDM: Pt tolerated I & D procedure well. She endorses improvement of symptoms following pain medication administration. Patient strongly advised to follow-up with her PCP in the next 2-3 days for wound re-evaluation. She will be discharged home with a prescription for Keflex and Bactrim. Strict return precautions provided. Patient verbalized understanding and is in agreement with plan. Vital signs stable at time of discharge. All questions answered. Differential Diagnosis Differential diagnosis: Likely abscess of skin or subcutaneous tissue, urticaria, cellulitis and contact dermatitis Discharge Plan Discharge Clinical Impression: Abscess of skin or subcutaneous tissue, Cellulitis Patient Disposition: Home Condition: Stable Instructions: Antibiotic Form, Cellulitis (ED), Abscess (ED) Additional Instructions: Please return to the ER with any worsening symptoms. Follow-up with primary care provider in the next 2-3 days for wound re-evaluation. Take all medications as prescribed, including regularly scheduled medications. Please complete your full dose of antibiotics. You may use Tylenol and/or ibuprofen for pain control at home. Patient Language: Estonian Prescriptions: New sulfamethoxazole-trimethoprim [Bactrim DS] 800-160 mg tablet 1 tablet PO Q12H 7 Days Qty: 14 0RF cephalexin 500 mg capsule 500 mg PO Q8H 7 Days Qty: 21 0RF No Action ergocalciferol (vitamin D2) 1,250 mcg (50,000 unit) capsule 1,250 mcg PO WEEKLY Patient Comments: PT TAKES ON WEDNESDAY gemfibrozil 600 mg tablet 600 mg PO Ozempic 1 mg/dose (4 mg/3 mL) pen injector subcut albuterol sulfate 90 mcg/actuation HFA aerosol inhaler 1 puff INHALATION PRN PRN (Reason: Shortness Of Breath Or Wheezing) sertraline 100 mg tablet 100 mg PO HS metformin 1,000 mg tablet 1,000 mg PO BID aripiprazole 2 mg tablet 2 mg PO HS (DME) pen needle, diabetic [TRUEplus Pen Needle] 31 gauge x 3/16 needle MISCELLANEOUS Follow-up/Referrals: Tang,MD Zack [Primary Care Provider, Unknown] Time of Disposition: 03:06
[2025-08-26 02:37] VITALS: BP 110/71; PULSE 80; RESP 17; O2SAT 99
[2025-08-26] MEDS: CEPHALEXIN 500 MG CAPSULE PO (03:13)
== END 2025-08-26 03:18 | disposition home or self-care (01) ==
PROVIDERS: Emergency Provider Registered Nurse; PCP Internal Medicine
DX: L02.415 Cutaneous abscess of right lower limb (principal); L03.115 Cellulitis of right lower limb; E24.9 Cushing's syndrome, unspecified; E13.9 Other specified diabetes mellitus without complications; E66.01 Morbid (severe) obesity due to excess calories; Z68.44 Body mass index [BMI] 60.0-69.9, adult; E78.5 Hyperlipidemia, unspecified; E28.2 Polycystic ovarian syndrome; G47.33 Obstructive sleep apnea (adult) (pediatric); F41.9 Anxiety disorder, unspecified; F32.9 Major depressive disorder, single episode, unspecified; Z77.22 Contact with and (suspected) exposure to environmental tobacco smoke (acute) (chronic); Z79.85 Long-term (current) use of injectable non-insulin antidiabetic drugs; Z79.84 Long term (current) use of oral hypoglycemic drugs; Z79.899 Other long term (current) drug therapy
CPT/HCPCS: 10061; 87070; 87075; 87147; 87186; 99283; A9270

== ENCOUNTER 2025-08-27 10:03 | Emergency (ER) | payer OTHER, SELFPAY ==
--- OUTSIDE RECORDS SUMMARY | 2024-09-30 16:00 | XMS_ITS ---
Author Organization [facility] Address [address] [place] [address] Care Team Providers Care Seafood Farmer Name Role Phone Becca Tellez Primary Care Provider Migration, Provider Unavailable Unavailable Allergies Allergen (clinical drug ingredient) Drug/Non Drug Allergy documented on EMR Reaction Allergy Type Onset Date Status amoxicillin Amoxicillin Unknown Drug Allergy Act fabián promethazine Phenergan Unknown Drug Allergy Acti ve REASON FOR VISIT [facility] Conversion Encounter Medications Medication SIG (Take, Route, Frequency, Duration) Notes Start Date End Date Status metFORMIN HCl ER (MOD) 1000 MG Tablet Extended Release 24 Hour 1 tab(s) orally once a day Active Sertraline HCl *Please review a nd pick [facility]. If intended option is not shown, discontinue and re-order from Quick Search* *Pick strength-form from [facility] for eRX* Active Abilify *Please review a nd pick correct strength-formulati [facility]. If intended option is not shown, discontinue and re-order from Quick Search* *[facility]* Active dexAMETHasone 1 MG Tablet 1 tab(s) orally at 10 pm night before 8 am cortisol; Duration: 1 days 08/14/2024 Active Spironolactone 50 MG Tablet 2 tab(s) orally daily; Duration: 90 days 08/14/2024 Active Gemfibrozil *Please review a nd pick correct strength-formulati [facility]. If intended option is not shown, discontinue and re-order from Quick Search* *[facility] for [facility]* Active Vitamin D3 *Please review a nd pick correct strength-formulati on from [facility] options. If intended option is not shown, discontinue and re-order from Quick Search* *Pick strength-form from [facility] for eRX* Active Insulin Lispro *Please review a nd pick correct strength-formulati on from [facility] options. 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) Plan Of Treatment Medication Medication Name Sig Start Date Stop Date Notes dexAMETHasone 1 MG Tablet 1 tab(s) orall y at 10 pm night before 8 am cortisol; Duration: 1 days 08/14/2024 Spironolactone 50 MG Tablet 2 tab(s) ora lly daily; Duration: 90 days 08/14/2024 Progress Notes * Kirsten HENDRICKSDOB:[birth year] (35 yo F)Acc No.[id number]:09/30/2024 Patient: Kirsten Aguillon Provider: He Sánchez :1990 A ge:34 Y S ex:Female Date:09/30/2024 Address:[address] [place], [place] [phone] Pcp:Becca Tellez Subjective: * Chief Complaints: * M ultum To Medis[facility] Conversion Encounter * Medications: T akingInsulin Lispro , Notes to Pharmacist: *Please review and pick correct strength-formulation from [facility] options. If intended option is not shown, discontinue and re-order from Quick Search* *Pick strength-form from [facility] for eRX*Vitamin D3 , Notes to Pharmacist: *Please review and pick correct strength-formulation from [facility] options. If intended option is not shown, discontinue and re-order from Quick Search* *Pick strength-form from [facility] for eRX*Gemfibrozil , Notes to Pharmacist: *Please review and pick correct strength-formulation from [facility] options. If intended option is not shown, discontinue and re-order from Quick Search* *Pick strength-form from [facility] for eRX*Abilify , Notes to Pharmacist: *Please review and pick correct strength-formulation from [facility] options. If intended option is not shown, discontinue and re-order from Quick Search* *Pick strength-form from [facility] for eRX*Sertraline HCl , Notes to Pharmacist: *Please review and pick correct strength-formulation from [facility] options. If intended option is not shown, discontinue and re-order from Quick Search* *Pick strength-form from [facility] for eRX*metFORMIN HCl ER (MOD) 1000 MG Tablet Extended Release 24 Hour 1 tab(s) orally once a day Taking Insulin Lispro , Notes to Pharmacist: *Please review and pick correct strength-formulation from [facility] options. If intended option is not shown, discontinue and re-order from Quick Search* *Pick strength-form from [facility] for eRX*Taking Vitamin D3 , Notes to Pharmacist: *Please review and pick correct strength-formulation from [facility] options. If intended option is not shown, discontinue and re-order from Quick Search* *Pick strength-form from [facility] for eRX*Taking Gemfibrozil , Notes to Pharmacist: *Please review and pick correct strength-formulation from [facility] options. If intended option is not shown, discontinue and re-order from Quick Search* *Pick strength-form from [facility] for eRX*Taking Abilify , Notes to Pharmacist: *Please review and pick correct strength-formulation from [facility] options. If intended option is not shown, discontinue and re-order from Quick Search* *Pick strength-form from [facility] for eRX*Taking Sertraline HCl , Notes to Pharmacist: *Please review and pick correct strength-formulation from [facility] options. If intended option is not shown, discontinue and re-order from Quick Search* *Pick strength-form from [facility] for eRX*Taking metFORMIN HCl ER (MOD) 1000 MG Tablet Extended Release 24 Hour 1 tab(s) orally once a day * Allergies: P henerganAmoxicillin Assessment: * Assessment: 1. 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
--- OUTSIDE RECORDS SUMMARY | 2024-09-30 16:00 | XMS_ITS ---
Author Organization [facility] Address [address] [address] Care Team Providers Care Power Station Operator Name Role Phone Becca Tellez Primary Care Provider [phone] Migration, Provider Unavailable Unavailable Allergies Allergen (clinical drug ingredient) Drug/Non Drug Allergy documented on EMR Reaction Allergy Type Onset Date Status amoxicillin Amoxicillin Unknown Drug Allergy Act fabián promethazine Phenergan Unknown Drug Allergy Acti ve [facility] Encounter Medications Medication SIG (Take, Route, Frequency, Duration) Notes Start Date End Date Status Insulin Lispro *Please review a nd pick correct strength-formulati on from [facility] options. If intended option is not shown, discontinue and re-order from Quick Search* Active Vitamin D3 *Please review a nd pick correct strength-formulati on from [facility] options. If intended option is not shown, discontinue and re-order from Quick Search* Active dexAMETHasone 1 MG 1 tab(s) orally at 10 pm night before 8 am cortisol; Duration: 1 days 08/14/2024 Active metFORMIN HCl ER (MOD) 1000 MG 1 tab(s) orally once a day Active Spironolactone 50 MG 2 tab(s) orally daily; Duration: 90 days 08/14/2024 Active Abilify *Please review a nd pick correct strength-formulati on from [facility] options. If intended option is not shown, discontinue and re-order from Quick Search* Active Sertraline HCl *Please review a nd pick correct strength-formulati on from [facility] options. If intended option is not shown, discontinue and re-order from Quick Search* Active Gemfibrozil *Please review a nd pick correct strength-formulati on from [facility] options. 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 Multum To [facility] Conversion Encounter. * Medical History: * Medications: T aking Insulin Lispro , Notes to Pharmacist: *Please review and pick correct strength-formulation from [facility] options. If intended option is not shown, discontinue and re-order from Quick Search*, Taking Vitamin D3 , Notes to Pharmacist: *Please review and pick correct strength-formulation from [facility] options. If intended option is not shown, discontinue and re-order from Quick Search*, Taking Gemfibrozil , Notes to Pharmacist: *Please review and pick correct strength-formulation from [facility] options. If intended option is not shown, discontinue and re-order from Quick Search*, Taking Abilify , Notes to Pharmacist: *Please review and pick correct strength-formulation from [facility] options. If intended option is not shown, discontinue and re-order from Quick Search*, Taking Sertraline HCl , Notes to Pharmacist: *Please review and pick correct strength-formulation from [facility] options. If intended option is not shown, discontinue and re-order from Quick Search*, Taking metFORMIN HCl ER (MOD) 1000 MG Tablet Extended Release 24 Hour 1 tab(s) orally once a day * Allergies: P henergan, Amoxicillin. Objective: * Vitals: Assessment: * Assessment: 1. 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
--- OUTSIDE RECORDS SUMMARY | 2024-10-06 07:10 | XMS_ITS ---
Author Organization [facility] Address [address] [place], [place] [address] Care Team Providers Care Business Programmer Name Role Phone Becca Tellez Primary Care Provider REASON FOR VISIT lab follow up// text Encounters Encounter Location Date Provider Diagnosis [facility] Dr[address] 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 This visit was performed in office via provider and patient located in primary care office with real time audio with video. 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 This visit was performed in office via provider and patient located in primary care office with real time audio with video. * Electronic signature of Mo Tellez MD on 08/27/2025 at 10:57 AM CDT Sign off status: Pending * Provider: Mike Tellez MD Date: 12/06/2023 Generated for Xu abraham/Mena/Naina on: 10:57 AM CDT
--- OUTSIDE RECORDS SUMMARY | 2024-10-06 07:10 | XMS_ITS ---
Author Organization [employer] [facility] Address [address] [place] [address] Care Team Providers Care Refinery Operator Helper Name Role Phone Becca Tellez Primary Care Provider [phone] REASON FOR VISIT lab follow up// text Encounters Encounter Location Date Provider Diagnosis [place] [facility], [facility] - Becca Tellez [address] [place] [address] 10/06/2024 Becca Tellez Plan Of Treatment No Information Progress Notes * Kirsten HENDRICKSDOB:[birth year] (35 yo F)Acc No.[id number]:10/06/2024 Progress Notes Patient: Kirsten ONOFRE Provider: Mike Tellez MD :1990 A ge:34 Y S ex:Female Date:10/06/2024 Address:[address] [place], [place] [address] Subjective: * Chief Complaints: * 1 . [...] of Mo Tellez MD on 08/27/2025 at 10:59 AM CDT Sign off status: Pending * Provider: Mike Tellez MD Date: 1 12/06/2023 Generated for Xu abraham/Mena/eTransmitting on: 1 10:59 AM CDT History and Physical Notes * HPI [...]
--- OUTSIDE RECORDS SUMMARY | 2024-11-17 05:30 | XMS_ITS ---
Author Organization [facility] Address [address] [place] [address] Care Team Providers Care Correctional Nurse Name Role Phone Becca Tellez Primary Care Provider [phone] REASON FOR VISIT 6 week f/u anamaria Encounters Encounter Location Date Provider Diagnosis [facility] Dr[address] Tellez [address] [place] [address] 11/17/2024 Becca Tellez Plan Of Treatment No Information Progress Notes * Kirsten ALMANZARDOB:[birth year] (35 yo F)Acc No.[id number]:11/17/2024 Progress Notes Patient: Kirsten Aguillon Provider: Mike Tellez MD :1990 A ge:34 Y S ex:Female Date:11/17/2024 Address:[address] [place], [place] [phone] Subjective: * Chief Complaints: * 6 week f/u anamaria * Electronic signature of Mo Tellez MD on 08/27/2025 at 10:57 AM CDT Sign off status: Pending * Provider: Mike Tellez MD Date: 0 11/17/2024 Generated for Maryi ng/Mena/eTransmitting on: 1 10:57 AM CDT
--- OUTSIDE RECORDS SUMMARY | 2024-11-17 05:30 | XMS_ITS ---
Author Organization [facility] Address [address] [place] [address] Care Team Providers Care Web Developer Programmer Name Role Phone Becca Tellez Primary Care Provider [phone] REASON FOR VISIT 6 week f/u anamaria Encounters Encounter Location Date Provider Diagnosis [facility], [facility] - Becca Tellez [address] [place] [address] 11/17/2024 Becca Tellez Plan Of Treatment No Information Progress Notes * SINTIAMARTINKirsten DANIELSDOB:[birth year] (35 yo F)Acc No.[id number]:11/17/2024 Progress Notes Patient: Kirsten ONOFRE Provider: Mike Tellez MD :1990 A ge:34 Y S ex:Female Date:11/17/2024 Address:[address] [place], [place] [phone] Subjective: * Chief Complaints: * 1 . 6 week f/u anamaria. * Medical History: Objective: * Vitals: Assessment: Plan: * Treatment: * Billing Information: * Visit Code: * Procedure Codes: * Electronic signature of Mo Tellez MD on 08/27/2025 at 10:58 AM CDT Sign off status: Pending * Provider: Mike Tellez MD Date: 0 11/17/2024 Generated for Maryi ng/Fanataliiag/eTransmitting on: 1 10:58 AM CDT
--- NOTE | ~2025-08-27 | CT_ITS ---
CT LE RT w con INDICATION:proximal thigh abscess; not improving after I D COMPARISON: None. TECHNIQUE: Contrast axial CT images of the left hip were obtained followed by multiplanar reconstruction in the coronal and sagittal planes. FINDINGS: There are no acute fracture or dislocation. Symphysis pubis and sacroiliac joints are intact. There is skin thickening within the posterior medial thigh with subcutaneous fat stranding. This may represent cellulitis in the appropriate clinical setting. There are no drainable fluid collection. Sulcal gas within this area may be echogenic. IMPRESSION: No acute fracture or dislocation. No drainable fluid collections.i All CT scans at this facility are performed using low dose modulation techniques as appropriate to perform exam including the following: automated exposure control; use of iterative reconstruction technique; adjustment of the mA and/or kV according to patient size (this includes techniques or standardized protocols for targeted exams where dose is matched to indication/reason for exam). Reviewed, dictated and finalized at location S. IMPRESSION: No acute fracture or dislocation. No drainable fluid collections.i All CT scans at this facility are performed using low dose modulation techniqu es as appropriate to perform exam including the following: automated exposure c ontrol; use of iterative reconstruction technique; adjustment of the mA and/or kV according to patient size (this includes techniques or standardized protocol s for targeted exams where dose is matched to indication/reason for exam).
[2025-08-27 10:06] VITALS: BP 140/79; PULSE 90; RESP 16; TEMP 36.8; O2SAT 100
--- OUTSIDE RECORDS SUMMARY | 2025-08-27 10:57 | XMS_ITS | Clinical Summary ---
Author Organization [facility] Address [address] [place] [address] Care Team Providers Care Broke Beater Machine Operator Name Role Phone Raul Dan MD Primary Care Provider [phone] Source Comments [facility],non-owned Affiliates and Associated Physician Practices is amultiple site organization consisting of ambulatory clinics and hospital sitesin [place], [place], [place] and [place]. This disclosure is being madepursuant to the Care Everywhere program and may not contain all information available regarding this patient. Last updated 18.[facility] Allergies Active Allergy Reactions Criticality Noted Date [...] on file Legal Sex Female 5:42 AM PLASTICS FABRICATOR OR WELDER Gender Identity Not on file Sexual Orientation Not on file Last Filed Vital Signs Vital Sign Reading Time Taken Comments Blood Pressure 151/86 09/29/2019 3:05 PM PLASTICS FABRICATOR OR WELDER Pulse 110 09/29/2019 3:05 PM PLASTICS FABRICATOR OR WELDER Temperature 37 C (98.6 F) 09/29/2019 3:05 PM PLASTICS FABRICATOR OR WELDER Respiratory Rate 18 09/29/2019 3:05 PM PLASTICS FABRICATOR OR WELDER Oxygen Saturation 96% 09/29/2019 3:05 PM PLASTICS FABRICATOR OR WELDER Inhaled Oxygen Concentration - - Weight 117.8 kg (259 lb 9.6 oz) 09/29/2019 3:05 PM PLASTICS FABRICATOR OR WELDER Height 160 cm (5' 3) 09/29/2019 3:05 PM PLASTICS FABRICATOR OR WELDER Body Mass Index 45.99 09/29/2019 3:05 PM PLASTICS FABRICATOR OR WELDER Plan of Treatment Health Maintenance Due Date [...] Management General On track( 019 3:32 PM PLASTICS FABRICATOR OR WELDER) Martin Brewer, RN Note: Expected end date: [...] Most Recently Relevant to Health Maintenance Insurance [facility] Care Teams Broke Beater Machine Operator Relationship Specialty Start Date End Date Raul Dan MD [address] [place] [phone] PCP - General 02/07/19
--- OUTSIDE RECORDS SUMMARY | 2025-08-27 10:58 | XMS_ITS | Patient Health Record ---
Author Organization [employer] [facility] Address [address] [address] Care Team Providers Care Assistant Professor Of English Name Role Phone Becca Tellez Primary Care Provider [phone] Migration, Provider Unavailable Unavailable Allergies Allergen (clinical [...] Status Risk Notes Problem Vitamin D deficiency (14671019) Vitamin D deficiency, unspecified (E55.9) Active confirmed Problem Hyperglycemia due to type 2 diabetes mellitus (411734621782983) Type 2 diabetes mellitus with hyperglycemia (E11.65) Active confirmed Problem Hyperlipidemia (43314014) Hyperlipidemia, unspecified (E78.5) Active confirmed Problem Essential hypertension (94407482) Essential (primary) hypertension (I10) Active confirmed Problem Obesity (758413185) Obesity, unspecified (E66.9) Active confirmed 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, 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 Vital Signs Heart Rate 80 /min 10/09/2024 Respiratory Rate 12 /min 10/09/2024 Blood pressure diastolic 82 mm Hg 10/09/2024 Height 63 in 10/09/2024 Blood pressure systolic 124 mm Hg 10/09/2024 Weight 370 lbs 10/09/2024 BMI 65.54 kg/m2 10/09/2024 Encounters Encounter Location Date Provider Diagnosis [place] [id number] [place] [address] 09/30/2024 Provider Migration Joan's syndrome, 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 [facility], [facility] - Becca Tellez [address] [place] [address] 09/04/2024 Becca [facility], [facility] - Becca Tellez [address] [place] [address] 09/08/2024 Becca [facility] [address] [place] [address] 09/19/2024 Becca [facility], [facility] - Becca Tellez [address] [place] [address] 09/21/2024 Becca Tellez [facility] [address] [place] [address] 10/06/2024 Becca Tellez Type 2 diabetes mellitus with hyperglycemia E11.65 [facility] [address] [place] [address] 10/09/2024 Becca Tellez [facility], [facility] - Becca Tellez [address] [place] [address] 10/09/2024 Becca Tellez Type 2 diabetes mellitus with hyperglycemia E11.65 ; Dafter's syndrome, 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 ; Vitamin D deficiency, [...] mellitus with hyperglycemia (ICD-10 - E11.65) 10/09/2024 Dafter's syndrome, 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) 10/09/2024 Vitamin [...] before meals (total 84 units/day).- Plan: Sent ZhongSoustyle Forrest 3 Plus Sensor to [facility] for better glucose monitoring. Encourage patient [...] the beginning of the year, still through [place].- Plan: Ensure proper coordination of care and [...] procedures, referring and communicating with other health careers counsellor, documenting clinical information in the electronic or [...] Insured Coverage Start Date Coverage End Date [facility] [address] [place] [address] [id number] Kirsten Del Castillo Self - patient is the insured Medical (General) History Medical History History ICD Code diabetes COPD depression Surgical History Surgery Date(Month/Year) turbinectomy septioplasty tonsilectomy hysterectomy 2022 Hospitalization History Reason Date(Month/Year) pericarditits 2022 blood clot 2022
--- OUTSIDE RECORDS SUMMARY | 2025-08-27 10:59 | XMS_ITS | Clinical Summary ---
Author Organization [facility] Address [address] [place] [address] Care Team Providers Care Education Managers Name Role Phone Natalya Diaz KENNY Primary Care Provider [phone] Encounters Date Type Department Care Team Description [...] patient's age to complete this topic Insurance [facility] Care Teams Education Managers Relationship Specialty Start Date End Date Natalya Diaz NP [address] [address] PCP - General NURSE PRACTITIONER 07/09/22
--- OUTSIDE RECORDS SUMMARY | 2025-08-27 11:00 | XMS_ITS | Patient Health Record ---
Author Organization [facility] Address [address] [place], [place] [address] Care Team Providers Care Package Delivery Room Service Runner Name Role Phone Becca Tellez Primary Care [...] a nd pick correct strength-formulati on from [employer] options. If intended option is not shown, discontinue and re-order from Quick Search* *Pick strength-form from [employer] for eRX* Active FreeStyle Forrest 3 Plus [...] a nd pick correct strength-formulati on from [employer] options. 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 Problem Vitamin D deficiency (91877110) Vitamin D deficiency, unspecified (E55.9) Active confirmed Problem Obesity (691199820) Obesity, unspecified (E66.9) Active confirmed Problem Essential hypertension (98577098) Essential (primary) hypertension (I10) Active confirmed Problem Hyperlipidemia (75021674) Hyperlipidemia, unspecified (E78.5) Active confirmed Vital Signs Heart Rate 80 /min 10/09/2024 Respiratory Rate 12 /min 10/09/2024 Blood pressure diastolic 82 mm Hg 10/09/2024 Height 63 in 10/09/2024 Blood pressure systolic 124 mm Hg 10/09/2024 Weight 370 lbs 10/09/2024 BMI 65.54 kg/m2 10/09/2024 Encounters Encounter Location Date Provider Diagnosis [address] [id number] 09/30/2024 Provider Migration Joan's syndrome, 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 Tellez [address] [place], [place] [id number] 09/04/2024 Becca Tellez AMSAMUEL Tellez [address] [place] [address] 09/08/2024 Becca Tellez [place] [phone] 09/19/2024 Becca Tellez [address] [place] [address] 09/21/2024 [place] [address] 10/06/2024 Becca Tellez Type 2 diabetes mellitus with hyperglycemia E11.65 [place] [phone] 10/09/2024 Becca Tellez Assessments Encounter Date Diagnosis (ICD Code) Assessment Notes Treatment Notes Treatment Clinical Notes Section Notes 09/30/2024 [place] Prado's syndrome, 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) 10/06/2024 Type [...] [facility] [...] the beginning of the year, still through [place].- Plan: Ensure proper coordination of care and [...] referring and communicating with other health healthcare customer service, documenting clinical information in the electronic or [...]
--- OUTSIDE RECORDS SUMMARY | 2025-08-27 11:00 | XMS_ITS | Clinical Summary ---
Author Organization [facility] [place] [address] Address [address] [place] [address] Care Team Providers Care [employer] Librarian Name Role Phone Kartik Van MD Unavailable Chaim Rodriguez MD Unavailable [phone] Jessica Beckwith MD Primary Care Provide r Allergies Active Allergy Reactions Criticality Noted Date Comments Amoxicillin-Pot Clavulanate Hives Medium 02/18/2023 [place]-Cresol Rash Medium 07/03/2025 Promethazine Hives,Itching,Unknow n, Rash,Urticaria [...] 1 tablet (50 mcg total) by mouth data sciences director before breakfast 90 tablet 2 4 Active [...] 01/20/2024 Assessment & Plan (01/20/2024 5:16 PM TITLE DEPARTMENT MANAGER): Hba1c was Lab Results Component Value Date [...] placed and connected to her phone via Jingit George Patient is also linked to our [...] (02/18/2023): Unprovoked pulmonary embolus requiring hospitalization at [facility] 12/07/2022 Pulmonary embolism 01/25/2023 Elevated liver enzymes 02/07/2019 Overview (03/15/2025): 08/01/19 Fibroscan CAP 307, E 8.0 kPa Hyperlipidemia 02/07/2019 Essential hypertension 02/07/2019 Asthma 02/07/2019 Type 2 diabetes mellitus 01/04/2019 Obstructive sleep apnea syndrome 10/09/2018 Encounters Date Type Department Care Team Description 07/25/2025 7:15 AM CDT Office Visit [facility] Hand Surgery [address] [place] [phone] Marian Perez, MINGLER OPERATOR Carpal tunnel syndrome on right (Primary Dx) 07/12/2025 7:30 AM CDT - 07/12/2025 8:15 AM CDT Surgery [facility] OR [address] [place] [address] Kermit Mcmanus MD RIGHT CARPAL TUNNEL RELEASE 07/12/2025 7:13 AM CDT Anesthesia Event [facility] OR [address] [place] [address] Khoi Lee MD 07/12/2025 5:57 AM CDT - 07/12/2025 8:06 AM CDT Hospital Encounter [facility] Main OR [address] [place] [address] Kermit Mcmanus MD Carpal tunnel syndrome on right [G56.01] (Primary Dx) Discharge Disposition: Discharge to home or self care 07/11/2025 7:30 AM CDT Office Visit [facility] Medical [facility] Hand Surgery [address] [place] [phone] Marian Perez, KENNY Right carpal tunnel syndrome (Primary Dx); Right wrist pain 07/09/2025 8:00 AM CDT Pre-Admission Testing [facility] Pre Admit Testing [address] [place] [address] Pre-op testing 07/09/2025 Orders Only [facility] PreAdmission Testing [facility] [place] [address] Odalys Hayden RN 07/03/2025 Orders Only [facility] Pre Admit Testing [address] [place] [address] Amaya Esparza, LEIGH Pre-op testing (Primary Dx) 07/02/2025 7:30 AM CDT Office Visit [facility] Hand Surgery [address] [place] [phone] Kermit Mcmanus MD Right carpal tunnel syndrome (Primary Dx) from Last 3 Months Immunizations Immunization Administration Dates Next Due DTP 10/21/1994 Hep A, Adult 03/08/2023,09/07/2022 Influenza, Quadrivalent, Wenyd l Culture-based MDCK, Preservative Free, Antibiotic Free, [...] Unprovoked pulmo nary embolus requiring hospitalization at [facility] 12/07/2022 Diabetes mellitus Type 2 [...] on file Legal Sex Female 7:57 PM TITLE DEPARTMENT MANAGER Gender Identity Not on file Sexual Orientation [...] was last reviewed 2021. Testing performed by: [facility], [address] [place] [address]., [address] Blood 07/09/2025 9:04 AM CDT 07/09/2025 9:15 AM CDT Jose Elias Turpin MD LAB BLOOD ORDERABL ES Final Result Performing Organization Address [facility] Co de Phone Number VITOR [address] [employer] [place] [address] * (ABNORMAL) Hemoglobin A1c (07/09/2025 9:04 AM CDT) Hgb A1C 11.3(H) 4.0 - 5.6 % Comment:Testing performed by : [address] [address] Estimated Average Glucose 278 mg/dL VITOR Comment: The ADA recommends reporting an estimated Average Glucose (eAG) with all Hemoglobin A1c results using the equation derived from a study of 507 normal and diabetic adults. Minority populations were underrepresented and children were not included. (Diabetes Care 31:3650-5092, 2008). The eAG is not equivalent to a fasting glucose. Testing performed by: [address] [address] Blood 07/09/2025 9:04 AM CDT 07/09/2025 9:15 AM CDT Narrative VITOR - 07/09/2025 9:31 AM CDT PRE SURGICAL TESTING ONLY--* No surgery found *--* Surgery not found *-@ANPROCEDURE@ Jose Elias Turpin MD LAB BLOOD ORDERABL ES Final Result Performing Organization Address [facility] Co de Phone Number VITOR [facility] [employer] [place] [address] * (ABNORMAL) Comprehensive metabolic panel (07/09/2025 9:04 AM CDT) Sodium 133(L) 135 - 145 mmol/L Comment:Testing performed by : [address] [address] Potassium, pl 4.1 3.3 - 4.9 mmol/L VITOR NARAYANAN Comment:Testing performed by : [address] [address] Chloride 98 97 - 110 mmol/L VITOR Comment:Testing performed by : [facility], [address] [place] [address]., [address] CO2 24 22 - 32 mmol/L VITOR Comment:Testing performed by : [address] [address] Anion gap 11 2 - 15 mmol/L VITOR Comment:Testing performed by : [address] [address] BUN 11 6 - 25 mg/dL VITOR Comment:Testing performed by : [address] [address] Creatinine 0.50(L) 0.60 - 1.10 mg/dL VITOR Comment:Testing performed by : [address] [address] Glucose 394(H) 70 - 199 mg/dL VITOR [...] was last revised 2022. Testing performed by: [address] [address] Calcium 9.4 8.5 - 10.3 mg/dL VITOR Comment:Testing performed by : [address] [address] Bilirubin, total 0.3 0.1 - 1.2 mg/dL VITOR Comment:Testing performed by : [address] [address] Protein, pl 7.2 6.5 - 8.5 g/dL VITOR Comment:Testing performed by : [address] [address] Albumin 3.7 3.5 - 5.0 g/dL VITOR Comment:Testing performed by : [address], [place]., [address] Alk phos 90 40 - 130 Units/L VITOR Comment:Testing performed by : [address] [address] ALT 55(H) 7 - 45 Units/L VITOR Comment:Testing performed by : [address] [address] AST 49(H) 10 - 45 Units/L VITOR Comment:Testing performed by : [facility], [address] [place] [address]., [address] Blood 07/09/2025 9:04 AM CDT 07/09/2025 9:15 AM CDT Narrative VITOR - 07/09/2025 9:53 AM CDT PRE SURGICAL TESTING ONLY--* No surgery found *-* Cannot find OR case *-* Surgery not found *- us Jose Elias Turpin MD LAB BLOOD ORDERABL ES Final Result VITOR [address] [facility] Department of Laboratories [place], [place] [id number] * ECG 12 lead (07/09/2025 8:56 AM CDT) Ventricular Rate EKG/Min 74 BPM [facility] Atrial Rate 74 BPM [facility] WI-Interval (MSEC) 158 ms [facility] QRS-Interval (MSEC) 100 ms [facility] QT-Interval (MSEC) 366 ms [facility] QTc 406 ms [facility] P Isabel 45 degrees [facility] R Isabel 35 degrees [facility] T Isabel 33 degrees [facility] Diagnosis Normal sinus rhythm Low voltage QRS Incomplete right bundle branch block No previous ECGs available Confirmed by SULTAN INGRAM M.D. ([id number]) on 07/09/2025 3:36:17 PM [facility] 07/09/2025 8:56 AM CDT 07/09/2025 3:36 PM CDT us Jose Elias Turpin MD ECG ORDERABLES Fi nal Result [facility] * (ABNORMAL) Albumin Creatinine Ratio, Urine (06/03/2023 [...] Health Maintenance Insurance [facility] [place] [address] Care Teams Middle School Librarian Relationship Specialty Start Date End Date Jessica Beckwith MD [address] [place] [address] PCP - General Internal Medicine 02/12/25 Kartik Van MD [address] [place] [address] Internal Medicine 02/18/23 Chaim Rodriguez MD [address] [address] [place] [address] Medical Oncologist/Publications Distribution Clerk Hematology and Oncology 04/22/23
[2025-08-27 12:55] VITALS: BP 133/90; PULSE 78; RESP 18; O2SAT 98
--- NOTE | 2025-08-27 13:51 | ED.SKABFB ---
HPI - Skin/Abscess/Foreign Bdy General Chief complaint: Skin/Abscess/Foreign Body Stated complaint: R leg pain Time Seen by Provider: 08/27/25 12:51 Source: patient Mode of arrival: ambulatory Limitations: no limitations History of Present Illness HPI narrative: Patient presents with concern for right posterior leg pain with on her inner thigh. She was seen 2 days ago for the same and at which point this was drained. She has been taking her antibiotics (Keflex and Bactrim) as prescribed but states it is not getting better. Symptoms had started before that 5 days. She has a history of type 2 diabetes mellitus. She denies fevers or chills but she had been nauseated. Patient had not had a chance to follow-up with their primary care physician, had not called for an appointment for this yet. She does have a history of an abscess that was positive for MRSA. She reports that she took 4 500 mg tablets of acetaminophen last night to help her sleep. Related Data Home Medications ?Medication ?Instructions ?Recorded ?Confirmed ?Last Taken ?Type aripiprazole 2 mg tablet 2 mg PO HS 03/04/22 07/01/23 06/29/23 20:00 History metformin 1,000 mg tablet 1,000 mg PO BID 03/04/22 07/01/23 06/30/23 08:00 History pen needle, diabetic 31 gauge x 03/04/22 12/08/22 Unknown History 01/28 (TRUEplus Pen Needle) sertraline 100 mg tablet 100 mg PO HS 03/04/22 07/01/23 06/29/23 20:00 History ergocalciferol (vitamin D2) 1,250 1,250 mcg PO WEEKLY 03/23/23 06/22/23 06/25/23 History mcg (50,000 unit) capsule albuterol sulfate 90 mcg/actuation 1 puff inhalation PRN PRN 06/22/23 07/01/23 06/28/23 History aerosol inhaler Shortness Of Breath Or Wheezing gemfibrozil 600 mg tablet 600 mg PO 07/31/25 Unknown History semaglutide 1 mg/dose (4 mg/3 mL) mg subcut 07/31/25 Unknown History subcutaneous pen injector (Ozempic) Allergies Allergy/AdvReac Type Severity Reaction Status Date / Time amoxicillin (From Augmentin) Allergy Mild Hives Verified 08/27/25 10:08 clavulanic acid (From Allergy Mild Hives Verified 08/27/25 10:08 Augmentin) promethazine (From Phenergan) Allergy Mild Hives Verified 08/27/25 10:08 PMFSH Past Medical History Medical History 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 Encounter for insertion of intrauterine contraceptive device Morbid obesity Major depressive disorder, single episode, unspecified Hyperlipidemia, unspecified Anxiety and depression Pericarditis DIEGO on CPAP PCOS (polycystic ovarian syndrome) Diabetes 1.5, managed as type 2 Sleep apnea in adult Surgical History Surgical History S/P carpal tunnel release H/O gynecological procedure 07/01/23 RA total lap hyst & BL salpingectomy hysteroscopy and D & C H/O: knee surgery Hx of tonsillectomy Family History Family History Mother Family history of malignant neoplasm of breast in first degree relative Social History Social History Smoking status: Never smoker Second hand tobacco smoke exposure: Yes Alcohol intake: current Drinks per week: 1 Alcohol use details: 1/MONTH Substance use: former Substance use type: marijuana Last use: NOV 2022 Lack of Transportation: No Lack of Food: Never True Current Housing: I Have Housing Concerned About Future Housing: No Difficulty Paying Gas/Electric Bills: No Difficulty Paying for Meds: YES Currently Unemployed: No Education: Associate Degree Difficulty w/ Childcare or Family Care: No Living arrangements: with roommate(s) Additional living arrangements comments: boyfriend and roomate Occupation/Education: occupation Additional occupation/education comments: works M-F Gender identity (if verbalized by the patient): Female Sexual Orientation (if Verbalized by the Patient): Straight or Heterosexual Spiritual care concerns: No Agree to blood products: No Exam Narrative: GENERAL: Well-appearing, well-nourished, and in no acute distress. HEAD: Normocephalic, atraumatic. EYES: Non injected, non icteric ENT: Nares clear, no rhinorrhea or epistaxis. Gross auditory acuity intact. NECK: Supple. No meningismus. CHEST: Speaking in full sentences. No respiratory distress. HEART: Regular rate and rhythm. . ABDOMEN: Morbid obesity the but Soft, nondistended. No rigidity or guarding. Not peritoneal EXTREMITIES: Erythema and warmth at the right posterior thigh proximally but without extension into genitalia. Status post incision and drainage with packing in place. Normal range of motion. No lower extremity edema. SKIN: Warm, dry, as described above rash. NEURO: No focal deficits. Alert and oriented. Answering questions. Following commands. Normal speech without aphasia or dysarthria. PSYCH: Normal mood and affect. Course Vital Signs Vital signs: Vital Signs Temperature 98.2 F 08/27/25 10:06 Pulse Rate 90 08/27/25 10:06 Respiratory Rate 16 08/27/25 10:06 Blood Pressure 140/79 08/27/25 10:06 Pulse Oximetry 100 08/27/25 10:06 Oxygen Delivery Room Air 08/27/25 10:06 Temperature 98.2 F 08/27/25 10:06 Pulse Rate 80 08/27/25 20:05 Respiratory Rate 18 08/27/25 20:05 Blood Pressure 130/81 08/27/25 20:05 Pulse Oximetry 99 08/27/25 20:05 Oxygen Delivery Room Air 08/27/25 10:06 MDM - Skin/Abscess/Foreign Bdy MDM Narrative Medical decision making narrative: Patient presents with concern for right leg pain on their inner thigh. Seen for the same 2 days ago at which time incision and drainage performed and started on dual antibiotics. Patient had been told to remove packing in 2 days, i.e. today. Removed by me. In the emergency department they are afebrile with vital signs within normal limits. Patient has been stuck multiple times. Limited ability to obtain labs. She does have 2 ultrasound-guided IVs placed by nursing. There is concern for dehydration so 1 L IV fluids ordered. ESR normal. Mild leukocytosis. CRP is elevated. Culture from wound 08/26 is still pending results/ in process. Normal renal function. Her hyperglycemia is without anion gap or acidosis. Sodium corrects to normal, 137 given this glucose. Lactic acid normal. test negative. RNs were only able to obtain 1 set of blood cultures after multiple attempts. Patient has the thickened skin of the posterior thigh and overlying cellulitis but without abscess on CT imaging. I do believe she is already on appropriate oral antibiotic therapy with a double coverage of cephalexin and Bactrim. I do not believe she is truly failed outpatient therapy yet. We discussed continuing this regimen, having a wound check with her primary care physician, and returning with any new or worsening symptoms. We discussed appropriate dosing of oral encounter analgesic medication as well as narcotic medication for breakthrough pain. Discussed safe use, risks, alternative, and disposal. She verifies understanding. I confirmed pharmacy. She does have tramadol filled in June 2025 but no other interval fill of controlled substances. Differential Diagnosis Differential diagnosis: Likely abscess of skin or subcutaneous tissue, cellulitis and other (Considered necrotizing fasciitis) Lab Data Attestation: I reviewed the patient's lab results. 08/27/25 16:13 08/27/25 18:04 Labs: Lab Results 08/27/25 08/27/25 08/27/25 Range/Units 16:13 17:57 18:04 WBC 11.7 H (4.5-10.0) K/mm3 RBC 4.97 (4.2-5.4) M/mm3 Hgb 13.0 (12.0-15.0) g/dL Hct 42.2 (37.0-47.0) % MCV 84.9 (80-100) fl MCH 26.2 (26-34) pg MCHC 30.8 L (32-36) g/dl RDW 13.8 (11.5-14.5) % Plt Count 301 (150-375) k/mm3 MPV 9.9 (7.4-10.4) fl Immature Gran % (Auto) 0.4 (0-0.5) % Neut % (Auto) 73.1 (45.5-73.1) % Lymph % (Auto) 21.1 (18.3-44.2) % [place] % (Auto) 4.4 (2.6-8.5) % Eos % (Auto) 0.6 (0-4.4) % Baso % (Auto) 0.4 (0.2-1.2) % Lymph # (Auto) 2.47 (0.9-3.2) K/mm3 [place] # (Auto) 0.5 (0.1-0.6) K/mm3 Eos # (Auto) 0.1 (0-0.3) K/mm3 Baso # (Auto) 0.1 (0.0-0.1) K/mm3 Abs Immat Gran (auto) 0.05 H (0.00-0.031) K/mm3 Absolute Neuts (auto) 8.5 H (1.3-6.7) K/mm3 Absolute Nucleated RBC 0.000 (0.0-0.012) K/mm3 Band Neutrophils % 0 (0-6) % Nucleated RBC % 0.0 (0.0-0.2) % Platelet Estimate Adequate (Adequate) Clumped Platelets Present % Immature Plt Fraction 2.0 (0.9-11.2) % Hypochromasia 1+ Schistocytes None seen ESR 18 (0-20) mm/hr Sodium 135 L (137-145) mmol/L Potassium 4.1 (3.4-5.0) mmol/L Chloride 101 (98-107) mmol/L Carbon Dioxide 26 (22-30) mmol/L Anion Gap 8 (4-12) mmol/L BUN 10 (7-17) mg/dL Creatinine 0.57 L 0.60 L (0.7-1.0) mg/dL Estim Creat Clear Calc 176 168 ml/min Estimated GFR > 60 > 60 (59 - ) Glucose 194 H (65-110) mg/dL Lactic Acid 1.4 (0.7-2.0) mmol/L Calcium 8.8 (8.4-10.2) mg/dL C-Reactive Protein 5.4 H (<1.0) mg/dL Serum HCG, Qual Negative Imaging Data Radiologist's impression: Impressions Lower Extremity CT 08/27/25 18:39 IMPRESSION: No acute fracture or dislocation. No drainable fluid collections.i All CT scans at this facility are performed using low dose modulation techniques as appropriate to perform exam including the following: automated exposure control; use of iterative reconstruction technique; adjustment of the mA and/or kV according to patient size (this includes techniques or standardized protocols for targeted exams where dose is matched to indication/reason for exam). Discharge Plan Discharge Clinical Impression: Cellulitis of right thigh, Leukocytosis, CRP elevated, Hyperglycemia due to diabetes mellitus, Pseudohyponatremia Patient Disposition: Home Condition: Stable Instructions: Antibiotic Form, Cellulitis (ED), Narcotic Safety (ED), Managing Diabetes During Sick Days (ED), Leukocytosis (ED), Diabetic Hyperglycemia (ED) Additional Instructions: Continue taking the combination of antibiotics prescribed to you. Acetaminophen/Tylenol (maximum 4000 mg per day) is safe to take with NSAIDs (ibuprofen/Motrin) for pain relief. For breakthrough pain, a short course of narcotic pain medication has been prescribed. It is important that you take all of your medications as prescribed including of medications for diabetes as good glycemic control is very important when you have an infection. Return if any new/worsening symptoms. Keep the area clean warm and dry. Patient Language: Telugu Prescriptions: New acetaminophen 500 mg capsule 1,000 mg PO Q6H PRN (Reason: pain) Qty: 30 0RF ibuprofen 200 mg capsule 600 mg PO Q8H PRN (Reason: fever or pain) Qty: 30 0RF oxycodone 5 mg tablet 5 mg PO Q8H PRN (Reason: pain) Qty: 7 0RF No Action ergocalciferol (vitamin D2) 1,250 mcg (50,000 unit) capsule 1,250 mcg PO WEEKLY Patient Comments: PT TAKES ON WEDNESDAY gemfibrozil 600 mg tablet 600 mg PO Ozempic 1 mg/dose (4 mg/3 mL) pen injector subcut albuterol sulfate 90 mcg/actuation HFA aerosol inhaler 1 puff INHALATION PRN PRN (Reason: Shortness Of Breath Or Wheezing) sertraline 100 mg tablet 100 mg PO HS metformin 1,000 mg tablet 1,000 mg PO BID aripiprazole 2 mg tablet 2 mg PO HS (DME) pen needle, diabetic [TRUEplus Pen Needle] 31 gauge x 3/16 needle MISCELLANEOUS sulfamethoxazole-trimethoprim [Bactrim DS] 800-160 mg tablet 1 tablet PO Q12H 7 Days Qty: 14 0RF cephalexin 500 mg capsule 500 mg PO Q8H 7 Days Qty: 21 0RF Follow-up/Referrals: Tang,MD Zack [Primary Care Provider, Unknown] Stand Alone Forms: Work/School Release IP Time of Disposition: 19:03
[2025-08-27 14:01] VITALS: BP 132/82; PULSE 88; RESP 16; O2SAT 100
[2025-08-27] MEDS: HYDROcodone/acetaminophen (*CRX) 5-325 MG TABLET 1 TAB PO (14:08)
--- OUTSIDE RECORDS SUMMARY | 2025-08-27 14:47 | XMS_ITS | Clinical Summary ---
Author Organization [facility] Address [address] [place] [address] Care Team Providers Care Appraisal Coordinator Name Role Phone Natalya Diaz KENNY Primary Care Provider [phone] Encounters Date Type Department Care Team Description [...] patient's age to complete this topic Insurance [facility] Care Teams Appraisal Coordinator Relationship Specialty Start Date End Date Natalya Diaz NP [address] [phone] PCP - General NURSE PRACTITIONER 07/09/22
--- OUTSIDE RECORDS SUMMARY | 2025-08-27 14:47 | XMS_ITS | Clinical Summary ---
Author Organization [facility] Address [address] [place] [address] Care Team Providers Care Coding Auditor Name Role Phone Raul Dan MD Primary Care Provider [phone] Source Comments [facility],non-owned Affiliates and Associated Physician Practices is amultiple site organization consisting of ambulatory clinics and hospital sitesin [place], [place], [place] and [place]. This disclosure is being madepursuant to the Care Everywhere program and may not contain all information available regarding this patient. Last updated 18.[facility] Allergies Active Allergy Reactions Criticality Noted Date [...] on file Legal Sex Female 5:42 AM LAND LEASE INFORMATION CLERK Gender Identity Not on file Sexual Orientation Not on file Last Filed Vital Signs Vital Sign Reading Time Taken Comments Blood Pressure 151/86 09/29/2019 3:05 PM LAND LEASE INFORMATION CLERK Pulse 110 09/29/2019 3:05 PM LAND LEASE INFORMATION CLERK Temperature 37 C (98.6 F) 09/29/2019 3:05 PM LAND LEASE INFORMATION CLERK Respiratory Rate 18 09/29/2019 3:05 PM LAND LEASE INFORMATION CLERK Oxygen Saturation 96% 09/29/2019 3:05 PM LAND LEASE INFORMATION CLERK Inhaled Oxygen Concentration - - Weight 117.8 kg (259 lb 9.6 oz) 09/29/2019 3:05 PM LAND LEASE INFORMATION CLERK Height 160 cm (5' 3) 09/29/2019 3:05 PM LAND LEASE INFORMATION CLERK Body Mass Index 45.99 09/29/2019 3:05 PM LAND LEASE INFORMATION CLERK Plan of Treatment Health Maintenance Due Date [...] Management General On track( 019 3:32 PM LAND LEASE INFORMATION CLERK) Martin Brewer, RN Note: Expected end date: [...] Most Recently Relevant to Health Maintenance Insurance [facility] Care Teams Coding Auditor Relationship Specialty Start Date End Date Raul Dan MD [address] [place] [phone] PCP - General 02/07/19
--- OUTSIDE RECORDS SUMMARY | 2025-08-27 14:48 | XMS_ITS | Clinical Summary ---
Author Organization [facility] [address] Address [address] [place] [address] Care Team Providers Care Pediatric Ophthalmologist Name Role Phone Kartik Van MD Unavailable Chaim Rodriguez MD Unavailable [phone] Jessica Beckwith MD Primary Care Provide r Allergies Active Allergy Reactions Criticality Noted Date Comments Amoxicillin-Pot Clavulanate Hives Medium 02/18/2023 Gifford-Cresol Rash Medium 07/03/2025 Promethazine Hives,Itching,Unknow n, Rash,Urticaria [...] 1 tablet (50 mcg total) by mouth customs verifier before breakfast 90 tablet 2 4 Active [...] 01/20/2024 Assessment & Plan (01/20/2024 5:16 PM STOCK TRADER): Hba1c was Lab Results Component Value Date [...] placed and connected to her phone via Spotsetter George Patient is also linked to our [...] hospitalization at [facility] 12/07/2022 Pulmonary embolism 01/25/2023 Elevated liver enzymes 02/07/2019 Overview (03/15/2025): 08/01/19 Fibroscan CAP 307, E 8.0 kPa Hyperlipidemia 02/07/2019 Essential hypertension 02/07/2019 Asthma 02/07/2019 Type 2 diabetes mellitus 01/04/2019 Obstructive sleep apnea syndrome 10/09/2018 Encounters Date Type Department Care Team Description 07/25/2025 7:15 AM CDT Office Visit [facility] Hand Surgery [address] [place] [phone] Marian Perez, INTELLIGENCE ENGINEER Carpal tunnel syndrome on right (Primary Dx) 07/12/2025 7:30 AM CDT - 07/12/2025 8:15 AM CDT Surgery [facility] OR [address] [place] [phone] Kermit Mcmanus MD RIGHT CARPAL TUNNEL RELEASE 07/12/2025 7:13 AM CDT Anesthesia Event [facility] OR [address] [place] [address] Khoi Lee MD 07/12/2025 5:57 AM CDT - 07/12/2025 8:06 AM CDT Hospital Encounter [facility] Main OR [address] [place] [address] Kermit Mcmanus MD Carpal tunnel syndrome on right [G56.01] (Primary Dx) Discharge Disposition: Discharge to home or self care 07/11/2025 7:30 AM CDT Office Visit [facility] Hand Surgery [address] [place] [phone] Marian Perez, KENNY Right carpal tunnel syndrome (Primary Dx); Right wrist pain 07/09/2025 8:00 AM CDT Pre-Admission Testing [facility] Pre Admit Testing [address] [place] [address] Pre-op testing 07/09/2025 Orders Only [facility] PreAdmission Testing [facility] [place] [address] Odalys Hayden RN 07/03/2025 Orders Only [facility] Pre Admit Testing [address] [place] [address] Amaya Esparza, LEIGH Pre-op testing (Primary Dx) 07/02/2025 7:30 AM CDT Office Visit [facility] Hand Surgery [address] [place] [phone] Kermit Mcmanus MD Right carpal tunnel syndrome [...] Unprovoked pulmo nary embolus requiring hospitalization at [facility] 12/07/2022 Diabetes mellitus Type 2 diabetes mellitus [...] on file Legal Sex Female 7:57 PM STOCK TRADER Gender Identity Not on file Sexual Orientation [...] was last reviewed 2021. Testing performed by: [facility], [address] [place] [address]., [address] Blood 07/09/2025 9:04 AM CDT 07/09/2025 9:15 AM CDT Jose Elias Turpin MD LAB BLOOD ORDERABL ES Final Result Performing Organization Address [facility] Co de Phone Number VITOR [address] [place] [address] * (ABNORMAL) Hemoglobin A1c (07/09/2025 9:04 AM CDT) Hgb A1C 11.3(H) 4.0 - 5.6 % Comment:Testing performed by : [address] [address] Estimated Average Glucose 278 mg/dL VITOR Comment: The ADA recommends reporting an estimated Average Glucose (eAG) with all Hemoglobin A1c results using the equation derived from a study of 507 normal and diabetic adults. Minority populations were underrepresented and children were not included. (Diabetes Care 31:8416-4626, 2008). The eAG is not equivalent to a fasting glucose. Testing performed by: [address] [address] Blood 07/09/2025 9:04 AM CDT 07/09/2025 9:15 AM CDT Narrative VITOR - 07/09/2025 9:31 AM CDT PRE SURGICAL TESTING ONLY--* No surgery found *--* Surgery not found *-@ANPROCEDURE@ Jose Elias Turpin MD LAB BLOOD ORDERABL ES Final Result Performing Organization Address [facility] Co de Phone Number VITOR [facility] [place] [place] [address] * (ABNORMAL) Comprehensive metabolic panel (07/09/2025 9:04 AM CDT) Sodium 133(L) 135 - 145 mmol/L Comment:Testing performed by : [address] [address] Potassium, pl 4.1 3.3 - 4.9 mmol/L VITOR NARAYANAN Comment:Testing performed by : [address] [address] Chloride 98 97 - 110 mmol/L VITOR Comment:Testing performed by : [facility], [address] [place] [address]., [address] CO2 24 22 - 32 mmol/L VITOR Comment:Testing performed by : [address] [address] Anion gap 11 2 - 15 mmol/L VITOR Comment:Testing performed by : [address] [address] BUN 11 6 - 25 mg/dL VITOR Comment:Testing performed by : [address] [address] Creatinine 0.50(L) 0.60 - 1.10 mg/dL VITOR Comment:Testing performed by : [address] [address] Glucose 394(H) 70 - 199 mg/dL VITOR [...] was last revised 2022. Testing performed by: [address] [address] Calcium 9.4 8.5 - 10.3 mg/dL VITOR Comment:Testing performed by : [address] [address] Bilirubin, total 0.3 0.1 - 1.2 mg/dL VITOR Comment:Testing performed by : [address] [address] Protein, pl 7.2 6.5 - 8.5 g/dL VITOR Comment:Testing performed by : [address] [address] Albumin 3.7 3.5 - 5.0 g/dL VITOR Comment:Testing performed by : [address], [place]., [address] Alk phos 90 40 - 130 Units/L VITOR Comment:Testing performed by : [address] [address] ALT 55(H) 7 - 45 Units/L VITOR Comment:Testing performed by : [address] [address] AST 49(H) 10 - 45 Units/L VITOR Comment:Testing performed by : [facility], [address] [place] [address]., [address] Blood 07/09/2025 9:04 AM CDT 07/09/2025 9:15 AM CDT Narrative VITOR - 07/09/2025 9:53 AM CDT PRE SURGICAL TESTING ONLY--* No surgery found *-* Cannot find OR case *-* Surgery not found *- us Jose Elias Turpin MD LAB BLOOD ORDERABL ES Final Result [facility] [address] [facility] Department of Laboratories [place], [place] [id number] * ECG 12 lead (07/09/2025 8:56 AM CDT) Ventricular Rate EKG/Min 74 BPM [facility] Atrial Rate 74 BPM [facility] OR-Interval (MSEC) 158 ms [facility] QRS-Interval (MSEC) 100 ms [facility] QT-Interval (MSEC) 366 ms [facility] QTc 406 ms [facility] P Frannie 45 degrees [facility] R Frannie 35 degrees [facility] T Frannie 33 degrees [facility] Diagnosis Normal sinus rhythm Low voltage QRS Incomplete right bundle branch block No previous ECGs available Confirmed by SULTAN INGRAM M.D. ([id number]) on 07/09/2025 3:36:17 PM [facility] 07/09/2025 8:56 AM CDT 07/09/2025 3:36 PM CDT us Jose Elias Turpin MD ECG ORDERABLES Fi nal Result [facility] * (ABNORMAL) Albumin Creatinine Ratio, Urine (06/03/2023 [...] Most Recently Relevant to Health Maintenance Insurance [facility] H[facility]/PPO Address: [address] [place], [place] [id number] [place] [address] [facility] H[facility]/PPO Address: [address] [place] [address] Care Teams Pediatric Ophthalmologist Relationship Specialty Start Date End Date Jessica Beckwith MD [address] [place] [address] PCP - General Internal Medicine 02/12/25 Kartik Van MD [address] [place] [address] Internal Medicine 02/18/23 Chaim Rodriguez MD [address] [address] [place] [address] Medical Oncologist/Structural Mill Supervisor Hematology and Oncology 04/22/23
--- NOTE | 2025-08-27 15:13 | PC.NURSE ---
Waiting for ultrasound IV.
[2025-08-27] MEDS: SODIUM CHLORIDE 0.9% IV 1,000 ML 999 ML IV CONT (16:21)
--- NOTE | 2025-08-27 16:22 | PC.NURSE ---
Pt has poor vasculature and we have been unable to obtain labs on patient. At this time, pt has been stuck eight times by four different staff members. Pt does, however, have two successful US guided IV's that we were able to get one set of blood cultures and a CBC from. MD Meneses made aware. Fluids started per JAN and will attempt labs again after hydrating. Pt updated on plan as well. Denies any other needs at this time. Call light in reach.
[2025-08-27 16:30] LABS: Hematocrit 42.2 % (37.0-47.0); Hemoglobin 13.0 g/dL (12.0-15.0); Immature Granulocyte Percent A 0.4 % (0-0.5); Immature Platelet Fraction Pct 2.0 % (0.9-11.2); Lymphocytes Absolute Auto 2.47 K/mm3 (0.9-3.2); Mean Corpuscular HGB Conc 30.8 g/dl (32-36); Mean Corpuscular Hemoglobin 26.2 pg (26-34); Mean Corpuscular Volume 84.9 fl (80-100); Nucleated Red Blood Cells Absolute Auto 0.000 K/mm3 (0.0-0.012); Nucleated Red Blood Cells Perc 0.0 % (0.0-0.2); Platelet Count Result 301 k/mm3 (150-375); Red Blood Count 4.97 M/mm3 (4.2-5.4); White Blood Count 11.7 K/mm3 (4.5-10.0)
[2025-08-27 17:08] LABS: Schistocytes None Seen
[2025-08-27 17:10] LABS: Band Neutrophils Percent 0 % (0-6); Hypochromasia 1+
--- NOTE | 2025-08-27 18:02 | PC.NURSE ---
Labs sent, pt to CT at this time. Pt reports hx of hysterectomy.
[2025-08-27 18:05] LABS: Estimated CRCL calculation 168 ml/min; Estimated Glomerular Filt Rate > 60
[2025-08-27 18:12] LABS: SPREG INTERNAL CONTROL Positive; Serum Qual hCG Negative
[2025-08-27 18:18] LABS: Anion Gap 8 mmol/L (4-12); Blood Urea Nitrogen 10 mg/dL (7-17); CRP 5.4 mg/dL (<1.0); Calcium 8.8 mg/dL (8.4-10.2); Carbon Dioxide 26 mmol/L (22-30); Chloride 101 mmol/L (98-107); Estimated CRCL calculation 176 ml/min; Estimated Glomerular Filt Rate > 60; Glucose 194 mg/dL (65-110); Potassium 4.1 mmol/L (3.4-5.0); Sodium 135 mmol/L (137-145)
--- NOTE | 2025-08-27 18:57 | PC.NURSE ---
Per Dr Meneses, no need to collect second set of blood cultures.
[2025-08-27] MEDS: KETOROLAC 15 MG/ML VIAL (*BKC) IV PUSH (19:02)
[2025-08-27] MEDS: SULFAMETHOXAZOLE/TRIMETHOPRIM 800/160 MG DS TABLET 1 TAB PO (19:03)
[2025-08-27] MEDS: ACETAMINOPHEN 325 MG TABLET 650 MG PO (19:03)
[2025-08-27] MEDS: CEPHALEXIN 500 MG CAPSULE PO (19:03)
[2025-08-27 19:08] VITALS: BP 125/79; PULSE 75; RESP 16; O2SAT 97
[2025-08-27 20:04] VITALS: BP 130/81; PULSE 80; RESP 18; O2SAT 99
[2025-08-27 20:05] VITALS: BP 130/81; PULSE 80; RESP 18; O2SAT 99
== END 2025-08-27 20:07 | disposition home or self-care (01) ==
PROVIDERS: Emergency Provider Student in an Organized Health Care Education/Training Program; PCP Internal Medicine
DX: L03.115 Cellulitis of right lower limb (principal); D72.829 Elevated white blood cell count, unspecified; R79.82 Elevated C-reactive protein (CRP); E11.65 Type 2 diabetes mellitus with hyperglycemia; Z79.84 Long term (current) use of oral hypoglycemic drugs; F32.A Depression, unspecified; F41.9 Anxiety disorder, unspecified; G47.30 Sleep apnea, unspecified
CPT/HCPCS: 36415; 73701; 80048; 83605; 84703; 85025; 85055; 85652; 86140; 96361; 96374; 99284; A9270; J1885; J7030; Q9967

== ENCOUNTER 2025-08-29 12:31 | Emergency (ER) | payer OTHER, SELFPAY ==
--- OUTSIDE RECORDS SUMMARY | 2024-09-30 16:00 | XMS_ITS ---
Author Organization [employer] [facility] Address [address] [address] Care Team Providers Care Pumping Station Supervisor Name Role Phone Becca Tellez Primary Care Provider [phone] Migration, Provider Unavailable Unavailable Allergies Allergen (clinical drug ingredient) Drug/Non Drug Allergy documented on EMR Reaction Allergy Type Onset Date Status promethazine Phenergan Unknown Drug Allergy Acti ve amoxicillin Amoxicillin Unknown Drug Allergy Act fabián [facility]version Encounter Medications Medication SIG (Take, Route, [...] Active Encounters Encounter Location Date Provider Diagnosis [facility] [address] [address] 09/30/2024 Provider Migration Joan's syndrome, 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 Assessments Encounter Date Diagnosis (ICD Code) Assessment Notes Treatment Notes Treatment Clinical Notes Section Notes 09/30/2024 Lester's syndrome, 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) Plan Of Treatment Medication Medication Name Sig Start Date Stop Date Notes dexAMETHasone 1 MG 1 tab(s) orally at 1 0 pm night before 8 am cortisol; Duration: 1 days 08/14/2024 Spironolactone 50 MG 2 tab(s) orally gifty ly; Duration: 90 days 08/14/2024 Progress Notes * Kirsten HENDRICKSDOB:[birth year] (35 yo F)Acc No.[id number]:09/30/2024 Patient: Adam CLEMONS Amanda Provider: He smith Migration :1990 A ge:34 Y S ex:Female Date:09/30/2024 Address:[address] [place], [place] [phone] Pcp:Becca Tellez Subjective: * Chief Complaints: * [...] Electronic signature of Alex tao Migration on 08/29/2025 at 02:10 PM CDT Sign off status: Pending * Provider: He smith Migration Date: 11/30/2023 Generated for Xu abraham/Mena/Naina on: 02:10 PM CDT
--- OUTSIDE RECORDS SUMMARY | 2024-10-06 07:10 | XMS_ITS ---
Author Organization [employer] [facility] Address [address] [place] [address] Care Team Providers Care Old Coin Dealer Name Role Phone Becca Tellez Primary Care Provider [phone] REASON FOR VISIT lab follow up// text Encounters Encounter Location Date Provider Diagnosis [place] [facility], [facility] - Becca Tellez [address] [place] [address] 10/06/2024 Becca Tellez Plan Of Treatment No Information Progress Notes * Kirsten HENDRICKSDOB:[birth year] (35 yo F)Acc No.[id number]:10/06/2024 Progress Notes Patient: Kirsten ONOFRE Provider: Mike Tellez MD :1990 A ge:34 Y S ex:Female Date:10/06/2024 Address:[address] [place], [place] [address] Subjective: * Chief Complaints: * 1 . Lab follow up// text. 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 This visit was performed in office via provider and patient located in primary care office with real time audio with video. 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 This visit was performed in office via provider and patient located in primary care office with real time audio with video.
--- OUTSIDE RECORDS SUMMARY | 2024-11-17 05:30 | XMS_ITS ---
Author Organization [facility] Address [address] [place] [address] Care Team Providers Care Clerical Office Name Role Phone Becca Tellez Primary Care Provider REASON FOR VISIT 6 week f/u anamaria Encounters Encounter Location Date Provider Diagnosis [facility], [facility] - Becca Tellez [address] [place] [address] 11/17/2024 Becca Tellez Plan Of Treatment No Information Progress Notes * SINTIAMARTINKirsten DANIELSDOB:[birth year] (35 yo F)Acc No.[id number]:11/17/2024 Progress Notes Patient: Kirsten ONOFRE Provider: Mike Tellez MD :1990 A ge:34 Y S ex:Female Date:11/17/2024 Address:[address] [place], [place] [phone] Subjective: * Chief Complaints: * 1 . 6 week f/u anamaria. * Medical History: Objective: * Vitals: Assessment: Plan: * Treatment: * Billing Information: * Visit Code: * Procedure Codes: * Electronic signature of Mo Tellez MD on 08/29/2025 at 02:09 PM CDT Sign off status: Pending * Provider: Mike Tellez MD Date: 0 11/17/2024 Generated for Maryi ng/Faxing/eTransmitting on: 1 02:09 PM CDT
--- NOTE | ~2025-08-29 | US_ITS ---
EXAMINATION: US soft tissue LE RT, 08/29/2025 14:08 CDT HISTORY: abscess r medial upper thigh Comparison: None Technique: Collins-scale and color Doppler images were obtained FINDINGS: Correlating with the palpable area within the subcutaneous tissues there is a small complex focus measuring 6 x 6 mm with ill-defined soft tissue edema noted. IMPRESSION: Probable small abscess with cellulitis. Follow-up recommended to assess resolution Reviewed, dictated and finalized at location P. IMPRESSION: Probable small abscess with cellulitis. Follow-up recommended to as sess resolution
[2025-08-29 12:40] VITALS: BP 144/78; PULSE 82; RESP 18; TEMP 36.1; O2SAT 99
--- OUTSIDE RECORDS SUMMARY | 2025-08-29 14:08 | XMS_ITS | Clinical Summary ---
Author Organization [facility] [employer] Address [address] [place] [address] Care Team Providers Care Wet Process Miller Name Role Phone Raul Dan MD Primary Care Provider [phone] Source Comments [facility] [employer],non-owned Affiliates and Associated Physician Practices is amultiple site organization consisting of ambulatory clinics and hospital sitesin [place], [place], [place] and [place]. This disclosure is being madepursuant to the Care Everywhere program and may not contain all information available regarding this patient. Last updated 18.[facility] [employer] Allergies Active Allergy Reactions Criticality Noted Date [...] on file Legal Sex Female 5:42 AM WIRE ROPE FABRICATION SUPERVISOR Gender Identity Not on file Sexual Orientation Not on file Last Filed Vital Signs Vital Sign Reading Time Taken Comments Blood Pressure 151/86 09/29/2019 3:05 PM WIRE ROPE FABRICATION SUPERVISOR Pulse 110 09/29/2019 3:05 PM WIRE ROPE FABRICATION SUPERVISOR Temperature 37 C (98.6 F) 09/29/2019 3:05 PM WIRE ROPE FABRICATION SUPERVISOR Respiratory Rate 18 09/29/2019 3:05 PM WIRE ROPE FABRICATION SUPERVISOR Oxygen Saturation 96% 09/29/2019 3:05 PM WIRE ROPE FABRICATION SUPERVISOR Inhaled Oxygen Concentration - - Weight 117.8 kg (259 lb 9.6 oz) 09/29/2019 3:05 PM WIRE ROPE FABRICATION SUPERVISOR Height 160 cm (5' 3) 09/29/2019 3:05 PM WIRE ROPE FABRICATION SUPERVISOR Body Mass Index 45.99 09/29/2019 3:05 PM WIRE ROPE FABRICATION SUPERVISOR Plan of Treatment Health Maintenance Due Date [...] Management General On track( 019 3:32 PM WIRE ROPE FABRICATION SUPERVISOR) Martin Brewer, RN Note: Expected end date: [...] [facility] Care Teams Wet Process Miller Relationship Specialty Start Date End Date Raul Dan MD [address] [place] [phone] PCP - General 02/07/19
--- OUTSIDE RECORDS SUMMARY | 2025-08-29 14:09 | XMS_ITS | Patient Health Record ---
Author Organization [employer] [facility] Address [address] [address] Care Team Providers Care Van Driver Name Role Phone Becca Tellez Primary Care [...] Status Risk Notes Problem Vitamin D deficiency (35211608) Vitamin D deficiency, unspecified (E55.9) Active confirmed Problem Hyperglycemia due to type 2 diabetes mellitus (661744224506519) Type 2 diabetes mellitus with hyperglycemia (E11.65) Active confirmed Problem Hyperlipidemia (57984410) Hyperlipidemia, unspecified (E78.5) Active confirmed Problem Essential hypertension (70030759) Essential (primary) hypertension (I10) Active confirmed Problem Obesity (357034920) Obesity, unspecified (E66.9) Active confirmed Problem [place]'s syndrome (61726776) [place]'s syndrome, 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 Vital Signs Heart Rate 80 /min 10/09/2024 Respiratory Rate 12 /min 10/09/2024 Blood pressure diastolic 82 mm Hg 10/09/2024 Height 63 in 10/09/2024 Blood pressure systolic 124 mm Hg 10/09/2024 Weight 370 lbs 10/09/2024 BMI 65.54 kg/m2 10/09/2024 Encounters Encounter Location Date Provider Diagnosis [address] [place] [address] 09/30/2024 Provider Migration Joan's syndrome, 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 [facility] - Becca Tellez [address] [place] [address] 09/04/2024 Becca [facility] - Becca Tellez [address] [place] [address] 09/08/2024 Becca [facility] [address] [place] [address] 09/19/2024 Becca [facility] - Becca Tellez [address] [place] [address] 09/21/2024 Becca Tellez [facility] [address] [place] [address] 10/06/2024 Becca Tellez Type 2 diabetes mellitus with hyperglycemia E11.[address] [facility] [address] [place] [address] 10/09/2024 Becca Tellez [facility], [facility] - Becca Tellez [address] [place] [address] 10/09/2024 Becca Tellez Type 2 diabetes mellitus with hyperglycemia E11.65 ; [place]'s syndrome, 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 ; Vitamin D deficiency, [...] mellitus with hyperglycemia (ICD-10 - E11.65) 10/09/2024 [place]'s syndrome, 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) 10/09/2024 Vitamin [...] before meals (total 84 units/day).- Plan: Sent [facility] [facility] 3 Plus Sensor to [facility] for better glucose monitoring. Encourage patient to titrate insulin as needed and continue metformin. 2. Hyperlipidemia- Patient currently taking gemfibrozil.- Previously on statins but not recently.- Plan: Prescribed rosuvastatin, to be taken every other day at bedtime. Monitor lipid levels in upcoming lab work. 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.- [...] the beginning of the year, still through [facility].- Plan: Ensure proper coordination of care and [...] procedures, referring and communicating with other health child caregiver private home, documenting clinical information in the electronic or [...] Insured Coverage Start Date Coverage End Date [facility] [address] [place] [address] [id number] Kirsten Del Castillo Self - patient is the insured Medical (General) History Medical History History ICD Code diabetes COPD depression Surgical History Surgery Date(Month/Year) turbinectomy septioplasty tonsilectomy hysterectomy 2022 Hospitalization History Reason Date(Month/Year) pericarditits 2022 blood clot 2022
--- OUTSIDE RECORDS SUMMARY | 2025-08-29 14:10 | XMS_ITS | Clinical Summary ---
Author Organization [facility] [address] Address [address] [place] [address] Care Team Providers Care Physical Testing Supervisor Name Role Phone Kartik Van MD Unavailable Chaim Rodriguez MD Unavailable [phone] Jessica Beckwith MD Primary Care Provide r Allergies Active Allergy Reactions Criticality Noted Date Comments Amoxicillin-Pot Clavulanate Hives Medium 02/18/2023 [place]-Cresol Rash Medium 07/03/2025 Promethazine Hives,Itching,Unknow n, Rash,Urticaria [...] 1 tablet (50 mcg total) by mouth mutuel department manager before breakfast 90 tablet 2 4 Active [...] 01/20/2024 Assessment & Plan (01/20/2024 5:16 PM CRIME PREVENTION POLICE OFFICER): Hba1c was Lab Results Component Value Date [...] placed and connected to her phone via Lucibel George Patient is also linked to our [...] hospitalization at [facility] 12/07/2022 Pulmonary embolism 01/25/2023 Elevated liver enzymes 02/07/2019 Overview (03/15/2025): 08/01/19 Fibroscan CAP 307, E 8.0 kPa Hyperlipidemia 02/07/2019 Essential hypertension 02/07/2019 Asthma 02/07/2019 Type 2 diabetes mellitus 01/04/2019 Obstructive sleep apnea syndrome 10/09/2018 Encounters Date Type Department Care Team Description 07/25/2025 7:15 AM CDT Office Visit [facility] Hand Surgery [address] [place] [phone] Marian Perez, BELTING INSPECTOR Carpal tunnel syndrome on right (Primary Dx) 07/12/2025 7:30 AM CDT - 07/12/2025 8:15 AM CDT Surgery [facility] OR [address] [place] [address] Kermit Mcmanus MD RIGHT CARPAL TUNNEL RELEASE 07/12/2025 7:13 AM CDT Anesthesia Event [facility] OR [address] [place] [address] Khoi Lee MD 07/12/2025 5:57 AM CDT - 07/12/2025 8:06 AM CDT Hospital Encounter [facility] OR [address] [place] [address] Kermit Mcmanus MD Carpal tunnel syndrome on right [G56.01] (Primary Dx) Discharge Disposition: Discharge to home or self care 07/11/2025 7:30 AM CDT Office Visit [facility] Surgery [address] [place] [phone] Marian Perez, KENNY Right carpal tunnel syndrome (Primary Dx); Right wrist pain 07/09/2025 8:00 AM CDT Pre-Admission Testing [facility] Pre Admit Testing [address] [place] [address] Pre-op testing 07/09/2025 Orders Only [facility] PreAdmission Testing [facility] [place] [address] Odalys Hayden RN 07/03/2025 Orders Only [facility] Pre Admit Testing [address] [place] [address] Amaya Esparza, LEIGH Pre-op testing (Primary Dx) 07/02/2025 7:30 AM CDT Office Visit [facility] Hand [facility] [address] [place] [phone] Kermit Mcmanus MD Right carpal tunnel syndrome [...] hospitalization at [facility] 12/07/2022 Diabetes mellitus Type 2 diabetes mellitus [...] on file Legal Sex Female 7:57 PM CRIME PREVENTION POLICE OFFICER Gender Identity Not on file Sexual Orientation [...] was last reviewed 2021. Testing performed by: [facility], [address] [place] [address]., [address] Blood 07/09/2025 9:04 AM CDT 07/09/2025 9:15 AM CDT Jose Elias Turpin MD LAB BLOOD ORDERABL ES Final Result Performing Organization Address [facility] Co de Phone Number VITOR [address] [place] [address] * (ABNORMAL) Hemoglobin A1c (07/09/2025 9:04 AM CDT) Hgb A1C 11.3(H) 4.0 - 5.6 % Comment:Testing performed by : [address] [address] Estimated Average Glucose 278 mg/dL VITOR Comment: The ADA recommends reporting an estimated Average Glucose (eAG) with all Hemoglobin A1c results using the equation derived from a study of 507 normal and diabetic adults. Minority populations were underrepresented and children were not included. (Diabetes Care 31:2895-0585, 2008). The eAG is not equivalent to a fasting glucose. Testing performed by: [address] [address] Blood 07/09/2025 9:04 AM CDT 07/09/2025 9:15 AM CDT Narrative VITOR - 07/09/2025 9:31 AM CDT PRE SURGICAL TESTING ONLY--* No surgery found *--* Surgery not found *-@ANPROCEDURE@ Jose Elias Turpin MD LAB BLOOD ORDERABL ES Final Result Performing Organization Address [facility] Co de Phone Number VITOR [facility] [place] [address] * (ABNORMAL) Comprehensive metabolic panel (07/09/2025 9:04 AM CDT) Sodium 133(L) 135 - 145 mmol/L Comment:Testing performed by : [address] [address] Potassium, pl 4.1 3.3 - 4.9 mmol/L VITOR NARAYANAN Comment:Testing performed by : [address] [address] Chloride 98 97 - 110 mmol/L VITOR Comment:Testing performed by : [facility], [address] [place] [address]., [address] CO2 24 22 - 32 mmol/L VITOR Comment:Testing performed by : [address] [address] Anion gap 11 2 - 15 mmol/L VITOR Comment:Testing performed by : [address] [address] BUN 11 6 - 25 mg/dL VITOR Comment:Testing performed by : [address] [address] Creatinine 0.50(L) 0.60 - 1.10 mg/dL VITOR Comment:Testing performed by : [address] [address] Glucose 394(H) 70 - 199 mg/dL VITOR [...] was last revised 2022. Testing performed by: [address] [address] Calcium 9.4 8.5 - 10.3 mg/dL VITOR Comment:Testing performed by : [address] [address] Bilirubin, total 0.3 0.1 - 1.2 mg/dL VITOR Comment:Testing performed by : [address] [address] Protein, pl 7.2 6.5 - 8.5 g/dL VITOR Comment:Testing performed by : [address] [address] Albumin 3.7 3.5 - 5.0 g/dL VITOR Comment:Testing performed by : [address], [place]., [address] Alk phos 90 40 - 130 Units/L VITOR Comment:Testing performed by : [address] [address] ALT 55(H) 7 - 45 Units/L VITOR Comment:Testing performed by : [address] [address] AST 49(H) 10 - 45 Units/L VITOR Comment:Testing performed by : [facility], [address] [place] [address]., [address] Blood 07/09/2025 9:04 AM CDT 07/09/2025 9:15 AM CDT Narrative VITOR - 07/09/2025 9:53 AM CDT PRE SURGICAL TESTING ONLY--* No surgery found *-* Cannot find OR case *-* Surgery not found *- us Jose Elias Turpin MD LAB BLOOD ORDERABL ES Final Result [facility]ITOR [address] [facility] Department of Laboratories [place], [place] [id number] * ECG 12 lead (07/09/2025 8:56 AM CDT) Ventricular Rate EKG/Min 74 BPM [facility] Atrial Rate 74 BPM [facility] NE-Interval (MSEC) 158 ms [facility] QRS-Interval (MSEC) 100 ms [facility] QT-Interval (MSEC) 366 ms [facility] QTc 406 ms [facility] P [place] 45 degrees [facility] R [place] 35 degrees [facility] T [place] 33 degrees [facility] Diagnosis Normal sinus rhythm Low voltage QRS Incomplete right bundle branch block No previous ECGs available Confirmed by SULTAN INGRAM M.D. ([id number]) on 07/09/2025 3:36:17 PM [facility] 07/09/2025 8:56 AM CDT 07/09/2025 3:36 PM CDT us Jose Elias Turpin MD ECG ORDERABLES Fi nal Result [facility] * (ABNORMAL) Albumin Creatinine Ratio, Urine [...] Recently Relevant to Health Maintenance Insurance [facility] [place] [address] Care Teams Physical Testing Supervisor Relationship Specialty Start Date End Date Jessica Beckwith MD [address] [place] [address] PCP - General Internal Medicine 02/12/25 Kartik Van MD [address] [place] [address] Internal Medicine 02/18/23 Chaim Rodriguez MD [address] [address] [place] [address] Medical Oncologist/[employer] Hematology and Oncology 04/22/23
--- OUTSIDE RECORDS SUMMARY | 2025-08-29 14:10 | XMS_ITS | Clinical Summary ---
Author Organization [facility] Address [address] [place] [address] Care Team Providers Care Material Handling Supervisor Name Role Phone Natalya Diaz KENNY Primary Care Provider [phone] Encounters Date Type Department Care Team Description [...] patient's age to complete this topic Insurance [facility] Care Teams Material Handling Supervisor Relationship Specialty Start Date End Date Natalya Diaz NP [address] [address] PCP - General NURSE PRACTITIONER 07/09/22
--- OUTSIDE RECORDS SUMMARY | 2025-08-29 14:10 | XMS_ITS | Patient Health Record ---
Author Organization [facility] Address [address] [place], [place] [address] Care Team Providers Care Medical Program Specialist Name Role Phone Becca Tellez Primary Care [...] a nd pick correct strength-formulati on from [employer] options. If intended option is not shown, discontinue and re-order from Quick Search* *Pick strength-form from [employer] for eRX* Active FreeStyle Forrest 3 Plus [...] a nd pick correct strength-formulati on from [employer] options. 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 Problem Vitamin D deficiency (17992108) Vitamin D deficiency, unspecified (E55.9) Active confirmed Problem Obesity (560337916) Obesity, unspecified (E66.9) Active confirmed Problem Essential hypertension (71333016) Essential (primary) hypertension (I10) Active confirmed Problem Hyperlipidemia (96924045) Hyperlipidemia, unspecified (E78.5) Active confirmed Vital Signs Heart Rate 80 /min 10/09/2024 Respiratory Rate 12 /min 10/09/2024 Blood pressure diastolic 82 mm Hg 10/09/2024 Height 63 in 10/09/2024 Blood pressure systolic 124 mm Hg 10/09/2024 Weight 370 lbs 10/09/2024 BMI 65.54 kg/m2 10/09/2024 Encounters Encounter Location Date Provider Diagnosis [address] [phone] 09/30/2024 Provider Migration Joan's syndrome, 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 Tellez [address] [place], [place] [phone] 09/04/2024 Becca Tellez AMSAMUEL Tellez [address] [place] [address] 09/08/2024 Becca Tellez [place] [phone] 09/19/2024 Becca Tellez [address] [place] [address] 09/21/2024 [place] [address] 10/06/2024 Becca Tellez Type 2 diabetes mellitus with hyperglycemia E11.65 [place] [phone] 10/09/2024 Becca Tellez Assessments Encounter Date Diagnosis (ICD Code) Assessment Notes Treatment Notes Treatment Clinical Notes Section Notes 09/30/2024 [place]'s syndrome, 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) 10/06/2024 Type [...] Sent Freestyle Forrest 3 Plus Sensor to [facility] for better glucose monitoring. Encourage patient [...] the beginning of the year, still through [place].- Plan: Ensure proper coordination of care and [...] referring and communicating with other health healthcare management, documenting clinical information in the electronic [...]
[2025-08-29 14:28] LABS: Hematocrit 38.5 % (37.0-47.0); Hemoglobin 12.2 g/dL (12.0-15.0); Immature Granulocyte Percent A 0.7 % (0-0.5); Lymphocytes Absolute Auto 1.65 K/mm3 (0.9-3.2); Mean Corpuscular HGB Conc 31.7 g/dl (32-36); Mean Corpuscular Hemoglobin 26.9 pg (26-34); Mean Corpuscular Volume 84.8 fl (80-100); Nucleated Red Blood Cells Absolute Auto 0.000 K/mm3 (0.0-0.012); Nucleated Red Blood Cells Perc 0.0 % (0.0-0.2); Platelet Count Result 252 k/mm3 (150-375); Red Blood Count 4.54 M/mm3 (4.2-5.4); White Blood Count 7.5 K/mm3 (4.5-10.0)
[2025-08-29 14:44] LABS: Alanine Aminotransferase 76 U/L (6-35); Albumin Level 4.0 g/dL (3.5-5.1); Alkaline Phosphatase 77 U/L (38-126); Anion Gap 8 mmol/L (4-12); Aspartate Amino Transferase 105 U/L (14-36); Bilirubin,Total 0.6 mg/dL (0.2-1.3); Blood Urea Nitrogen 10 mg/dL (7-17); Calcium 8.8 mg/dL (8.4-10.2); Carbon Dioxide 24 mmol/L (22-30); Chloride 101 mmol/L (98-107); Estimated Glomerular Filt Rate > 60; Glucose 301 mg/dL (65-110); Potassium 4.7 mmol/L (3.4-5.0); Sodium 133 mmol/L (137-145); Total Protein 7.6 g/dL (6.3-8.2)
--- NOTE | 2025-08-29 15:22 | ED.SKABFB ---
HPI - Skin/Abscess/Foreign Bdy General Chief complaint: Skin/Abscess/Foreign Body <Rene Trujillo APRN - Last Filed: 08/29/25 17:40> Stated complaint: infection right leg <Rene Trujillo APRN - Last Filed: 08/29/25 17:40> Time Seen by Provider: 08/29/25 13:19 <Rene Trujillo APRN - Last Filed: 08/29/25 17:40> Source: patient and RN notes reviewed <Rene Trujillo APRN - Last Filed: 08/29/25 17:40> Mode of arrival: ambulatory <Rene Trujillo APRN - Last Filed: 08/29/25 17:40> Limitations: no limitations <Rene Trujillo APRN - Last Filed: 08/29/25 17:40> History of Present Illness HPI narrative: 35-year-old female presents to ER complaining of abscess right thigh. Patient has been here twice this week at her abscess drain is started on oral antibiotics. Patient had wound packing removed the other day at her last visit and was discharged with pain medication. Patient reports she has noticed drainage and pain especially with walking to the area. Patient does not believe it is getting worse. Patient has any fevers, body aches, chills, nausea vomiting, or any other symptoms. Patient has a history of diabetes and obesity. <Rene Trujillo APRN - Last Filed: 08/29/25 17:40> Related Data Home medications: Home Medications ?Medication ?Instructions ?Recorded ?Confirmed ?Last Taken ?Type aripiprazole 2 mg tablet 2 mg PO HS 03/04/22 07/01/23 06/29/23 20:00 History metformin 1,000 mg tablet 1,000 mg PO BID 03/04/22 07/01/23 06/30/23 08:00 History pen needle, diabetic 31 gauge x 03/04/22 12/08/22 Unknown History 01/28 (TRUEplus Pen Needle) sertraline 100 mg tablet 100 mg PO HS 03/04/22 07/01/23 06/29/23 20:00 History ergocalciferol (vitamin D2) 1,250 1,250 mcg PO WEEKLY 03/23/23 06/22/23 06/25/23 History mcg (50,000 unit) capsule albuterol sulfate 90 mcg/actuation 1 puff inhalation PRN PRN 06/22/23 07/01/23 06/28/23 History aerosol inhaler Shortness Of Breath Or Wheezing gemfibrozil 600 mg tablet 600 mg PO 07/31/25 Unknown History semaglutide 1 mg/dose (4 mg/3 mL) mg subcut 07/31/25 Unknown History subcutaneous pen injector (Ozempic) <Rene Trujillo APRN - Last Filed: 08/29/25 17:40> Allergies/Adverse reactions: Allergies Allergy/AdvReac Type Severity Reaction Status Date / Time amoxicillin (From Augmentin) Allergy Mild Hives Verified 08/27/25 10:08 clavulanic acid (From Allergy Mild Hives Verified 08/27/25 10:08 Augmentin) promethazine (From Phenergan) Allergy Mild Hives Verified 08/27/25 10:08 <Rene Trujillo APRN - Last Filed: 08/29/25 17:40> Review of Systems Review of Systems: CONSTITUTIONAL: Denies fever, chills, or sweats. EYES: Denies visual changes, redness, or discharge. ENT: Denies rhinorrhea, congestion, sore throat, or otalgia. CARDIOVASCULAR: Denies chest pain, palpitations, or edema. RESPIRATORY: Denies cough or dyspnea. GASTROINTESTINAL: Denies abdominal pain, nausea, vomiting, or diarrhea. GENITOURINARY: Denies dysuria or hematuria. SKIN: Denies rash or itching. Positive for wound. MUSCULOSKELETAL: Denies back pain, joint pain, or myalgia. NEUROLOGIC: Denies headache, numbness, or weakness. PSYCHIATRIC: Denies anxiety or depression. All other systems reviewed are negative, except as documented in HPI. <Rene Trujillo APRN - Last Filed: 08/29/25 17:40> [facility] Past Medical History Medical History: Medical History MRSA infection Right hand dominant [place] disease Encounter for insertion of intrauterine contraceptive device Morbid obesity Major depressive disorder, single episode, unspecified Hyperlipidemia, unspecified Anxiety and depression Pericarditis DIEGO on CPAP PCOS (polycystic ovarian syndrome) Diabetes 1.5, managed as type 2 Sleep apnea in adult <Rene Trujillo APRN - Last Filed: 08/29/25 17:40> Surgical History Surgical History: Surgical History S/P carpal tunnel release H/O gynecological procedure 07/01/23 RA total lap hyst & BL salpingectomy hysteroscopy and D & C H/O: knee surgery Hx of tonsillectomy <Rene Trujillo APRN - Last Filed: 08/29/25 17:40> Family History Family History: Family History Mother Family history of malignant neoplasm of breast in first degree relative <Rene Trujillo APRN - Last Filed: 08/29/25 17:40> Social History Social History: Social History Smoking status: Never smoker Second hand tobacco smoke exposure: Yes Alcohol intake: current Drinks per week: 1 Alcohol use details: 1/MONTH Substance use: former Substance use type: marijuana Last use: NOV 2022 Lack of Transportation: No Lack of Food: Never True Current Housing: I Have Housing Concerned About Future Housing: No Difficulty Paying Gas/Electric Bills: No Difficulty Paying for Meds: YES Currently Unemployed: No Education: Associate Degree Difficulty w/ Childcare or Family Care: No Living arrangements: with roommate(s) Additional living arrangements comments: boyfriend and roomate Occupation/Education: occupation Additional occupation/education comments: works M-F Gender identity (if verbalized by the patient): Female Sexual Orientation (if Verbalized by the Patient): Straight or Heterosexual Spiritual care concerns: No Agree to blood products: No <Rene Trujillo APRN - Last Filed: 08/29/25 17:40> Comments At the time of my signature, I reviewed and agree with the nursing past medical, surgical, social, and family history. There is no relevant family history pertinent to the patient complaint. <Rene Trujillo APRN - Last Filed: 08/29/25 17:40> Exam Narrative: GENERAL: This is a well-nourished, well-developed adult, in no apparent distress. They are non ill-appearing, nontoxic appearing. Patient morbidly obese. Physical exam limited due to large body habitus. HEAD: normocephalic, atraumatic. EYES: Sclera clear/white. Conjunctiva normal. Vision is grossly intact. Extraocular movements intact EARS: External ears normal, Hearing grossly intact. NOSE: External nose normal THROAT: Mucous membranes moist, NECK: Neck supple, CARDIOVASCULAR: Regular rate and rhythm RESPIRATORY: Respiratory rate normal, respiratory effort nonlabored, no respiratory distress GASTROINTESTINAL: Abdomen is large, round, nondistended. No tenderness to palpation. Bowel sounds active. No guarding rigidity. No rebound tenderness. SKIN: Right thigh: Abscess present to right upper medial thigh. It is scabbed over, slight drainage present. Mild erythema. No induration. No crepitus. NEURO: awake, alert, and oriented to person, place and time. There were no obvious focal neurologic abnormalities. EXTREMITIES: No joint tenderness, effusion, or edema noted. BACK: Nontender without deformity. No CVA tenderness. 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 Discussed spectrum of repeat drainage of abscess if there is one appreciable (although he denies ), admitting for worsening infection/cellulitis requiring IV antibiotics, especially given this is patient's 3rd presentation for this. By report, he describes a physical exam similar to the one appreciated by me. No signs of spreading infection or to suggest necrotizing fasciitis/Alejandrina's gangrene such as crepitus, bullae, subcutaneous emphysema, spreading infection to genitals. Reasonable to defer repeating CT scan. Ultimately, the abscess appreciated is of a small size. Provider reviewed wound culture to ensure patient appeared to be on appropriate antibiotic therapy. <Kamilah Meneses MD - Last Filed: 08/30/25 04:42> Vital Signs Vital signs: Vital Signs Temperature 97.0 F L 08/29/25 12:40 Pulse Rate 82 08/29/25 12:40 Respiratory Rate 18 08/29/25 12:40 Blood Pressure 144/78 H 08/29/25 12:40 Pulse Oximetry 99 08/29/25 12:40 Temperature 97.6 F 08/29/25 17:42 Pulse Rate 82 08/29/25 17:42 Respiratory Rate 16 08/29/25 17:42 Blood Pressure 145/83 H 08/29/25 17:42 Pulse Oximetry 99 08/29/25 17:42 Reviewed <Rene Trujillo APRN - Last Filed: 08/29/25 17:40> Vital Signs Temperature 97.0 F L 08/29/25 12:40 Pulse Rate 82 08/29/25 12:40 Respiratory Rate 18 08/29/25 12:40 Blood Pressure 144/78 H 08/29/25 12:40 Pulse Oximetry 99 08/29/25 12:40 Temperature 97.6 F 08/29/25 17:42 Pulse Rate 82 08/29/25 17:42 Respiratory Rate 16 08/29/25 17:42 Blood Pressure 145/83 H 08/29/25 17:42 Pulse Oximetry 99 08/29/25 17:42 <Kamilah Meneses MD - Last Filed: 08/30/25 04:42> MDM - Skin/Abscess/Foreign Bdy MDM Narrative Medical decision making narrative: Appears patient abscess is healing well. No crepitus on exam. This is patient's 3rd visit to the ER for it. Will obtain ultrasound imaging to assess for a worsening abscess formation, and repeat lab work. Discussed option of failing outpatient therapy for admission patient like to wait for results. CBC without leukocytosis, CBC improving. CMP with elevated glucose at 301, mildly elevated liver enzymes, no other previous liver enzymes to compare. Normal coags, negative lipase. Patient reports she took 1 dose of Tylenol, the few days ago but is not taking any since. Patient nontender to palpation, peritoneal findings. Patient denies any frequent alcohol use. Advised patient to follow-up with her PCP about elevated LFTs, could be fatty liver disease given her history of obesity diabetes. Through shared decision making with patient discussed the option of admission given her 3rd visit in failing outpatient therapy though it appears that her abscess status cellulitis is significantly improving and resolving or to go home and continue managing care at home. Patient like to go home and continue managing her cellulitis/abscess at home. Wound culture has came back with Staph that is susceptible to most antibiotics. She is on Bactrim and Keflex which is steps susceptible to Bactrim according to the culture results. Discussed physical exam findings. Advised supportive measures and signs/symptoms to go to the ER. Pt is appropriate for outpt treatment and f/u. <Rene Trujillo APRN - Last Filed: 08/29/25 17:40> Differential Diagnosis Differential diagnosis: Likely abscess of skin or subcutaneous tissue, cellulitis and other (Necrotizing fasciitis.) <Rene Trujillo APRN - Last Filed: 08/29/25 17:40> Lab Data Attestation: I reviewed the patient's lab results. <Rene Trujillo APRN - Last Filed: 08/29/25 17:40> Result diagrams: 08/29/25 14:22 08/29/25 14:22 <Rene Trujillo APRN - Last Filed: 08/29/25 17:40> Labs: Lab Results 08/29/25 08/29/25 Range/Units 14:22 16:41 WBC 7.5 (4.5-10.0) K/mm3 RBC 4.54 (4.2-5.4) M/mm3 Hgb 12.2 (12.0-15.0) g/dL Hct 38.5 (37.0-47.0) % MCV 84.8 (80-100) fl MCH 26.9 (26-34) pg MCHC 31.7 L (32-36) g/dl RDW 14.0 (11.5-14.5) % Plt Count 252 (150-375) k/mm3 MPV 9.2 (7.4-10.4) fl Immature Gran % (Auto) 0.7 H (0-0.5) % Neut % (Auto) 71.0 (45.5-73.1) % Lymph % (Auto) 22.1 (18.3-44.2) % [place] % (Auto) 5.0 (2.6-8.5) % Eos % (Auto) 0.7 (0-4.4) % Baso % (Auto) 0.5 (0.2-1.2) % Lymph # (Auto) 1.65 (0.9-3.2) K/mm3 [place] # (Auto) 0.4 (0.1-0.6) K/mm3 Eos # (Auto) 0.1 (0-0.3) K/mm3 Baso # (Auto) 0.0 (0.0-0.1) K/mm3 Abs Immat Gran (auto) 0.05 H (0.00-0.031) K/mm3 Absolute Neuts (auto) 5.3 (1.3-6.7) K/mm3 Absolute Nucleated RBC 0.000 (0.0-0.012) K/mm3 Nucleated RBC % 0.0 (0.0-0.2) % PT 14.0 (11.1-14.7) Seconds INR 1.1 APTT 34.2 (22.3-36.8) Seconds Sodium 133 L (137-145) mmol/L Potassium 4.7 (3.4-5.0) mmol/L Chloride 101 (98-107) mmol/L Carbon Dioxide 24 (22-30) mmol/L Anion Gap 8 (4-12) mmol/L BUN 10 (7-17) mg/dL Creatinine 0.58 L (0.7-1.0) mg/dL Estim Creat Clear Calc Not Reportable Estimated GFR > 60 (59 - ) Glucose 301 H (65-110) mg/dL Calcium 8.8 (8.4-10.2) mg/dL Total Bilirubin 0.6 (0.2-1.3) mg/dL AST 105 H (14-36) U/L ALT 76 H (6-35) U/L Alkaline Phosphatase 77 (38-126) U/L Total Protein 7.6 (6.3-8.2) g/dL Albumin 4.0 (3.5-5.1) g/dL Lipase 90 (23-300) U/L <Rene Trujillo, PL SQL PROGRAMMER - Last Filed: 08/29/25 17:40> Lab Results 08/29/25 08/29/25 Range/Units 14:22 16:41 WBC 7.5 (4.5-10.0) K/mm3 RBC 4.54 (4.2-5.4) M/mm3 Hgb 12.2 (12.0-15.0) g/dL Hct 38.5 (37.0-47.0) % MCV 84.8 (80-100) fl MCH 26.9 (26-34) pg MCHC 31.7 L (32-36) g/dl RDW 14.0 (11.5-14.5) % Plt Count 252 (150-375) k/mm3 MPV 9.2 (7.4-10.4) fl Immature Gran % (Auto) 0.7 H (0-0.5) % Neut % (Auto) 71.0 (45.5-73.1) % Lymph % (Auto) 22.1 (18.3-44.2) % [place] % (Auto) 5.0 (2.6-8.5) % Eos % (Auto) 0.7 (0-4.4) % Baso % (Auto) 0.5 (0.2-1.2) % Lymph # (Auto) 1.65 (0.9-3.2) K/mm3 [place] # (Auto) 0.4 (0.1-0.6) K/mm3 Eos # (Auto) 0.1 (0-0.3) K/mm3 Baso # (Auto) 0.0 (0.0-0.1) K/mm3 Abs Immat Gran (auto) 0.05 H (0.00-0.031) K/mm3 Absolute Neuts (auto) 5.3 (1.3-6.7) K/mm3 Absolute Nucleated RBC 0.000 (0.0-0.012) K/mm3 Nucleated RBC % 0.0 (0.0-0.2) % PT 14.0 (11.1-14.7) Seconds INR 1.1 APTT 34.2 (22.3-36.8) Seconds Sodium 133 L (137-145) mmol/L Potassium 4.7 (3.4-5.0) mmol/L Chloride 101 (98-107) mmol/L Carbon Dioxide 24 (22-30) mmol/L Anion Gap 8 (4-12) mmol/L BUN 10 (7-17) mg/dL Creatinine 0.58 L (0.7-1.0) mg/dL Estim Creat Clear Calc Not Reportable Estimated GFR > 60 (59 - ) Glucose 301 H (65-110) mg/dL Calcium 8.8 (8.4-10.2) mg/dL Total Bilirubin 0.6 (0.2-1.3) mg/dL AST 105 H (14-36) U/L ALT 76 H (6-35) U/L Alkaline Phosphatase 77 (38-126) U/L Total Protein 7.6 (6.3-8.2) g/dL Albumin 4.0 (3.5-5.1) g/dL Lipase 90 (23-300) U/L <Kamilah Meneses MD - Last Filed: 08/30/25 04:42> Critical Care Time Critical Care Time Critical Care Time: No <Rene Trujillo APRN - Last Filed: 08/29/25 17:40> Discharge Plan Discharge Clinical Impression: Wound check, abscess, Elevated LFTs <Rene Trujillo APRN - Last Filed: 08/29/25 17:40> Patient Disposition: Home <Rene Trujillo APRN - Last Filed: 08/29/25 17:40> Condition: Stable <Rene Trujillo APRN - Last Filed: 08/29/25 17:40> Instructions: Antibiotic Form, Abscess (ED) <Rene Trujillo APRN - Last Filed: 08/29/25 17:40> Additional Instructions: The ultrasound of your abscess appears to be significantly improving. It is measured 0.6 cm x 0.6 cm. Your lab work is improving from previous lab work this week. Urine elevated liver enzymes. Your lab work is unremarkable. Please follow-up with your PCP by your elevated liver enzymes of a wound recheck. Please wash the wound daily with mild soap and water. Please keep it dry and covered with nonadherent dressing such as a Band-Aid especially if it is draining. Change the dressing daily or when visibly soiled. Take your pain medications as directed. Continue taking your antibiotics as directed. If you developed worsening redness, swelling, pain, fevers, eczema, chills, body aches, or any serious concerns please return to the ER immediately. <Rene Trujillo APRN - Last Filed: 08/29/25 17:40> Patient Language: Bahamian <Rene Trujillo APRN - Last Filed: 08/29/25 17:40> Prescriptions: No Action ergocalciferol (vitamin D2) 1,250 mcg (50,000 unit) capsule 1,250 mcg PO WEEKLY Patient Comments: PT TAKES ON WEDNESDAY gemfibrozil 600 mg tablet 600 mg PO Ozempic 1 mg/dose (4 mg/3 mL) pen injector subcut albuterol sulfate 90 mcg/actuation HFA aerosol inhaler 1 puff INHALATION PRN PRN (Reason: Shortness Of Breath Or Wheezing) sertraline 100 mg tablet 100 mg PO HS metformin 1,000 mg tablet 1,000 mg PO BID aripiprazole 2 mg tablet 2 mg PO HS (DME) pen needle, diabetic [TRUEplus Pen Needle] 31 gauge x 3/16 needle MISCELLANEOUS sulfamethoxazole-trimethoprim [Bactrim DS] 800-160 mg tablet 1 tablet PO Q12H 7 Days Qty: 14 0RF cephalexin 500 mg capsule 500 mg PO Q8H 7 Days Qty: 21 0RF acetaminophen 500 mg capsule 1,000 mg PO Q6H PRN (Reason: pain) Qty: 30 0RF ibuprofen 200 mg capsule 600 mg PO Q8H PRN (Reason: fever or pain) Qty: 30 0RF oxycodone 5 mg tablet 5 mg PO Q8H PRN (Reason: pain) Qty: 7 0RF <Rene Trujillo APRN - Last Filed: 08/29/25 17:40> Follow-up/Referrals: Tang,MD Zack [Primary Care Provider, Unknown] <Rene Trujillo APRN - Last Filed: 08/29/25 17:40> Stand Alone Forms: Work/School Release IP <Rene Trujillo APRN - Last Filed: 08/29/25 17:40> Time of Disposition: 17:30 <Rene Trujillo APRN - Last Filed: 08/29/25 17:40> 17:30 <Kamilah Meneses MD - Last Filed: 08/30/25 04:42>
[2025-08-29 16:42] LABS: Lipase 90 U/L (23-300)
[2025-08-29 17:18] LABS: INR 1.1; Prothrombin Time 14.0 Seconds (11.1-14.7)
[2025-08-29 17:19] LABS: Partial Thromboplastin Time 34.2 Seconds (22.3-36.8)
[2025-08-29 17:42] VITALS: BP 145/83; PULSE 82; RESP 16; TEMP 36.4; O2SAT 99
== END 2025-08-29 17:43 | disposition home or self-care (01) ==
PROVIDERS: PCP Internal Medicine
DX: L02.415 Cutaneous abscess of right lower limb (principal); R74.01 Elevation of levels of liver transaminase levels; E24.9 Cushing's syndrome, unspecified; E78.5 Hyperlipidemia, unspecified; E13.9 Other specified diabetes mellitus without complications; E28.2 Polycystic ovarian syndrome; E66.01 Morbid (severe) obesity due to excess calories; G47.33 Obstructive sleep apnea (adult) (pediatric); F41.9 Anxiety disorder, unspecified; F32.9 Major depressive disorder, single episode, unspecified; Z86.14 Personal history of Methicillin resistant Staphylococcus aureus infection; Z90.710 Acquired absence of both cervix and uterus; Z90.79 Acquired absence of other genital organ(s); Z77.22 Contact with and (suspected) exposure to environmental tobacco smoke (acute) (chronic); Z79.85 Long-term (current) use of injectable non-insulin antidiabetic drugs; Z79.899 Other long term (current) drug therapy; Z79.84 Long term (current) use of oral hypoglycemic drugs
CPT/HCPCS: 36415; 76882; 80053; 83690; 85025; 85610; 85730; 99284